=== PATIENT | male | born 1970 | race American Indian/Alaskan Native ===

== ENCOUNTER 2018-01-18 12:53 | Emergency (ER) | payer BC, OTHER ==
[~2018-01-18] VITALS: Ht 175.3 cm; Wt 113.4 kg
--- OUTSIDE RECORDS SUMMARY | ~2018-01-18 | XMS | Encounter Summary ---
Demographics + + + | Address | [address] | | | [place] [address] | + + + | Home Phone | | + + + | Preferred Language | Unknown | + + + | Marital Status | | + + + | Catholic Affiliation | 1041 | + + + | Race | Unknown | + + + | Ethnic Group | Unknown | + + + Author + + + | Author | [facility] | | | and Min | + + + | Organization | [facility] | | | and [place] | + + + | Address | Unknown | + + + | Phone | Unavailable | + + + Support + + + + + | Name | Relationship | Address | Phone | + + + + + | Brittney Goodrich | ECON | [address] | | | | | [place] | | | | | [address] | | + + + + + Care Team Providers + +------+ + | Care Innersole Fitter Name | Role | Phone | + +------+ + | Mars Urrutia DO | PCP | | + +------+ + Encounter Details +--------+ + + + + | Date | Type | Department | Care Team | Description | +--------+ + + + + | 12/16/ | Abstract | [facility] | [facility] | | | 2018 | | [facility] | [place] [address] | | | | | KIDNEY TRANSPLANT | [place] [address], | | | | | [address] [place] | [place] [address] | | | | | [address] | [phone] | | | | | [address] | | | | | | [phone] | | | +--------+ + + + + Social History + +-------+ +--------+ + | Tobacco Use | Types | Packs/Day | Years | Date | | | | | Used | | + +-------+ +--------+ + | Former Smoker | | | | Quit: 11/19/2014 | + +-------+ +--------+ + + +-------+---+---+ | Smokeless Tobacco: | Snuff | | | | Former User | | | | + +-------+---+---+ + + +---------+ + | Alcohol Use | Drinks/We | oz/Week | Comments | | | ek | | | + + +---------+ + | No | | | | + + +---------+ + + + + | Sex Assigned at | Date Recorded | | | | + + + | Not on file | | + + + as of this encounter Functional Status + + + + | Functional Status | Response | Date of Assessment | + + + + | Are you deaf or do you have serious | No | 11/06/2017 | | difficulty hearing? | | | + + + + | Are you blind or do you have serious | No | 11/06/2017 | | difficulty seeing, even when wearing | | | | glasses? | | | + + + + | Do you have serious difficulty walking or | No | 11/06/2017 | | climbing stairs? (5 years old or older) | | | + + + + | Do you have difficulty dressing or bathing? | No | 11/06/2017 | | (5 years old or older) | | | + + + + | Because of a physical, mental, or emotional | No | 11/06/2017 | | condition, do you have difficulty doing | | | | errands alone such as visiting a doctor's | | | | office or shopping? [15 years old or | | | | older)] | | | + + + + + + + + | Cognitive Status | Response | Date of Assessment | + + + + | Because of a physical, mental, or emotional | No | 11/06/2017 | | condition, do you have serious difficulty | | | | concentrating, remembering, or making | | | | decisions? (5 years old or older) | | | + + + + as of this encounter Plan of Treatment +--------+---------+ + + + | Date | Type | Specialty | Care Team | Description | +--------+---------+ + + + | 01/29/ | Office | Nephrology | [place], | | | 2017 | Visit | | [address] | | | | | | [address], [place] | | | | | | [address] [place] | | | | | | [id number] | | | | | | | | +--------+---------+ + + + as of this encounter Visit Diagnoses Not on filein this encounter"
--- OUTSIDE RECORDS SUMMARY | ~2018-01-18 | XMS | Encounter Summary ---
Demographics + + + | Address | [address] | | | [place] [address] | + + + | Home Phone | | + + + | Preferred Language | Unknown | + + + | Marital Status | | + + + | Voodoo Affiliation | 1041 | + + + | Race | Unknown | + + + | Ethnic Group | Unknown | + + + Author + + + | Author | [facility] | | | and Min | + + + | Organization | [facility] | | | and [place] | + + + | Address | Unknown | + + + | Phone | Unavailable | + + + Support + + + + + | Name | Relationship | Address | Phone | + + + + + | Brittney Goodrich | ECON | [address] | | | | | [place] | | | | | [address] | | + + + + + Care Team Providers + +------+ + | Care Vp Cardiovascular Service Line Name | Role | Phone | + +------+ + | Mars Urrutia DO | PCP | | + +------+ + Reason for Visit + + + | Reason | Comments | + + + | Lab Results | | + + + Encounter Details +--------+ + + + + | Date | Type | Department | Care Team | Description | +--------+ + + + + | 11/24/ | Telephone | [facility] | [place], | Lab Results | | 2018 | | NEPHROLOGY [address] | [address] | | | | | [address] [address] | [address], [place] | | | | | [place], [place] | [address] [place], [place] | | | | | [address] | [address] | | | | | [phone] | | | +--------+ + + + [...] | | | | | | [address] [place] [address] | | | | | | [address] [place] | | | | | | [phone] | | | | | | | | +--------+---------+ + + + as of this encounter Visit Diagnoses Not on filein this encounter"
--- OUTSIDE RECORDS SUMMARY | ~2018-01-18 | XMS | Encounter Summary ---
Demographics + + + | Address | [address] | | | [place] [address] | + + + | Home Phone | | + + + | Preferred Language | Unknown | + + + | Marital Status | | + + + | Restoration Affiliation | 1041 | + + + | Race | Unknown | + + + | Ethnic Group | Unknown | + + + Author + + + | Author | [facility] | | | and Min | + + + | Organization | [facility] | | | and [place] | + + + | Address | Unknown | + + + | Phone | Unavailable | + + + Support + + + + + | Name | Relationship | Address | Phone | + + + + + | Brittney Goodrich | ECON | [address] | | | | | [place] | | | | | [address] | | + + + + + Care Team Providers + +------+ + | Care Helper Driver Name | Role | Phone | + +------+ + | Mars Urrutia DO | PCP | | + +------+ + Encounter Details +--------+ + + + + | Date | Type | Department | Care Team | Description | +--------+ + + + + | 11/17/ | Orders Only | [facility] [place] | [place], | Chronic kidney | | 2018 | | NEPHROLOGY [address] | [address] | disease (CKD), stage | | | | [address] [address] | [address], [place] | V (HCC) (Primary | | | | [place], [place] | [address] [place], [place] | Dx); Anemia in stage | | | | [phone] | [address] | 5 chronic kidney | | | | [phone] | | disease, not on | | | | | | chronic dialysis | | | | | | ([facility]) | +--------+ + + + + Social History + +-------+ +--------+------+ | Tobacco Use | Types | Packs/Day | Years | Date | | | | | Used | | + +-------+ +--------+------+ | Never Smoker | | | | | + +-------+ +--------+------+ + +-------+---+---+ | Smokeless Tobacco: | Snuff | | | | Current User | | | | + +-------+---+---+ + + | Comments: Every other week or so | + + + + +---------+ + | Alcohol Use [...] + + + as of this encounter Progress Notes Krystal Wang RN - 11/17/2017 1506 [facility] for upcoming nephrology appointment sent to: [facility] in this encounter Plan of Treatment +--------+---------+ + + + | Date | Type | Specialty | Care Team | Description | +--------+---------+ + + + | 01/29/ | Office | Nephrology | [place], | | | 2017 | Visit | | [address] | | | | | | [facility] | | | | | | [address] [place] | | | | | | [phone] | | | | | | | | +--------+---------+ + + + as of this encounter Visit Diagnoses + + | Diagnosis | + + | Chronic kidney disease (CKD), stage V (HCC) - Primary | + + | Chronic kidney disease, Stage V | + + | 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
--- OUTSIDE RECORDS SUMMARY | ~2018-01-18 | XMS | Encounter Summary ---
Demographics + + + | Address | [address] | | | [place] [address] | + + + | Home Phone | | + + + | Preferred Language | Unknown | + + + | Marital Status | | + + + | Religion Affiliation | 1041 | + + + | Race | Unknown | + + + | Ethnic Group | Unknown | + + + Author + + + | Author | [facility] | | | and Min | + + + | Organization | [facility] | | | and [place] | + + + | Address | Unknown | + + + | Phone | Unavailable | + + + Support + + + + + | Name | Relationship | Address | Phone | + + + + + | Brittney Goodrich | ECON | [address] | | | | | [place] | | | | | [address] | | + + + + + Care Team Providers + +------+ + | Care Trim Master Operator Name | Role | Phone | + +------+ + | Mars Urrutia DO | PCP | | + +------+ + Reason for Visit Auth/Cert +--------+--------+ + + + + | Status | Reason | Specialty | Diagnoses / | Referred By | Referred To | | | | | Procedures | Contact | Contact | +--------+--------+ + + + + | | | | Diagnoses | | | | | | | Chronic | | | | | | | kidney | | | | | | | disease, | | | | | | | stage 5 | | | | | | | (HCC) | | | | | | | Chronic | | | | | | | kidney | | | | | | | disease, | | | | | | | stage 5 | | | | | | | (HCC) | | | | | | | Anemia in | | | | | | | chronic | | | | | | | kidney | | | | | | | disease | | | | | | | Chronic | | | | | | | kidney | | | | | | | disease | | | | | | | (CKD), stage | | | | | | | V (HCC) | | | | | | | (N18.5) | | | | | | | Procedures | | | | | | | MN AV | | | | | | | ANAST,UP ARM | | | | | | | BASILIC | | | | | | | VEIN | | | | | | | TRANSPOSIT | | | | | | | MN | | | | | | | ANASTOMOSIS, | | | | | | | AV,ANY SITE | | | | | | | LEFT | | | | | | | proximal | | | | | | | radial | | | | | | | artery to | | | | | | | transposed | | | | | | | basilic vein | | | | | | | fistula | | | | | | | creation | | | +--------+--------+ + + + + Encounter Details +--------+ + + + + | Date | Type | Department | Care Team | Description | +--------+ + + + + | 11/25/ | Hospital | [facility] | Quirino Quezada | | | 2018 | Encounter | MED CTR OR INTRA OP | MD Nando, FACS [address] | | | | | [address] | [address] [place] | | | | | [place], [place] | [place] [address] | | | | | [address] | [phone] | | | | | [phone] | | | +--------+ + + + [...] + + + as of this encounter Last Filed Vital Signs + + + + | Vital Sign | Reading | Time Taken | + + + + | Blood Pressure | 147/78 | 11/25/2017 1630 PDT | + + + + | Pulse | 86 | 11/25/2017 1645 PDT | + + + + | Temperature | 36.5 C (97.7 F) | 11/25/2017 1459 PDT | + + + + | Respiratory Rate | 18 | 11/25/2017 1524 PDT | + + + + | Oxygen Saturation | 91% | 11/25/2017 1645 PDT | + + + + | Inhaled Oxygen | - | - | | Concentration | | | + + + + | Weight | 113 kg (249 lb 1.9 | 11/25/20173 PDT | | | oz) | | + + + + | Height | 175.3 cm (5' 9") | 11/25/20173 PDT | + + + + | Body Mass Index | 36.79 | 11/25/20173 PDT | + + + + in this encounter Functional Status + + + [...] + + + as of this encounter Discharge Instructions Quirino Quezada MD, FACS - 11/25/2017[facility] POST-OP INSTRUCTIONS: Arterio-Venous Fistula 1. Keep the operative arm clean and dry for 24 hours. Empty drain morning and evening--tw ice per day. 2. Remove bandage in 3-4 days. ( May replace if any wound drainage). 3. NO BP, IV or needles in the arm with the fistula 4. It is helpful to exercise the hand with a squeeze ball. 5. Resume normal activities 6. Resume normal diet. 7. Please call Dr. Quezada's office today or tomorrow for a followup appointment in 1-2 weeks . . in this encounter Medications at Time of Discharge + + + +---------+ + + | Medication | Sig. | Disp. | Refills | Start | End Date | | | | | | Date | | + + + +---------+ + + | | Take 3 mLs by | | | | | | albuterol-ipratropiu | nebulization every 6 | | | | | | m (DUONEB) 2.5-0.5 | hours as needed. | | | | | | mg/3 mL SOLN | | | | | | + + + +---------+ + + | amLODIPine | Take 1 tablet by | 30 | 5 | 12/09/ | | | (NORVASC) 10 MG | mouth Daily. | tablet | | 17 | | | tablet | | | | | | + + + +---------+ + + | Ascorbic Acid 500 | Take 500 mg by mouth | 15 each | 3 | 08/22/19 | | | MG CAPS | Every other day. | | | 18 | | + + + +---------+ + + | b complex-vitamin | Take 1 tablet by | 30 | 11 | 04/29/20 | | | c-folic acid | mouth Daily. | tablet | | 16 | | | (NEPHRO-SAMANTHA) tablet | | | | | | + + + +---------+ + + | carvedilol (COREG) | Take 1 tablet by | 60 | 0 | 11/07/19 | | | 12.5 mg tablet | mouth 2 times daily. | tablet | | 18 | | + + + +---------+ + + | Cholecalciferol | Take 1 capsule by | 30 | 5 | 07/29/19 | | | (VITAMIN D-3) 5000 | mouth Daily. | capsule | | 17 | | | units CAPS | | | | | | + + + +---------+ + + | ferrous sulfate | Take 1 tablet by | 15 | 3 | 08/22/19 | | | 325 mg tablet | mouth Every other | tablet | | 18 | | | | day. | | | | | + + + +---------+ + + | furosemide (LASIX) | Take 2 tablets by | 120 | 3 | 11/18/19 | | | 80 mg tablet | mouth 2 times daily. | tablet | | 18 | | + + + +---------+ + + | glipiZIDE | Take 10 mg by mouth | | | | | | (GLIPIZIDE XL) 10 MG | daily (with | | | | | | 24 hr tablet | breakfast). | | | | | + + + +---------+ + + | losartan (COZAAR) | Take 1 tablet by | 30 | 5 | 12/10/19 | | | 50 mg tablet | mouth Daily. | tablet | | 17 | | + + + +---------+ + + | patiromer | Take 1 diluted | 30 | 2 | 06/30/19 | | | (VELTASSA) 16.8 g | packet by mouth | packet | | 18 | | | packet | Daily. | | | | | + + + +---------+ + + | PROAIR HFA 108 (90 | Take 2 puffs by | | | 10/25/19 | | | Base) MCG/ACT | mouth 4 times daily. | | | 18 | | | inhaler | | | | | | + + + +---------+ + + | rosuvastatin | Take 1 tablet by | 30 | 3 | 12/11/19 | | | (CRESTOR) 20 mg | mouth nightly. | tablet | | 17 | | | tablet | | | | | | + + + +---------+ + + | sevelamer | Take 2 tablets by | 180 | 5 | 11/14/19 | | | carbonate (RENVELA) | mouth 3 times daily | tablet | | 18 | | | 800 mg tablet | (with meals). | | | | | + + + +---------+ + + | sitagliptin | Take 50 mg by mouth | | | | | | (JANUVIA) 50 MG | Daily. 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 | tablet | | 17 | | + + + +---------+ + + | docusate sodium | Take 100 mg by mouth | | | | | | (COLACE) 100 mg | Twice daily as | | | | 8 | | capsule | needed for | | | | | | | Constipation. | | | | | + + + +---------+ + + | | Take 1-2 tablets by | 30 | 0 | 11/26/19 | | | HYDROcodone-acetamin | mouth every 4 hours | tablet | | 18 | 8 | | ophen (NORCO) 5-325 | as needed for Pain. | | | | | | mg per tablet | | | | | | + + + +---------+ + + | levoFLOXacin | Take 750 mg by | | | 11/07/19 | | | (LEVAQUIN) 750 MG | mouth. | | | 18 | 8 | | tablet | | | | | | + + + +---------+ + + | pioglitazone | Take 45 mg by mouth | | | | | | (ACTOS) 45 mg tablet | Daily. | | | | 8 | + + + +---------+ + + | polyethylene | Take 17 g by mouth | | | | | | glycol (MIRALAX) | Daily. | | | | 8 | | powder | | | | | | + + + +---------+ + + as of this encounter Plan of Treatment +--------+---------+ + + + | Date | Type | Specialty | Care Team | Description | +--------+---------+ + + + | 01/29/ | Office | Nephrology | [place], | | | 2017 | Visit | | [address] | | | | | | [address] | | | | | | [address] [place] | | | | | | [address] | | | | | | | | +--------+---------+ + + + as of this encounter Procedures + +--------+ + + + | Procedure Name | Priori | Date/Time | Associated Diagnosis | Comments | | | ty | | | | + +--------+ + + + | POC GLUCOSE | Routin | 11/25/2017 | | Results for this | | | e | 1502 PDT | | procedure are in the | | | | | | results section. | + +--------+ + + + | POC GLUCOSE | Routin | 11/25/2017 | | Results for this | | | e | 1332 PDT | | procedure are in the | | | | | | results section. | + +--------+ + + + | POC GLUCOSE | Routin | 11/25/2017 | | Results for this | | | e | 1224 PDT | | procedure are in the | | | | | | results section. | + +--------+ + + + | INSERTION AV FISTULA | | 11/25/2017 | Chronic kidney | | | | | 1213 PDT | disease (CKD), stage | | | | | | V ([facility]) (N18.5) | | + +--------+ + + + +---+--------+ | | | | | Specia | | | l | | | Needs | | | Field | | | case | | | 3 | +---+--------+ + +--------+ +---+ + | POC BLOOD GASES | Routin | 11/25/2017 | | Results for this | | | e | 1112 PDT | | procedure are in the | | | | | | results section. | + +--------+ +---+ + | PTT | Routin | 11/25/2017 | | Results for this | | | e | 1043 PDT | | procedure are in the | | | | | | results section. | + +--------+ +---+ + | PROTIME INR | Routin | 11/25/2017 | | Results for this | | | e | 1043 PDT | | procedure are in the | | | | | | results section. | + +--------+ +---+ + | CBC WITH | Routin | 11/25/2017 | | Results for this | | DIFFERENTIAL | e | 1043 PDT | | procedure are in the | | | | | | results section. | + +--------+ +---+ + | BASIC METABOLIC | STAT | 11/25/2017 | | Results for this | | PANEL | | 1043 PDT | | procedure are in the | | | | | | results section. | + +--------+ +---+ + in this encounter Results POC Glucose (11/25/2017 1502) + +-------+ + + | Component | Value | Ref Range | Performed At | + +-------+ + + | Glucose, POC | 97 | 70 - 109 mg/dL | [facility] | | | | | [facility] | | | | | CENTER - | | | | | LABORATORY | + +-------+ + + + + | Specimen | + + | Blood | + + + + + + + | Performing | Address | City/State/Zipcode | Phone Number | | Organization | | | | + + + + + | [facility] | [address] | [place] | [phone] | | [facility] | | [address] | | | - LABORATORY | | | | + + + + + | [facility] | [address] | [place] | | | [facility] | | [address] | | | - LABORATORY | | | | + + + + + POC Glucose (11/25/2017 1332) + +-------+ + + | Component | Value | Ref Range | Performed At | + +-------+ + + | Glucose, POC | 89 | 70 - 109 mg/dL | [facility] | | | | | [facility] | | | | | CENTER - | | | | | LABORATORY | + +-------+ + + + + | Specimen | + + | Blood | + + + + + + + | Performing | Address | City/State/Zipcode | Phone Number | | Organization | | | | + + + + + | [facility] | [address] | [place], [place] | [phone] | | [facility] | | [address] | | | - LABORATORY | | | | + + + + + | [facility] | [address] | [place], [place] | | | [facility] | | [address] | | | - LABORATORY | | | | + + + + + POC Glucose (11/25/20171223) + +-------+ + + | Component | Value | Ref Range | Performed At | + +-------+ + + | Glucose, POC | 86 | 70 - 109 mg/dL | [facility] | | | | | [facility] | | | | | CENTER - | | | | | LABORATORY | + +-------+ + + + + | Specimen | + + | Blood | + + + + + + + | Performing | Address | City/State/Zipcode | Phone Number | | Organization | | | | + + + + + | [facility] | [address] | [place] | [phone] | | [facility] | | [address] | | | - LABORATORY | | | | + + + + + | [facility] | [address] | [place] | | | [facility] | | [address] | | | - LABORATORY | | | | + + + + + POC Blood Gases (11/25/20171111) + + + + + | Component | Value | Ref Range | Performed At | + + + + + | Specimen Source | Vein | | [facility] | | | | | [facility] | | | | | CENTER - | | | | | LABORATORY | + + + + + | Chloride, POC | 112 (H) | 98 - 109 mEq/L | [facility] | | | | | [facility] | | | | | CENTER - | | | | | LABORATORY | + + + + + | Potassium, POC | 4.3 | 3.5 - 5.0 mmol/L | [facility] | | | | | [facility] | | | | | CENTER - | | | | | LABORATORY | + + + + + | Ionized Calcium, POC | 4.40 (L) | 4.50 - 5.30 mg/dL | [facility] | | | | | [facility] | | | | | CENTER - | | | | | LABORATORY | + + + + + | Sodium, Venous, POC | 144.00 | 136 - 149 mEq/L | [facility] | | | | | [facility] | | | | | C[facility] - | | | | | LABORATORY | + + + + + + + | Specimen | + + | Blood | + + + + + + + | Performing | Address | City/State/Zipcode | Phone Number | | Organization | | | | + + + + + | [facility] | [address] | [place], [place] | [phone] | | [facility] | | [address] | | | - LABORATORY | | | | + + + + + | [facility] | [address] | [place], [place] | | | [facility] | | [address] | | | - LABORATORY | | | | + + + + + CBC with Differential (11/25/2017 1043) + + + + + | Component | Value | Ref Range | Performed At | + + + + + | WBC | 5.2 | 4.0 - 11.0 K/uL | [facility] | | | | | [facility] | | | | | CENTER - | | | | | LABORATORY | + + + + + | RBC | 4.36 | 4.30 - 5.70 M/uL | [facility] | | | | | [facility] | | | | | C[facility] - | | | | | LABORATORY | + + + + + | Hgb | 11.2 (L) | 13.5 - 18.0 g/dL | [facility] | | | | | [facility] | | | | | CENTER - | | | | | LABORATORY | + + + + + | Hct | 35.0 (L) | 40.0 - 51.0 % | [facility] | | | | | [facility] | | | | | CENTER - | | | | | LABORATORY | + + + + + | MCV | 80.3 (L) | 83.0 - 101.0 fL | [facility] | | | | | [facility] | | | | | CENTER - | | | | | LABORATORY | + + + + + | MCH | 25.8 (L) | 28.0 - 35.0 pg | [facility] | | | | | [facility] | | | | | CENTER - | | | | | LABORATORY | + + + + + | MCHC | 32.1 | 32.0 - 36.0 g/dL | [facility] | | | | | [facility] | | | | | CENTER - | | | | | LABORATORY | + + + + + | RDW-CV | 19.0 (H) | <15.0 % | [facility] | | | | | [facility] | | | | | CENTER - | | | | | LABORATORY | + + + + + | Platelet Count | 139 (L) | 140 - 440 K/uL | [facility] | | | | | [facility] | | | | | CENTER - | | | | | LABORATORY | + + + + + | MPV | 7.4 | fL | [facility] | | | | | [facility] | | | | | CENTER - | | | | | LABORATORY | + + + + + | % Neutrophils | 63.6 | 45.0 - 82.0 % | [facility] | | | | | [facility] | | | | | CENTER - | | | | | LABORATORY | + + + + + | % Lymphocytes | 22.4 | 20.0 - 45.0 % | [facility] | | | | | [facility] | | | | | CENTER - | | | | | LABORATORY | + + + + + | % Monocytes | 8.2 | 4.0 - 12.0 % | [facility] | | | | | [facility] | | | | | C[facility] - | | | | | LABORATORY | + + + + + | % Eosinophils | 4.9 | 0.0 - 5.0 % | [facility] | | | | | [facility] | | | | | CENTER - | | | | | LABORATORY | + + + + + | % Basophils | 0.9 | 0.0 - 1.0 % | [facility] | | | | | [facility] | | | | | C[facility] - | | | | | LABORATORY | + + + + + | Absolute Neutrophils | 3.30 | 1.80 - 8.50 K/uL | [facility] | | | | | [facility] | | | | | C[facility] - | | | | | LABORATORY | + + + + + | Absolute Lymphocytes | 1.20 | 0.60 - 3.20 K/uL | [facility] | | | | | [facility] | | | | | C[facility] - | | | | | LABORATORY | + + + + + | Absolute Monocytes | 0.40 | 0.00 - 1.00 K/uL | [facility] | | | | | [facility] | | | | | C[facility] - | | | | | LABORATORY | + + + + + | Absolute Eosinophils | 0.30 | 0.00 - 0.40 K/uL | [facility] | | | | | [facility] | | | | | C[facility] - | | | | | LABORATORY | + + + + + | Absolute Basophils | 0.00 | 0.00 - 0.10 K/uL | [facility] | | | | | [facility] | | | | | C[facility] - | | | | | LABORATORY | + + + + + + + | Specimen | + + | Blood | + + + + + + + | Performing | Address | City/State/Zipcode | Phone Number | | Organization | | | | + + + + + | [facility] | [address] | [place] | [phone] | | [facility] | | [address] | | | - LABORATORY | | | | + + + + + | [facility] | [address] | [place] | | | [facility] | | [address] | | | - LABORATORY | | | | + + + + + Basic Metabolic Panel (11/25/2017 1043) + + + + + | Component | Value | Ref Range | Performed At | + + + + + | NA | 145 | 136 - 149 mmol/L | [facility] | | | | | [facility] | | | | | C[facility] - | | | | | LABORATORY | + + + + + | K | 4.3 | 3.5 - 5.1 mmol/L | [facility] | | | | | [facility] | | | | | CENTER - | | | | | LABORATORY | + + + + + | CL | 111 (H) | 98 - 109 mmol/L | [facility] | | | | | [facility] | | | | | CENTER - | | | | | LABORATORY | + + + + + | CO2 | 23 (L) | 24 - 31 mmol/L | [facility] | | | | | [facility] | | | | | CENTER - | | | | | LABORATORY | + + + + + | ANION GAP | 11 | 3 - 16 mmol/L | [facility] | | | | | [facility] | | | | | CENTER - | | | | | LABORATORY | + + + + + | GLUCOSE | 105 | 70 - 109 mg/dL | [facility] | | | | | [facility] | | | | | CENTER - | | | | | LABORATORY | + + + + + | BUN | 83 (H) | 7 - 18 mg/dL | [facility] | | | | | [facility] | | | | | CENTER - | | | | | LABORATORY | + + + + + | Creatinine, | 4.85 (H) | 0.60 - 1.30 mg/dL | [facility] | | Serum/Plasma | | | [facility] | | | | | CENTER - | | | | | LABORATORY | + + + + + | eGFR if not | 13 (L)Comment: | >=60 mL/min/1.73m2 | [facility] | | [place] | GLOMERULAR FILTRATION | | [facility] | | | RATE,ESTIMATED mL/min | | CENTER - | | | /1.84l6Mhde than 60 | | LABORATORY | | | Chronic kidney | | | | | disease,if found over a | | | | | 3-month period.Less than | | | | | 15 Kidney | | | | | failureFor | | | | | Americans,multiply the | | | | | calculated GFR by 1.21. | | | | | | | | + + + + + | CALCIUM | 8.1 (L) | 8.3 - 10.5 mg/dL | [facility] | | | | | [facility] | | | | | CENTER - | | | | | LABORATORY | + + + + + | BUN/CREA | 17.1 | | [facility] | | | | | [facility] | | | | | CENTER - | | | | | LABORATORY | + + + + + + + | Specimen | + + | Blood | + + + + + + + | Performing | Address | City/State/Zipcode | Phone Number | | Organization | | | | + + + + + | [facility] | [address] | [place], [place] | [phone] | | [facility] | | [address] | | | - LABORATORY | | | | + + + + + | [facility] | [address] | [place] | | | [facility] | | [address] | | | - LABORATORY | | | | + + + + + PTT (11/25/20171042) + +-------+ + + | Component | Value | Ref Range | Performed At | + +-------+ + + | PTT | 30 | 22 - 36 seconds | [facility] | | | | | [facility] | | | | | CENTER - | | | | | LABORATORY | + +-------+ + + + + | Specimen | + + | Blood | + + + + + + + | Performing | Address | City/State/Zipcode | Phone Number | | Organization | | | | + + + + + | [facility] | [address] | [place] | [phone] | | [facility] | | [address] | | | - LABORATORY | | | | + + + + + | [facility] | [address] | [place] | | | [facility] | | [address] | | | - LABORATORY | | | | + + + + + Protime INR (11/25/2017 1043) + + + + + | Component | Value | Ref Range | Performed At | + + + + + | Protime | 13.4 | 11.3 - 13.9 seconds | [facility] | | | | | [facility] | | | | | CENTER - | | | | | LABORATORY | + + + + + | INR | 1.03Comment: Usual Oral | 0.90 - 1.10 | [facility] | | | Anticoagulation | | [facility] | | | Range: 2.0 - | | CENTER - | | | 3.0High Level Oral | | LABORATORY | | | Anticoagulation Range: | | | | | 2.5 - 3.5 | | | + + + + + + + | Specimen | + + | Blood | + + + + + + + | Performing | Address | City/State/Zipcode | Phone Number | | Organization | | | | + + + + + | [facility] | [address] | [place] | [phone] | | [facility] | | [address] | | | - LABORATORY | | | | + + + + + | [facility] | [address] | [place], [place] | | | [facility] | | [address] | | | - LABORATORY | | | | + + + + + in this encounter Visit Diagnoses Not on filein this encounter Admitting Diagnoses + + | Diagnosis | + + | Chronic kidney disease, stage 5 (HCC) - Chronic kidney disease (CKD), stage V (HCC) | | (N18.5) | + + | Chronic kidney disease, stage 5 | + + | Chronic kidney disease, stage 5 (HCC) | + + | Chronic kidney disease, stage 5 | + + | Anemia in chronic kidney disease | + + Administered Medications + +--------+ + +------+------+ | Medication Order | MAR | Action | Dose | Rate | Site | | | Action | Date | | | | + +--------+ + +------+------+ | acetaminophen (TYLENOL) tablet | Given | | 1,000 mg | | | | 1,000 mg 1,000 mg, Oral, ONCE, | | 8 10:58 | | | | | 11/25/17 at 1100, For 1 dose, | | PDT | | | | | Pre-op | | | | | | + +--------+ + +------+------+ + +---+ | | | + +---+ | albuterol 2.5 mg/3 mL nebulizer | | | solution 2.5 mg 2.5 mg, | | | Nebulization, ONCE PRN, Wheezing, | | | Starting 11/25/17 at 1042, | | | For 1 dose, RT will administer. | | + +---+ | | | + +---+ | albuterol-ipratropium (DUONEB) | | | 2.5-0.5 mg/3 mL nebulizer | | | solution 3 mL 3 mL, | | | Nebulization, ONCE PRN, Wheezing, | | | Shortness of Breath, Starting | | | 11/25/17 at 1433, For 1 dose, | | | Recovery/Phase I | | + +---+ | | | + +---+ | dextrose 50% injection 12.5-25 | | | g 12.5-25 g, Intravenous, EVERY | | | 15 MIN PRN, Low Blood Sugar, Give | | | 12.5g (25 mL) IV if blood | | | glucose 50-69 mg/dL. Give 25g | | | (50 mL) IV if blood glucose < 50, | | | Starting 11/25/17 at 1042, | | | Repeat in 15 min if blood glucose | | | remains < 70 mg/dL. Repeat | | | blood glucose in 30 min once | | | blood glucose > 70. | | + +---+ | | | + +---+ | dextrose 50% injection 12.5-25 | | | g 12.5-25 g, Intravenous, EVERY | | | 15 MIN PRN, Low Blood Sugar, For | | | hypoglycemia. Give 12.5g (25ml) | | | IV if blood glucose 50-69 | | | mg/dL. Give 25g (50ml) IV if | | | blood glucose < 50, Starting Tue | | | 11/25/17 at 1500, Give over 2 min. | | | Repeat in 15 min if blood | | | glucose remains < 70 mg/dL. | | | Repeat blood glucose in 30 min | | | once blood glucose > 70. | | + +---+ | | | + +---+ | fentaNYL (PF) injection 25 mcg | | | 25 mcg, Intravenous, EVERY 5 MIN | | | PRN, Pain, Starting Fri11/25/17 | | | at 1433, Maximum total dose 200 | | | mcg. PACU IV Narcotic Priority: | | | Only use fentanyl for immediate | | | post-op pain (one dose) or | | | breakthrough pain when any other | | | IV narcotics ordered have been | | | ineffective (if ordered). If | | | both morphine and hydromorphone | | | are ordered, use morphine first, | | | and use hydromorphone if morphine | | | ineffective. | | + +---+ | | | + +---+ | hydrALAZINE (APRESOLINE) | | | injection 5 mg 5 mg, | | | Intravenous, EVERY 20 MINUTES | | | PRN, For SBP > 180, DBP > 100, | | | Starting Fri11/25/17 at 1500, | | | Hold if HR > 100. Maximum total | | | dose 40 mg. Use labetalol first | | | if available. | | + +---+ | | | + +---+ | HYDROmorphone (DILAUDID) | | | injection 0.2-0.5 mg 0.2-0.5 mg, | | | Intravenous, EVERY 10 MIN PRN, | | | Pain, Starting 11/25/17 at | | | 1433, Maximum total dose 4 mg. | | | PACU IV Narcotic Priority: Only | | | use fentanyl for immediate | | | post-op pain (one dose) or | | | breakthrough pain when any other | | | IV narcotics ordered have been | | | ineffective (if ordered). If | | | both morphine and hydromorphone | | | are ordered, use morphine first, | | | and use hydromorphone if morphine | | | ineffective. | | + +---+ | | | + +---+ | insulin lispro (humaLOG | | | KWIKPEN) 100 units/mL injection | | | (pen) 0-12 Units 0-12 Units, | | | Subcutaneous, PRN, Give every 2 | | | hours as needed, Starting Tue | | | 11/25/17 at 1500, CORRECTION | | | INSULIN FSBG less than 70 = | | | Follow dextrose 50% order | | | 71 - 150 = no | | | insulin 151 - | | | 200 = 2 units | | | 201 - 250 = 4 units | | | 251 - 300 = 6 units | | | 301 - 350 = 8 units | | | 351 - 400 = 10 | | | units greater than 400 = | | | 12 units | | + +---+ | | | + +---+ | labetalol (TRANDATE) 5 mg/mL | | | injection 5 mg 5 mg, | | | Intravenous, EVERY 5 MIN PRN, For | | | SBP > 170, DBP > 90, Starting | | | 11/25/17 at 1500, Hold if HR < | | | 60. Maximum total dose 40mg. | | | Notify anesthesia if patient | | | requires more than 40mg. | | + +---+ | | | + +---+ | metoclopramide (REGLAN) 5 mg/mL | | | injection 10 mg 10 mg, | | | Intravenous, ONCE PRN, Nausea, | | | Vomiting, Starting 11/25/17 at | | | 1433, For 1 dose, Protect from | | | light. | | + +---+ | | | + +---+ | ondansetron (ZOFRAN ODT) | | | disintegrating tablet 4 mg 4 mg, | | | Oral, EVERY 6 HOURS PRN, Nausea, | | | Vomiting, Starting 11/25/17 | | | at 1529, First line agent | | + +---+ | | | + +---+ + +-------+ +------+---+---+ | ondansetron (ZOFRAN ODT) | Given | | 8 mg | | | | disintegrating tablet 8 mg 8 mg, | | 8 11:01 | | | | | Oral, ONCE, Fri11/25/17 at 1100, | | PDT | | | | | For 1 dose, Pre-op | | | | | | + +-------+ +------+---+---+ + +---+ | | | + +---+ | ondansetron (ZOFRAN) injection | | | 4 mg 4 mg, Intravenous, ONCE | | | PRN, Nausea, Starting Fri11/25/17 | | | at 1433, For 1 dose, | | | Recovery/Phase I | | + +---+ | | | + +---+ | ondansetron (ZOFRAN) injection | | | 4 mg 4 mg, Intravenous, EVERY 6 | | | HOURS PRN, Nausea, Vomiting, | | | Starting Fri11/25/17 at 1529, | | | First line agent. Use PO option | | | unless NPO status or unable to | | | tolerate. | | + +---+ | | | + +---+ | scopolamine (TRANSDERM-SCOP) 1 | | | mg/3 days 1 patch 1 patch, | | | Transdermal, ONCE PRN, For | | | history of PONV. Need not | | | apply if h/o PONV is remote and | | | has likely been resolved with | | | modern anesthetics or | | | ondansetron. Also, please do not | | | administer to patients >65 year | | | of age without phone consult with | | | anesthesiologist., Starting Tue | | | 11/25/17 at 1042, For 1 dose, | | | Apply to mastoid process | | + +---+ | | | + +---+ + +---------+ +---+ +---+ | sodium chloride 0.9% (NS) | New Bag | | | 25 mL/hr | | | infusion at 10-100 mL/hr, | | 8 10:56 | | | | | Intravenous, CONTINUOUS, Starting | | PDT | | | | | 11/25/17 at 1100, TKO. Use | | | | | | | this instead of LR if both are | | | | | | | ordered. | | | | | | + +---------+ +---+ +---+ +---------+ +---+---+---+ | New Bag | | | | | | | 8 11:57 | | | | | | PDT | | | | +---------+ +---+---+---+ | New Bag | | | | | | | 8 13:27 | | | | | | PDT | | | | +---------+ +---+---+---+ +---+---+ | | | +---+---+ in this encounter
--- OUTSIDE RECORDS SUMMARY | ~2018-01-18 | XMS | Clinical Summary ---
Demographics + + + | Address | [address] | | | [place] [address] | + + + | Home Phone | | + + + | Preferred Language | Unknown | + + + | Marital Status | | + + + | Hinduism Affiliation | 1041 | + + + | Race | Unknown | + + + | Ethnic Group | Unknown | + + + Author + + + | Author | [facility] | | | and Min | + + + | Organization | [facility] | | | and Koryana | + + + | Address | Unknown | + + + | Phone | Unavailable | + + + Support + + + + + | Name | Relationship | Address | Phone | + + + + + | Brittney Goodrich | ECON | [address] | | | | | [place] | | | | | [phone] | | + + + + + Care Team Providers + +------+ + | Care [employer] Logistics 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 | Disp. | Refills | Star | End | Statu | | | | | | t | Date | s | | | | | | Date | | | + + + +---------+------+------+-------+ | glipiZIDE | Take 10 mg by mouth | | | | | Activ | | (GLIPIZIDE XL) 10 MG | daily (with | | | | | e | | 24 hr tablet | breakfast). | | | | | | + + + +---------+------+------+-------+ | sitagliptin | Take 50 mg by mouth | | | | | Activ | | (JANUVIA) 50 MG | Daily. | | | | | e | | tabletIndications: | | | | | | | | Type 2 diabetes | | | | | | | | mellitus with | | | | | | | | diabetic nephropathy | | | | | | | | (HCC) | | | | | | | + + + +---------+------+------+-------+ | b complex-vitamin | Take 1 tablet by | 30 | 11 | 11/2 | | Activ | | c-folic acid | mouth Daily. | tablet | | 820 | | e | | (NEPHRO-SAMANTHA) tablet | | | | 16 | | | + + + +---------+------+------+-------+ | sodium bicarbonate | Take 1 tablet by | 60 | 5 | 02/2 | | Activ | | 650 mg tablet | mouth 2 times daily. | tablet | | 12/19 | | e | | | | | | 17 | | | + + + +---------+------+------+-------+ | Cholecalciferol | Take 1 capsule by | 30 | 5 | 02/2 | | Activ | | (VITAMIN D-3) 5000 | mouth Daily. | capsule | | 7/20 | | e | | units CAPS | | | | 17 | | | + + + +---------+------+------+-------+ | losartan (COZAAR) | Take 1 tablet by | 30 | 5 | 07/1 | | Activ | | 50 mg tablet | mouth Daily. | tablet | | 0/20 | | e | | | | | | 17 | | | + + + +---------+------+------+-------+ | amLODIPine | Take 1 tablet by | 30 | 5 | 07/1 | | Activ | | (NORVASC) 10 MG | mouth Daily. | tablet | | 0/20 | | e | | tablet | | | | 17 | | | + + + +---------+------+------+-------+ | rosuvastatin | Take 1 tablet by | 30 | 3 | 07/ | | Activ | | (CRESTOR) 20 mg | mouth nightly. | tablet | | 06/21 | | e | | tablet | | | | 17 | | | + + + +---------+------+------+-------+ | patiromer | Take 1 diluted | 30 | 2 | / | | Activ | | (VELTASSA) 16.8 g | packet by mouth | packet | | 02/19 | | e | | packet | Daily. | | | 18 | | | + + + +---------+------+------+-------+ | ferrous sulfate | Take 1 tablet by | 15 | 3 | 03/2 | | Activ | | 325 mg tablet | mouth Every other | tablet | | 07/22 | | e | | | day. | | | 18 | | | + + + +---------+------+------+-------+ | Ascorbic Acid 500 | Take 500 mg by mouth | 15 each | 3 | 03/2 | | Activ | | MG CAPS | Every other day. | | | 2/20 | | e | | | | | | 18 | | | + + + +---------+------+------+-------+ | carvedilol (COREG) | Take 1 tablet by | 60 | 0 | 06/0 | | Activ | | 12.5 mg tablet | mouth 2 times daily. | tablet | | 12/19 | | e | | | | | | 18 | | | + + + +---------+------+------+-------+ | sevelamer | Take 2 tablets by | 180 | 5 | 06/1 | | Activ | | carbonate (RENVELA) | mouth 3 times daily | tablet | | 09/19 | | e | | 800 mg tablet | (with meals). | | | 18 | | | + + + +---------+------+------+-------+ | furosemide (LASIX) | Take 2 tablets by | 120 | 3 | 06/1 | | Activ | | 80 mg tablet | mouth 2 times daily. | tablet | | 820 | | e | | | | | | 18 | | | + + + +---------+------+------+-------+ | PROAIR HFA 108 (90 | Take 2 puffs by | | | 05/2 | | Activ | | Base) MCG/ACT | mouth 4 times daily. | | | 520 | | e | | inhaler | | | | 18 | | | + + + +---------+------+------+-------+ | | Take 3 mLs by | | | | | Activ | | albuterol-ipratropiu | nebulization every 6 | | | | | e | | m (DUONEB) 2.5-0.5 | hours as needed. | | | | | | | mg/3 mL SOLN | | | | | | | + + + +---------+------+------+-------+ | raNITIdine | | | | 07/1 | | Activ | | (ZANTAC) 150 mg | | | | 1/20 | | e | | tabletIndications: | | | | 18 | | | | Chronic kidney | | | | | | | | disease (CKD), stage | | | | | | | | V (HCC) | | | | | | | + + + +---------+------+------+-------+ | sucroferric | Take 1 tablet by | 60 | 0 | 11/30 | | Activ | | oxyhydroxide | mouth 3 times daily | tablet | | 11/19 | | e | | (VELPHORO) 500 mg | (with meals). | | | 18 | | | | chewable | | | | | | | | tabletIndications: | | | | | | | | Chronic kidney | | | | | | | | disease (CKD), stage | | | | | | | | V ([facility]) | | | | | | | + + + +---------+------+------+-------+ Active Problems + + + | Problem | Noted Date | + + + | Awaiting transplantation of kidney | 12/15/2017 | + + + + + | Overview: 12/16/17-Referred to [facility] kidney transplant. | + + + + + | Hypertension, renal disease, stage 5 chronic kidney disease or | 11/14/2017 | | end stage renal disease (HCC) | | + + + | Anemia in CKD (chronic kidney disease) | 07/30/2016 | + + + | Chronic kidney disease (CKD), stage V (HCC) | 07/30/2016 | + + + + + | Overview: Likely diabetic nephropathy, with congenital | | solitary right kidney, nephrotic range proteinuria. SPEP/UPEP | | 04/27/13: negative for monoclonal gammopathy. | + + + + + | Hyperkalemia | 02/19/2016 | + + + | Secondary hyperparathyroidism (HCC) | 02/23/2015 | + + + | Other chest pain | 06/15/2014 | + + + | Dyspnea on exertion | 06/15/2014 | + + + | Nephrotic syndrome | 05/19/2012 | + + + | Incomplete bladder emptying | 05/19/2012 | + + + + + | Overview: Patient has seen urology in the past. NO | | hydronephrosis at this point. Discussed risks if this should | | worsen. Recommend reestablishing with urology. Pt not interested | | at this point (2015). | + + + + + | Vitamin D deficiency | 05/19/2012 | + + + | Solitary kidney, congenital | 05/19/2012 | + + + | Hyperlipidemia | 05/19/2012 | + + + | Hypertension | | + + + | Type II diabetes mellitus with renal manifestations (HCC) | | + + + Encounters +--------+ + + + + | Date | Type | Specialty | Care Team | Description | +--------+ + + + + | 12/29/ | Office | | Robb, | Chronic kidney | | 2018 | Visit | | ARIANA Damon | disease (CKD), stage | | | | | Quirino Quezada I, | Tony ([facility]) (Primary | | | | | MD, FACS | Dx); Post-operative | | | | | | state | +--------+ + + + + | 12/25/ | Orders Only | | Robb, | Chronic kidney | | 2017 | | | ARIANA Damon | disease (CKD), stage | | | | | | V ([facility]) (Primary | | | | | | Dx); Anemia in stage | | | | | | 5 chronic kidney | | | | | | disease, not on | | | | | | chronic dialysis | | | | | | ([facility]) | +--------+ + + + + | 12/18/ | Telephone | | Robb, | Other | | 2017 | | | ARIANA Damon | | +--------+ + + + + | 12/17/ | Telephone | | Tim Gracia | Kidney Transplant | | 2017 | | | MD Nj | Evaluation | +--------+ + + + + | 12/16/ | Abstract | | Tim Gracia | | 2017 | | | H, MD | | +--------+ + + + + | 12/15/ | Office | | Robb, | Chronic kidney | | 2017 | Visit | | ARIANA Damon | disease (CKD), stage | | | | | | V ([facility]) (Primary | | | | | | Dx); Nephrotic | | | | | | syndrome; | | | | | | Hypertension, renal | | | | | | disease, stage 5 | | | | | | chronic kidney | | | | | | disease or end stage | | | | | | renal disease | | | | | | ([facility]); Type 2 | | | | | | diabetes mellitus | | | | | | with stage 5 chronic | | | | | | kidney disease not | | | | | | on chronic dialysis, | | | | | | without long-term | | | | | | current use of | | | | | | insulin ([facility]); | | | | | | Secondary | | | | | | hyperparathyroidism | | | | | | ([facility]); Anemia in | | | | | | stage 5 chronic | | | | | | kidney disease, not | | | | | | on chronic dialysis | | | | | | ([facility]) | +--------+ + + + + | 12/09/ | Abstract | | Robb, | | | 2017 | | | ARIANA Damon | | +--------+ + + + + | 12/08/ | Hospital | | Facsindi, | Anemia in stage 5 | | 2017 | Encounter | | ARIANA Damon | chronic kidney | | | | | | disease, not on | | | | | | chronic dialysis | | | | | | ([facility]); Chronic | | | | | | kidney disease | | | | | | (CKD), stage V ([facility]) | +--------+ + + + + | 12/01/ | Office | | Factreythall, | Chronic kidney | | 2018 | Visit | | ARIANA Damon | disease (CKD), stage | | | | | Quirino Quezada I, | V ([facility]) (Primary | | | | | MD, FACS | Dx); Post-operative | | | | | | state | +--------+ + + + + | 12/01/ | Hospital | | Fackenthall, | Anemia in stage 5 | | 2017 | Encounter | | ARIANA Damon | chronic kidney | | | | | | disease, not on | | | | | | chronic dialysis | | | | | | ([facility]); Chronic | | | | | | kidney disease | | | | | | (CKD), stage V ([facility]) | +--------+ + + + + | 11/27/ | Hospital | | Fackenth[place], | Anemia in stage 5 | | 2018 | Encounter | | ARIANA Damon | chronic kidney | | | | | | disease, not on | | | | | | chronic dialysis | | | | | | (HCC); Chronic | | | | | | kidney disease | | | | | | (CKD), stage V ([facility]) | +--------+ + + + + | 11/25/ | Hospital | | Quirino Quezada | | | 2017 | Encounter | | IMD FACS | | +--------+ + + + + | 11/25/ | Procedure | | | | | 2018 | Pass | | | | +--------+ + + + + | 11/25/ | Surgery | | Quirino Quezada | LEFT proximal radial | | 2017 | | | I, MD FACS | artery to | | | | | | transposed basilic | | | | | | vein fistula | | | | | | creation | +--------+ + + + + | 11/24/ | Anesthesia | | Konrad Jeffery, | | | 2017 | Event | | MD | | +--------+ + + + + | 11/24/ | Telephone | | Robb, | Lab Results | | 2017 | | | ARIANA Damon | | +--------+ + + + + | 11/24/ | Episode | | Damari Jacinto RN | | | 2017 | Changes | | | | +--------+ + + + + | 11/21/ | Abstract | | Robb, | | | 2017 | | | ARIANA Damon | | +--------+ + + + + | 11/21/ | Telephone | | Rachna Mosher, | Other | | 2017 | | | | | +--------+ + + + + | 11/19/ | Hospital | | Robb, | Anemia in stage 5 | | 2018 | Encounter | | ARIANA Damon | chronic kidney | | | | | | disease, not on | | | | | | chronic dialysis | | | | | | ([facility]); Chronic | | | | | | kidney disease | | | | | | (CKD), stage V ([facility]) | +--------+ + + + | 11/19/ | Office | | Robb, | Chronic kidney | | 2018 | Visit | | ARIANA Damon | disease (CKD), stage | | | | | Quirino Quezada I, | V ([facility]) (Primary | | | | | , FACS | Dx); Anemia in stage | | | | | | 5 chronic kidney | | | | | | disease, not on | | | | | | chronic dialysis | | | | | | ([facility]) | +--------+ + + + + | 11/18/ | Abstract | | Provider, | | | 2018 | | | MD Pavan | | +--------+ + + + + | 11/17/ | Orders Only | | Robb, | Chronic kidney | | 2017 | | | ARIANA Damon | disease (CKD), stage | | | | | | V ([facility]) (Primary | | | | | | Dx); Anemia in stage | | | | | | 5 chronic kidney | | | | | | disease, not on | | | | | | chronic dialysis | | | | | | ([facility]) | +--------+ + + + + | 11/17/ | Telephone | | Robb, | Weight Check | | 2017 | | | ARIANA Damon | | +--------+ + + + + | 11/14/ | Telephone | | Robb, | Weight Check | | 2017 | | | ARIANA Damon | | +--------+ + + + + | 11/14/ | Orders Only | | Fackenthall, | Chronic kidney | | 2018 | | | SINAI DamonP | disease, stage V | | | | | | ([facility]) (Primary Dx); | | | | | | Anemia in stage 5 | | | | | | chronic kidney | | | | | | disease, not on | | | | | | chronic dialysis | | | | | | (HCC) | +--------+ + + + + | 11/13/ | Office | | Sorenthall, | Chronic kidney | | 2018 | Visit | | ARIANA Damon | disease (CKD), stage | | | | | | V ([facility]) (Primary | | | | | | Dx); Secondary | | | | | | hyperparathyroidism | | | | | | ([facility]); Type 2 | | | | | | diabetes mellitus | | | | | | with stage 5 chronic | | | | | | kidney disease not | | | | | | on chronic dialysis, | | | | | | without long-term | | | | | | current use of | | | | | | insulin ([facility]); | | | | | | Nephrotic syndrome; | | | | | | Anemia in stage 5 | | | | | | chronic kidney | | | | | | disease, not on | | | | | | chronic dialysis | | | | | | (HCC); Hypertension, | | | | | | renal disease, | | | | | | stage 5 chronic | | | | | | kidney disease or | | | | | | end stage renal | | | | | | disease (HCC) | +--------+ + + + + | 11/12/ | Abstract | | Robb, | | | 2018 | | | ARIANA Damon | | +--------+ + + + + | 11/10/ | Abstract | | Robb, | Chronic kidney | | 2018 | | | ARIANA Damon | disease, stage IV | | | | | | (severe) (HCC) | | | | | | (Primary Dx); Anemia | | | | | | in stage 4 chronic | | | | | | kidney disease (HCC) | +--------+ + + + + | 11/07/ | Telephone | | Rafael Grady, | Hospital Follow-up | | 2018 | | | RPH | | +--------+ + + + + | 11/03/ | Hospital | | Estuardo Fajardo, | Pneumonia due to | | 2018 - | Encounter | | Nolan Eller | infectious organism, | | | | | MD Dafne | unspecified | | 11/06/ | | | | laterality, | | 2018 | | | | unspecified part of | | | | | | lung (Primary Dx); | | | | | | Anemia in stage 4 | | | | | | chronic kidney | | | | | | disease (HCC); | | | | | | Dyspnea on exertion; | | | | | | Essential | | | | | | hypertension; | | | | | | Dyspnea and | | | | | | respiratory | | | | | | abnormalities; | | | | | | Chronic kidney | | | | | | disease, stage IV | | | | | | (severe) (HCC); | | | | | | Nephrotic syndrome | +--------+ + + + + +---+ + | | Discharge | | | Summaries | | | - Yamilka, | | | MD Lb | | | - | | | 11/06/2017 | | | 1005 PDT | | | Formatting | | | of this | | | note may be | | | different | | | from the | | | original.[facility] [place] | | | DISCHARGE | | | SUMMARYPt. | | | Name/Age/DO | | | B: Tyrese | | | Rafael Gone | | | Jr. 47 | | | y.o. | | | 1970 | | | | | | Medical | | | Record | | | Number: | | | | | | [id number] | | | Date of | | | Admission: | | | 11/03/2017 | | | Date | | | of | | | Discharge: | | | | | | 11/06/2017Adm | | | itting | | | Physician: | | | Nolan Leos | | | MD Karlos | | | | | | Primary | | | Care | | | Provider: | | | Mars | | | Quaempenrico, | | | DODischargi | | | ng | | | Physician: | | | Lb | | | Bernice Prather | Bernice CARBAJAL | | | DISCHARGE | | | DIAGNOSES: | | | Acute | | | hypoxic | | | respiratory | | | failure | | | possibly | | | 2/2 to | | | volume | | | overload in | | | setting of | | | CKD/Acute | | | on Chronic | | | Diastolic | | | heart | | | failure +/ | | | - | | | CAPDISCHARG | | | E | | | MEDICATIONS | | | : | | | Discharge | | | Medications | | | New | | | Medications | | | Details | | | | | | levoFLOXaci | | | n 750 MG | | | tablet Take | | | 1 tablet | | | by mouth | | | Every other | | | day for 3 | | | days. | | | Indications | | | : Community | | | Acquired | | | Pneumoniaak | | | a: | | | LEVAQUINSta | | | rt: | | | 11/08/2017 | | | Changed | | | Medications | | | Details | | | carvedilol | | | 12.5 mg | | | tablet Take | | | 1 tablet | | | by mouth 2 | | | times | | | daily.What | | | changed: | | | medication | | | strength | | | how much to | | | takeaka: | | | COREG | | | furosemide | | | 80 mg | | | tablet Take | | | 1 tablet | | | by mouth 2 | | | times | | | daily.What | | | changed: | | | how much to | | | take how | | | to take | | | this when | | | to take | | | this | | | additional | | | instruction | | | louann: | | | LASIX | | | Unchanged | | | Medications | | | Details | | | albuterol | | | 90 mcg/puff | | | inhaler | | | Inhale 2 | | | puffs into | | | the lungs 4 | | | times | | | daily as | | | needed for | | | Wheezing. | | | amLODIPine | | | 10 MG | | | tablet Take | | | 1 tablet | | | by mouth | | | Daily.aka: | | | NORVASC | | | Ascorbic | | | Acid 500 MG | | | Caps Take | | | 500 mg by | | | mouth Every | | | other day. | | | b | | | complex-vit | | | sutherland | | | c-folic | | | acid tablet | | | Take 1 | | | tablet by | | | mouth | | | Daily. | | | Cholecalcif | | | bertha 5000 | | | units Caps | | | Take 1 | | | capsule by | | | mouth | | | Daily.aka: | | | VITAMIN | | | D-3 ferrous | | | sulfate | | | 325 mg | | | tablet Take | | | 1 tablet | | | by mouth | | | Every other | | | day. | | | GLIPIZIDE | | | XL 10 mg ER | | | | | | tabletGener | | | ic drug: | | | glipiZIDE | | | Take 10 mg | | | by mouth | | | daily (with | | | | | | breakfast). | | | losartan | | | 50 mg | | | tablet Take | | | 1 tablet | | | by mouth | | | Daily.aka: | | | COZAAR | | | patiromer | | | 16.8 g | | | packet Take | | | 1 diluted | | | packet by | | | mouth | | | Daily.aka: | | | VELTASSA | | | pioglitazon | | | e 45 mg | | | tablet Take | | | 45 mg by | | | mouth | | | Daily.aka: | | | ACTOS | | | rosuvastati | | | n 20 mg | | | tablet Take | | | 1 tablet | | | by mouth | | | nightly.aka | | | : CRESTOR | | | sevelamer | | | carbonate | | | 800 mg | | | tablet Take | | | 1 tablet | | | by mouth 3 | | | times daily | | | (with | | | meals).aka: | | | RENVELA | | | SITagliptin | | | 50 MG | | | tablet Take | | | 50 mg by | | | mouth | | | Daily.aka: | | | JANUVIA | | | sodium | | | bicarbonate | | | 650 mg | | | tablet Take | | | 1 tablet | | | by mouth 2 | | | times | | | daily. | | | HOSPITAL | | | COURSE: | | | Please | | | refer to | | | the H&P for | | | full | | | details and | | | the most | | | recent | | | rounding | | | rounding | | | (progress) | | | note.Acute | | | hypoxic | | | respiratory | | | failure | | | possibly | | | 2/2 to | | | volume | | | overload in | | | setting of | | | CKD/Acute | | | on Chronic | | | Diastolic | | | heart | | | failure +/ | | | - | | | CAPPatient | | | presented | | | with | | | worsening | | | shortness | | | of breath | | | and LE | | | edema. Cr | | | 3.9 on | | | admission. | | | CT chest | | | showed | | | subjective | | | cardiomegal | | | y with | | | small | | | pericardial | | | effusion, | | | bandlike | | | basilar | | | opacities, | | | tiny | | | clusters in | | | R middle | | | lobe. BNP | | | 257, procal | | | <0.05, | | | trop x 1 | | | 0.03. TTE | | | 6/5 EF | | | 65-70%, | | | G2DD, IVC | | | dilated | | | with normal | | | collapse. | | | 6/4 Bld | | | cultures | | | NGTD. | | | Patient was | | | given | | | intravenous | | | lasix and | | | gradually | | | symptoms | | | improved. | | | He was | | | given | | | levofloxaci | | | n every | | | other day. | | | The patient | | | was | | | discharged | | | with an | | | adjustment | | | to his | | | lasix, an | | | appointment | | | with | | | nephrology | | | and a | | | script for | | | follow up | | | BMP.Most | | | recent | | | weight: | | | Input and | | | output for | | | last 24hrs: | | | Wt | | | Readings | | | from Last 1 | | | | | | Encounters: | | | 06/07/18 | | | 106 kg (233 | | | lb 11 oz) | | | I/O last | | | 24 | | | Hours:In: | | | 1384 | | | [P.O.:1384] | | | Out: 2300 | | | [Urine:2300 | | | ] Vitals | | | Ranges:Temp | | | : [36.2 | | | C (97.2 | | | F)-36.6 | | | C (97.9 | | | F)] 36.2 | | | C (97.2 | | | F)Pulse: | | | [78-85] | | | 85Resp: | | | [16-20] | | | 18BP: | | | (130-142)/( | | | 76-90) | | | 130/76Vital | | | s:Temp: | | | 36.2 C | | | (97.2 F) | | | BP: | | | 130/76 | | | Pulse: | | | 85 | | | Resp: 18 | | | SpO2: 95 | | | %SpO2 95 % | | | on room air | | | at flow | | | rate | | | L/minPHYSIC | | | AL EXAM: | | | Patient | | | seen and | | | examined by | | | me on | | | discharge | | | day | | | PROCEDURES | | | AND | | | CONSULTS: | | | Procedures | | | NoneConsult | | | s | | | NephrologyP | | | ENDING | | | RESULTS: | | | DISPOSITION | | | AND | | | DISCHARGE | | | INSTRUCTION | | | S: | | | Follow-up | | | Information | | | Mars | | | Quaempts, | | | DO In 1 | | | week. | | | Specialty: | | | Family | | | MedicineCon | | | tact | | | information | | | [phone] | | | [place] | | | D | | | [address] | | | n [place] | | | [phone] | | [phone] | | | Chelane R. | | | [place] | | | , ASSISTANT ANALYST In 1 | | | week. | | | Specialty: | | | Nurse | | | Practitione | | | rWhy: Appt | | | Contact | | | information | | | :[address] | | [address], | | | [place] | | | [address] | | | [place] | | | [phone] | | | [phone] | | | Please | | | follow up. | | | Why: Appt | | | made for | | | 11/10/17 | | | 8:30am | | | Condition: | | | Patient | | | being | | | discharged | | | with | | | condition | | | improvedDie | | | t: | | | RenalLess | | | than 30 | | | minutes | | | were spent | | | on | | | discharge | | | and | | | coordinatio | | | n of | | | post-hospit | | | al | | | care.Electr | | | onically | | | signed by: | | | Lb | | | Meillier, | | | MD, | | | 11/06/2017 | | | 10:05 | | | [facility] | | | [facility] | | | [facility] | | | CenterPorti | | | ons of this | | | chart may | | | have been | | | created | | | with Dragon | | | voice | | | recognition | | | software. | | | Occasional | | | wrong-word | | | or | | | | | | sound-alike | | | | | | | | | substitutio | | | ns may have | | | occurred | | | due to the | | | inherent | | | limitations | | | of voice | | | recognition | | | software. | | | Please read | | | the chart | | | carefully | | | and | | | recognize, | | | using | | | context, | | | where these | | | | | | substitutio | | | ns have | | | occurred | +---+ + +--------+ +---+ + + | 10/30/ | Orders Only | | Fackenthall, | Chronic kidney | | 2018 | | | ARIANA Damon | disease, stage IV | | | | | | (severe) (HCC) | | | | | | (Primary Dx); Anemia | | | | | | in stage 4 chronic | | | | | | kidney disease | | | | | | (HCC); Type 2 | | | | | | diabetes mellitus | | | | | | with stage 4 chronic | | | | | | kidney disease, | | | | | | without long-term | | | | | | current use of | | | | | | insulin (HCC) | +--------+ +---+ + + from Last 3 Months Immunizations + + + + | Name | Dates Previously Given | Next Due | + + + + | HEP B, 3 DOSE | 07/28/2012, 04/20/2012, 03/13/2012 | | | (ADULT) | | | + + + + | INFLUENZA PF 4Y OR | 04/02/2017 | | | >,QUAD DERIVED FROM | | | | TISS-CULT | | | + + + + | INFLUENZA PF | 03/29/2016, 04/06/2015 | | | QUAD(PED/ADOL/ADULT) | | | | ,PSKT or VIAL | | | + + + + | PNEUMOCOCCAL | 04/22/2002 | | | POLYSACCHARIDE | | | | 23-VALENT (PPSV23) | | | + + + + | TDAP, (ADOL/ADULT) | 06/26/2010 | | + + + + Family History + + +------+ + | Medical History | Relation | Name | Comments | + + +------+ + | Diabetes | Brother | 7 | | + + +------+ + | Heart disease | Father | | | + + +------+ + | Hypertension | Father | | | + + +------+ + | Diabetes | Mother | | | + + +------+ + | Diabetes | Sister | 5 | | + + +------+ + | Kidney disease | Neg Hx | | | + + +------+ + + +------+ + + | Relation | Name | Status | Comments | + +------+ + + | Brother | 7 | Alive | | + +------+ + + | Father | | | Pneumonia | | | | (Age | | | | | 50's) | | + +------+ + + | Mother | | Alive | | + +------+ + + | Sister | 5 | Alive | | + +------+ + + Social History + +-------+ +--------+ [...] | | + +-------+---+---+ + + | Tobacco Cessation: Ready to Quit: Yes; Counseling Given: Yes | + + + + +---------+ + | Alcohol Use | Drinks/We | oz/Week | Comments | | | ek | | | + + +---------+ + | No | | | | + + +---------+ + + + + | Sex Assigned at | Date Recorded | | | | + + + | Not on file | | + + + Last Filed Vital Signs + + + + | Vital Sign | Reading | Time Taken | + + + + | Blood Pressure | 138/76 | 12/15/2017 1630 PDT | + + + + | Pulse | 80 | 12/29/2017 1344 PDT | + + + + | Temperature | 37.3 C (99.1 F) | 12/29/2017 1344 PDT | + + + + | Respiratory Rate | 16 | 12/08/2017 1627 PDT | + + + + | Oxygen Saturation | 96% | 12/29/2017 1344 PDT | + + + + | Inhaled Oxygen | - | - | | Concentration | | | + + + + | Weight | 110.1 kg (242 lb | 12/29/20171343 PDT | | | 11.6 oz) | | + + + + | Height | 175.3 cm (5' 9") | 12/29/20171343 PDT | + + + + | Body Mass Index | 35.84 | 12/29/20171343 PDT | + + + + Plan of Treatment +--------+---------+ + + + | Date | Type | Specialty | Care Team | Description | +--------+---------+ + + + | 01/29/ | Office | | [place], | | | 2017 | Visit | | ARI[facility] Damon [address] | | | | | | [facility] | | | | | | [address] [place] | | | | | | [id number] | | | | | | | | +--------+---------+ + + + + + + + + | Health Maintenance | Due Date | Last Done | Comments | + + + + + | Diabetic Eye Exam | | | | | (Bi-Annually) | 8 | | | + + + + + | Diabetic Foot Exam | | | | | | 8 | | | + + + + + | Vaccine: | | 04/22/2002 | | | Pneumococcal 19-64 | 3 | | | | Highest Risk (2 of 3 | | | | | - PCV13) | | | | + + + + + | Vaccine: Influenza | | 04/02/2017, 03/29/2016, | | | (#1) | 8 | 04/06/2015 | | + + + + + | Hemoglobin A1c Q3 | | 11/04/2017, 03/10/2017, | | | Months | 8 | 12/01/2015, Additional history | | | | | exists | | + + + + + | Vaccine: | | 06/26/2010 | | | Dtap/Tdap/Td (2 - | 1 | | | | Td) | | | | + + + + + Procedures + +--------+ + + + | Procedure Name | Priori | Date/Time | Associated Diagnosis | Comments | | | ty | | | | + +--------+ + + + | LABS - EXTERNAL SCAN | | 12/08/2017 | | Results for this | | | | 0000 PDT | | procedure are in the | | | | | | results section. | + +--------+ + + + | EXTERNAL LAB: BUN | Routin | 12/08/2017 | | Results for this | | | e | 0000 PDT | | procedure are in the | | | | | | results section. | + +--------+ + + + | EXTERNAL LAB: | Routin | 12/08/2017 | | Results for this | | GLUCOSE | e | 0000 PDT | | procedure are in the | | | | | | results section. | + +--------+ + + + | EXTERNAL LAB: | Routin | 12/08/2017 | | Results for this | | ALBUMIN | e | 0000 PDT | | procedure are in the | | | | | | results section. | + +--------+ + + + | EXTERNAL LAB: | Routin | 12/08/2017 | | Results for this | | PHOSPHORUS | e | 0000 PDT | | procedure are in the | | | | | | results section. | + +--------+ + + + | EXTERNAL LAB: | Routin | 12/08/2017 | | Results for this | | CALCIUM | e | 0000 PDT | | procedure are in the | | | | | | results section. | + +--------+ + + + | EXTERNAL LAB: CARBON | Routin | 12/08/2017 | | Results for this | | DIOXIDE | e | 0000 PDT | | procedure are in the | | | | | | results section. | + +--------+ + + + | EXTERNAL LAB: | Routin | 12/08/2017 | | Results for this | | CHLORIDE | e | 0000 PDT | | procedure are in the | | | | | | results section. | + +--------+ + + + | EXTERNAL LAB: | Routin | 12/08/2017 | | Results for this | | POTASSIUM | e | 0000 PDT | | procedure are in the | | | | | | results section. | + +--------+ + + + | EXTERNAL LAB: SODIUM | Routin | 12/08/2017 | | Results for this | | | e | 0000 PDT | | procedure are in the | | | | | | results section. | + +--------+ + + + | EXTERNAL LAB: IRON | Routin | 12/08/2017 | | Results for this | | TOTAL | e | 0000 PDT | | procedure are in the | | | | | | results section. | + +--------+ + + + | EXTERNAL LAB: FRANTZ | Routin | 12/08/2017 | | Results for this | | SATURATION | e | 0000 PDT | | procedure are in the | | | | | | results section. | + +--------+ + + + | EXTERNAL LAB: IRON | Routin | 12/08/2017 | | Results for this | | BINDING CAPACITY | e | 0000 PDT | | procedure are in the | | | | | | results section. | + +--------+ + + + | EXTERNAL LAB: MARRY | Routin | 12/08/2017 | | Results for this | | | e | 0000 PDT | | procedure are in the | | | | | | results section. | + +--------+ + + + | EXTERNAL LAB: EGFR | Routin | 12/08/2017 | | Results for this | | | e | 0000 PDT | | procedure are in the | | | | | | results section. | + +--------+ + + + | EXTERNAL LAB: | Routin | 12/08/2017 | | Results for this | | CREATININE | e | 0000 PDT | | procedure are in the [...] | | | | | | V ([facility]) (N18.5) | | + +--------+ + + + +---+--------+ | | | | | Specia | | | l | | | Needs | | | Field | | | case | | | 3 | +---+--------+ + +--------+ + + + | ANE NERVE BLOCK | Routin | 11/25/2017 | | Results for this | | CATHETER NOTE | e | 1212 PDT | | procedure are in the | | | | | | results section. | + +--------+ + + + | ANE AIRWAY NOTE | Routin | 11/25/2017 | | Results for this | | | e | 1212 PDT | | procedure are in the | | | | | | results section. | + +--------+ + + + | POC BLOOD GASES | Routin | 11/25/2017 | | Results for this | | | e | 1112 PDT | | procedure are in the | | | | | | results section. | + +--------+ + + + | CBC WITH | Routin | 11/25/2017 | | Results for this | | DIFFERENTIAL | e | 1043 PDT | | procedure are in the | | | | | | results section. | + +--------+ + + + | BASIC METABOLIC | STAT | 11/25/2017 | | Results for this | | PANEL | | 1043 PDT | | procedure are in the | | | | | | results section. | + +--------+ + + + | PTT | Routin | 11/25/2017 | | Results for this | | | e | 1043 PDT | | procedure are in the | | | | | | results section. | + +--------+ + + + | PROTIME INR | Routin | 11/25/2017 | | Results for this | | | e | 1043 PDT | | procedure are in the | | | | | | results section. | + +--------+ + + + | LABS - EXTERNAL SCAN | | 11/20/2017 | | Results for this | | | | 0000 PDT | | procedure are in the | | | | | | results section. | + +--------+ + + + | LABS - EXTERNAL SCAN | | 11/20/2017 | | Results for this | | | | 0000 PDT | | procedure are in the | | | | | | results section. | + +--------+ + + + | EXTERNAL LAB: BUN | Routin | 11/20/2017 | | Results for this | | | e | 0000 PDT | | procedure are in the | | | | | | results section. | + +--------+ + + + | EXTERNAL LAB: | Routin | 11/20/2017 | | Results for this | | GLUCOSE | e | 0000 PDT | | procedure are in the | | | | | | results section. | + +--------+ + + + | EXTERNAL LAB: | Routin | 11/20/2017 | | Results for this | | ALBUMIN | e | 0000 PDT | | procedure are in the | | | | | | results section. | + +--------+ + + + | EXTERNAL LAB: | Routin | 11/20/2017 | | Results for this | | PHOSPHORUS | e | 0000 PDT | | procedure are in the | | | | | | results section. | + +--------+ + + + | EXTERNAL LAB: | Routin | 11/20/2017 | | Results for this | | CALCIUM | e | 0000 PDT | | procedure are in the | | | | | | results section. | + +--------+ + + + | EXTERNAL LAB: CARBON | Routin | 11/20/2017 | | Results for this | | DIOXIDE | e | 0000 PDT | | procedure are in the | | | | | | results section. | + +--------+ + + + | EXTERNAL LAB: | Routin | 11/20/2017 | | Results for this | | CHLORIDE | e | 0000 PDT | | procedure are in the | | | | | | results section. | + +--------+ + + + | EXTERNAL LAB: | Routin | 11/20/2017 | | Results for this | | POTASSIUM | e | 0000 PDT | | procedure are in the | | | | | | results section. | + +--------+ + + + | EXTERNAL LAB: SODIUM | Routin | 11/20/2017 | | Results for this | | | e | 0000 PDT | | procedure are in the | | | | | | results section. | + +--------+ + + + | EXTERNAL LAB: EGFR | Routin | 11/20/2017 | | Results for this | | | e | 0000 PDT | | procedure are in the | | | | | | results section. | + +--------+ + + + | EXTERNAL LAB: | Routin | 11/20/2017 | | Results for this | | CREATININE | e | 0000 PDT | | procedure are in the | | | | | | results section. | + +--------+ + + + | POCT URINALYSIS | Routin | 11/13/2017 | Chronic kidney | Results for this | | | e | 1255 PDT | disease (CKD), stage | procedure are in the | | | | | V (HCC) | results section. | + +--------+ + + + | LABS - EXTERNAL SCAN | | 11/11/2017 | | Results for this | | | | 0000 PDT | | procedure are in the | | | | | | results section. | + +--------+ + + + | URINALYSIS WITH | Routin | 11/11/2017 | | Results for this | | MICROSCOPIC | e | 0000 PDT | | procedure are in the | | | | | | results section. | + +--------+ + + + | EXTERNAL LAB: | Routin | 11/11/2017 | | Results for this | | URINALYSIS | e | 0000 PDT | | procedure are in the | | | | | | results section. | + +--------+ + + + | EXTERNAL LAB: MARRY | Routin | 11/11/2017 | | Results for this | | | e | 0000 PDT | | procedure are in the | | | | | | results section. | + +--------+ + + + | EXTERNAL LAB: TORY, | Routin | 11/11/2017 | | Results for this | | INTACT | e | 0000 PDT | | procedure are in the | | | | | | results section. | + +--------+ + + + | EXTERNAL LAB: | Routin | 11/11/2017 | | Results for this | | PROTEIN/CREATININE | e | 0000 PDT | | procedure are in the | | RATIO | | | | results section. | + +--------+ + + + | EXTERNAL LAB: IRON | Routin | 11/11/2017 | | Results for this | | TOTAL | e | 0000 PDT | | procedure are in the | | | | | | results section. | + +--------+ + + + | EXTERNAL LAB: IRON | Routin | 11/11/2017 | | Results for this | | SATURATION | e | 0000 PDT | | procedure are in the | | | | | | results section. | + +--------+ + + + | EXTERNAL LAB: IRON | Routin | 11/11/2017 | | Results for this | | BINDING CAPACITY | e | 0000 PDT | | procedure are in the | | | | | | results section. | + +--------+ + + + | EXTERNAL LAB: | Routin | 11/11/2017 | | Results for this | | FERRITIN | e | 0000 PDT | | procedure are in the | | | | | | results section. | + +--------+ + + + | EXTERNAL LAB: BUN | Routin | 11/11/2017 | | Results for this | | | e | 0000 PDT | | procedure are in the | | | | | | results section. | + +--------+ + + + | EXTERNAL LAB: | Routin | 11/11/2017 | | Results for this | | GLUCOSE | e | 0000 PDT | | procedure are in the | | | | | | results section. | + +--------+ + + + | EXTERNAL LAB: | Routin | 11/11/2017 | | Results for this | | ALBUMIN | e | 0000 PDT | | procedure are in the | | | | | | results section. | + +--------+ + + + | EXTERNAL LAB: | Routin | 11/11/2017 | | Results for this | | PHOSPHORUS | e | 0000 PDT | | procedure are in the | | | | | | results section. | + +--------+ + + + | EXTERNAL LAB: | Routin | 11/11/2017 | | Results for this | | CALCIUM | e | 0000 PDT | | procedure are in the | | | | | | results section. | + +--------+ + + + | EXTERNAL LAB: CARBON | Routin | 11/11/2017 | | Results for this | | DIOXIDE | e | 0000 PDT | | procedure are in the | | | | | | results section. | + +--------+ + + + | EXTERNAL LAB: | Routin | 11/11/2017 | | Results for this | | CHLORIDE | e | 0000 PDT | | procedure are in the | | | | | | results section. | + +--------+ + + + | EXTERNAL LAB: | Routin | 11/11/2017 | | Results for this | | POTASSIUM | e | 0000 PDT | | procedure are in the | | | | | | results section. | + +--------+ + + + | EXTERNAL LAB: SODIUM | Routin | 11/11/2017 | | Results for this | | | e | 0000 PDT | | procedure are in the | | | | | | results section. | + +--------+ + + + | EXTERNAL LAB: EGFR | Routin | 11/11/2017 | | Results for this | | | e | 0000 PDT | | procedure are in the | | | | | | results section. | + +--------+ + + + | EXTERNAL LAB: | Routin | 11/11/2017 | | Results for this | | CREATININE | e | 0000 PDT | | procedure are in the | | | | | | results section. | + +--------+ + + + | POC GLUCOSE | Routin | 11/06/2017 | | Results for this | | | e | 0725 PDT | | procedure are in the | | | | | | results section. | + +--------+ + + + | PHOSPHORUS | Routin | 11/06/2017 | | Results for this | | | e | 0438 PDT | | procedure are in the | | | | | | results section. | + +--------+ + + + | MAGNESIUM | Routin | 11/06/2017 | | Results for this | | | e | 0438 PDT | | procedure are in the | | | | | | results section. | + +--------+ + + + | CBC WITH | Routin | 11/06/2017 | | Results for this | | DIFFERENTIAL | e | 0438 PDT | | procedure are in the | | | | | | results section. | + +--------+ + + + | BASIC METABOLIC | Routin | 11/06/2017 | | Results for this | | PANEL | e | 0438 PDT | | procedure are in the | | | | | | results section. | + +--------+ + + + | LABS - EXTERNAL SCAN | | 11/06/2017 | | Results for this | | | | 0000 PDT | | procedure are in the | | | | | | results section. | + +--------+ + + + | EXTERNAL LAB: BUN | Routin | 11/06/2017 | | Results for this | | | e | 0000 PDT | | procedure are in the | | | | | | results section. | + +--------+ + + + | EXTERNAL LAB: | Routin | 11/06/2017 | | Results for this | | GLUCOSE | e | 0000 PDT | | procedure are in the | | | | | | results section. | + +--------+ + + + | EXTERNAL LAB: | Routin | 11/06/2017 | | Results for this | | CALCIUM | e | 0000 PDT | | procedure are in the | | | | | | results section. | + +--------+ + + + | EXTERNAL LAB: CARBON | Routin | 11/06/2017 | | Results for this | | DIOXIDE | e | 0000 PDT | | procedure are in the | | | | | | results section. | + +--------+ + + + | EXTERNAL LAB: | Routin | 11/06/2017 | | Results for this | | CHLORIDE | e | 0000 PDT | | procedure are in the | | | | | | results section. | + +--------+ + + + | EXTERNAL LAB: | Routin | 11/06/2017 | | Results for this | | POTASSIUM | e | 0000 PDT | | procedure are in the | | | | | | results section. | + +--------+ + + + | EXTERNAL LAB: SODIUM | Routin | 11/06/2017 | | Results for this | | | e | 0000 PDT | | procedure are in the | | | | | | results section. | + +--------+ + + + | EXTERNAL LAB: EGFR | Routin | 11/06/2017 | | Results for this | | | e | 0000 PDT | | procedure are in the | | | | | | results section. | + +--------+ + + + | EXTERNAL LAB: | Routin | 11/06/2017 | | Results for this | | CREATININE | e | 0000 PDT | | procedure are in the | | | | | | results section. | + +--------+ + + + | POC GLUCOSE | Routin | 11/05/2017 | | Results for this | | | e | 2010 PDT | | procedure are in the | | | | | | results section. | + +--------+ + + + | POC GLUCOSE | Routin | 11/05/2017 | | Results for this | | | e | 1650 PDT | | procedure are in the | | | | | | results section. | + +--------+ + + + | POC GLUCOSE | Routin | 11/05/2017 | | Results for this | | | e | 1216 PDT | | procedure are in the | | | | | | results section. | + +--------+ + + + | PROTEIN/CREATININE | Routin | 11/05/2017 | Chronic kidney | Results for this | | RATIO, URINE | e | 0916 PDT | disease, stage III | procedure are in the | | | | | (moderate) | results section. | + +--------+ + + + | POC GLUCOSE | Routin | 11/05/2017 | | Results for this | | | e | 0654 PDT | | procedure are in the | | | | | | results section. | + +--------+ + + + | MAGNESIUM | Routin | 11/05/2017 | | Results for this | | | e | 0426 PDT | | procedure are in the | | | | | | results section. | + +--------+ + + + | CBC WITH | Routin | 11/05/2017 | | Results for this | | DIFFERENTIAL | e | 0426 PDT | | procedure are in the | | | | | | results section. | + +--------+ + + + | BASIC METABOLIC | Routin | 11/05/2017 | | Results for this | | PANEL | e | 0426 PDT | | procedure are in the | | | | | | results section. | + +--------+ + + + | PHOSPHORUS | Routin | 11/05/2017 | | Results for this | | | e | 0426 PDT | | procedure are in the | | | | | | results section. | + +--------+ + + + | POC GLUCOSE | Routin | 11/04/2017 | | Results for this | | | e | 2114 PDT | | procedure are in the | | | | | | results section. | + +--------+ + + + | PROTEIN/CREATININE | Routin | 11/04/2017 | | Results for this | | RATIO, URINE | e | 1635 PDT | | procedure are in the | | | | | | results section. | + +--------+ + + + | POC GLUCOSE | Routin | 11/04/2017 | | Results for this | | | e | 1634 PDT | | procedure are in the | | | | | | results section. | + +--------+ + + + | BASIC METABOLIC | Routin | 11/04/2017 | | Results for this | | PANEL | e | 1254 PDT | | procedure are in the | | | | | | results section. | + +--------+ + + + | INFLUENZA A AND B | Routin | 11/04/2017 | | Results for this | | RNA, NAAT | e | 1229 PDT | | procedure are in the | | | | | | results section. | + +--------+ + + + | RESPIRATORY VIRUS | Routin | 11/04/2017 | | Results for this | | PANEL, NAAT | e | 1229 PDT | | procedure are in the | | | | | | results section. | + +--------+ + + + | POC GLUCOSE | Routin | 11/04/2017 | | Results for this | | | e | 1222 PDT | | procedure are in the | | | | | | results section. | + +--------+ + + + | RESPIRATORY THERAPY | Routin | 11/04/2017 | | | | COMMUNICATION | e | 0937 PDT | | | + +--------+ + + + | PERFORM HOME O2 | Routin | 11/04/2017 | | | | EVALUATION | e | 0908 PDT | | | + +--------+ + + + | ECHO COMPLETE | Routin | 11/04/2017 | | Results for this | | | e | 0722 PDT | | procedure are in the | | | | | | results section. | + +--------+ + + + | POC GLUCOSE | Routin | 11/04/2017 | | Results for this | | | e | 0636 PDT | | procedure are in the | | | | | | results section. | + +--------+ + + + | MAGNESIUM | Routin | 11/04/2017 | | Results for this | | | e | 0502 PDT | | procedure are in the | | | | | | results section. | + +--------+ + + + | CBC NO DIFFERENTIAL | Routin | 11/04/2017 | | Results for this | | | e | 0502 PDT | | procedure are in the | | | | | | results section. | + +--------+ + + + | BASIC METABOLIC | Routin | 11/04/2017 | | Results for this | | PANEL | e | 0502 PDT | | procedure are in the | | | | | | results section. | + +--------+ + + + | HEMOGLOBIN A1C | Routin | 11/04/2017 | | Results for this | | | e | 0502 PDT | | procedure are in the | | | | | | results section. | + +--------+ + + + | PROCALCITONIN, SERUM | Routin | 11/04/2017 | | Results for this | | | e | 0502 PDT | | procedure are in the | | | | | | results section. | + +--------+ + + + | POC GLUCOSE | Routin | 11/03/2017 | | Results for this | | | e | 2117 PDT | | procedure are in the | | | | | | results section. | + +--------+ + + + | B TYPE NATRIURETIC | Routin | 11/03/2017 | | Results for this | | PEPTIDE | e | 1949 PDT | | procedure are in the | | | | | | results section. | + +--------+ + + + | CULTURE, BLOOD | STAT | 11/03/2017 | | Results for this | | | | 1949 PDT | | procedure are in the | | | | | | results section. | + +--------+ + + + | CULTURE, BLOOD | STAT | 11/03/2017 | | Results for this | | | | 1914 PDT | | procedure are in the | | | | | | results section. | + +--------+ + + + | CT CHEST WO CONTRAST | STAT | 11/03/2017 | | Results for this | | | | 1737 PDT | | procedure are in the | | | | | | results section. | + +--------+ + + + | SLIDE REVIEW, | Routin | 11/03/2017 | | Results for this | | PERIPHERAL SMEAR | e | 1609 PDT | | procedure are in the | | | | | | results section. | + +--------+ + + + | TROPONIN I | STAT | 11/03/2017 | | Results for this | | | | 1609 PDT | | procedure are in the | | | | | | results section. | + +--------+ + + + | BASIC METABOLIC | STAT | 11/03/2017 | | Results for this | | PANEL | | 1609 PDT | | procedure are in the | | | | | | results section. | + +--------+ + + + | CBC WITH | STAT | 11/03/2017 | | Results for this | | DIFFERENTIAL | | 1609 PDT | | procedure are in the | | | | | | results section. | + +--------+ + + + | XR CHEST AP PORTABLE | STAT | 11/03/2017 | | Results for this | | | | 1601 PDT | | procedure are in the | | | | | | results section. | + +--------+ + + + | ECG 12 LEAD | STAT | 11/03/2017 | | Results for this | | | | 1540 PDT | | procedure are in the | | | | | | results section. | + +--------+ + + + from Last 3 Months Results External Lab: BUN (12/08/2017)Only the most recent of 4 results within the time period is i ncluded. + +--------+ + + | Component | Value | Ref Range | Performed At | + +--------+ + + | BUN, External | 77 (A) | 6 - 23 | | + +--------+ + + External Lab: Glucose (12/08/2017)Only the most recent of 4 results within the time period is included. + +---------+ + + | Component | Value | Ref Range | Performed At | + +---------+ + + | Glucose, External | 146 (A) | 70 - 100 | | + +---------+ + + External Lab: Albumin (12/08/2017)Only the most recent of 3 results within the time period is included. + +---------+ + + | Component | Value | Ref Range | Performed At | + +---------+ + + | Albumin, External | 3.4 (A) | 3.6 - 5 | | + +---------+ + + External Lab: Phosphorus (12/08/2017)Only the most recent of 3 results within the time shawna od is included. + +---------+ + + | Component | Value | Ref Range | Performed At | + +---------+ + + | Phosphorus, External | 5.8 (A) | 2.3 - 4.8 | | + +---------+ + + External Lab: Calcium (12/08/2017)Only the most recent of 4 results within the time period is included. + +---------+ + + | Component | Value | Ref Range | Performed At | + +---------+ + + | Calcium, External | 8.0 (A) | 8.5 - 10.5 | | + +---------+ + + External Lab: Carbon Dioxide (12/08/2017)Only the most recent of 4 results within the time period is included. + +-------+ + + | Component | Value | Ref Range | Performed At | + +-------+ + + | Carbon Dioxide, | 26 | 23 - 32 | | | External | | | | + +-------+ + + External Lab: Chloride (12/08/2017)Only the most recent of 4 results within the time period is included. + +-------+ + + | Component | Value | Ref Range | Performed At | + +-------+ + + | Chloride, External | 108 | 100 - 110 | | + +-------+ + + External Lab: Potassium (12/08/2017)Only the most recent of 4 results within the time perio d is included. + +-------+ + + | Component | Value | Ref Range | Performed At | + +-------+ + + | Potassium, External | 4.3 | 3.5 - 5.1 | | + +-------+ + + External Lab: Sodium (12/08/2017)Only the most recent of 4 results within the time period i s included. + +-------+ + + | Component | Value | Ref Range | Performed At | + +-------+ + + | Sodium, External | 144 | 135 - 145 | | + +-------+ + + External Lab: Iron Total (12/08/2017)Only the most recent of 2 results within the time shawna od is included. + +-------+ + + | Component | Value | Ref Range | Performed At | + +-------+ + + | Iron, External | 50 | 45 - 190 | | + +-------+ + + External Lab: Iron Saturation (12/08/2017)Only the most recent of 2 results within the time period is included. + +--------+ + + | Component | Value | Ref Range | Performed At | + +--------+ + + | Iron Saturation, | 15 (A) | 20 | | | External | | | | + +--------+ + + External Lab: Iron Binding Capacity (12/08/2017)Only the most recent of 2 results within e time period is included. + +-------+ + + | Component | Value | Ref Range | Performed At | + +-------+ + + | Iron Binding | 332 | 250 - 450 | | | Capacity, External | | | | + +-------+ + + External Lab: CBC (12/08/2017)Only the most recent of 2 results within the time period is i ncluded. + + + + + | Component | Value | Ref Range | Performed At | + + + + + | WBC, External | 5.83 | 4 - 11 | | + + + + + | HGB, External | 10.78 (A) | 12 - 18 | | + + + + + | HCT, External | 34.02 (A) | 35 - 45 | | + + + + + | PLT, External | 159 | 140 - 440 | | + + + + + | RBC, External | 4.02 | 4 - 6 | | + + + + + | MCV, External | 85 | 80 - 100 | | + + + + + | RDW, External | 18.96 (A) | 10.5 - 15 | | + + + + + External Lab: eGFR (12/08/2017)Only the most recent of 4 results within the time period is included. + +--------+ + + | Component | Value | Ref Range | Performed At | + +--------+ + + | eGFR, External | 14 (A) | 60 | | + +--------+ + + + + | Specimen | + + | Blood | + + External Lab: Creatinine (12/08/2017)Only the most recent of 4 results within the time shawna od is included. + +---------+ + + | Component | Value | Ref Range | Performed At | + +---------+ + + | Creatinine, External | 4.4 (A) | 0.6 - 1.3 | | + +---------+ + + + + | Specimen | + + | Blood | + + LABS - EXTERNAL SCAN (12/08/2017)Only the most recent of 5 results within the time period i s included. + + + | Narrative | Performed At | + + + | Ordered by an | | | unspecified provider. | | + + + POC Glucose (11/25/2017 1502)Only the most recent of 13 results within the time period is i ncluded. + +-------+ + + | Component | Value | Ref Range | Performed At | + +-------+ + + | Glucose, POC | 97 | 70 - 109 mg/dL | [facility] | | | | | [facility] | | | | | [place] - | | | | | LABORATORY | + +-------+ + + + + | Specimen | + + | Blood | + + + + + + + | Performing | Address | City/State/Zipcode | Phone Number | | Organization | | | | + + + + + | [facility] | [address] | [place], [place] | [phone] | | [facility] | | [address] | | | - LABORATORY | | | | + + + + + | [facility] | [address] | [place], [place] | | | [facility] | | [address] | | | - LABORATORY | | | | + + + + + Anesthesia Perineural Note (11/25/20172) + + + | Narrative | Performed At | + + + | Konrad Jeffery MD 11/25/2017 12:13 Perineural Procedure | | | Note 11/25/2017 11:36 Nerve block: supraclavicular-brachial plexus | | | Laterality: left Continuous block with catheter: No Provider | | | requested procedure: Field Indication: postoperative analgesia | | | Preprocedure check: patient identified, procedure and rescue equipment | | | checked, preevaluation including airway assessment complete, | | | risks/benefits discussed, consent obtained, timeout performed, | | | reassessment prior to procedure and monitors applied Patient | | | position: supine Preparation: chlorhexidine/isopropyl alcohol | | | Technique: ultrasound Radiology image stored in patient's chart: | | | ultrasound Needle: stimulating and insulated Needle size: 21 g | | | Needle length: 4 in Medication administered through: needle Negative | | | findings: no blood aspirated and no paresthesia Total volume of | | | local anesthetic solution administered: 20 (Incremental injection in | | | 3-4 mL increments with negative aspiration each time.) mL Attempts: | | | 1 Ease of procedure: easy Comments: Regional block placed for | | | postoperative pain control at request of patient and | | | surgeon. Ultrasound utilized throughout entirety of procedure for | | | the purposes of directing the needle to nerve proximity and | | | watching spread of local anesthetic. Positive level and "donut" | | | sign. Ultrasound image in chart. NIBP/SpO2 monitoring. | | | Please see anesthesia record or flowsheet for vital sign documentation | | | and see anesthesia record or MAR for all medication documentation. | | | Performing provider: KONRAD JEFFERY Electronically | | | Signed by: Konrad Jeffery MD | | | ESig date/time: 11/25/2017 12:12 | | + + + + + | Procedure Note | + + | Konrad Jeffery MD - 11/25/2017 1212 PDT Perineural Procedure Note11/25/2017 | | 11:36Nerve block: supraclavicular-brachial plexusLaterality: leftContinuous block with | | catheter: NoProvider requested procedure: FieldIndication: postoperative | | analgesiaPreprocedure check: patient identified, procedure and rescue equipment checked, | | preevaluation including airway assessment complete, risks/benefits discussed, consent | | obtained, timeout performed, reassessment prior to procedure and monitors appliedPatient | | position: supinePreparation: chlorhexidine/isopropyl alcoholTechnique: | | ultrasoundRadiology image stored in patient's chart: ultrasoundNeedle: stimulating and | | insulatedNeedle size: 21 gNeedle length: 4 inMedication administered through: | | needleNegative findings: no blood aspirated and no paresthesiaTotal volume of local | | anesthetic solution administered: 20 (Incremental injection in 3-4 mL increments with | | negative aspiration each time.) mLAttempts: 1Ease of procedure: easyComments: Regional | | block placed for postoperative pain control at request of patient and surgeon. | | Ultrasound utilized throughout entirety of procedure for the purposes of directing the | | needle to nerve proximity and watching spread of local anesthetic. Positive level and | | "donut" sign. Ultrasound image in chart. NIBP/SpO2 monitoring.Please see anesthesia | | record or flowsheet for vital sign documentation and see anesthesia record or MAR for | | all medication documentation.Performing provider: KONRAD JEFFERY TElectronically Signed | | by: Konrad Jeffery MD ESig date/time: 11/25/2017 12:12 | |Attempts: 1 | |Ease of procedure: easy | | | |Comments: Regional block placed for postoperative pain control at request of patient and posada rgeon. Ultrasound utilized throughout entirety of procedure for the purposes of directing t he needle to nerve proximity and | |watching spread of local anesthetic. Positive level and "donut" sign. Ultrasound image in chart. NIBP/SpO2 monitoring. | | | | | |Please see anesthesia record or flowsheet for vital sign documentation and see anesthesia r ecord or MAR for all medication documentation. | | | | | |Performing provider: KONRAD JEFFERY | | | | | | | |Electronically Signed by: MD Stewart Carrion date/time: 11/25/2017 12:12 | + + Anesthesia Airway Note (11/25/2017 1212) + + + | Narrative | Performed At | + + + | Konrad Jeffery MD 11/25/2017 12:12 Anesthesia Airway | | | Placement 11/25/2017 11:43 Preprocedure check: patient identified, | | | suction, airway equipment checked, oxygen, airway assessed and | | | patient reassessment prior to induction Rapid Sequence Induction: no | | | Mask ventilation: N/A (went straight to LMA placement) Attempts: | | | 1 Airway type: laryngeal mask Size: 4 Cuffed: cuffed Route, | | | reference point: center of mouth Trauma: none Tube placement | | | verification: carbon dioxide detection Performing provider: CHEPE | | | KONRAD Mcconnell Electronically Signed by: Konrad Jeffery, | | | ESig | | | date/time: 11/25/2017 12:12 | | + + + + + | Procedure Note | + + | Konrad Jeffery MD - 11/25/2017 1212 PDT Anesthesia Airway Placement11/25/2017 | | 11:43Preprocedure check: patient identified, suction, airway equipment checked, oxygen, | | airway assessed and patient reassessment prior to inductionRapid Sequence Induction: | | noMask ventilation: N/A (went straight to LMA placement)Attempts: 1Airway type: | | laryngeal maskSize: 4Cuffed: cuffedRoute, reference point: center of mouthTrauma: | | noneTube placement verification: carbon dioxide detectionPerforming provider: CHEPE | | KONRAD TElectronically Signed by: MD Stewart Carriong | | date/time: 11/25/2017 12:12 | |Size: 4 | |Cuffed: cuffed | |Route, reference point: center of mouth | |Trauma: none | |Tube placement verification: carbon dioxide detection | |Performing provider: KONRAD JEFFERY | | | | | |Electronically Signed by: MD Pino Carrion date/time: 12:12 | | | + + POC Blood Gases (11/25/2017 1112) + + + + + | Component [...] [facility] | | | | | [facility] | | | | | CENTER - | | | | | LABORATORY | + + + + + + + | Specimen | + + | Blood | + + + + + + + | Performing | Address | City/State/Zipcode | Phone Number | | Organization | | | | + + + + + | [facility] | [address] | [place] | [phone] | | [facility] | | [address] | | | - LABORATORY | | | | + + + + + | [facility] | [address] | [place] | | | [facility] | | [address] | | | - LABORATORY | | | | + + + + + PTT (11/25/20171042) + +-------+ + + | Component | Value | Ref Range | Performed At | + +-------+ + + | PTT | 30 | 22 - 36 seconds | [facility] | | | | | [facility] | | | | | CENTER - | | | | | LABORATORY | + +-------+ + + + + | Specimen | + + | Blood | + + + + + + + | Performing | Address | City/State/Zipcode | Phone Number | | Organization | | | | + + + + + | [facility] | [address] | [place] | [phone] | | [facility] | | [address] | | | - LABORATORY | | | | + + + + + | [facility] | [address] | [place] | | | [facility] | | [address] | | | - LABORATORY | | | | + + + + + Protime INR (11/25/2017 1043) + + + + + | Component | Value | Ref Range | Performed At | + + + + + | Protime | 13.4 | 11.3 - 13.9 seconds | [facility] | | | | | [facility] | | | | | C[facility] - | | | | | LABORATORY | + + + + + | INR | 1.03Comment: Usual Oral | 0.90 - 1.10 | [facility] | | | Anticoagulation | | [...] + | [facility] | [address] | [place] | [phone] | | [facility] | | [address] | | | - LABORATORY | | | | + + + + + | [facility] | [address] | [place] | | | [facility] | | [address] | | | - LABORATORY | | | | + + + + + CBC with Differential (11/25/2017 1043)Only the most recent of 4 results within the time amna newberry is included. + + + + + | Component | Value | Ref Range | Performed At | + + + + + | WBC | 5.2 | 4.0 - 11.0 K/uL | [facility] | | | | | [facility] | | | | | CENTER - [...] + | [facility] | [address] | [place] | [phone] | | [facility] | | [address] | | | - LABORATORY | | | | + + + + + | [facility] | [address] | [place] | | | [facility] | | [address] | | | - LABORATORY | | | | + + + + + Basic Metabolic Panel (11/25/2017 1043)Only the most recent of 6 results within the time amna newberry is included. + + + + + | Component | Value | Ref Range | Performed At | + + + + + | NA | 145 | 136 - 149 mmol/L | [facility] | | | | | [facility] | | | | | CENTER - | | | | | LABORATORY | + + + + + | K | 4.3 | 3.5 - 5.1 mmol/L | [facility] | | | | | [facility] | | | | | CENTER [...] [facility] | | | | | [facility] | | | | | CENTER - | | | | | LABORATORY | + + + + + | BUN | 83 (H) | 7 - 18 mg/dL | [facility] | | | | | [facility] | | | | | CENTER [...] 13 (L)Comment: | >=60 mL/min/1.73m2 | [facility] | | SRI LANKAN | GLOMERULAR FILTRATION | | [facility] | | | RATE,ESTIMATED mL/min | | CENTER - | | | /1.06r4Acru than 60 | | LABORATORY | | [...] (L) | 8.3 - 10.5 mg/dL | [facility] | | | | | [facility] | | | | | CENTER - | | | | | LABORATORY | + + + + + | BUN/CREA | 17.1 | | [facility] | | | | | [facility] | | | | | CENTER - | | | | | LABORATORY | + + + + + + + | Specimen | + + | Blood | + + + + + + + | Performing | Address | City/State/Zipcode | Phone Number | | Organization | | | | + + + + + | [facility] | [address] | [place], [place] | [phone] | | [facility] | | [address] | | | - LABORATORY | | | | + + + + + | [facility] | [address] | [place], [place] | | | [facility] | | [address] | | | - LABORATORY | | | | + + + + + POCT Urinalysis Dipstick Automated (11/13/2017 4077) + + + + + | Component | Value | Ref Range | Performed At | + + + + + | Color, UA, POC | Light Yellow | Yellow, Light Yellow | | + + + + + | Clarity, UA, POC | Clear | | | + + + + + | Glucose, UA, POC | 250 mg/dL (A) | Negative | | + + + + + | Bilirubin, UA, POC | Negative | Negative | | + + + + + | Ketones, UA, POC | Negative | Negative, 100 mg/dL | | + + + + + | Specific Eak[place], | 1.015 | 1.001 - 1.030 | | | UA, POC | | | | + + + + + | Blood, UA, POC | Trace Intact (A) | Negative | | + + + + + | pH, UA, POC | 5.0 | 5.0, 6.0, 7.0, 8.0, | | | | | 5.5, 6.5, 7.5 | | + + + + + | Protein, UA, POC | >=300 mg/dL (A) | Negative | | + + + + + | Urobilinogen, UA, | 0.2 | 0.2, Negative, | | | POC | | Normal, < 0.2 mg/dL, | | | | | 1 mg/dL, < 0.2 | | | | | E.U./dl, 1.0 | | | | | E.U./dL, 0.2 mg/dL | | + + + + + | Nitrite, UA, POC | Negative | Negative | | + + + + + | Leukocyte Esterase, | Negative | Negative | | | UA, POC | | | | + + + + + | RED SUB UA | | | | + + + + + | ICTOTEST | | Negative | | + + + + + | REMARK | | | | + + + + + + + | Specimen | + + | Urine | + + External Lab: Urinalysis (11/11/2017) + + + + + | Component | Value | Ref Range | Performed At | + + + + + | UA Blood, External | negative | | | + + + + + | UA Glucose, External | negative | | | + + + + + | UA Ketones, External | negative | | | + + + + + | UA Ph, External | 5.0 | | | + + + + + | UA Proteins, | 500 | | | | External | | | | + + + + + | UA RBC, External | 1 | | | + + + + + | UA Specific [place], | 1.012 | | | | External | | | | + + + + + | UA Leukocyte | negative | | | | Esterase, External | | | | + + + + + External Lab: PTH, Intact (11/11/2017) + + + + + | Component | Value | Ref Range | Performed At | + + + + + | PTH Intact, External | 263.1 (A) | | | + + + + + External Lab: Protein/Creatinine Ratio (11/11/2017) + + + + + | Component | Value | Ref Range | Performed At | + + + + + | Protein/Creatinine | 3.365 (A) | 0.2 | | | Ratio, External | | | | + + + + + External Lab: Ferritin (11/11/2017) + +-------+ + + | Component | Value | Ref Range | Performed At | + +-------+ + + | Ferritin, External | 113 | 11 - 450 | | + +-------+ + + Urinalysis With Microscopic (11/11/2017) + + + + + | Component | Value | Ref Range | Performed At | + + + + + | WBC UA | 0 | /HPF | | + + + + + | COLOR | Yellow | Light Yellow, Yellow | | + + + + + | CLARITY | Clear | | | + + + + + | BACTERIA UA | Negative | Negative /HPF | | + + + + + | SQUAMOUS EPITHELIAL | 1 | /HPF | | | UA | | | | + + + + + | NITRITE UA | Negative | Negative | | + + + + + + + | Specimen | + + | Urine | + + Phosphorus (11/06/2017 0438)Only the most recent of 2 results within the time period is inc luded. + +---------+ + + | Component | Value | Ref Range | Performed At | + +---------+ + + | PHOSPHORUS | 6.6 (H) | 2.5 - 4.6 mg/dL | [facility] | | | | | [facility] | | | | | CENTER - | | | | | LABORATORY | + +---------+ + + + + | Specimen | + + | Blood | + + + + + + + | Performing | Address | City/State/Zipcode | Phone Number | | Organization | | | | + + + + + | [facility] | [address] | [place] | [phone] | | [facility] | | [address] | | | - LABORATORY | | | | + + + + + | [facility] | [address] | [place] | | | [facility] | | [address] | | | - LABORATORY | | | | + + + + + Magnesium (11/06/2017 7668)Only the most recent of 3 results within the time period is incl uded. + +-------+ + + | Component | Value | Ref Range | Performed At | + +-------+ + + | MG | 2.3 | 1.8 - 2.5 mg/dL | [facility] | | | | | [facility] | | | | | CENTER - | | | | | LABORATORY | + +-------+ + + + + | Specimen | + + | Blood | + + + + + + + | Performing | Address | City/State/Zipcode | Phone Number | | Organization | | | | + + + + + | [facility] | [address] | [place] | [phone] | | [facility] | | [address] | | | - LABORATORY | | | | + + + + + | [facility] | [address] | [place], [place] | | | [facility] | | [address] | | | - LABORATORY | | | | + + + + + Protein/Creatinine Ratio, Urine (11/05/201716)Only the most recent of 2 results within t he time period is included. + + + + + | Component | Value | Ref Range | Performed At | + + + + + | PROTEIN,RANDOM URINE | 310 (H) | <6 mg/dL | [facility] | | | | | [facility] | | | | | CENTER - | | | | | LABORATORY | + + + + + | Creatinine, Urine, | 43 | mg/dL | [facility] | | Random | | | [facility] | | | | | CENTER - | | | | | LABORATORY | + + + + + | PRO/CREA RATIO,URINE | 7.21 (H) | <0.20 mg/mg | [facility] | | | | | [facility] | | | | | CENTER - | | | | | LABORATORY | + + + + + + + | Specimen | + + | Urine | + + + + + + + | Performing | Address | City/State/Zipcode | Phone Number | | Organization | | | | + + + + + | [facility] | [address] | [place], [place] | [phone] | | [facility] | | [address] | | | - LABORATORY | | | | + + + + + | [facility] | [address] | [place], [place] | | | [facility] | | [address] | | | - LABORATORY | | | | + + + + + Respiratory Virus Panel, NAAT (11/04/2017 1229) + + + + + | Component | Value | Ref Range | Performed At | + + + + + | INFLUENZA A | Not Detected | Not Detected | [facility] | | | | | [facility] | + + + + + | Influenza Virus A H1 | Not Detected | Not Detected | [facility] | | RNA | | | [facility] | + + + + + | Influenza Virus A H3 | Not Detected | Not Detected | [facility] | | RNA | | | [facility] | + + + + + | ADENOVIRUS | Not Detected | Not Detected | [facility] | | | | | [facility] | + + + + + | Coronavirus HKU1 | Not Detected | Not Detected | [facility] | | | | | [facility] | + + + + + | Coronavirus NL63 | Not Detected | Not Detected | [facility] | | | | | [facility] | + + + + + | Coronavirus 229E | Not Detected | Not Detected | [facility] | | | | | [facility] | + + + + + | Coronavirus OC43 | Not Detected | Not Detected | [facility] | | | | | [facility] | + + + + + | Human | Not Detected | Not Detected | [facility] | | Metapneumovirus | | | [facility] | + + + + + | Rhinovirus/Enterovir | Not Detected | Not Detected | [facility] | | us | | | [facility] | + + + + + | Influenza A 2009 H1 | Not Detected | Not Detected | [facility] | | | | | [facility] | + + + + + | Influenza B | Not Detected | Not Detected | [facility] | | | | | [facility] | + + + + + | Parainfluenza 1 | Not Detected | Not Detected | [facility] | | | | | [facility] | + + + + + | Parainfluenza 2 | Not Detected | Not Detected | [facility] | | | | | [facility] | + + + + + | Parainfluenza 3 | Not Detected | Not Detected | [facility] | | | | | [facility] | + + + + + | Parainfluenza 4 | Not Detected | Not Detected | [facility] | | | | | [facility] | + + + + + | RSV | Not Detected | Not Detected | [facility] | | | | | [facility] | + + + + + | Bordetella pertussis | Not Detected | Not Detected | [facility] | | DNA | | | [facility] | + + + + + | Chlamydophila | Not Detected | Not Detected | [facility] | | pneumoniae DNA | | | [facility] | + + + + + | Mycoplasma | Not Detected | Not Detected | [facility] | | pneumoniae DNA | | | [facility] | + + + + + + + | Specimen | + + | Tissue - Nasopharynx | + + + + + | Narrative | Performed At | + + + | Performed at: 01 - [facility] [place] [address], | [facility] | | [place], [place] [id number] Prescription Benefit Specialist: Bishop Sanderson MD, | [facility] | | Phone: [phone] | | + + + + + + + + | Performing | Address | City/State/Zipcode | Phone Number | | Organization | | | | + + + + + | [facility] | [address] | [place] [address] | [phone] | | [facility] | [address] | | | + + + + + Influenza A and B RNA, NAAT (11/04/2017 1229) + + + + + | Component | Value | Ref Range | Performed At | + + + + + | Influenza A PCR | Negative | Negative | [facility] | | | | | [facility] | | | | | CENTER - | | | | | LABORATORY | + + + + + | Influenza B PCR | Negative | Negative | [facility] | | | | | [facility] | | | | | CENTER - | | | | | LABORATORY | + + + + + + + | Specimen | + + | Tissue - Nasopharynx | + + + + + + + | Performing | Address | City/State/Zipcode | Phone Number | | Organization | | | | + + + + + | [facility] | [address] | [place] | [phone] | | [facility] | | [address] | | | - LABORATORY | | | | + + + + + | [facility] | [address] | [place] | | | [facility] | | [address] | | | - LABORATORY | | | | + + + + + ECHO Complete (11/04/2017721) + +-------+ + + | Component | Value | Ref Range | Performed At | + +-------+ + + | LVEF-TTE | 68 | | [facility] | | TRANSTHORACIC ECHO | | | | + +-------+ + + + + -----+ | Narrative | Performed At | + + -----+ | Transthoracic | [facility] | | Echocardiography Report (TTE) Demographics Patient Name GONE | | | TYRESE BAEZ Room Number | | | 432 JR. 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 | | | Procedure dateDate: 11/04/2017Start: 06:44 AM Technical Quality: | | | Adequate visualizationStudy Location: Portable Patient Status: | | | RoutineHeight: 69 inchesWeight: 248 poundsBSA: 2.26 m^2BMI: 36.62 | | | kg/m^2Rhythm: Normal Sinus Rhythm ConclusionsSummary1. Mild left | | | atrial dilatation.2. Normal left ventricular size with a mild | | | concentric left ventricularhypertrophy. Left ventricular systolic | | | function is preserved. LVEF is65-70%.3. Grade 2 left ventricular | | | diastolic dysfunction.4. Normal valvular structure.5. Normal | | | right-sided pressure.6. Dilated IVC with a normal collapse suggesting | | | potential mild fluidretention.7. There is a small circumferential | | | pericardial effusion noted. | | | Signature | | | | | | AM | | | -------- FindingsMitral ValveStructurally normal mitral valve without | | | significant stenosis orregurgitation.Aortic ValveAortic valve is | | | trileaflet without significant stenosis or regurgitation.Tricuspid | | | ValveStructurally normal tricuspid valve with mild | | | regurgitation.Pulmonic ValveStructurally normal pulmonic valve with | | | mild regurgitation.Left AtriumMildly dilated left atrium.Left | | | VentricleMild concentric left ventricular hypertrophy.Impaired | | | relaxation compatible with diastolic dysfunction (reversed | | | E/Aratio).Ejection fraction is visually estimated at 65-70%.Right | | | AtriumNormal right atrial size.Right VentricleNormal right ventricular | | | size.Right ventricle global systolic function is normal.TAPSE = 3.3 | | | cm.Pericardial EffusionThere is a small circumferential pericardial | | | effusion noted.Pleural EffusionNo evidence of pleural | | | effusion.MiscellaneousDilated IVC with normal collapse.Aortic root | | | dimension within normal limits. Valves Mitral Valve Peak E-Wave: | | | 1.12 m/s Peak A-Wave: 1.18 m/s Tissue Doppler Septal e' Velocity: | | | 0.11 m/s Lateral E/e' Ratio0.15 Aortic | | | Valve Area (continuity): 4.53 cm^2 Mean Gradient: | | | 4.71 mmHg Tricuspid Valve TR Velocity: 2.24 m/s LVOT Peak | | | Velocity: 1.29 m/s LVOT Diameter: 2.54 cm Structures Left Atrium LA | | | A/P Dimension: 5.28 cm LA Area: 23.93 | | | cm^2 LA Vol/BSA Index: 45 mL/m^2 LA | | | Volume: 100.81 ml Left Ventricle Diastolic Dimension: 5.68 | | | cm Systolic Dimension: 4.2 cm Septum Diastolic: 1.67 | | | cm PW Diastolic: 1.36 cm EF Bcfnavlso44% EF Calculated: 68% | | | Miscellaneous Aorta Aortic Root: 3.44 cm Ascending Aorta: 3.23 cm | | |Findings | | |Mitral Valve | | |Structurally normal mitral valve without significant stenosis or | | |regurgitation. | | |Aortic Valve | | |Aortic valve is trileaflet without significant stenosis or regurgitation. | | |Tricuspid Valve | | |Structurally normal tricuspid valve with mild regurgitation. | | |Pulmonic Valve | | |Structurally normal pulmonic valve with mild regurgitation. | | |Left Atrium | | |Mildly dilated left atrium. | | |Left Ventricle | | |Mild concentric left ventricular hypertrophy. | | |Impaired relaxation compatible with diastolic dysfunction (reversed E/A | | |ratio). | | |Ejection fraction is visually estimated at 65-70%. | | |Right Atrium | | |Normal right atrial size. | | |Right Ventricle | | |Normal right ventricular size. | | |Right ventricle global systolic function is normal. | | |TAPSE = 3.3 cm. | | |Pericardial Effusion | | |There is a small circumferential pericardial effusion noted. | | |Pleural Effusion | | |No evidence of pleural effusion. | | |Miscellaneous | | |Dilated IVC with normal collapse. | | |Aortic root dimension within normal limits. | | | | | |Valves | | | | | | Mitral Valve | | | | | | Peak E-Wave: 1.12 m/s | | | Peak A-Wave: 1.18 m/s | | | | | | Tissue Doppler | | | | | | Septal e' Velocity: 0.11 m/s Lateral E/e' Ratio0.15 | | | | | | Aortic Valve | | | | | | Area (continuity): 4.53 cm^2 | | | Mean Gradient: 4.71 mmHg | | | | | | Tricuspid Valve | | | | | | TR Velocity: 2.24 m/s | | | | | | LVOT | | | | | | Peak Velocity: 1.29 m/s | | | LVOT Diameter: 2.54 cm | | | | | |Structures | | | | | | Left Atrium | | | | | | LA A/P Dimension: 5.28 cm LA Area: 23.93 cm^2 | | | LA Vol/BSA Index: 45 mL/m^2 LA Volume: 100.81 ml | | | | | | Left Ventricle | | | | | | Diastolic Dimension: 5.68 cm Systolic Dimension: 4.2 cm | | | Septum Diastolic: 1.67 cm | | | PW Diastolic: 1.36 cm | | | EF Xgxhkrzhd76% | | | EF Calculated: 68% | | | | | | Miscellaneous | | | | | | Aorta | | | | | | Aortic Root: 3.44 cm | | | Ascending Aorta: 3.23 cm | | | | | + + -----+ + + | Procedure Note | + + | Joseph, Rad Results In - 11/04/2017 0734 PDT Transthoracic Echocardiography Report (TTE) | | | | Demographics | | | | Patient Name GONE TYRESE BAEZ Room Number 432 | | JR. 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 | | | | Procedure date | | Date: 11/04/2017Start: 06:44 AM | | | | Technical Quality: Adequate visualizationStudy Location: Portable | | | | Patient Status: Routine | | Height: 69 inchesWeight: 248 poundsBSA: 2.26 m^2BMI: 36.62 kg/m^2 | | Rhythm: Normal Sinus Rhythm | | | | Conclusions | | Summary | | 1. Mild left atrial dilatation. | | 2. Normal left ventricular size with a mild concentric left ventricular | | hypertrophy. Left ventricular systolic function is preserved. LVEF is | | 65-70%. | | 3. Grade 2 left ventricular diastolic dysfunction. | | 4. Normal valvular structure. | | 5. Normal right-sided pressure. | | 6. Dilated IVC with a normal collapse suggesting potential mild fluid | | retention. | | 7. There is a small circumferential pericardial effusion noted. | | | | Signature | | | | Electronically signed by VESTA MONTES MD(Interpreting physician) on | | 11/04/2017 07:33 AM | | | | | | Findings | | Mitral Valve | | Structurally normal mitral valve without significant stenosis or | | regurgitation. | | Aortic Valve | | Aortic valve is trileaflet without significant stenosis or regurgitation. | | Tricuspid Valve | | Structurally normal tricuspid valve with mild regurgitation. | | Pulmonic Valve | | Structurally normal pulmonic valve with mild regurgitation. | | Left Atrium | | Mildly dilated left atrium. | | Left Ventricle | | Mild concentric left ventricular hypertrophy. | | Impaired relaxation compatible with diastolic dysfunction (reversed E/A | | ratio). | | Ejection fraction is visually estimated at 65-70%. | | Right Atrium | | Normal right atrial size. | | Right Ventricle | | Normal right ventricular size. | | Right ventricle global systolic function is normal. | | TAPSE = 3.3 cm. | | Pericardial Effusion | | There is a small circumferential pericardial effusion noted. | | Pleural Effusion | | No evidence of pleural effusion. | | Miscellaneous | | Dilated IVC with normal collapse. | | Aortic root dimension within normal limits. | | | | Valves | | | | Mitral Valve | | | | Peak E-Wave: 1.12 m/s | | Peak A-Wave: 1.18 m/s | | | | Tissue Doppler | | | | Septal e' Velocity: 0.11 m/s Lateral E/e' Ratio0.15 | | | | Aortic Valve | | | | Area (continuity): 4.53 cm^2 | | Mean Gradient: 4.71 mmHg | | | | Tricuspid Valve | | | | TR Velocity: 2.24 m/s | | | | LVOT | | | | Peak Velocity: 1.29 m/s | | LVOT Diameter: 2.54 cm | | | | Structures | | | | Left Atrium | | | | LA A/P Dimension: 5.28 cm LA Area: 23.93 cm^2 | | LA Vol/BSA Index: 45 mL/m^2 LA Volume: 100.81 ml | | | | Left Ventricle | | | | Diastolic Dimension: 5.68 cm Systolic Dimension: 4.2 cm | | Septum Diastolic: 1.67 cm | | PW Diastolic: 1.36 cm | | EF Xqmawvgdy64% | | EF Calculated: 68% | | | | Miscellaneous | | | | Aorta | | | | Aortic Root: 3.44 cm | | Ascending Aorta: 3.23 cm | + + + +---------+ + + | Performing | Address | City/State/Zipcode | Phone Number | | Organization | | | | + +---------+ + + | [facility] | | | | + +---------+ + + Procalcitonin (11/04/2017501) + + + + + | Component | Value | Ref Range | Performed At | + + + + + | Procalcitonin | <0.05 | <=0.50 ng/mL | [facility] | | | | | [facility] | | | | | [facility] - | | | | | LABORATORY | + + + + + | Comment | Comment: < 0.50 | | [facility] | | | ng/mL:Procalcitonin | | [facility] | | | levels below 0.50 ng/mL | | CENTER - | | | on the first day of | | LABORATORY | | | admission represents a | | | | | low risk for progression | | | | | to severe sepsis and/or | | | | | septic shock, however | | | | | these do not exclude an | | | | | infection, because | | | | | localized infections | | | | | (without systemic signs) | | | | | may also be associated | | | | | with such low | | | | | levels. > 2.00 | | | | | ng/mL:Procalcitonin | | | | | levels above 2.00 ng/mL | | | | | on the first day of | | | | | admission represents a | | | | | high risk for | | | | | progression to severe | | | | | sepsis and/or septic | | | | | shock. If the | | | | | procalcitonin | | | | | measurement is performed | | | | | shortly after the | | | | | systemic infection | | | | | process has started | | | | | (usually less than 6 | | | | | hours), these values may | | | | | still be low. As | | | | | various non-infectious | | | | | conditions are known to | | | | | induce procalcitonin as | | | | | well, procalcitonin | | | | | levels between 0.50 | | | | | ng/mL and 2.00 ng/mL | | | | | should be reviewed | | | | | carefully to take into | | | | | account the specific | | | | | clinical background and | | | | | condition(s) of the | | | | | individual patient. | | | + + + + + + + | Specimen | + + | Blood | + + + + + + + | Performing | Address | City/State/Zipcode | Phone Number | | Organization | | | | + + + + + | [facility] | [address] | [place], [place] | [phone] | | [facility] | | [address] | | | - LABORATORY | | | | + + + + + | [facility] | [address] | [place], [place] | | | [facility] | | [address] | | | - LABORATORY | | | | + + + + + CBC no Differential (11/04/2017501) + + + + + | Component | Value | Ref Range | Performed At | + + + + + | WBC | 7.0 | 4.0 - 11.0 K/uL | [facility] | | | | | [facility] | | | | | C[facility] - | | | | | LABORATORY | + + + + + | RBC | 3.63 (L) | 4.30 - 5.70 M/uL | [facility] | | | | | [facility] | | | | | C[facility] - | | | | | LABORATORY | + + + + + | Hgb | 9.1 (L) | 13.5 - 18.0 g/dL | [facility] | | | | | [facility] | | | | | [facility] - | | | | | LABORATORY | + + + + + | Hct | 28.7 (L) | 40.0 - 51.0 % | [facility] | | | | | [facility] | | | | | C[facility] - | | | | | LABORATORY | + + + + + | MCV | 78.9 (L) | 83.0 - 101.0 fL | [facility] | | | | | [facility] | | | | | C[facility] - | | | | | LABORATORY | + + + + + | MCH | 25.0 (L) | 28.0 - 35.0 pg | [facility] | | | | | [facility] | | | | | C[facility] - | | | | | LABORATORY | + + + + + | MCHC | 31.7 (L) | 32.0 - 36.0 g/dL | [facility] | | | | | [facility] | | | | | CENTER - | | | | | LABORATORY | + + + + + | RDW-CV | 16.7 (H) | <15.0 % | [facility] | | | | | [facility] | | | | | C[facility] - | | | | | LABORATORY | + + + + + | Platelet Count | 175 | 140 - 440 K/uL | [facility] | | | | | [facility] | | | | | [facility] - | | | | | LABORATORY | + + + + + | MPV | 7.5 | fL | [facility] | | | | [...] + | [facility] | [address] | [place] | [phone] | | [facility] | | [address] | | | - LABORATORY | | | | + + + + + | [facility] | [address] | [place] | | | [facility] | | [address] | | | - LABORATORY | | | | + + + + + Hemoglobin A1C (11/04/2017501) + +---------+ + + | Component | Value | Ref Range | Performed At | + +---------+ + + | Hemoglobin A1c | 8.4 (H) | 4.3 - 6.0 % | [facility] | | | | | [facility] | | | | | CENTER - | | | | | LABORATORY | + +---------+ + + | Estimated Average | 194 | mg/dL | [facility] | | Glucose | | | [facility] | | | | | CENTER - | | | | | LABORATORY | + +---------+ + + + + | Specimen | + + | Blood | + + + + + + + | Performing | Address | City/State/Zipcode | Phone Number | | Organization | | | | + + + + + | [facility] | [address] | [place] | [phone] | | [facility] | | [address] | | | - LABORATORY | | | | + + + + + | [facility] | [address] | [place], [place] | | | [facility] | | [address] | | | - LABORATORY | | | | + + + + + Culture, Blood (11/03/20171948)Only the most recent of 2 results within the time period is included. + + + + + | Component | Value | Ref Range | Performed At | + + + + + | Culture | No growth after 5 days | | [facility] | | | incubation. | | [facility] | | | | | CENTER - | | | | | LABORATORY | + + + + + + + | Specimen | + + | Blood | + + + + + + + | Performing | Address | City/State/Zipcode | Phone Number | | Organization | | | | + + + + + | [facility] | [address] | [place], [place] | [phone] | | [facility] | | [address] | | | - LABORATORY | | | | + + + + + | [facility] | [address] | [place] | | | [facility] | | [address] | | | - LABORATORY | | | | + + + + + B Type Natriuretic Peptide (11/03/20171948) + +---------+ + + | Component | Value | Ref Range | Performed At | + +---------+ + + | BNP | 257 (H) | <100 pg/mL | [facility] | | | | | [facility] | | | | | CENTER - | | | | | LABORATORY | + +---------+ + + + + | Specimen | + + | Blood | + + + + + + + | Performing | Address | City/State/Zipcode | Phone Number | | Organization | | | | + + + + + | [facility] | [address] | [place] | [phone] | | [facility] | | [address] | | | - LABORATORY | | | | + + + + + | [facility] | [address] | [place] | | | [facility] | | [address] | | | - LABORATORY | | | | + + + + + CT Chest wo Contrast (11/03/2017 1737) + + + | Narrative | Performed At | + + + | UNENHANCED CHEST CT 11/03/2017 5:34 PM CLINICAL HISTORY: SHORTNESS | [facility] | | OF BREATH COMPARISON: Preceding radiography | | | TECHNIQUE: Axial unenhanced images are performed through the chest, | | | along with multiplanar reformations. FINDINGS: Calcified | | | plaque is present in the coronary arteries. There is a small | | | volume of low-attenuation pericardial fluid and the heart subjectively | | | appears at least mildly enlarged. Mildly enlarged subcarinal | | | lymph node adjacent to the bronchus intermedius measures up to 13 mm | | | short axis. No other enlarged nodes are apparent. There are | | | very small dependent bilateral pleural effusions, right larger than | | | left. No pneumothorax is evident. There is asymmetric elevation | | | of the left hemidiaphragm with adjacent bandlike opacity in the | | | lingula and basilar left lower lobe, favoring atelectasis. No | | | central airway occlusion is visible. Additional bandlike opacity is | | | present medially in the right middle lobe and in the basilar right | | | lower lobe, also favoring atelectasis. Minimal clustered | | | nodularity is present in the right middle lobe. No dominant mass | | | or consolidation is apparent. There is early thoracic spondylosis | | | and multilevel Schmorl's node formation. Bones, soft tissues and | | | imaged upper abdomen are otherwise unremarkable. IMPRESSION - | | | 1. SUBJECTIVE CARDIOMEGALY WITH SMALL PERICARDIAL EFFUSION, SMALL | | | DEPENDENT PLEURAL EFFUSIONS, LEFT HEMIDIAPHRAGMATIC ELEVATION AND | | | BANDLIKE BASILAR OPACITIES FAVORING ATELECTASIS. NO CENTRAL AIRWAY | | | OCCLUSION IS APPARENT. 2. TINY CLUSTERED NODULES IN THE RIGHT | | | MIDDLE LOBE, LIKELY REFLECTING SMALL AIRWAY CENTERED INFECTION OR | | | INFLAMMATION. A MILDLY ENLARGED SUBCARINAL LYMPH NODE MAY BE | | | REACTIVE. 3. CORONARY ARTERIAL CALCIFICATION. Images were | | | provided for interpretation on November 03, 2017 at 1745 hours. Results | | | were finalized at 1805 hours. Dictated and Signed by: | | | Eyad Silvestre MD Electronically signed: 11/03/2017 6:03 PM | | + + + + + | Procedure Note | + + | Joseph, Rad Results In - 11/03/2017 1806 PDT [address] 11/03/2017 5:34 PM | | | | CLINICAL HISTORY: SHORTNESS OF BREATH | | | | COMPARISON: Preceding radiography | | | | TECHNIQUE: Axial unenhanced images are performed through the chest, along with | | multiplanar reformations. | | | | FINDINGS: Calcified plaque is present in the coronary arteries. There is a | | small volume of low-attenuation pericardial fluid and the heart subjectively | | appears at least mildly enlarged. Mildly enlarged subcarinal lymph node | | adjacent to the bronchus intermedius measures up to 13 mm short axis. No other | | enlarged nodes are apparent. There are very small dependent bilateral pleural | | effusions, right larger than left. No pneumothorax is evident. | | | | There is asymmetric elevation of the left hemidiaphragm with adjacent bandlike | | opacity in the lingula and basilar left lower lobe, favoring atelectasis. No | | central airway occlusion is visible. Additional bandlike opacity is present | | medially in the right middle lobe and in the basilar right lower lobe, also | | favoring atelectasis. Minimal clustered nodularity is present in the right | | middle lobe. No dominant mass or consolidation is apparent. | | | | There is early thoracic spondylosis and multilevel Schmorl's node formation. | | Bones, soft tissues and imaged upper abdomen are otherwise unremarkable. | | | | IMPRESSION - | | 1. SUBJECTIVE CARDIOMEGALY WITH SMALL PERICARDIAL EFFUSION, SMALL DEPENDENT | | PLEURAL EFFUSIONS, LEFT HEMIDIAPHRAGMATIC ELEVATION AND BANDLIKE BASILAR | | OPACITIES FAVORING ATELECTASIS. NO CENTRAL AIRWAY OCCLUSION IS APPARENT. | | | | 2. TINY CLUSTERED NODULES IN THE RIGHT MIDDLE LOBE, LIKELY REFLECTING SMALL | | AIRWAY CENTERED INFECTION OR INFLAMMATION. A MILDLY ENLARGED SUBCARINAL LYMPH | | NODE MAY BE REACTIVE. | | | | 3. CORONARY ARTERIAL CALCIFICATION. | | | | Images were provided for interpretation on November 03, 2017 at 1745 hours. Results | | were finalized at 1805 hours. | | | | Dictated and Signed by: Eyad Konrad, MD | | Electronically signed: 11/03/2017 6:03 PM | + + + +---------+ + + | Performing | Address | City/State/Zipcode | Phone Number | | Organization | | | | + +---------+ + + | [facility] | | | | + +---------+ + + Slide Review, Peripheral Smear (11/03/2017 1609) + + + + + | Component | Value | Ref Range | Performed At | + + + + + | WBC MORPHOLOGY | Normal | | [facility] | | | | | [facility] | | | | | C[facility] - | | | | | LABORATORY | + + + + + | Platelet Estimate | Adequate | Adequate | [facility] | | | | | [facility] | | | | | [facility] - | | | | | LABORATORY | + + + + + | HYPOCHROMIA | Moderate (A) | (none) | [facility] | | | | | [facility] | | | | | CENTER - | | | | | LABORATORY | + + + + + | RBC MICROCYTES | Moderate (A) | (none) | [facility] | | | | | [facility] | | | | | CENTER - | | | | | LABORATORY | + + + + + + + | Specimen | + + | Blood | + + + + + | Narrative | Performed At | + + + | >10% immature granulocytes seen on smear review | [facility] | | | [facility] | | | [facility] | | | - LABORATORY | + + + + + + + + | Performing | Address | City/State/Zipcode | Phone Number | | Organization | | | | + + + + + | [facility] | [address] | [place] | [phone] | | [facility] | | [address] | | | - LABORATORY | | | | + + + + + | [facility] | [address] | [place] | | | [facility] | | [address] | | | - LABORATORY | | | | + + + + + Troponin I (11/03/2017 1609) + + + + + | Component | Value | Ref Range | Performed At | + + + + + | Troponin I | 0.03Comment: Reference | <0.06 ng/mL | [facility]. | | | Ranges:0.00-0.06 = | | [facility] | | | NORMAL>0.06 = | | CENTER - | | | SUSPICIOUS FOR | | LABORATORY | | | MYOCARDIAL DAMAGE NOTE: | | | | | Values greater than 0.50 | | | | | ng/mL have been shown | | | | | to be strongly | | | | | associated with acute | | | | | myocardial infarction. | | | | | The [employer] | | | | | Cardiology (ACC) | | | | | recommends a decision | | | | | limit of 0.06 ng/mL for | | | | | this assay. Results | | | | | greater than 0.06 can | | | | | reflect a pre-infarct | | | | | acute coronary syndrome, | | | | | but can also reflect | | | | | myocardial necrosis or | | | | | injury that is not due | | | | | to coronary artery | | | | | disease. Some of | | | | | these causes are sepsis, | | | | | hypocolemia, atrial | | | | | fibrillation, heart | | | | | failure, pulmonary | | | | | embolism, myocarditis, | | | | | myocardial contusion, | | | | | and renal | | | | | failure. The | | | | | diagnosis of myocardial | | | | | infarction should be | | | | | based on a combination | | | | | of the patient's | | | | | clinical presentation | | | | | and the clinical | | | | | laboratory test results | | | | | (especially serial | | | | | troponin levels). | | | + + + + + + + | Specimen | + + | Blood | + + + + + + + | Performing | Address | City/State/Zipcode | Phone Number | | Organization | | | | + + + + + | [facility] | [address] | [place] | [phone] | | [facility] | | [address] | | | - LABORATORY | | | | + + + + + | [facility] | [address] | [place], [place] | | | [facility] | | [address] | | | - LABORATORY | | | | + + + + + XR Chest AP Portable (11/03/2017 1601) + + + | Narrative | Performed At | + + + | SINGLE AP CHEST 11/03/2017 4:01 PM CLINICAL HISTORY: SHORTNESS OF | [facility] | | BREATH COMPARISON: None available FINDINGS: The cardiac | | | silhouette is enlarged and the central pulmonary vasculature is | | | prominent. There is asymmetric elevation of the left hemidiaphragm | | | with gas and dependent fluid visible in the underlying stomach. | | | Hazy reticular opacity is present in the adjacent left lung base and | | | also within the right lung base. There is minimal blunting of the | | | right costophrenic angle. Upper lung lemon are clear. No | | | pneumothorax is visible. Bones and soft tissues are otherwise | | | unremarkable. IMPRESSION - 1. FINDINGS SUSPICIOUS FOR | | | CONGESTIVE HEART FAILURE OR VOLUME OVERLOAD WITH POTENTIAL TRACE | | | RIGHT PLEURAL EFFUSION, ASYMMETRIC ELEVATION OF THE LEFT | | | HEMIDIAPHRAGM AND BASILAR RETICULAR OPACITY FAVORING AT LEAST A | | | COMPONENT OF ATELECTASIS. Dictated and Signed by: Bernice Linton | | Electronically signed: 11/03/2017 8:48 PM | | + + + + + | Procedure Note | + + | Joseph, Rad Results In - 11/03/20172050 PDT SINGLE AP CHEST 11/03/2017 4:01 PM | | | | CLINICAL HISTORY: SHORTNESS OF BREATH | | | | COMPARISON: None available | | | | FINDINGS: The cardiac silhouette is enlarged and the central pulmonary | | vasculature is prominent. There is asymmetric elevation of the left | | hemidiaphragm with gas and dependent fluid visible in the underlying stomach. | | Hazy reticular opacity is present in the adjacent left lung base and also within | | the right lung base. There is minimal blunting of the right costophrenic angle. | | Upper lung lemon are clear. No pneumothorax is visible. Bones and soft | | tissues are otherwise unremarkable. | | | | IMPRESSION - | | | | 1. FINDINGS SUSPICIOUS FOR CONGESTIVE HEART FAILURE OR VOLUME OVERLOAD WITH | | POTENTIAL TRACE RIGHT PLEURAL EFFUSION, ASYMMETRIC ELEVATION OF THE LEFT | | HEMIDIAPHRAGM AND BASILAR RETICULAR OPACITY FAVORING AT LEAST A COMPONENT OF | | ATELECTASIS. | | | | Dictated and Signed by: Eyad Silvestre MD | | Electronically signed: 11/03/2017 8:48 PM | + + + +---------+ + + | Performing | Address | City/State/Zipcode | Phone Number | | Organization | | | | + +---------+ + + | [facility] | | | | + +---------+ + + ECG 12 lead (11/03/2017 1540) + + + + + | Component | Value | Ref Range | Performed At | + + + + + | VENTRICULAR RATE EKG | 81 | BPM | [facility] | + + + + + | ATRIAL RATE | 81 | BPM | [facility] | + + + + + | P-R INTERVAL | 130 | ms | [facility] | + + + + + | QRS DURATION | 96 | ms | [facility] | + + + + + | Q-T INTERVAL | 368 | ms | [facility] | + + + + + | Q-T INTERVAL | 427 | ms | [facility] | | (CORRECTED) | | | | + + + + + | P WAVE AXIS | 50 | degrees | [facility] | + + + + + | QRS AXIS | 18 | degrees | [facility] | + + + + + | T AXIS | 53 | degrees | [facility] | + + + + + | INTERPRETATION TEXT | Normal sinus | | [facility] | | | rhythmMinimal voltage | | | | | criteria for LVH, may be | | | | | normal | | | | | variantBorderline ECGNo | | | | | previous ECGs | | | | | availableConfirmed by | | | | | SERENE MONTELONGO MD ([id number]) | | | | | on 11/04/2017 6:30:21 AM | | | + + + + + + + + | Narrative | Performed At | + + + | | | + + + + +---------+ + + | Performing | Address | City/State/Zipcode | Phone Number | | Organization | | | | + +---------+ + + | [facility] | | | | + +---------+ + + from Last 3 Months Insurance + +--------+ +--------+-------+---------+ | Payer | Benefi | Subscriber | Type | Phone | Address | | | t Plan | ID | | | | | | / | | | | | | | Group | | | | | + +--------+ +--------+-------+---------+ | BCBS | BCBS | [id number] | PPO | | | | | [employer] | | | | | | | L FEP | | | | | + +--------+ +--------+-------+---------+ | [employer] | [employer] | [id number] | Indemn | | | | SERVICE | YELLOW | | ity | | | | | [place] | | | | | + +--------+ +--------+-------+---------+ + +--------+ +--------+ + + | Guarantor Name | Accoun | Relation to | Date | Phone | Billing Address | | | t Type | Patient | of | | | | | | | | | | + +--------+ +--------+ + + | TYRESE AMIN | Person | Self [birth year] | Home: | [address] [place] [address] LN | | JR. | al/Michael | | 1971 | [phone] [place] [id number] | | | luann | | | [phone] | | + +--------+ +--------+ + +
--- OUTSIDE RECORDS SUMMARY | ~2018-01-18 | XMS | Encounter Summary ---
Demographics + + + | Address | [address] | | | [place] [address] | + + + | Home Phone | | + + + | Preferred Language | Unknown | + + + | Marital Status | | + + + | Restorationism Affiliation | [id number] | + + + | Race | Unknown | + + + | Ethnic Group | Unknown | + + + Author + + + | Author | [facility] | | | and Min | + + + | Organization | [facility] | | | and [place] | + + + | Address | Unknown | + + + | Phone | Unavailable | + + + Support + + + + + | Name | Relationship | Address | Phone | + + + + + | Brittney Goodrich | ECON | [address] | | | | | [place] | | | | | [id number] | | + + + + + Care Team Providers + +------+ + | Care Card Punching Machine Operator Name | Role | Phone | + +------+ + | Mars Urrutia DO | PCP | | + +------+ + Reason for Visit + + + | Reason | Comments | + + + | Shortness of Breath | | + + + Auth/Cert +--------+--------+ + + + + | Status | Reason | Specialty | Diagnoses / | Referred By | Referred To | | | | | Procedures | Contact | Contact | +--------+--------+ + + + + | | | | Diagnoses | | | | | | | Essential | | | | | | | hypertension | | | | | | | Dyspnea on | | | | | | | exertion | | | | | | | Dyspnea and | | | | | | | respiratory | | | | | | | abnormalitie | | | | | | | s Anemia in | | | | | | | stage 4 | | | | | | | chronic | | | | | | | kidney | | | | | | | disease | | | | | | | (HCC) | | | | | | | Pneumonia | | | | | | | due to | | | | | | | infectious | | | | | | | organism, | | | | | | | unspecified | | | | | | | laterality, | | | | | | | unspecified | | | | | | | part of lung | | | | | | | | | | +--------+--------+ + + + + Encounter Details +--------+ + + + + | Date | Type | Department | Care Team | Description | +--------+ + + + + | 11/03/ | Hospital | [facility] | Estuardo Fajardo, | Pneumonia due to | | 2018 - | Encounter | [facility] | MD Roel FISHER | infectious organism, | | | | [address] [place] | [place] | unspecified | | 11/06/ | | [place] [address] | [id number] | laterality, | | 2017 | | [phone] | | unspecified part of | | | | | Nolan Everett, | lung (Primary Dx); | | | | | MD Roel MONO | Anemia in stage 4 | | | | | [place] | chronic kidney | | | | | [address] | disease (HCC); | | | | | [phone] | Dyspnea on exertion; | | | [...] syndrome | +--------+ + + + + Social [...] + + + | Blood Pressure | 130/76 | 11/06/2017801 PDT | + + + + | Pulse | 85 | 11/06/201756 PDT | + + + + | Temperature | 36.2 C (97.2 F) | 11/06/2017801 PDT | + + + + | Respiratory Rate | 18 | 11/06/2017855 PDT | + + + + | Oxygen Saturation | 95% | 11/06/2017855 PDT | + + + + | Inhaled Oxygen | - | - | | Concentration | | | + + + + | Weight | 106 kg (233 lb 11 | 11/06/2017399 PDT | | | oz) | | + + + + | Height | 175.3 cm (5' 9") | 11/03/20172107 PDT | + + + + | Body Mass Index | 34.51 | 11/06/2017399 PDT | + + + + in [...] + + as of this encounter Discharge Summaries Lb Prather MD - 11/06/2017 1005 PDTFormatting of this note may be different from the original. [place] HOSPITALIST DISCHARGE SUMMARY Pt. Name/Age/: Tyrese Cabrera Jr. 47 y.o. 1970 Date of Admission: 11/03/2017 Date of Discharge: 11/06/2017 Admitting Physician: Nolan Everett MD Primary Care Provider: Mars Urrutia DO Discharging Physician: Lb Prather MD DISCHARGE DIAGNOSES: Acute hypoxic respiratory failure possibly 2/2 to volume overload in setting of CKD/Acute o n Chronic Diastolic heart failure+/- CAP DISCHARGE MEDICATIONS: Discharge Medications New Medications Details levoFLOXacin 750 MG tablet Take 1 tablet by mouth Every other day for 3 days. Indications: Community Acquired Pneumon ia aka: LEVAQUIN Start: 11/08/2017 Changed Medications Details carvedilol 12.5 mg tablet Take 1 tablet by mouth 2 times daily. What changed: medication strength how much to take aka: COREG furosemide 80 mg tablet Take 1 tablet by mouth 2 times daily. What changed: how much to take how to take this when to take this additional instructions aka: LASIX Unchanged Medications Details albuterol 90 mcg/puff inhaler Inhale 2 puffs into the lungs 4 times daily as needed for Wheezing. amLODIPine 10 MG tablet Take 1 tablet by mouth Daily. aka: NORVASC Ascorbic Acid 500 MG Caps Take 500 mg by mouth Every other day. b complex-vitamin c-folic acid tablet Take 1 tablet by mouth Daily. Cholecalciferol 5000 units Caps Take 1 capsule by mouth Daily. aka: VITAMIN D-3 ferrous sulfate 325 mg tablet Take 1 tablet by mouth Every other day. GLIPIZIDE XL 10 mg ER tablet Generic drug: glipiZIDE Take 10 mg by mouth daily (with breakfast). losartan 50 mg tablet Take 1 tablet by mouth Daily. aka: COZAAR patiromer 16.8 g packet Take 1 diluted packet by mouth Daily. aka: VELTASSA pioglitazone 45 mg tablet Take 45 mg by mouth Daily. aka: ACTOS rosuvastatin 20 mg tablet Take 1 tablet by mouth nightly. aka: GREGORIO sevelamer carbonate 800 mg tablet Take 1 tablet by mouth 3 times daily (with meals). aka: RENVELA SITagliptin 50 MG tablet Take 50 mg by mouth Daily. aka: JANUVIA sodium bicarbonate 650 mg tablet Take 1 tablet by mouth 2 times daily. HOSPITAL COURSE: Please refer to the H&P for full details and the most recent rounding rounding (progress) n ote. Acute hypoxic respiratory failure possibly 2/2 to volume overload in setting of CKD/Acute o n Chronic Diastolic heart failure+/- CAP Patient presented with worsening shortness of breath and LE edema. Cr 3.[address] chest showed subjective cardiomegaly with small pericardial effusion, bandlike basilar opaci ties, tiny clusters in R middle lobe. BNP 257, procal <0.05, trop x 1 0.03. TTE 11/04 EF 65-70 %, G2DD, IVC dilated with normal collapse. 11/03 Bld cultures NGTD. Patient was given intraven ous lasix and gradually symptoms improved. He was given levofloxacin every other day. The drew jose was discharged with an adjustment to his lasix, an appointment with nephrology and lelo driver for follow up BMP. Most recent weight: Input and output for last 24hrs: Wt Readings from Last 1 Encounters: 11/06/17 106 kg (233 lb 11 oz) I/O last 24 Hours: In: 1384 [P.O.:1384] Out: 2300 [Urine:2300] Vitals Ranges: Temp: [36.2 C (97.2 F)-36.6 C (97.9 F)] 36.2 C (97.2 F) Pulse: [78-85] 85 Resp: [16-20] 18 BP: (130-142)/(76-90) 130/76 Vitals: Temp: 36.2 C (97.2 F) BP: 130/76 Pulse: 85 Resp: 18 SpO2: 95 % SpO2 95 % on room air at flow rate L/min PHYSICAL EXAM: Patient seen and examined by me on discharge day PROCEDURES AND CONSULTS: Procedures None Consults Nephrology PENDING RESULTS: DISPOSITION AND DISCHARGE INSTRUCTIONS: Follow-up Information Mars Urrutia DO In 1 week. Specialty: Family Medicine Contact information: [phone] [phone] [place] In 1 week. Specialty: Nurse Practitioner Why: Appt Contact information: [address], [address] [place] [address] Please follow up. Why: Appt made for 11/10/17 8:30am Condition: Patient being discharged with condition improved Diet: Renal Less than 30 minutes were spent on discharge and coordination of post-hospital care. Electronically signed by: Lb Prather MD, 11/06/2017 10:05 [facility] Portions of this chart may have been created with [employer] voice recognition software. Occasi onal wrong-word or sound-alike substitutions may have occurred due to the inherent mane itations of voice recognition software. Please read the chart carefully and recognize, using context, where these substitutions have occurredin this encounter Discharge Instructions Lb Prather MD - 11/06/2017Mr. Gone, You presented with shortness of breath and leg swelling. This is likely related to your wor sening renal function and a component of heart failure related to uncontrolled blood pressur e. You were given intravenous medications to help you void. Gradually your symptoms improved . Please start taking furosemide 80mg twice a day. An appointment has been made for nephrolo gy on Friday, 8:30am. Please have the lab performed (Basic metabolic panel) prior to present ing to the nephrology appointment. Additionally, you have been treated for a possible pneumonia. You will take levofloxacin ev jason other day as prescribed. in this encounter Medications at Time of Discharge + + + +---------+ + + | Medication | Sig. | Disp. | Refills | Start | End Date | | | | | | Date | | + + + +---------+ + + | amLODIPine | Take 1 tablet by | 30 | 5 | 12/10/19 | | | (NORVASC) 10 MG | [...] + + + +---------+ + + | albuterol 90 | Inhale 2 puffs into | | | | | | mcg/puff inhaler | the lungs 4 times | | | | 8 | | | daily as needed for | | | | | | | Wheezing. | | | | | + + + +---------+ + + | furosemide (LASIX) | Take 1 tablet by | 60 | 0 | 11/07/19 | | | 80 mg tablet | mouth 2 times daily. | tablet | | 18 | 8 | + + + +---------+ + + | levoFLOXacin | Take 750 mg by | | | 11/07/19 | | | (LEVAQUIN) 750 MG | mouth. | | | 18 | 8 | | tablet | | | | | | + + + +---------+ + + | levoFLOXacin | Take 1 tablet by | 4 | 0 | 11/09/19 | | | (LEVAQUIN) 750 MG | mouth Every other | tablet | | 18 | 8 | | tabletIndications: | day for 3 days. | | | | | | Community Acquired | Indications: | | | | | | Pneumonia | Community Acquired | | | | | | | Pneumonia | | | | | + + + +---------+ + + | pioglitazone | Take 45 mg by mouth | | | | | | (ACTOS) 45 mg tablet | Daily. | | | | 8 | + + + +---------+ + + | sevelamer | Take 1 tablet by | 90 | 5 | 08/22/19 | | | carbonate (RENVELA) | mouth 3 times daily | tablet | | 18 | 8 | | 800 mg tablet | (with meals). | | | | | + + + +---------+ + + as of this encounter Progress Notes Lb Prather MD - 11/06/2017 0933 PDTFormatting of this note may be different from the original. [place] HOSPITALIST PROGRESS NOTE Patient: Tyrese Baez Deborah Stock : 1970: Age: 47 y.o. MedRec: [id number] Admission date: 11/03/2017 Hospital day # : 3 Physician author: Lb Prather MD Today: 11/06/2017 Allergies: Allergies Allergen Reactions Doxazosin Shortness Of Breath Amoxicillin GI upset Current Medications: Current Facility-Administered Medications Medication Dose Route Frequency Provider Last Rate Last Dose acetaminophen (TYLENOL) tablet 650 mg 650 mg Oral Q4H PRN Nolan Everett MD amLODIPine (NORVASC) tablet 10 mg 10 mg Oral Daily Nolan Everett MD 10 mg at 12/17 08 carvedilol (COREG) tablet 12.5 mg 12.5 mg Oral BID Lb Prahter MD 12.5 mg at 0844 cholecalciferol (VITAMIN D-3) tablet 2,000 Units 2,000 Units Oral Daily Nolan fields MD 2,000 Units at 11/06/17 0844 dextrose 50% injection 12.5 g 12.5 g Intravenous PRN Nolan Everett MD dextrose 50% injection 12.5 g 12.5 g Intravenous PRN Nolan Everett MD docusate sodium (COLACE) capsule 100 mg 100 mg Oral BID PRN Nolan Everett MD epoetin laura (EPOGEN, PROCRIT) 10,000 units/mL injection 10,000 Units 10,000 Units Sub cutaneous Weekly Jelena Garay DO 10,000 Units at 11/05/172145 furosemide (LASIX) injection 80 mg 80 mg Intravenous BID (8 and 16) Perlita Young D 80 mg at 11/06/17 0843 heparin 5,000 units/mL injection 5,000 Units 5,000 Units Subcutaneous 2 times per day Nolan Everett MD 5,000 Units at 11/06/17 0844 insulin lispro (humaLOG KWIKPEN) 100 units/mL injection (pen) 0-6 Units 0-6 Units Subc utaneous 4x Daily WC and HS Nolan Everett MD 2 Units at 11/06/17 0843 levoFLOXacin (LEVAQUIN) tablet 750 mg 750 mg Oral Every Other Day Lb Prather MD 750 mg at 11/06/17 0844 losartan (COZAAR) tablet 50 mg 50 mg Oral Daily Jelena Garay DO 50 mg at 12/17 0844 melatonin tablet 3 mg 3 mg Oral Nightly PRN Nolan Everett MD ondansetron (ZOFRAN ODT) disintegrating tablet 4 mg 4 mg Oral Q6H PRN Nolan Everett MD renal multivitamin (DIALYVITE, VOL-CARE) tablet 1 tablet 1 tablet Oral Daily Nolan Everett MD 1 tablet at 11/06/17 0844 rosuvastatin (CRESTOR) tablet 20 mg 20 mg Oral Nightly Nolan Everett MD 20 mg at 11/05/172005 senna (SENOKOT) tablet 8.6 mg 8.6 mg Oral BID PRN Nolan Everett MD sevelamer carbonate (RENVELA) tablet 800 mg 800 mg Oral TID WC Nolan Everett MD 800 mg at 11/06/17 0844 sodium bicarbonate tablet 650 mg 650 mg Oral BID Nolan Everett MD 650 mg at 12/17 0843 Current Infusions: Objective Data Point of care glucose Recent Labs Lab 11/06/17 0725 11/05/17201011/05/17 1650 11/05/17 1216 11/05/17 0654 11/04/17 2114 POCGLU 243* 231* 279* 253* 183* 188* Labs last 24 hours Recent Results (from the past 24 hour(s)) POC Glucose Collection Time: 11/05/17 12:16 Result Value Ref Range Glucose, POC 253 (H) 70 - 109 mg/dL POC Glucose Collection Time: 11/05/17 16:50 Result Value Ref Range Glucose, POC 279 (H) 70 - 109 mg/dL POC Glucose Collection Time: 11/05/17 20:11 Result Value Ref Range Glucose, POC 231 (H) 70 - 109 mg/dL Basic Metabolic Panel Collection Time: 11/06/17 4:38 Result Value Ref Range NA 138 136 - 149 mmol/L K 4.8 3.5 - 5.1 mmol/L CL 105 98 - 109 mmol/L CO2 26 24 - 31 mmol/L ANION GAP 7 3 - 16 mmol/L GLUCOSE 278 (H) 70 - 109 mg/dL BUN 74 (H) 7 - 18 mg/dL Creatinine, Serum/Plasma 4.94 (H) 0.60 - 1.30 mg/dL eGFR if not 13 (L) >=60 mL/min/1.73m2 CALCIUM 7.7 (L) 8.3 - 10.5 mg/dL BUN/CREA 15.0 CBC with Differential Collection Time: 11/06/17 4:38 Result Value Ref Range WBC 7.0 4.0 - 11.0 K/uL RBC 3.87 (L) 4.30 - 5.70 M/uL Hgb 9.7 (L) 13.5 - 18.0 g/dL Hct 30.2 (L) 40.0 - 51.0 % MCV 78.2 (L) 83.0 - 101.0 fL MCH 25.2 (L) 28.0 - 35.0 pg MCHC 32.2 32.0 - 36.0 g/dL RDW-CV 16.3 (H) <15.0 % Platelet Count 188 140 - 440 K/uL MPV 8.0 fL % Neutrophils 68.9 45.0 - 82.0 % % Lymphocytes 16.8 (L) 20.0 - 45.0 % % Monocytes 9.9 4.0 - 12.0 % % Eosinophils 3.4 0.0 - 5.0 % % Basophils 1.0 0.0 - 1.0 % Absolute Neutrophils 4.80 1.80 - 8.50 K/uL Absolute Lymphocytes 1.20 0.60 - 3.20 K/uL Absolute Monocytes 0.70 0.00 - 1.00 K/uL Absolute Eosinophils 0.20 0.00 - 0.40 K/uL Absolute Basophils 0.10 0.00 - 0.10 K/uL Magnesium Collection Time: 11/06/17 4:38 Result Value Ref Range MG 2.3 1.8 - 2.5 mg/dL Phosphorus Collection Time: 11/06/17 4:38 Result Value Ref Range PHOSPHORUS 6.6 (H) 2.5 - 4.6 mg/dL POC Glucose Collection Time: 11/06/17 7:25 Result Value Ref Range Glucose, POC 243 (H) 70 - 109 mg/dL Micro results Microbiology Results (72 hrs) Procedure Component Value Units Date/Time Respiratory Virus Panel, NAAT [[id number]] Collected: 11/04/17 1229 Order Status: Completed Lab Status: Final result Updated: 11/05/17 0810 Specimen: Tissue from Nasopharynx INFLUENZA A Not Detected Influenza Virus A H1 RNA Not Detected Influenza Virus A H3 RNA Not Detected ADENOVIRUS Not Detected Coronavirus HKU1 Not Detected Coronavirus NL63 Not Detected Coronavirus 229E Not Detected Coronavirus OC43 Not Detected Human Metapneumovirus Not Detected Rhinovirus/Enterovirus Not Detected Influenza A 2009 H1 Not Detected Influenza B Not Detected Parainfluenza 1 Not Detected Parainfluenza 2 Not Detected Parainfluenza 3 Not Detected Parainfluenza 4 Not Detected RSV Not Detected Bordetella pertussis DNA Not Detected Chlamydophila pneumoniae DNA Not Detected Mycoplasma pneumoniae DNA Not Detected Narrative: Performed at: [facility] [id number] Mass Spectroscopist: Bishop Sanderson MD, Phone: [phone] Influenza A and B RNA, NAAT [[id number]] (Normal) Collected: 11/04/17 1229 Order Status: Completed Lab Status: Final result Updated: 11/04/17 1337 Specimen: Tissue from Nasopharynx Influenza A PCR Negative Influenza B PCR Negative Culture, Blood [[id number]] (Normal) Collected: 11/03/17 1949 Order Status: Completed Lab Status: Preliminary result Updated: 11/04/17 0801 Specimen: Blood Culture No growth: Monitored continually by instrument for 5 days Culture, Blood [[id number]] (Normal) Collected: 11/03/17 1914 Order Status: Completed Lab Status: Preliminary result Updated: 11/04/17 0721 Specimen: Blood Culture No growth: Monitored continually by instrument for 5 days Radiology results No results found. Vitals Ranges: Temp: [36.2 C (97.2 F)-36.6 C (97.9 F)] 36.2 C (97.2 F) Pulse: [78-85] 85 Resp: [16-20] 18 BP: (130-142)/(76-90) 130/76 Vitals: Temp: 36.2 C (97.2 F) BP: 130/76 Pulse: 85 Resp: 18 SpO2: 95 % SpO2 95 % on room air at flow rate L/min Subjective Patient feels well today and ready to be discharged. Exam Gen Soumya - alert, cooperative Head - Normocephalic Eyes - PERRL, conjunctiva/corneas clear ENT - mucous membranes moist Neck - supple Lungs - CTA throughout Heart - normal rate, rhythm w/o m/r/g Abdomen - Normoactive bowel sounds, non-tender non-distended Extremities - + LE edema Skin - No rashes Neurologic - Alert and oriented x 3. Assessment and Hospital Course Acute hypoxic respiratory failure possibly 2/2 to volume overload in setting of CKD/Acute o n Chronic Diastolic heart failure +/- CAP Plan Acute hypoxic respiratory failure possibly 2/2 to volume overload in setting of CKD/Acute o n Chronic Diastolic heart failure +/- CAP Cr 3.[address] chest showed subjective cardiomegaly with small pericardial effusio n, bandlike basilar opacities, tiny clusters in R middle lobe. BNP 257, procal <0.05, trop x 1 0.03. TTE 11/04 EF 65-70%, G2DD, IVC dilated with normal collapse -11/03 Bld cultures NGTD -Cont ceftriazone started 11/03, changed to levofloxacin 11/04 -Ordered sputum culture not collected, flu swab negative, virus panel negative -Change back to home lasix today NIDDM Hold glipizide Cont ISS A1C 8.4 HTN -Cont amlodipine, losartan -Cont carvedilol Anemia in setting of CKD -Hgb stable in 9s today CKD IV -Cont sevelamer, renal tablet PPX:heparin FEN: Renal Disp: home today Code Status Full Code Current Facility-Administered Medications: acetaminophen 650 mg Oral Q4H PRN amLODIPine 10 mg Oral Daily carvedilol 12.5 mg Oral BID cholecalciferol 2,000 Units Oral Daily dextrose 12.5 g Intravenous PRN dextrose 12.5 g Intravenous PRN docusate sodium 100 mg Oral BID PRN epoetin laura 10,000 Units Subcutaneous Weekly furosemide 80 mg Intravenous BID (8 and 16) heparin 5,000 Units Subcutaneous 2 times per day insulin lispro 0-6 Units Subcutaneous 4x Daily WC and HS levoFLOXacin 750 mg Oral Every Other Day losartan 50 mg Oral Daily melatonin 3 mg Oral Nightly PRN ondansetron 4 mg Oral Q6H PRN renal multivitamin 1 tablet Oral Daily rosuvastatin 20 mg Oral Nightly senna 8.6 mg Oral BID PRN sevelamer carbonate 800 mg Oral TID WC sodium bicarbonate 650 mg Oral BID Lb Prather 11/06/2017 9:34 [facility] Jelena Garay, DO - 11/05/2017 1342 PDTFormatting of this note may be different from the original. [facility] [address] [place] [address] PROGRESS NOTE Pt. Name/Age/: Tyrese Cabrera Jr. 47 y.o. 1970 Med. Record Number: [id number] Date of admission: 11/03/2017 NEPHROLOGY HPI - (Pt was seen at 0815). Sitting up. Breathing better after a very large diuresis. H is appetite is good. He does voice that he would like to go soon, but is willing to stay one more day for diuresis. No uremic symptoms. Lab Results Component Value Date POCGLU 279 (H) 11/05/2017 POCGLU 253 (H) 11/05/2017 POCGLU 183 (H) 11/05/2017 POCGLU 188 (H) 11/04/2017 EXAM: BP 141/78 | Pulse 81 | Temp 37.7 C (99.8 F) (Oral) | Resp 18 | Ht 1.753 m (5' 9") | Wt 105.2 kg (231 lb 14.8 oz) | SpO2 94% | BMI 34.25 kg/m Tmax 37.7 (Wt. dec. 4.8 kg? ) Intake/Output Summary (Last 24 hours) at 11/05/17 1342 Last data filed at 11/05/17 1318 Gross per 24 hour Intake 267 ml Output 5050 ml Net -4783 ml Heart: Regular rate and rhythm with no S3, S4, murmur or rub. Lungs: CTA with decreased BS at the bases. Abdomen: Soft, obese, nontender, normoactive bowel sounds. Extremities: 2+ edema, clubbing, or cyanosis, LAB: Recent Labs 11/05/17 0426 NA 142 K 4.8 CL 108 CO2 26 BUN 62* CREA 3.96* GFRNONAA 16* GLU 196* CALCIUM 8.3 PHOS 4.8* MG 2.0 Recent Labs 11/05/17 0426 WBC 5.6 HGB 9.5* HCT 29.6* PLT 178 MCV 78.4* NEUPCT 69.8 LYMPCT 15.8* MONPCT 8.9 EOSPCT 4.3 Urine Pro/Cr ratio = Lab Results Component Value Date PRORNDU 310 (H) 11/05/2017 PROTCREATUR 7.21 (H) 11/05/2017 IMPRESSION 1. Nephrotic syndrome, with Stage IV CKD in a patient with a solitary right kidney-- diure sing well. 2. Probable CAP, LLL--community acquired, Day #3 Ceftriaxone, Day #2 Levofloxacin. 3. Type II DM, with nephropathy and retinopathy--suboptimal control. 4. Hypertension--agree with use of an ARB, losartan for its renoprotective effect. 5. Anemia secondary to CKD-- tolerating IV Fe. 6. 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 PLAN 1. Cont. IV lasix, and would DC him on oral does, eg. 80 mg, BID. 2. Will start EPO. 10,000 SQ, weekly, => convert to SQ darbepoetin, outpt. 3. I left him some reading material. He would like to begin listing for a possible renal allograft, and is receptive to CAPD outpt, when his GFR is clearly < 15 ml/min. [facility] Lb Prather MD - 11/05/2017 0759 PDTFormatting of this note may be different from the original. [facility] [place] HOSPITALIST PROGRESS NOTE Patient: Tyrese Cabrera . : 1970: Age: 47 y.o. MedRec: [id number] Admission date: 11/03/2017 Hospital day # : 2 Physician author: Lb Prather MD Today: 11/05/2017 Allergies: Allergies Allergen Reactions Doxazosin Shortness Of Breath Amoxicillin GI upset Current Medications: Current Facility-Administered Medications Medication Dose Route Frequency Provider Last Rate Last Dose acetaminophen (TYLENOL) tablet 650 mg 650 mg Oral Q4H PRN Nolan Everett MD amLODIPine (NORVASC) tablet 10 mg 10 mg Oral Daily Nolan Everett MD 10 mg at 10/17 08 carvedilol (COREG) tablet 6.25 mg 6.25 mg Oral BID Nolan Everett MD 6.25 mg at 0 11/04/172110 cholecalciferol (VITAMIN D-3) tablet 2,000 Units 2,000 Units Oral Daily Nolan fields MD 2,000 Units at 11/04/17 08 dextrose 50% injection 12.5 g 12.5 g Intravenous PRN Nolan Everett MD dextrose 50% injection 12.5 g 12.5 g Intravenous PRN Nolan Everett MD docusate sodium (COLACE) capsule 100 mg 100 mg Oral BID PRN Nolan Everett MD ferric gluconate (FERRLECIT) 250 mg in sodium chloride 0.9% 250 mL IVPB 250 mg Intrave nous Daily Jelena Garay, DO 90 mL/hr at 11/04/17 1215 250 mg at 11/04/17 1215 furosemide (LASIX) injection 80 mg 80 mg Intravenous BID (8 and 16) Perlita Young 80 mg at 11/04/17 1719 heparin 5,000 units/mL injection 5,000 Units 5,000 Units Subcutaneous 2 times per day Nolan Everett MD 5,000 Units at 11/04/17 211 insulin lispro (humaLOG KWIKPEN) 100 units/mL injection (pen) 0-6 Units 0-6 Units Subc utaneous 4x Daily WC and HS Nolan Everett MD 1 Units at 11/04/17 1755 levoFLOXacin (LEVAQUIN) tablet 750 mg 750 mg Oral Every Other Day Lb Prather MD 750 mg at 11/04/17 1105 losartan (COZAAR) tablet 50 mg 50 mg Oral Daily Jelena Garay, DO 50 mg at 0610/17 1232 melatonin tablet 3 mg 3 mg Oral Nightly PRN Nolan Everett MD metOLazone (ZAROXOLYN) tablet 5 mg 5 mg Oral Daily Nolan Everett MD 5 mg at 10/17 0814 ondansetron (ZOFRAN ODT) disintegrating tablet 4 mg 4 mg Oral Q6H PRN Nolan Everett MD renal multivitamin (DIALYVITE, VOL-CARE) tablet 1 tablet 1 tablet Oral Daily Nolan Everett MD 1 tablet at 11/04/17 0813 rosuvastatin (CRESTOR) tablet 20 mg 20 mg Oral Nightly Nolan Everett MD 20 mg at 11/04/17 211 senna (SENOKOT) tablet 8.6 mg 8.6 mg Oral BID PRN Nolan Everett MD sevelamer carbonate (RENVELA) tablet 800 mg 800 mg Oral TID WC Nolan Everett MD 800 mg at 11/04/17 175 sodium bicarbonate tablet 650 mg 650 mg Oral BID Nolan Everett MD 650 mg at 06/0 10/17 2111 Current Infusions: Objective Data Point of care glucose Recent Labs Lab 11/05/17 0654 11/04/17 2114 11/04/17 1634 11/04/17 1222 11/04/17 0636 11/03/17 2117 POCGLU 183* 188* 161* 202* 193* 257* Labs last 24 hours Recent Results (from the past 24 hour(s)) POC Glucose Collection Time: 11/04/17 12:22 Result Value Ref Range Glucose, POC 202 (H) 70 - 109 mg/dL Influenza A and B RNA, NAAT Collection Time: 11/04/17 12:29 Result Value Ref Range Influenza A PCR Negative Negative Influenza B PCR Negative Negative Basic Metabolic Panel Collection Time: 11/04/17 12:54 Result Value Ref Range NA 138 136 - 149 mmol/L K 5.1 3.5 - 5.1 mmol/L CL 107 98 - 109 mmol/L CO2 22 (L) 24 - 31 mmol/L ANION GAP 9 3 - 16 mmol/L GLUCOSE 230 (H) 70 - 109 mg/dL BUN 64 (H) 7 - 18 mg/dL Creatinine, Serum/Plasma 3.70 (H) 0.60 - 1.30 mg/dL eGFR if not 18 (L) >=60 mL/min/1.73m2 CALCIUM 8.3 8.3 - 10.5 mg/dL BUN/CREA 17.3 POC Glucose Collection Time: 11/04/17 16:34 Result Value Ref Range Glucose, POC 161 (H) 70 - 109 mg/dL Protein/Creatinine Ratio, Urine Collection Time: 11/04/17 16:35 Result Value Ref Range PROTEIN,RANDOM URINE 185 (H) <6 mg/dL Creatinine, Urine, Random 23 mg/dL PRO/CREA RATIO,URINE 8.04 (H) <0.20 mg/mg POC Glucose Collection Time: 11/04/17 21:14 Result Value Ref Range Glucose, POC 188 (H) 70 - 109 mg/dL Phosphorus Collection Time: 11/05/17 4:26 Result Value Ref Range PHOSPHORUS 4.8 (H) 2.5 - 4.6 mg/dL Basic Metabolic Panel Collection Time: 11/05/17 4:26 Result Value Ref Range NA 142 136 - 149 mmol/L K 4.8 3.5 - 5.1 mmol/L CL 108 98 - 109 mmol/L CO2 26 24 - 31 mmol/L ANION GAP 8 3 - 16 mmol/L GLUCOSE 196 (H) 70 - 109 mg/dL BUN 62 (H) 7 - 18 mg/dL Creatinine, Serum/Plasma 3.96 (H) 0.60 - 1.30 mg/dL eGFR if not 16 (L) >=60 mL/min/1.73m2 CALCIUM 8.3 8.3 - 10.5 mg/dL BUN/CREA 15.7 CBC with Differential Collection Time: 11/05/17 4:26 Result Value Ref Range WBC 5.6 4.0 - 11.0 K/uL RBC 3.77 (L) 4.30 - 5.70 M/uL Hgb 9.5 (L) 13.5 - 18.0 g/dL Hct 29.6 (L) 40.0 - 51.0 % MCV 78.4 (L) 83.0 - 101.0 fL MCH 25.1 (L) 28.0 - 35.0 pg MCHC 32.1 32.0 - 36.0 g/dL RDW-CV 16.5 (H) <15.0 % Platelet Count 178 140 - 440 K/uL MPV 7.6 fL % Neutrophils 69.8 45.0 - 82.0 % % Lymphocytes 15.8 (L) 20.0 - 45.0 % % Monocytes 8.9 4.0 - 12.0 % % Eosinophils 4.3 0.0 - 5.0 % % Basophils 1.2 (H) 0.0 - 1.0 % Absolute Neutrophils 3.90 1.80 - 8.50 K/uL Absolute Lymphocytes 0.90 0.60 - 3.20 K/uL Absolute Monocytes 0.50 0.00 - 1.00 K/uL Absolute Eosinophils 0.20 0.00 - 0.40 K/uL Absolute Basophils 0.10 0.00 - 0.10 K/uL Magnesium Collection Time: 11/05/17 4:26 Result Value Ref Range MG 2.0 1.8 - 2.5 mg/dL POC Glucose Collection Time: 11/05/17 6:54 Result Value Ref Range Glucose, POC 183 (H) 70 - 109 mg/dL Micro results Microbiology Results (72 hrs) Procedure Component Value Units Date/Time Respiratory Virus Panel, NAAT [[id number]] Collected: 11/04/17 1229 Order Status: Sent Lab Status: In process Updated: 11/04/17 1239 Specimen: Tissue from Nasopharynx Influenza A and B RNA, NAAT [[id number]] (Normal) Collected: 11/04/17 1229 Order Status: Completed Lab Status: Final result Updated: 11/04/17 1337 Specimen: Tissue from Nasopharynx Influenza A PCR Negative Influenza B PCR Negative Culture, Blood [[id number]] (Normal) Collected: 11/03/17 194 Order Status: Completed Lab Status: Preliminary result Updated: 11/04/17 0801 Specimen: Blood Culture No growth: Monitored continually by instrument for 5 days Culture, Blood [[id number]] (Normal) Collected: 11/03/17 191 Order Status: Completed Lab Status: Preliminary result Updated: 11/04/17 0721 Specimen: Blood Culture No growth: Monitored continually by instrument for [address] Chest Wo Contrast Result Date: 11/03/[address] 11/03/2017 5:34 PM CLINICAL HISTORY: SHORTNESS OF BREATH COMPARISON: Preceding radiography TECHNIQUE: Axial unenhanced images are performed through the chest, along with multiplanar reformations. FINDINGS: Calcified plaque is present in the coronary arteries. There is a small volume of low-attenuation pericardial fluid and the heart subje ctively appears at least mildly enlarged. Mildly enlarged subcarinal lymph node adjacent to the bronchus intermedius measures up to 13 mm short axis. No other enlarged nodes are appa rent. There are very small dependent bilateral pleural effusions, right larger than left. No pneumothorax is evident. There is asymmetric elevation of the left hemidiaphragm with adj acent bandlike opacity in the lingula and basilar left lower lobe, favoring atelectasis. No central airway occlusion is visible. Additional bandlike opacity is present medially in th e right middle lobe and in the basilar right lower lobe, also favoring atelectasis. Minimal clustered nodularity is present in the right middle lobe. No dominant mass or consolidatio n is apparent. There is early thoracic spondylosis and multilevel Schmorl's node formation. Bones, soft tissues and imaged upper abdomen are otherwise unremarkable. IMPRESSION - 1. S UBJECTIVE CARDIOMEGALY WITH SMALL PERICARDIAL EFFUSION, SMALL DEPENDENT PLEURAL EFFUSIONS, L EFT HEMIDIAPHRAGMATIC ELEVATION AND BANDLIKE BASILAR OPACITIES FAVORING ATELECTASIS. NO JACKIE TRAL AIRWAY OCCLUSION IS APPARENT. 2. TINY CLUSTERED NODULES IN THE RIGHT MIDDLE LOBE, LIKE LY REFLECTING SMALL AIRWAY CENTERED INFECTION OR INFLAMMATION. A MILDLY ENLARGED SUBCARINAL LYMPH NODE MAY BE REACTIVE. 3. CORONARY ARTERIAL CALCIFICATION. Images were provided for i nterpretation on November 03, 2017 at 1745 hours. Results were finalized at 1805 hours. Dictated and Signed by: Eyad Silvestre MD Electronically signed: 11/03/2017 6:03 PM Xr Chest Ap Portable Result Date: 11/03/2017 SINGLE AP CHEST 11/03/2017 4:01 PM CLINICAL HISTORY: SHORTNESS OF BREATH COMPARISON: None tk ilable FINDINGS: The cardiac silhouette is enlarged and the central pulmonary vasculature is prominent. There is asymmetric elevation of the left hemidiaphragm with gas and dependent fluid visible in the underlying stomach. Hazy reticular opacity is present in the adjacent l eft lung base and also within the right lung base. There is minimal blunting of the right c ostophrenic angle. Upper lung lemon are clear. No pneumothorax is visible. Bones and sof t tissues are otherwise unremarkable. IMPRESSION - 1. FINDINGS SUSPICIOUS FOR CONGESTIVE H EART FAILURE OR VOLUME OVERLOAD WITH POTENTIAL TRACE RIGHT PLEURAL EFFUSION, ASYMMETRIC ELEV ATION OF THE LEFT HEMIDIAPHRAGM AND BASILAR RETICULAR OPACITY FAVORING AT LEAST A COMPONENT OF ATELECTASIS. Dictated and Signed by: Eyad Silvestre MD Electronically signed: 11/03/2017 8:4 8 PM Vitals Ranges: Temp: [36.4 C (97.5 F)-37.7 C (99.8 F)] 37.7 C (99.8 F) Pulse: [71-96] 82 Resp: [16-20] 18 BP: (138-186)/(82-98) 186/98 Vitals: Temp: 37.7 C (99.8 F) BP: (!) 186/98 Pulse: 82 Resp: 18 SpO2: 94 % SpO2 94 % on room air at flow rate L/min Interval history 47 y.o. malewith a hx of CKD, DM, HTN who presentsfor evaluation of shor tness of breath and ?pneumonia. He's had 2 courses of antibiotics as an outpt and was impr oving but now seems to be getting worse again. In ED the pt was scheduled to be d/c with ano ther course of abx but did not tolerate ambulation with signif tachycardia, desaturation. He is routinely followed [facility] by Dr Zamudio and need for dialysis (PD vs HD ) has been discussed. Patient started on lasix, metolazone. TTE performed with normal EF, G2DD. BNP in 200s. CT chest showed subjective cardiomegaly wi th small pericardial effusion, bandlike basilar opacities, tiny clusters in R middle lobe. B INSULATION TECHNICIAN 257, procal <0.05, trop x 1 0.03. TTE 6/ EF 65-70%, G2DD, IVC dilated with normal col lapse. Patient being diuresed. Subjective Patient reports improvement, but not at baseline. Exam Gen Soumya - alert, cooperative Head - Normocephalic Eyes - PERRL, conjunctiva/corneas clear ENT - mucous membranes moist Neck - supple Lungs - CTA throughout Heart - normal rate, rhythm w/o m/r/g Abdomen - Normoactive bowel sounds, non-tender non-distended Extremities - +2 LE edema Skin - No rashes Neurologic - Alert and oriented x 3 Assessment and Hospital Course Acute hypoxic respiratory failure possibly 2/2 to volume overload in setting of CKD +/- CAP Plan Acute hypoxic respiratory failure possibly 2/2 to volume overload in setting of CKD/Acute o n Chronic Diastolic heart failure +/- CAP Cr 3.[address] chest showed subjective cardiomegaly with small pericardial effusio n, bandlike basilar opacities, tiny clusters in R middle lobe. BNP 257, procal <0.05, trop x 1 0.03. TTE 6/ EF 65-70%, G2DD, IVC dilated with normal collapse -11/03 Bld cultures NGTD -Cont ceftriazone started 11/03, changed to levofloxacin 11/04 -Ordered sputum culture not collected, flu swab negative, virus panel pending -Cont lasix 80mg IV BID, hold metolazone, >4 liters negative yesterday NIDDM Hold glipizide Cont ISS A1C 8.4 HTN -Cont amlodipine, losartan -Increased carvedilol Anemia in setting of CKD -Hgb stable in 9s today CKD IV -Cont sevelamer, renal tablet PPX: heparin FEN: Renal Disp: home when stable, likely 1-2 days Code Status Full Code Current Facility-Administered Medications: acetaminophen 650 mg Oral Q4H PRN amLODIPine 10 mg Oral Daily carvedilol 6.25 mg Oral BID cholecalciferol 2,000 Units Oral Daily dextrose 12.5 g Intravenous PRN dextrose 12.5 g Intravenous PRN docusate sodium 100 mg Oral BID PRN ferric gluconate 250 mg Intravenous Daily furosemide 80 mg Intravenous BID (8 and 16) heparin 5,000 Units Subcutaneous 2 times per day insulin lispro 0-6 Units Subcutaneous 4x Daily WC and HS levoFLOXacin 750 mg Oral Every Other Day losartan 50 mg Oral Daily melatonin 3 mg Oral Nightly PRN metOLazone 5 mg Oral Daily ondansetron 4 mg Oral Q6H PRN renal multivitamin 1 tablet Oral Daily rosuvastatin 20 mg Oral Nightly senna 8.6 mg Oral BID PRN sevelamer carbonate 800 mg Oral TID WC sodium bicarbonate 650 mg Oral BID Lb Prather 11/05/2017 7:59 [facility] Carlos Blake, PharmD - 11/04/2017 5665 PDTFormatting of this note may be different from t yonis original. PHARMACY SERVICES: ADMISSION MEDICATION REVIEW Tyrese Baez Deborah Zamora. is a 47 y.o. male admitted on 11/03/2017. Patient is a reliable historian. Location of Patient when reviewed: ED X Medical Floor Patient s prior to admit medication and over the counter (OTC) medications/herbal supplem ents list obtained from: X Verbal interview X Patient ABLE to recall name, strength, and directions x Pharmacy list names: [facility] [place] INTERN (Prescription Monitoring Program) X [employer] insurance reported information Vaccines up to date? Yes No Unsure Influenza X Pneumococcal X Tdap X Shingles X Noted medications discrepancies or medication-related issues: Medication added: Medication: Prior to Admission Sig: Albuterol 90 mcg 2 puffs into the lungs four times daily as needed for wheezing Recreational Substances , Tobacco & Alcohol use : Patient denies all use of Recreational Substances , Tobacco & Alcohol Best possible BEHAVIORAL HEALTH THERAPIST medication list after pharmacy review: PT REPORTED TAKING NOT TAKING Medication Sig Last Dose Dispense Doc. Provider albuterol 90 mcg/puff inhaler Inhale 2 puffs into the lungs 4 times daily as needed for Wh eezing. Taking Historical ProviderMD amLODIPine (NORVASC) 10 MG tablet Take 1 tablet by mouth Daily. Taking 30 tablet Chelane R Fackenthall, WAFER PRODUCTION WORKER Ascorbic Acid 500 MG CAPS Take 500 mg by mouth Every other day. Taking 15 each Chelane R F ackenthall, WAFER PRODUCTION WORKER b complex-vitamin c-folic acid (NEPHRO-SAMANTHA) tablet Take 1 tablet by mouth Daily. Taking 3 0 tablet Chelane R Fackenthall, WAFER PRODUCTION WORKER carvedilol (COREG) 6.25 mg tablet Take 1 tablet by mouth 2 times daily. Taking 60 tablet C helane R Fackenthall, WAFER PRODUCTION WORKER Cholecalciferol (VITAMIN D-3) 5000 units CAPS Take 1 capsule by mouth Daily. Taking 30 cap [place] Chelane R Fackenthall, WAFER PRODUCTION WORKER ferrous sulfate 325 mg tablet Take 1 tablet by mouth Every other day. Taking 15 tablet Heena lucina R Fackenthall, WAFER PRODUCTION WORKER furosemide (LASIX) 80 mg tablet Take 80 mg by mouth in the morning, 40 mg in the afternoon . Taking 45 tablet Chelane R Fackenthall, WAFER PRODUCTION WORKER glipiZIDE (GLIPIZIDE XL) 10 MG 24 hr tablet Take 10 mg by mouth daily (with breakfast). Miguel A padilla Historical Provider, losartan (COZAAR) 50 mg tablet Take 1 tablet by mouth Daily. Taking 30 tablet Chelane R Fa ckenthall, WAFER PRODUCTION WORKER patiromer (VELTASSA) 16.8 g packet Take 1 diluted packet by mouth Daily. Taking 30 packet Chelane R Fackenthall, WAFER PRODUCTION WORKER pioglitazone (ACTOS) 45 mg tablet Take 45 mg by mouth Daily. Taking Historical ProviderMD rosuvastatin (CRESTOR) 20 mg tablet Take 1 tablet by mouth nightly. Taking 30 tablet Lara ne R Fackenthall, WAFER PRODUCTION WORKER sevelamer carbonate (RENVELA) 800 mg tablet Take 1 tablet by mouth 3 times daily (with [facility]). Taking 90 tablet Chelane R Fackenthall, WAFER PRODUCTION WORKER sitagliptin (JANUVIA) 50 MG tablet Take 50 mg by mouth Daily. Taking Historical ProviderMD sodium bicarbonate 650 mg tablet Take 1 tablet by mouth 2 times daily. Taking 60 tablet Ch elane R Fackenthall, WAFER PRODUCTION WORKER Medication review performed and electronically signed by Marium Gonsalez, Surgical Coordinator 018 16:23 Carlos Blake PharmD 11/04/2017 16:32 Denis Vasquez, EVALUATION MANAGER - 11/04/2017 1551 PDTFormatting of this note may be different from the original. 11/04/17 1339 Oxygen Therapy O2 Device room air Home O2 eval performed? yes Resting on RA (%) 96 Exercising on RA (%) 95 no O2 needed at rest or with ambulation to maintain SpO2 >90% Electronically signed by: Denis Vasquez, MICHAEL 11/04/2017 15:52 Sybil Cisneros PharmD - 11/04/2017 0912 PDTFormatting of this note may be different from the original. RENAL DOSE ADJUSTMENT PER PHARMACY PROTOCOL: Subjective/Objective: Tyrese Cabrera is a 47 y.o. year old male admitted on 11/03/2017 15:16 and is receivin g LEVOFLOXACIN for cap. BP 164/90 | Pulse 83 | Temp 36.6 C (97.9 F) (Oral) | Resp 16 | Ht 1.753 m (5' 9") | Wt 112.9 kg (248 lb 14.4 oz) | SpO2 90% | BMI 36.76 kg/m Intake/Output Summary (Last 24 hours) at 11/04/17 0912 Last data filed at 11/04/17 0727 Gross per 24 hour Intake 1300 ml Output 1875 ml Net -575 ml Recent Labs Lab 11/04/17 0502 11/03/17 1609 CREA 3.69* 3.90* Estimated Creatinine Clearance: 30 mL/min (A) (based on SCr of 3.69 mg/dL (H)). Date 11/04 Day of therapy 1 Serum Creatinine 3.69 CrCl (mL/min) 30 Dose - current 750 mg q24hr Dose - new 750 mg q48hr Assessment/Plan: 1. For creatinine clearance 20-49 mL/min, decrease dose of LEVOFLOXACIN from 750 mg daily t o 750 mg every 48 hours. 2. Pharmacy will continue to follow and adjust dose as appropriate to clinical condition an d creatinine clearance changes RENAL DOSE ADJUSTMENT PROTOCOL Electronically signed by: Sybil Cisneros, Soy 11/04/2017 9:12 Lb Prather MD - 11/04/2017 0836 PDTFormatting of this note may be different from the original. [place] HOSPITALIST PROGRESS NOTE Patient: Tyrese Cabrera Jr. : 1970: Age: 47 y.o. MedRec: [id number] Admission date: 11/03/2017 Hospital day # : 1 Physician author: Lb Prather MD Today: 11/04/2017 Allergies: Allergies Allergen Reactions Doxazosin Shortness Of Breath Amoxicillin GI upset Current Medications: Current Facility-Administered Medications Medication Dose Route Frequency Provider Last Rate Last Dose acetaminophen (TYLENOL) tablet 650 mg 650 mg Oral Q4H PRN Nolan Everett MD amLODIPine (NORVASC) tablet 10 mg 10 mg Oral Daily Nolan Everett MD 10 mg at 10/17 08 carvedilol (COREG) tablet 6.25 mg 6.25 mg Oral BID Nolan Everett MD 6.25 mg at 0 11/04/17 08 cholecalciferol (VITAMIN D-3) tablet 2,000 Units 2,000 Units Oral Daily Nolan fields MD 2,000 Units at 11/04/17 0814 dextrose 50% injection 12.5 g 12.5 g Intravenous PRN Nolan Everett MD dextrose 50% injection 12.5 g 12.5 g Intravenous PRN Nolan Everett MD docusate sodium (COLACE) capsule 100 mg 100 mg Oral BID PRN Nolan Everett MD ferrous sulfate tablet 325 mg 325 mg Oral Every Other Day Nolan Everett MD 325 m g at 11/04/17 08 furosemide (LASIX) injection 80 mg 80 mg Intravenous Daily Nolan Everett MD 80 m g at 11/04/17 08 glipiZIDE (GLUCOTROL) tablet 10 mg 10 mg Oral QAM AC Nolan Everett MD 10 mg at 0 11/04/17 06 heparin 5,000 units/mL injection 5,000 Units 5,000 Units Subcutaneous 2 times per day Nolan Everett MD 5,000 Units at 11/04/17 08 insulin lispro (humaLOG KWIKPEN) 100 units/mL injection (pen) 0-6 Units 0-6 Units Subc utaneous 4x Daily WC and HS Nolan Everett MD 1 Units at 11/04/17 0817 melatonin tablet 3 mg 3 mg Oral Nightly PRN Nolan Everett MD metOLazone (ZAROXOLYN) tablet 5 mg 5 mg Oral Daily Nolan Everett MD 5 mg at 10/17 0814 ondansetron (ZOFRAN ODT) disintegrating tablet 4 mg 4 mg Oral Q6H PRN Nolan Everett MD renal multivitamin (DIALYVITE, VOL-CARE) tablet 1 tablet 1 tablet Oral Daily Nolan Everett MD 1 tablet at 11/04/17 0813 rosuvastatin (CRESTOR) tablet 20 mg 20 mg Oral Nightly Nolan Everett MD 20 mg at 11/03/17 214 senna (SENOKOT) tablet 8.6 mg 8.6 mg Oral BID PRN Nolan Everett MD sevelamer carbonate (RENVELA) tablet 800 mg 800 mg Oral TID WC Nolan Everett MD 800 mg at 11/04/17 0813 sodium bicarbonate tablet 650 mg 650 mg Oral BID Nolan Everett MD 650 mg at 10/17 0813 Current Infusions: Objective Data Point of care glucose Recent Labs Lab 11/04/17 0636 11/03/17 2117 POCGLU 193* 257* Labs last 24 hours Recent Results (from the past 24 hour(s)) ECG 12 lead Collection Time: 11/03/17 15:40 Result Value Ref Range VENTRICULAR RATE EKG 81 BPM ATRIAL RATE 81 BPM P-R INTERVAL 130 ms QRS DURATION 96 ms Q-T INTERVAL 368 ms Q-T INTERVAL (CORRECTED) 427 ms P WAVE AXIS 50 degrees QRS AXIS 18 degrees T AXIS 53 degrees INTERPRETATION TEXT Normal sinus rhythm Minimal voltage criteria for LVH, may be normal variant Borderline ECG No previous ECGs available Confirmed by REGINALD CARBAJAL, SERENE ([id number]) on 11/04/2017 6:30:21 AM CBC with Differential Collection Time: 11/03/17 16:09 Result Value Ref Range WBC 8.3 4.0 - 11.0 K/uL RBC 4.06 (L) 4.30 - 5.70 M/uL Hgb 10.3 (L) 13.5 - 18.0 g/dL Hct 32.3 (L) 40.0 - 51.0 % MCV 79.4 (L) 83.0 - 101.0 fL MCH 25.3 (L) 28.0 - 35.0 pg MCHC 31.8 (L) 32.0 - 36.0 g/dL RDW-CV 17.0 (H) <15.0 % Platelet Count 209 140 - 440 K/uL MPV 7.7 fL % Neutrophils 76.5 45.0 - 82.0 % % Lymphocytes 13.1 (L) 20.0 - 45.0 % % Monocytes 7.0 4.0 - 12.0 % % Eosinophils 2.5 0.0 - 5.0 % % Basophils 0.9 0.0 - 1.0 % Absolute Neutrophils 6.40 1.80 - 8.50 K/uL Absolute Lymphocytes 1.10 0.60 - 3.20 K/uL Absolute Monocytes 0.60 0.00 - 1.00 K/uL Absolute Eosinophils 0.20 0.00 - 0.40 K/uL Absolute Basophils 0.10 0.00 - 0.10 K/uL Basic Metabolic Panel Collection Time: 11/03/17 16:09 Result Value Ref Range NA 140 136 - 149 mmol/L K 5.0 3.5 - 5.1 mmol/L CL 109 98 - 109 mmol/L CO2 21 (L) 24 - 31 mmol/L ANION GAP 10 3 - 16 mmol/L GLUCOSE 224 (H) 70 - 109 mg/dL BUN 71 (H) 7 - 18 mg/dL Creatinine, Serum/Plasma 3.90 (H) 0.60 - 1.30 mg/dL eGFR if not 17 (L) >=60 mL/min/1.73m2 CALCIUM 8.7 8.3 - 10.5 mg/dL BUN/CREA 18.2 Troponin I Collection Time: 11/03/17 16:09 Result Value Ref Range Troponin I 0.03 <0.06 ng/mL Slide Review, Peripheral Smear Collection Time: 11/03/17 16:09 Result Value Ref Range WBC MORPHOLOGY Normal Platelet Estimate Adequate Adequate HYPOCHROMIA Moderate (A) (none) RBC MICROCYTES Moderate (A) (none) Culture, Blood Collection Time: 11/03/17 19:14 Result Value Ref Range Culture No growth: Monitored continually by instrument for 5 days Culture, Blood Collection Time: 11/03/17 19:49 Result Value Ref Range Culture No growth: Monitored continually by instrument for 5 days B Type Natriuretic Peptide Collection Time: 11/03/17 19:49 Result Value Ref Range BNP 257 (H) <100 pg/mL POC Glucose Collection Time: 11/03/17 21:17 Result Value Ref Range Glucose, POC 257 (H) 70 - 109 mg/dL Procalcitonin Collection Time: 11/04/17 5:02 Result Value Ref Range Procalcitonin <0.05 <=0.50 ng/mL Comment Hemoglobin A1C Collection Time: 11/04/17 5:02 Result Value Ref Range Hemoglobin A1c 8.4 (H) 4.3 - 6.0 % Estimated Average Glucose 194 mg/dL Basic Metabolic Panel Collection Time: 11/04/17 5:02 Result Value Ref Range NA 139 136 - 149 mmol/L K 5.2 (H) 3.5 - 5.1 mmol/L CL 110 (H) 98 - 109 mmol/L CO2 21 (L) 24 - 31 mmol/L ANION GAP 8 3 - 16 mmol/L GLUCOSE 187 (H) 70 - 109 mg/dL BUN 66 (H) 7 - 18 mg/dL Creatinine, Serum/Plasma 3.69 (H) 0.60 - 1.30 mg/dL eGFR if not 18 (L) >=60 mL/min/1.73m2 CALCIUM 8.0 (L) 8.3 - 10.5 mg/dL BUN/CREA 17.9 CBC no Differential Collection Time: 11/04/17 5:02 Result Value Ref Range WBC 7.0 4.0 - 11.0 K/uL RBC 3.63 (L) 4.30 - 5.70 M/uL Hgb 9.1 (L) 13.5 - 18.0 g/dL Hct 28.7 (L) 40.0 - 51.0 % MCV 78.9 (L) 83.0 - 101.0 fL MCH 25.0 (L) 28.0 - 35.0 pg MCHC 31.7 (L) 32.0 - 36.0 g/dL RDW-CV 16.7 (H) <15.0 % Platelet Count 175 140 - 440 K/uL MPV 7.5 fL Magnesium Collection Time: 11/04/17 5:02 Result Value Ref Range MG 2.1 1.8 - 2.5 mg/dL POC Glucose Collection Time: 11/04/17 6:36 Result Value Ref Range Glucose, POC 193 (H) 70 - 109 mg/dL ECHO Complete Collection Time: 11/04/17 7:22 Result Value Ref Range LVEF-TTE TRANSTHORACIC ECHO 68 Micro results Microbiology Results (72 hrs) Procedure Component Value Units Date/Time Culture, Blood [[id number]] (Normal) Collected: 11/03/17 194 Order Status: Completed Lab Status: Preliminary result Updated: 11/04/17 0801 Specimen: Blood Culture No growth: Monitored continually by instrument for 5 days Culture, Blood [[id number]] (Normal) Collected: 11/03/17 191 Order Status: Completed Lab Status: Preliminary result Updated: 11/04/17 07 Specimen: Blood Culture No growth: Monitored continually by instrument for [address] Chest Wo Contrast Result Date: 11/03/[address] 11/03/2017 5:34 PM CLINICAL HISTORY: SHORTNESS OF BREATH COMPARISON: Preceding radiography TECHNIQUE: Axial unenhanced images are performed through the chest, along with multiplanar reformations. FINDINGS: Calcified plaque is present in the coronary arteries. There is a small volume of low-attenuation pericardial fluid and the heart subje ctively appears at least mildly enlarged. Mildly enlarged subcarinal lymph node adjacent to the bronchus intermedius measures up to 13 mm short axis. No other enlarged nodes are appa rent. There are very small dependent bilateral pleural effusions, right larger than left. No pneumothorax is evident. There is asymmetric elevation of the left hemidiaphragm with adj acent bandlike opacity in the lingula and basilar left lower lobe, favoring atelectasis. No central airway occlusion is visible. Additional bandlike opacity is present medially in th e right middle lobe and in the basilar right lower lobe, also favoring atelectasis. Minimal clustered nodularity is present in the right middle lobe. No dominant mass or consolidatio n is apparent. There is early thoracic spondylosis and multilevel Schmorl's node formation. Bones, soft tissues and imaged upper abdomen are otherwise unremarkable. IMPRESSION - 1. S UBJECTIVE CARDIOMEGALY WITH SMALL PERICARDIAL EFFUSION, SMALL DEPENDENT PLEURAL EFFUSIONS, L EFT HEMIDIAPHRAGMATIC ELEVATION AND BANDLIKE BASILAR OPACITIES FAVORING ATELECTASIS. NO JACKIE TRAL AIRWAY OCCLUSION IS APPARENT. 2. TINY CLUSTERED NODULES IN THE RIGHT MIDDLE LOBE, LIKE LY REFLECTING SMALL AIRWAY CENTERED INFECTION OR INFLAMMATION. A MILDLY ENLARGED SUBCARINAL LYMPH NODE MAY BE REACTIVE. 3. CORONARY ARTERIAL CALCIFICATION. Images were provided for i nterpretation on November 03, 2017 at 1745 hours. Results were finalized at 1805 hours. Dictated and Signed by: Eyad Silvestre MD Electronically signed: 11/03/2017 6:03 PM Xr Chest Ap Portable Result Date: 11/03/2017 SINGLE AP CHEST 11/03/2017 4:01 PM CLINICAL HISTORY: SHORTNESS OF BREATH COMPARISON: None tk ilable FINDINGS: The cardiac silhouette is enlarged and the central pulmonary vasculature is prominent. There is asymmetric elevation of the left hemidiaphragm with gas and dependent fluid visible in the underlying stomach. Hazy reticular opacity is present in the adjacent l eft lung base and also within the right lung base. There is minimal blunting of the right c ostophrenic angle. Upper lung lemon are clear. No pneumothorax is visible. Bones and sof t tissues are otherwise unremarkable. IMPRESSION - 1. FINDINGS SUSPICIOUS FOR CONGESTIVE H EART FAILURE OR VOLUME OVERLOAD WITH POTENTIAL TRACE RIGHT PLEURAL EFFUSION, ASYMMETRIC ELEV ATION OF THE LEFT HEMIDIAPHRAGM AND BASILAR RETICULAR OPACITY FAVORING AT LEAST A COMPONENT OF ATELECTASIS. Dictated and Signed by: Eyad Silvestre MD Electronically signed: 11/03/2017 8:4 8 PM Vitals Ranges: Temp: [36.3 C (97.3 F)-37.1 C (98.8 F)] 36.6 C (97.9 F) Pulse: [78-88] 83 Resp: [16-20] 16 BP: (164-178)/(85-94) 164/90 Vitals: Temp: 36.6 C (97.9 F) BP: 164/90 Pulse: 83 Resp: 16 SpO2: 90 % SpO2 90 % on room air at flow rate L/min Interval history 47 y.o. male with a hx of CKD, DM, HTN who presents for evaluation of shortn ess of breath and ?pneumonia. He's had 2 courses of antibiotics as an outpt and was improv ing but now seems to be getting worse again. In ED the pt was scheduled to be d/c with anoth er course of abx but did not tolerate ambulation with signif tachycardia, desaturation. He is routinely followed in [facility] by Dr Zamudio and need for dialysis (PD vs HD) hooper s been discussed. Patient started on lasix, metolazone. TTE performed with normal EF, G2DD. BNP in 200s. Subjective Patient reports feeling the same today. Minimal improvement. Exam Gen Soumya - alert, cooperative Head - Normocephalic Eyes - PERRL, conjunctiva/corneas clear ENT - mucous membranes moist Neck - supple Lungs - Mild bibasilar crackles Heart - normal rate, rhythm w/o m/r/g Abdomen - Normoactive bowel sounds, non-tender non-distended Extremities - + 2 LE edema Skin - No rashes Neurologic - Alert and oriented x 3 Assessment and Hospital Course Acute hypoxic respiratory failure possibly 2/2 to volume overload in setting of CKD +/- CAP Plan Acute hypoxic respiratory failure possibly 2/2 to volume overload in setting of CKD +/- CAP Cr 3.[address] chest showed subjective cardiomegaly with small pericardial effusio n, bandlike basilar opacities, tiny clusters in R middle lobe. BNP 257, procal <0.05, trop x 1 0.03 -TTE 11/04 EF 65-70%, G2DD, IVC dilated with normal collapse -11/03 Bld cultures NGTD -Cont ceftriazone started 11/03, changed to levofloxacin -Ordered sputum culture, viral panel, flu swab -Cont lasix/metolazone, did not receive yesterday -Contacted nephrology to assist with evaluation NIDDM Hold glipizide Cont ISS A1C 8.4 HTN -Cont amlodipine, carvedilol , BP elevated today Anemia in setting of CKD -Hgb 9.1 today, will trend CKD -Cont sevelamer, renal tablet PPX: heparin FEN: Renal Disp: home when stable Code Status Full Code Current Facility-Administered Medications: acetaminophen 650 mg Oral Q4H PRN amLODIPine 10 mg Oral Daily carvedilol 6.25 mg Oral BID cholecalciferol 2,000 Units Oral Daily dextrose 12.5 g Intravenous PRN dextrose 12.5 g Intravenous PRN docusate sodium 100 mg Oral BID PRN ferrous sulfate 325 mg Oral Every Other Day furosemide 80 mg Intravenous Daily glipiZIDE 10 mg Oral QAM AC heparin 5,000 Units Subcutaneous 2 times per day insulin lispro 0-6 Units Subcutaneous 4x Daily WC and HS melatonin 3 mg Oral Nightly PRN metOLazone 5 mg Oral Daily ondansetron 4 mg Oral Q6H PRN renal multivitamin 1 tablet Oral Daily rosuvastatin 20 mg Oral Nightly senna 8.6 mg Oral BID PRN sevelamer carbonate 800 mg Oral TID WC sodium bicarbonate 650 mg Oral BID Lb Prather 11/04/2017 8:36 [facility] in this encounter Plan of Treatment +--------+---------+ + + + | Date | Type | Specialty | Care Team | Description | +--------+---------+ + + + | 01/29/ | Office | Nephrology | Robb, | | | 2017 | Visit | | ARIANA Damon [address] | | | | | | [facility] | | | | | | [address] [place] | | | | | | [address] | | | | | | | [...] for this | | | e | 0 PDT | | procedure are in the [...] for this | | | e | 2113 PDT | | procedure are in the [...] section. | + +--------+ + + + in this encounter Results POC Glucose (11/06/2017 0725) + +---------+ + + | Component | Value | Ref Range | Performed At | + +---------+ + + | Glucose, POC | 243 (H) | 70 - 109 mg/dL | [facility] | | | | | [facility] | | | | | CENTER - | | | | | LABORATORY | + +---------+ + + + + | Specimen | + + | Blood | + + + + + + + | Performing | Address | City/State/Zipcode | Phone Number | | Organization | | | | + + + + + | [facility] | [address] | [place] | [phone] | | [facility] | | [address] | | | - LABORATORY | | | | + + + + + | [facility] | [address] | [place] | | | [facility] | | [address] | | | - LABORATORY | | | | + + + + + Phosphorus (11/06/2017 0438) + +---------+ + + | Component | Value | Ref Range | Performed At | + +---------+ + + | PHOSPHORUS | 6.6 (H) | 2.5 - 4.6 mg/dL | [facility] | | | | | [facility] | | | | | CENTER - | | | | | LABORATORY | + +---------+ + + + + | Specimen | + + | Blood | + + + + + + + | Performing | Address | City/State/Zipcode | Phone Number | | Organization | | | | + + + + + | [facility] | [address] | [place], [place] | [phone] | | [facility] | | [address] | | | - LABORATORY | | | | + + + + + | [facility] | [address] | [place], [place] | | | [facility] | | [address] | | | - LABORATORY | | | | + + + + + Magnesium (11/06/2017 0438) + +-------+ + + | Component | Value | Ref Range | Performed At | + +-------+ + + | MG | 2.3 | 1.8 - 2.5 mg/dL | [facility] | | | | | [facility] | | | | | CENTER [...] | [address] | [place] | [phone] | | [facility] | | [address] | | | - LABORATORY | | | | + + + + + | [facility] | [address] | [place] | | | [facility] | | [address] | | | - LABORATORY | | | | + + + + + CBC with Differential (11/06/2017 0438) + + + + + | Component | Value | Ref Range | Performed At | + + + + + | WBC | 7.0 | 4.0 - 11.0 K/uL | [facility] | | | | | [facility] | | | | | CENTER - | | | | | LABORATORY | + + + + + | RBC | 3.87 (L) | 4.30 - 5.70 M/uL | [facility] | | | | | [facility] | | | | | CENTER - | | | | | LABORATORY | + + + + + | Hgb | 9.7 (L) | 13.5 - 18.0 g/dL | [facility] | | | | | [facility] | | | | | CENTER - | | | | | LABORATORY | + + + + + | Hct | 30.2 (L) | 40.0 - 51.0 % | [facility] | | | | | [facility] | | | | | CENTER - | | | | | LABORATORY | + + + + + | MCV | 78.2 (L) | 83.0 - 101.0 fL | [facility] | | | | | [facility] | | | | | CENTER - | | | | | LABORATORY | + + + + + | MCH | 25.2 (L) | 28.0 - 35.0 pg | [facility] | | | | | [facility] | | | | | CENTER - | | | | | LABORATORY | + + + + + | MCHC | 32.2 | 32.0 - 36.0 g/dL | [facility] | | | | | [facility] | | | | | CENTER - | | | | | LABORATORY | + + + + + | RDW-CV | 16.3 (H) | <15.0 % | [facility] | | | | | [facility] | | | | | CENTER - | | | | | LABORATORY | + + + + + | Platelet Count | 188 | 140 - 440 K/uL | [facility] | | | | | [facility] | | | | | C[facility] - | | | | | LABORATORY | + + + + + | MPV | 8.0 | fL | [facility] | | | | | [facility] | | | | | CENTER - | | | | | LABORATORY | + + + + + | % Neutrophils | 68.9 | 45.0 - 82.0 % | [facility] | | | | | [facility] | | | | | CENTER - | | | | | LABORATORY | + + + + + | % Lymphocytes | 16.8 (L) | 20.0 - 45.0 % | [facility] | | | | | [facility] | | | | | CENTER - | | | | | LABORATORY | + + + + + | % Monocytes | 9.9 | 4.0 - 12.0 % | [facility] | | | | | [facility] | | | | | CENTER - | | | | | LABORATORY | + + + + + | % Eosinophils | 3.4 | 0.0 - 5.0 % | [facility] | | | | | [facility] | | | | | CENTER - | | | | | LABORATORY | + + + + + | % Basophils | 1.0 | 0.0 - 1.0 % | [facility] | | | | | [facility] | | | | | CENTER - | | | | | LABORATORY | + + + + + | Absolute Neutrophils | 4.80 | 1.80 - 8.50 K/uL | [facility] [...] + + + | Absolute Monocytes | 0.70 | 0.00 - 1.00 K/uL | [facility] | | | | | [facility] | | | | | CENTER - | | | | | LABORATORY | + + + + + | Absolute Eosinophils | 0.20 | 0.00 - 0.40 K/uL | [facility] | | | | | [facility] | | | | | CENTER - | | | | | LABORATORY | + + + + + | Absolute Basophils | 0.10 | 0.00 - 0.10 K/uL | [facility] | | | | | [facility] | | | | | CENTER [...] + | [facility] | [address] | [place] | [phone] | | [facility] | | [address] | | | - LABORATORY | | | | + + + + + | [facility] | [address] | [place] | | | [facility] | | [address] | | | - LABORATORY | | | | + + + + + Basic Metabolic Panel (11/06/20178) + + + + + | Component | Value | Ref Range | Performed At | + + + + + | NA | 138 | 136 - 149 mmol/L | [facility] | | | | | [facility] | | | | | CENTER - | | | | | LABORATORY | + + + + + | K | 4.8 | 3.5 - 5.1 mmol/L | [facility] | | | | | [facility] | | | | | CENTER - | | | | | LABORATORY | + + + + + | CL | 105 | 98 - 109 mmol/L | [facility] | | | | | [facility] | | | | | CENTER - | | | | | LABORATORY | + + + + + | CO2 | 26 | 24 - 31 mmol/L | [facility] | | | | | [facility] | | | | | CENTER - | | | | | LABORATORY | + + + + + | ANION GAP | 7 | 3 - 16 mmol/L | [facility] | | | | | [facility] | | | | | CENTER - | | | | | LABORATORY | + + + + + | GLUCOSE | 278 (H) | 70 - 109 mg/dL | [facility] | | | | | [facility] | | | | | CENTER - | | | | | LABORATORY | + + + + + | BUN | 74 (H) | 7 - 18 mg/dL | [facility] | | | | [facility] | | | | | CENTER - | | | | | LABORATORY | + + + + + | Creatinine, | 4.94 (H) | 0.60 - 1.30 mg/dL | [facility]. | | Serum/Plasma | | | [facility] | | | | | CENTER - | | | | | LABORATORY | + + + + + | eGFR if not | 13 (L)Comment: | >=60 mL/min/1.73m2 | [facility]. | | TRINIDADIAN | GLOMERULAR FILTRATION | | [facility] | | | RATE,ESTIMATED mL/min | | CENTER - | | | /1.14h0Pwgw than 60 | | LABORATORY | | [...] + + + + | CALCIUM | 7.7 (L) | 8.3 - 10.5 mg/dL | [facility] | | | | | [facility] | | | | | CENTER - | | | | | LABORATORY | + + + + + | BUN/CREA | 15.0 | | [facility] | | | | [...] + | [facility] | [address] | [place], [place] | [phone] | | [facility] | | [address] | | | - LABORATORY | | | | + + + + + | [facility] | [address] | [place] | | | [facility] | | [address] | | | - LABORATORY | | | | + + + + + POC Glucose (11/05/20172010) + +---------+ + + | Component | Value | Ref Range | Performed At | + +---------+ + + | Glucose, POC | 231 (H) | 70 - 109 mg/dL | [facility]. | | | | | [facility] | | | | | CENTER - | | | | | LABORATORY | + +---------+ + + + + | Specimen | + + | Blood | + + + + + + + | Performing | Address | City/[facility] | Phone Number | | Organization | | | | + + + + + | [facility] | [address] | [place], [place] | [phone] | | [facility] | | [address] | | | - LABORATORY | | | | + + + + + | [facility] | [address] | [place], [place] | | | [facility] | | [address] | | | - LABORATORY | | | | + + + + + POC Glucose (11/05/2017 1650) + +---------+ + + | Component | Value | Ref Range | Performed At | + +---------+ + + | Glucose, POC | 279 (H) | 70 - 109 mg/dL | [facility] | | | | | [facility] [...] + | [facility] | [address] | [place] | [phone] | | [facility] | | [address] | | | - LABORATORY | | | | + + + + + | [facility] | [address] | [place] | | | [facility] | | [address] | | | - LABORATORY | | | | + + + + + POC Glucose (11/05/20176) + +---------+ + + | Component | Value | Ref Range | Performed At | + +---------+ + + | Glucose, POC | 253 (H) | 70 - 109 mg/dL | [facility] | | | | | [facility] | | | | | CENTER - | | | | | LABORATORY | + +---------+ + + + + | Specimen | + + | Blood | + + + + + + + | Performing | Address | City/State/Zipcode | Phone Number | | Organization | | | | + + + + + | [facility] | [address] | [place] | [phone] | | [facility] | | [address] | | | - LABORATORY | | | | + + + + + | [facility] | [address] | [place] | | | [facility] | | [address] | | | - LABORATORY | | | | + + + + + POC Glucose (11/05/2017653) + +---------+ + + | Component | Value | Ref Range | Performed At | + +---------+ + + | Glucose, POC | 183 (H) | 70 - 109 mg/dL | [facility] [...] + | [facility] | [address] | [place] | [phone] | | [facility] | | [address] | | | - LABORATORY | | | | + + + + + | [facility] | [address] | [place] | | | [facility] | | [address] | | | - LABORATORY | | | | + + + + + Magnesium (11/05/2017 0426) + +-------+ + + | Component | Value | Ref Range | Performed At | + +-------+ + + | MG | 2.0 | 1.8 - 2.5 mg/dL | [facility] | | | | | [facility] | | | | | CENTER - | | | | | LABORATORY | + +-------+ + + + + | Specimen | + + | Blood | + + + + + + + | Performing | Address | City/State/Zipcode | Phone Number | | Organization | | | | + + + + + | [facility] | [address] | [place] | [phone] | | [facility] | | [address] | | | - LABORATORY | | | | + + + + + | [facility] | [address] | [place], [place] | | | [facility] | | [address] | | | - LABORATORY | | | | + + + + + CBC with Differential (11/05/2017 0426) + + + + + | Component | Value | Ref Range | Performed At | + + + + + | WBC | 5.6 | 4.0 - 11.0 K/uL | [facility] | | | | | [facility] | | | | | CENTER - | | | | | LABORATORY | + + + + + | RBC | 3.77 (L) | 4.30 - 5.70 M/uL | [facility] | | | | | [facility] | | | | | CENTER - | | | | | LABORATORY | + + + + + | Hgb | 9.5 (L) | 13.5 - 18.0 g/dL | [facility] | | | | | [facility] | | | | | CENTER - | | | | | LABORATORY | + + + + + | Hct | 29.6 (L) | 40.0 - 51.0 % | [facility] | | | | | [facility] | | | | | CENTER - | | | | | LABORATORY | + + + + + | MCV | 78.4 (L) | 83.0 - 101.0 fL | [facility] | | | | | [facility] | | | | | CENTER - | | | | | LABORATORY | + + + + + | MCH | 25.1 (L) | 28.0 - 35.0 pg | [...] + + + + | RDW-CV | 16.5 (H) | <15.0 % | [facility] | | | | | [facility] | | | | | CENTER - | | | | | LABORATORY | + + + + + | Platelet Count | 178 | 140 - 440 K/uL | [facility] | | | | | [facility] | | | | | CENTER - | | | | | LABORATORY | + + + + + | MPV | 7.6 | fL | [facility] | | | | | [facility] | | | | | CENTER - | | | | | LABORATORY | + + + + + | % Neutrophils | 69.8 | 45.0 - 82.0 % | [facility] | | | | | [facility] | | | | | CENTER - | | | | | LABORATORY | + + + + + | % Lymphocytes | 15.8 (L) | 20.0 - 45.0 % | [facility] | | | | | [facility] | | | | | CENTER - | | | | | LABORATORY | + + + + + | % Monocytes | 8.9 | 4.0 - 12.0 % | [facility] | | | | | [facility] | | | | | CENTER - | | | | | LABORATORY | + + + + + | % Eosinophils | 4.3 | 0.0 - 5.0 % | [facility] | | | | | [facility] | | | | | CENTER - | | | | | LABORATORY | + + + + + | % Basophils | 1.2 (H) | 0.0 - 1.0 % | [facility] | | | | | [facility] | | | | | CENTER - | | | | | LABORATORY | + + + + + | Absolute Neutrophils | 3.90 | 1.80 - 8.50 K/uL | [facility] | | | | | [facility] | | | | | CENTER - | | | | | LABORATORY | + + + + + | Absolute Lymphocytes | 0.90 | 0.60 - 3.20 K/uL | [facility] | | | | | [facility] | | | | | CENTER - | | | | | LABORATORY | + + + + + | Absolute Monocytes | 0.50 | 0.00 - 1.00 K/uL | [facility] | | | | | [facility] | | | | | CENTER - | | | | | LABORATORY | + + + + + | Absolute Eosinophils | 0.20 | 0.00 - 0.40 K/uL | [facility] | | | | | [facility] | | | | | CENTER - | | | | | LABORATORY | + + + + + | Absolute Basophils | 0.10 | 0.00 - 0.10 K/uL | [facility] [...] + | [facility] | [address] | [place] | [phone] | | [facility] | | [address] | | | - LABORATORY | | | | + + + + + | [facility] | [address] | [place] | | | [facility] | | [address] | | | - LABORATORY | | | | + + + + + Basic Metabolic Panel (11/05/2017 0426) + + + + + | Component | Value | Ref Range | Performed At | + + + + + | NA | 142 | 136 - 149 mmol/L | [facility] | | | | | [facility] | | | | | CENTER - | | | | | LABORATORY | + + + + + | K | 4.8 | 3.5 - 5.1 mmol/L | [facility] | | | | | [facility] | | | | | CENTER - | | | | | LABORATORY | + + + + + | CL | 108 | 98 - 109 mmol/L | [facility] | | | | | [facility] | | | | | CENTER - | | | | | LABORATORY | + + + + + | CO2 | 26 | 24 - 31 mmol/L | [facility] | | | | | [facility] | | | | | CENTER - | | | | | LABORATORY | + + + + + | ANION GAP | 8 | 3 - 16 mmol/L | [facility] | | | | | [facility] | | | | | CENTER - | | | | | LABORATORY | + + + + + | GLUCOSE | 196 (H) | 70 - 109 mg/dL | [facility] | | | | | [facility] | | | | | CENTER - | | | | | LABORATORY | + + + + + | BUN | 62 (H) | 7 - 18 mg/dL | [facility] | | | | | [facility] | | | | | CENTER - | | | | | LABORATORY | + + + + + | Creatinine, | 3.96 (H) | 0.60 - 1.30 mg/dL | [facility] | | Serum/Plasma | | | [facility] | | | | | CENTER - | | | | | LABORATORY | + + + + + | eGFR if not | 16 (L)Comment: | >=60 mL/min/1.73m2 | [facility] | | [place] | GLOMERULAR FILTRATION | | [facility] | | | RATE,ESTIMATED mL/min | | CENTER - | | | /1.96d2Wkvt than 60 | | LABORATORY | | [...] + + + + | CALCIUM | 8.3 | 8.3 - 10.5 mg/dL | [facility] | | | | | [facility] | | | | | CENTER - | | | | | LABORATORY | + + + + + | BUN/CREA | 15.7 | | [facility] | | | | | [facility] | | | | | CENTER - | | | | | LABORATORY | + + + + + + + | Specimen | + + | Blood | + + + + + + + | Performing | Address | City/State/Zipcode | Phone Number | | Organization | | | | + + + + + | [facility] | [address] | [place] | [phone] | | [facility] | | [address] | | | - LABORATORY | | | | + + + + + | [facility] | [address] | [place], [place] | | | [facility] | | [address] | | | - LABORATORY | | | | + + + + + Phosphorus (11/05/2017 0426) + +---------+ + + | Component | Value | Ref Range | Performed At | + +---------+ + + | PHOSPHORUS | 4.8 (H) | 2.5 - 4.6 mg/dL | [facility] | | | | | [facility] | | | | | CENTER - | | | | | LABORATORY | + +---------+ + + + + | Specimen | + + | Blood | + + + + + + + | Performing | Address | City/State/Zipcode | Phone Number | | Organization | | | | + + + + + | [facility] | [address] | [place] | [phone] | | [facility] | | [address] | | | - LABORATORY | | | | + + + + + | [facility] | [address] | [place] | | | [facility] | | [address] | | | - LABORATORY | | | | + + + + + POC Glucose (11/04/20172113) + +---------+ + + | Component | Value | Ref Range | Performed At | + +---------+ + + | Glucose, POC | 188 (H) | 70 - 109 mg/dL | [facility] | | | | | [facility] | | | | | CENTER - | | | | | LABORATORY | + +---------+ + + + + | Specimen | + + | Blood | + + + + + + + | Performing | Address | City/State/Zipcode | Phone Number | | Organization | | | | + + + + + | [facility] | [address] | [place] | [phone] | | [facility] | | [address] | | | - LABORATORY | | | | + + + + + | [facility] | [address] | [place], [place] | | | [facility] | | [address] | | | - LABORATORY | | | | + + + + + Protein/Creatinine Ratio, Urine (11/04/2017 1635) + + + + + | Component | Value | Ref Range | Performed At | + + + + + | PROTEIN,RANDOM URINE | 185 (H) | <6 mg/dL | [facility] | | | | | [facility] | | | | | CENTER - | | | | | LABORATORY | + + + + + | Creatinine, Urine, | 23 | mg/dL | [facility] | | Random | | | [facility] | | | | | CENTER - | | | | | LABORATORY | + + + + + | PRO/CREA RATIO,URINE | 8.04 (H) | <0.20 mg/mg | [facility] | | | | | [facility] | | | | | CENTER [...] + | [facility] | [address] | [place] | [phone] | | [facility] | | [address] | | | - LABORATORY | | | | + + + + + | [facility] | [address] | [place] | | | [facility] | | [address] | | | - LABORATORY | | | | + + + + + POC Glucose (11/04/2017 1634) + +---------+ + + | Component | Value | Ref Range | Performed At | + +---------+ + + | Glucose, POC | 161 (H) | 70 - 109 mg/dL | [facility] | | | | | [facility] | | | | | CENTER - | | | | | LABORATORY | + +---------+ + + + + | Specimen | + + | Blood | + + + + + + + | Performing | Address | City/State/Zipcode | Phone Number | | Organization | | | | + + + + + | [facility] | [address] | [place] | [phone] | | [facility] | | [address] | | | - LABORATORY | | | | + + + + + | [facility] | [address] | [place] | | | [facility] | | [address] | | | - LABORATORY | | | | + + + + + Basic Metabolic Panel (11/04/2017 1254) + + + + + | Component | Value | Ref Range | Performed At | + + + + + | NA | 138 | 136 - 149 mmol/L | [facility] | | | | | [facility] | | | | | CENTER - | | | | | LABORATORY | + + + + + | K | 5.1 | 3.5 - 5.1 mmol/L | [facility] | | | | | [facility] | | | | | [facility] - | | | | | LABORATORY | + + + + + | CL | 107 | 98 - 109 mmol/L | [facility] | | | | [facility] - | | | | | LABORATORY | + + + + + | CO2 | 22 (L) | 24 - 31 mmol/L | [facility] | [facility] | [facility] | [facility] - | | | | | LABORATORY | + + + + + | ANION GAP | 9 | 3 - 16 mmol/L | [facility] | | | [facility] - | | | | | LABORATORY | + + + + + | GLUCOSE | 230 (H) | 70 - 109 mg/dL | [facility] | | [facility] | | | [facility] - | | | | | LABORATORY | + + + + + | BUN | 64 (H) | 7 - 18 mg/dL | [facility] | | | | [facility] | | | | | [facility] - | | | | | LABORATORY | + + + + + | Creatinine, | 3.70 (H) | 0.60 - 1.30 mg/dL | [facility] | | Serum/Plasma | | | [facility] | | | | | [facility] - | | | | | LABORATORY | + + + + + | eGFR if not | 18 (L)Comment: | >=60 mL/min/1.73m2 | [facility] | [facility] | GLOMERULAR FILTRATION | | [facility] | | | RATE,ESTIMATED mL/min | | CENTER - | | | /1.25g8Uskp than 60 | | LABORATORY | | [...] + + + + | CALCIUM | 8.3 | 8.3 - 10.5 mg/dL | [facility] | | | | [facility] | | | | | CENTER - | | | | | LABORATORY | + + + + + | BUN/CREA | 17.3 | | [facility] | | | [facility] | | | | | CENTER [...] + | [facility] | [address] | [place], [place] | [phone] | | [facility] | | [address] | | | - LABORATORY | | | | + + + + + | [facility] | [address] | [place] | | | [facility] | | [address] | | | - LABORATORY | | [...] [facility] | | | | | [facility] | | | | | [facility] [...] + | [facility] | [address] | [place], [place] | [phone] | | [facility] | | [address] | | | - LABORATORY | | | | + + + + + | [facility] | [address] | [place], [place] | | | [facility] | | [address] | | | - LABORATORY | | [...] + | Performed at: 01 - [facility] [place] [address], | REFERENCE LAB | | [place], [place] [id number] Mass Spectroscopist: Bishop Sanderson MD, | [facility] | | Phone: [phone] | | + + + + + + + + | Performing | Address | City/State/Zipcode | Phone Number | | Organization | | | | + + + + + | REFERENCE LAB | [address] | [place] [address] | [phone] | | [facility] | [address] | | | + + + + + POC Glucose (11/04/2017 1222) + +---------+ + + | Component | Value | Ref Range | Performed At | + +---------+ + + | Glucose, POC | 202 (H) | 70 - 109 mg/dL | [facility] | | | | | [facility] | | | | | CENTER - | | | | | LABORATORY | + +---------+ + + + + | Specimen | + + | Blood | + + + + + + + | Performing | Address | City/State/Zipcode | Phone Number | | Organization | | | | + + + + + | [facility] | [address] | [place], [place] | [phone] | | [facility] | | [address] | | | - LABORATORY | | | | + + + + + | [facility] | [address] | [place], [place] | | | [facility] [facility] | | [address] | | | - LABORATORY | | | | + + + + + ECHO Complete (11/04/2017 0722) + +-------+ + + | Component | Value | Ref Range | Performed At | + +-------+ + + | LVEF-TTE | 68 | | [facility] | | TRANSTHORACIC ECHO | | | | + +-------+ + + + + -----+ | Narrative | Performed At | + + -----+ | Transthoracic | [facility] | | Echocardiography Report (TTE) Demographics Patient Name GONE | | | TYRESE BAEZ Room Number | | | 432 JR. 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 | | | ERNESTO, | | | RDCS | | | Age 47 year(s) | | | Interpreting VESTA | | | JYOTI, | | | Circle Edger | | | Gender Male Nurse | | | St | | | ress [place] Procedure Type of Study TTE procedure: ECHO [...] | cm PW Diastolic: 1.36 cm EF Mliicsxvh11% EF Calculated: 68% | | | Miscellaneous [...] Diastolic: 1.36 cm | | | EF Ghfuywwyg04% | | | EF Calculated: 68% | | | | | | Miscellaneous | | | | | | Aorta | | | | | | Aortic Root: 3.44 cm | | | Ascending Aorta: 3.23 cm | | | | | + + -----+ + + | Procedure Note | + + | Joseph Rad Results In - 11/04/2017 0734 PDT Transthoracic Echocardiography Report (TTE) | | | | Demographics | | | | Patient Name GONE TYRESE BAEZ Room Number 432 | | JR. 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 | [address] | [place], [place] | [phone] | | [facility] | | [address] | | | - LABORATORY | | | | + + + + + | [facility] | [address] | [place], [place] | | | [facility] | | [address] | | | - LABORATORY | | | | + + + + + Magnesium (11/04/2017501) + +-------+ + + | Component | Value | Ref Range | Performed At | + +-------+ + + | MG | 2.1 | 1.8 - 2.5 mg/dL | [facility] | | | | | [facility] | | | | | CENTER [...] | [address] | [place] | [phone] | | [facility] | | [address] | | | - LABORATORY | | | | + + + + + | [facility] | [address] | [place] | | | [facility] | | [address] | | | - LABORATORY | | | | + + + + + CBC no Differential (11/04/2017 0502) + + + + + | Component | Value | Ref Range | Performed At | + + + + + | WBC | 7.0 | 4.0 - 11.0 K/uL | [facility] | | | | | [facility] | | | | | CENTER - | | | | | LABORATORY | + + + + + | RBC | 3.63 (L) | 4.30 - 5.70 M/uL | [facility] | | | | | [facility] | | | | | CENTER [...] [facility] | | | | | [facility] | | | | | CENTER [...] 175 | 140 - 440 K/uL | [facility] | | | | | [facility] | | | | | CENTER - | | | | | LABORATORY | + + + + + | MPV | 7.5 | fL | [facility] | | [...] + | [facility] | [address] | [place] | [phone] | | [facility] | | [address] | | | - LABORATORY | | | | + + + + + | [facility] | [address] | [place], [place] | | | [facility] | | [address] | | | - LABORATORY | | | | + + + + + Basic Metabolic Panel (11/04/2017 0502) + + + + + | Component | Value | Ref Range | Performed At | + + + + + | NA | 139 | 136 - 149 mmol/L | [facility] | | | | | [facility] | | | | | CENTER - | | | | | LABORATORY | + + + + + | K | 5.2 (H) | 3.5 - 5.1 mmol/L | [facility] | | | | | [facility] | | | | | CENTER - | | | | | LABORATORY | + + + + + | CL | 110 (H) | 98 - 109 mmol/L | [facility] | | | | | [facility] | | | | | CENTER - | | | | | LABORATORY | + + + + + | CO2 | 21 (L) | 24 - 31 mmol/L | [facility] | | | | | [facility] | | | | | CENTER - | | | | | LABORATORY | + + + + + | ANION GAP | 8 | 3 - 16 mmol/L | [facility] | | | | | [facility] | | | | | CENTER - | | | | | LABORATORY | + + + + + | GLUCOSE | 187 (H) | 70 - 109 mg/dL | [facility] | | | | | [facility] | | | | | CENTER - | | | | | LABORATORY | + + + + + | BUN | 66 (H) | 7 - 18 mg/dL | [facility] | | | | | [facility] | | | | | CENTER - | | | | | LABORATORY | + + + + + | Creatinine, | 3.69 (H) | 0.60 - 1.30 mg/dL | [facility]. | | Serum/Plasma | | | [facility] | | | | | CENTER - | | | | | LABORATORY | + + + + + | eGFR if not | 18 (L)Comment: | >=60 mL/min/1.73m2 | [facility] | | [place] | GLOMERULAR FILTRATION | | [facility] | | | RATE,ESTIMATED mL/min | | CENTER - | | | /1.93t6Ikfc than 60 | | LABORATORY | | [...] + + + + | CALCIUM | 8.0 (L) | 8.3 - 10.5 mg/dL | [facility]. | | | | | [facility] | | | | | CENTER - | | | | | LABORATORY | + + + + + | BUN/CREA | 17.9 | | [facility] | | | | | [facility] | | | | | CENTER [...] + | [facility] | [address] | [place] | [phone] | | [facility] | | [address] | | | - LABORATORY | | | | + + + + + | [facility] | [address] | [place] | | | [facility] | | [address] | | | - LABORATORY | | | | + + + + + Hemoglobin A1C (11/04/2017 0502) + +---------+ + + | Component | Value | Ref Range | Performed At | + +---------+ + + | Hemoglobin A1c | 8.4 (H) | 4.3 - 6.0 % | [facility]. | | | | | [facility] | | | | | CENTER - | | | | | LABORATORY | + +---------+ + + | Estimated Average | 194 | mg/dL | [facility]. | | Glucose | | | [facility] | | | | | CENTER - | | | | | LABORATORY | + +---------+ + + + + | Specimen | + + | Blood | + + + + + + + | Performing | Address | City/State/Zipcode | Phone Number | | Organization | | | | + + + + + | [facility] | [address] | [place] | [phone] | | [facility] | | [address] | | | - LABORATORY | | | | + + + + + | [facility] | [address] | [place] | | | [facility] | | [address] | | | - LABORATORY | | | | + + + + + Procalcitonin (11/04/2017 050) + + + + + | Component | Value | Ref Range | Performed At | + + + + + | Procalcitonin | <0.05 | <=0.50 ng/mL | [facility] | | | | | [facility] | | | | | CENTER [...] + | [facility] | [address] | [place] | [phone] | | [facility] | | [address] | | | - LABORATORY | | | | + + + + + | [facility] | [address] | [place] | | | [facility] | | [address] | | | - LABORATORY | | | | + + + + + POC Glucose (11/03/20172116) + +---------+ + + | Component | Value | Ref Range | Performed At | + +---------+ + + | Glucose, POC | 257 (H) | 70 - 109 mg/dL | [facility] | | | | [facility] | | | | | CENTER - | | | | | LABORATORY | + +---------+ + + + + | Specimen | + + | Blood | + + + + + + + | Performing | Address | City/State/Zipcode | Phone Number | | Organization | | | | + + + + + | [facility] | [address] | [place] | [phone] | | [facility] | | [address] | | | - LABORATORY | | | | + + + + + | [facility] | [address] | [place] | | | [facility] | | [address] | | | - LABORATORY | | | | + + + + + B Type Natriuretic Peptide (11/03/20171948) + +---------+ + + | Component | Value | Ref Range | Performed At | + +---------+ + + | BNP | 257 (H) | <100 pg/mL | [facility] | | | | | [facility] | | | | | CENTER - | | | | | LABORATORY | + +---------+ + + + + | Specimen | + + | Blood | + + + + + + + | Performing | Address | City/State/Zipcode | Phone Number | | Organization | | | | + + + + + | [facility] | [address] | [place] | [phone] | | [facility] | | [address] | | | - LABORATORY | | | | + + + + + | [facility] | [address] | [place] | | | [facility] | | [address] | | | - LABORATORY | | | | + + + + + Culture, Blood (11/03/20171948) + + + + + | Component | Value | Ref Range | Performed At | + + + + + | Culture | No growth after 5 days | | [facility] | | | incubation. | | [facility] | | | | | CENTER [...] + | [facility] | [address] | [place] | [phone] | | [facility] | | [address] | | | - LABORATORY | | | | + + + + + | [facility] | [address] | [place], [place] | | | [facility] | | [address] | | | - LABORATORY | | | | + + + + + Culture, Blood (11/03/20171913) + + + + + | Component | Value | Ref Range | Performed At | + + + + + | Culture | No growth after 5 days | | [facility] | | | incubation. | | [facility] | | | | | CENTER [...] | [address] | [place] | [phone] | | [facility] | | [address] | | | - LABORATORY | | | | + + + + + | [facility] | [address] | [place] | | | [facility] | | [address] | | | - LABORATORY | | [...] Silvestre MD | | Electronically signed: 11/03/2017 6:03 [...] smear review | [facility] | | | [place] | | | [facility] | | | - LABORATORY | + + + + + + + + | Performing | Address | City/State/Zipcode | Phone Number | | Organization | | | | + + + + + | [facility] | [address] | [place] | [phone] | | [facility] | | [address] | | | - LABORATORY | | | | + + + + + | [facility] | [address] | [place] | | | [facility] | | [address] | | | - LABORATORY | | | | + + + + + Troponin I (11/03/2017 1609) + + + + + | Component | Value | Ref Range | Performed At | + + + + + | Troponin I | 0.03Comment: Reference | <0.06 ng/mL | [facility] | | | Ranges:0.00-0.06 = | | [facility] | | | NORMAL>0.06 = | | [...] infarction. | | | | | [employer] | | | | | [...] + + | Performing | Address | City/State/[facility] | Phone Number | | Organization | | | | + + + + + | [facility] | [address] | [place] | [phone] | | [facility] | | [address] | | | - LABORATORY | | | | + + + + + | [facility] | [address] | [place] | | | [facility] | | [address] | | | - LABORATORY | | | | + + + + + Basic Metabolic Panel (11/03/2017 1609) + + + + + | Component | Value | Ref Range | Performed At | + + + + + | NA | 140 | 136 - 149 mmol/L | [facility] | | | | | [facility] | | | | | CENTER - | | | | | LABORATORY | + + + + + | K | 5.0 | 3.5 - 5.1 mmol/L | [facility] | | | | | [facility] | | | | | CENTER - | | | | | LABORATORY | + + + + + | CL | 109 | 98 - 109 mmol/L | [facility] | | | | | [facility] | | | | | CENTER - | | | | | LABORATORY | + + + + + | CO2 | 21 (L) | 24 - 31 mmol/L | [facility] | | | | | [facility] | | | | | CENTER - | | | | | LABORATORY | + + + + + | ANION GAP | 10 | 3 - 16 mmol/L | [facility] | | | | | [facility] | | | | | CENTER - | | | | | LABORATORY | + + + + + | GLUCOSE | 224 (H) | 70 - 109 mg/dL | [facility] | | | | | [facility] | | | | | CENTER - | | | | | LABORATORY | + + + + + | BUN | 71 (H) | 7 - 18 mg/dL | [facility] | | | | | [facility] | | | | | CENTER - | | | | | LABORATORY | + + + + + | Creatinine, | 3.90 (H) | 0.60 - 1.30 mg/dL | [facility] | | Serum/Plasma | | | [facility] | | | | | CENTER - | | | | | LABORATORY | + + + + + | eGFR if not | 17 (L)Comment: | >=60 mL/min/1.73m2 | [facility] | | [place] | GLOMERULAR FILTRATION | | [facility] | | | RATE,ESTIMATED mL/min | | CENTER - | | | /1.05w2Yvsf than 60 | | LABORATORY | | [...] + + + + | CALCIUM | 8.7 | 8.3 - 10.5 mg/dL | [facility] | | | | | [facility] | | | | | CENTER - | | | | | LABORATORY | + + + + + | BUN/CREA | 18.2 | | [facility] | | | | | [facility] | | | | | CENTER [...] + | [facility] | [address] | [place], [place] | [phone] | | [facility] | | [address] | | | - LABORATORY | | | | + + + + + | [facility] | [address] | [place], [place] | | | [facility] | | [address] | | | - LABORATORY | | | | + + + + + CBC with Differential (11/03/2017 1609) + + + + + | Component | Value | Ref Range | Performed At | + + + + + | WBC | 8.3 | 4.0 - 11.0 K/uL | [facility] | | | | | [facility] | | | | | CENTER - | | | | | LABORATORY | + + + + + | RBC | 4.06 (L) | 4.30 - 5.70 M/uL | [facility] | | | | | [facility] | | | | | CENTER - | | | | | LABORATORY | + + + + + | Hgb | 10.3 (L) | 13.5 - 18.0 g/dL | [facility] | | | | | [facility] | | | | | CENTER - | | | | | LABORATORY | + + + + + | Hct | 32.3 (L) | 40.0 - 51.0 % | [facility] | | | | | [facility] | | | | | CENTER - | | | | | LABORATORY | + + + + + | MCV | 79.4 (L) | 83.0 - 101.0 fL | [facility] | | | | | [facility] | | | | | CENTER - | | | | | LABORATORY | + + + + + | MCH | 25.3 (L) | 28.0 - 35.0 pg | [facility] | | | | | [facility] | | | | | CENTER - | | | | | LABORATORY | + + + + + | MCHC | 31.8 (L) | 32.0 - 36.0 g/dL | [facility] | | | | | [facility] | | | | | CENTER - | | | | | LABORATORY | + + + + + | RDW-CV | 17.0 (H) | <15.0 % | [facility] | | | | | [facility] | | | | | CENTER - | | | | | LABORATORY | + + + + + | Platelet Count | 209 | 140 - 440 K/uL | [facility] | | | | | [facility] | | | | | CENTER - | | | | | LABORATORY | + + + + + | MPV | 7.7 | fL | [facility] | | | | | [facility] | | | | | CENTER - | | | | | LABORATORY | + + + + + | % Neutrophils | 76.5 | 45.0 - 82.0 % | [facility] | | | | | [facility] | | | | | CENTER - | | | | | LABORATORY | + + + + + | % Lymphocytes | 13.1 (L) | 20.0 - 45.0 % | [facility] | | | | | [facility] | | | | | CENTER - | | | | | LABORATORY | + + + + + | % Monocytes | 7.0 | 4.0 - 12.0 % | [facility] | | | | | [facility] | | | | | CENTER - | | | | | LABORATORY | + + + + + | % Eosinophils | 2.5 | 0.0 - 5.0 % | [facility] [...] + + + | Absolute Neutrophils | 6.40 | 1.80 - 8.50 K/uL | [facility] | | | | | [facility] | | | | | CENTER - | | | | | LABORATORY | + + + + + | Absolute Lymphocytes | 1.10 | 0.60 - 3.20 K/uL | [facility] | | | | | [facility] | | | | | CENTER - | | | | | LABORATORY | + + + + + | Absolute Monocytes | 0.60 | 0.00 - 1.00 K/uL | [facility] | | | | | [facility] | | | | | CENTER - | | | | | LABORATORY | + + + + + | Absolute Eosinophils | 0.20 | 0.00 - 0.40 K/uL | [facility] | | | | | [facility] | | | | | CENTER - | | | | | LABORATORY | + + + + + | Absolute Basophils | 0.10 | 0.00 - 0.10 K/uL | [facility] [...] + | [facility] | [address] | [place] | [phone] | | [facility] | | [address] | | | - LABORATORY | | | | + + + + + | [facility] | [address] | [place] | | | [facility] | | [address] | | | - LABORATORY | | [...] COMPONENT OF ATELECTASIS. Dictated and Signed by: Eyad Silvestre | | | Electronically signed: 11/03/2017 8:48 PM [...] Q-T INTERVAL | 427 | ms | [facility] | | (CORRECTED) | | | [...] | | | | SERENE MONTELONGO MD ([id number]) | | | | | on 11/04/2017 [...] | | | + +---------+ + + in this encounter Visit Diagnoses + + | Diagnosis | + + | Pneumonia due to infectious organism, unspecified laterality, unspecified part of lung - | | Primary | + + | Anemia in stage 4 chronic kidney disease (HCC) | + + | Dyspnea on exertion | + + | Other dyspnea and respiratory abnormality | + + | Essential hypertension | + + | Unspecified essential hypertension | + + | Dyspnea and respiratory abnormalities | + + | Other dyspnea and respiratory abnormality | + + | Chronic kidney disease, stage IV (severe) (HCC) | + + | Chronic kidney disease, Stage IV (severe) | + + | Nephrotic syndrome | + + | Nephrotic syndrome with unspecified pathological lesion in kidney | + + Admitting Diagnoses + + | Diagnosis | + + | Essential hypertension | + + | Unspecified essential hypertension | + + | Dyspnea on exertion | + + | Other dyspnea and respiratory abnormality | + + | Dyspnea and respiratory abnormalities | + + | Other dyspnea and respiratory abnormality | + + | Anemia in stage 4 chronic kidney disease (HCC) | + + | Pneumonia due to infectious organism, unspecified laterality, unspecified part of lung | + + Administered Medications + +--------+ +-------+------+------+ | Medication Order | MAR | Action | Dose | Rate | Site | | | Action | Date | | | | + +--------+ +-------+------+------+ | amLODIPine (NORVASC) tablet 10 | Given | 11/04/2017 | 10 mg | | | | mg 10 mg, Oral, DAILY, First | | 8:14 | | | | | dose on 11/04/18 at 0900 | | PDT | | | | + +--------+ +-------+------+------+ +-------+ +-------+---+---+ | Given | 11/05/2017 | 10 mg | | | | | 8:28 | | | | | | PDT | | | | +-------+ +-------+---+---+ | Given | 11/06/2017 | 10 mg | | | | | 8:44 | | | | | | PDT | | | | +-------+ +-------+---+---+ +---+---+ | | | +---+---+ + +-------+ +---------+---+---+ | carvedilol (COREG) tablet 12.5 | Given | 11/05/2017 | 12.5 mg | | | | mg 12.5 mg, Oral, 2 TIMES DAILY, | | 8:29 | | | | | First dose on Fri11/05/17 at 0900 | | PDT | | | | + +-------+ +---------+---+---+ +-------+ +---------+---+---+ | Given | 11/05/2017 | 12.5 mg | | | | | 20:06 | | | | | | PDT | | | | +-------+ +---------+---+---+ | Given | 11/06/2017 | 12.5 mg | | | | | 8:44 | | | | | | PDT | | | | +-------+ +---------+---+---+ +---+---+ | | | +---+---+ + +-------+ +---------+---+---+ | carvedilol (COREG) tablet 6.25 | Given | 11/03/2017 | 6.25 mg | | | | mg 6.25 mg, Oral, 2 TIMES DAILY, | | 21:42 | | | | | First dose on Fri11/03/17 at 2130 | | PDT | | | | + +-------+ +---------+---+---+ +-------+ +---------+---+---+ | Given | 11/04/2017 | 6.25 mg | | | | | 8:14 | | | | | | PDT | | | | +-------+ +---------+---+---+ | Given | 11/04/2017 | 6.25 mg | | | | | 21:11 | | | | | | PDT | | | | +-------+ +---------+---+---+ +---+---+ | | | +---+---+ + +---------+ +-----+-------+---+ | cefTRIAXone (ROCEPHIN) 1 g in | New Bag | 11/03/2017 | 1 g | 100 | | | sodium chloride 0.9% 50 mL IVPB | | 19:07 | | mL/hr | | | 1 g, Intravenous, Administer over | | PDT | | | | | 30 Minutes, ONCE, 11/03/17 at | | | | | | | 1835, For 1 dose, Activate system | | | | | | | and mix before use. | | | | | | + +---------+ +-----+-------+---+ +---+---+ | | | +---+---+ + +-------+ +--------+---+---+ | cholecalciferol (VITAMIN D-3) | Given | 11/04/2017 | 2,000 | | | | tablet 2,000 Units 2,000 Units, | | 8:14 | Units | | | | Oral, DAILY, First dose on e | | PDT | | | | | 11/04/17 at 0900 | | | | | | + +-------+ +--------+---+---+ +-------+ +--------+---+---+ | Given | 11/05/2017 | 2,000 | | | | | 8:28 | Units | | | | | PDT | | | | +-------+ +--------+---+---+ | Given | 11/06/2017 | 2,000 | | | | | 8:44 | Units | | | | | PDT | | | | +-------+ +--------+---+---+ + +---+ | | | + +---+ | dextrose 50% injection 12.5 g | | | 12.5 g, Intravenous, PRN, Low | | | Blood Sugar, Starting 11/03/17 | | | at 2102 | | + +---+ | | | + +---+ | dextrose 50% injection 12.5 g | | | 12.5 g, Intravenous, PRN, Low | | | Blood Sugar, Starting 11/03/17 | | | at 2102 | | + +---+ | | | + +---+ + +-------+ +---------+---+ + | epoetin laura (EPOGEN, PROCRIT) | Given | 11/05/2017 | 10,000 | | Arm-Left | | 10,000 units/mL injection 10,000 | | 21:46 | Units | | Upper | | Units 10,000 Units, | | PDT | | | | | Subcutaneous, WEEKLY, First dose | | | | | | | on Fri11/05/17 at 2100, Keep in | | | | | | | refrigerator. Do not shake. | | | | | | + +-------+ +---------+---+ + +---+---+ | | | +---+---+ + +---------+ +--------+ +---+ | ferric gluconate (FERRLECIT) | New Bag | 11/04/2017 | 250 mg | 90 mL/hr | | | 250 mg in sodium chloride 0.9% | | 12:15 | | | | | 250 mL IVPB 250 mg, Intravenous, | | PDT | | | | | Administer over 3 Hours, DAILY, | | | | | | | First dose on Fri11/04/17 at 1200, | | | | | | | For 2 days | | | | | | + +---------+ +--------+ +---+ +---------+ +--------+ +---+ | New Bag | 11/05/2017 | 250 mg | 90 mL/hr | | | | 10:05 | | | | | | PDT | | | | +---------+ +--------+ +---+ +---+---+ | | | +---+---+ + +-------+ +--------+---+---+ | ferrous sulfate tablet 325 mg | Given | 11/04/2017 | 325 mg | | | | 325 mg, Oral, EVERY OTHER DAY, | | 8:13 | | | | | First dose on Fri11/04/17 at 0900 | | PDT | | | | + +-------+ +--------+---+---+ +---+---+ | | | +---+---+ + +-------+ +-------+---+---+ | furosemide (LASIX) injection 80 | Given | 11/04/2017 | 80 mg | | | | mg 80 mg, Intravenous, DAILY, | | 8:14 | | | | | First dose on Fri11/04/17 at 0900 | | PDT | | | | + +-------+ +-------+---+---+ +---+---+ | | | +---+---+ + +-------+ +-------+---+---+ | furosemide (LASIX) injection 80 | Given | 11/05/2017 | 80 mg | | | | mg 80 mg, Intravenous, 2 TIMES | | 8:31 | | | | | DAILY 0800 & 1600, First dose on | | PDT | | | | | 11/04/17 at 1600 | | | | | | + +-------+ +-------+---+---+ +-------+ +-------+---+---+ | Given | 11/05/2017 | 80 mg | | | | | 16:43 | | | | | | PDT | | | | +-------+ +-------+---+---+ | Given | 11/06/2017 | 80 mg | | | | | 8:43 | | | | | | PDT | | | | +-------+ +-------+---+---+ +---+---+ | | | +---+---+ + +-------+ +-------+---+---+ | glipiZIDE (GLUCOTROL) tablet 10 | Given | 11/04/2017 | 10 mg | | | | mg 10 mg, Oral, DAILY BEFORE | | 6:35 | | | | | BREAKFAST, First dose on e | | PDT | | | | | 11/04/17 at 0730 | | | | | | + +-------+ +-------+---+---+ +---+---+ | | | +---+---+ + +-------+ +--------+---+ + | heparin 5,000 units/mL | Given | 11/05/2017 | 5,000 | | Abdomen- | | injection 5,000 Units 5,000 | | 8:32 | Units | | LLQ | | Units, Subcutaneous, EVERY 12 | | PDT | | | | | HOURS (2 times per day), First | | | | | | | dose on Fri11/03/17 at 2130 | | | | | | + +-------+ +--------+---+ + +-------+ +--------+---+ + | Given | 11/05/2017 | 5,000 | | Abdomen- | | | 20:06 | Units | | LLQ | | | PDT | | | | +-------+ +--------+---+ + | Given | 11/06/2017 | 5,000 | | Abdomen- | | | 8:44 | Units | | RLQ | | | PDT | | | | +-------+ +--------+---+ + +---+---+ | | | +---+---+ + +-------+ +---------+---+ + | insulin lispro (humaLOG | Given | 11/05/2017 | 3 Units | | Abdomen- | | KWIKPEN) 100 units/mL injection | | 17:47 | | | LLQ | | (pen) 0-6 Units 0-6 Units, | | PDT | | | | | Subcutaneous, 4 TIMES DAILY WITH | | | | | | | MEALS & NIGHTLY, First dose on | | | | | | | 11/03/17 at 2130, CORRECTION | | | | | | | SCALE: Blood Glucose (BG) < | | | | | | | 150: None BG | | | | | | | 150-200: DAY: 1 units. NIGHT: 0 | | | | | | | units BG 201-250: DAY: 2 units. | | | | | | | NIGHT: 1 units BG 251-300: | | | | | | | DAY: 3 units. NIGHT: 2 units | | | | | | | BG 301-350: DAY: 4 units. NIGHT: | | | | | | | 3 units BG 351-400: DAY: 5 | | | | | | | units. NIGHT: 4 units BG > | | | | | | | 400 : DAY: 6 units. NIGHT: 5 | | | | | | | units | | | | | | | AND CALL PROVIDER Use DAY DOSE | | | | | | | for doses scheduled: AC, | | | | | | | NPO, Daytime [id number] Use NIGHT | | | | | | | DOSE for doses scheduled: | | | | | | | HS, 3AM, Nighttime [id number] | | | | | | + +-------+ +---------+---+ + +-------+ +---------+---+ + | Given | 11/05/2017 | 1 Units | | Arm-Left | | | 20:13 | | | Upper | | | PDT | | | | +-------+ +---------+---+ + | Given | 11/06/2017 | 2 Units | | Arm-Righ | | | 8:43 | | | t Upper | | | PDT | | | | +-------+ +---------+---+ + +---+---+ | | | +---+---+ + +-------+ +--------+---+---+ | levoFLOXacin (LEVAQUIN) tablet | Given | 11/04/2017 | 750 mg | | | | 750 mg 750 mg, Oral, EVERY OTHER | | 11:05 | | | | | DAY, First dose on Fri11/04/17 at | | PDT | | | | | 0915, Give 2 hours before or 2 | | | | | | | hours after antacids, iron, or | | | | | | | zinc. | | | | | | + +-------+ +--------+---+---+ +-------+ +--------+---+---+ | Given | 11/06/2017 | 750 mg | | | | | 8:44 | | | | | | PDT | | | | +-------+ +--------+---+---+ +---+---+ | | | +---+---+ + +-------+ +-------+---+---+ | losartan (COZAAR) tablet 50 mg | Given | 11/04/2017 | 50 mg | | | | 50 mg, Oral, DAILY, First dose | | 12:32 | | | | | on 11/04/17 at 1215 | | PDT | | | | + +-------+ +-------+---+---+ +-------+ +-------+---+---+ | Given | 11/05/2017 | 50 mg | | | | | 8:28 | | | | | | PDT | | | | +-------+ +-------+---+---+ | Given | 11/06/2017 | 50 mg | | | | | 8:44 | | | | | | PDT | | | | +-------+ +-------+---+---+ +---+---+ | | | +---+---+ + +-------+ +------+---+---+ | metOLazone (ZAROXOLYN) tablet 5 | Given | 11/04/2017 | 5 mg | | | | mg 5 mg, Oral, DAILY, First | | 8:14 | | | | | dose on Fri11/04/17 at 0900 | | PDT | | | | + +-------+ +------+---+---+ +---+---+ | | | +---+---+ + +-------+ + +---+---+ | renal multivitamin (DIALYVITE, | Given | 11/04/2017 | 1 tablet | | | | VOL-CARE) tablet 1 tablet 1 | | 8:13 | | | | | tablet, Oral, DAILY, First dose | | PDT | | | | | on Fri11/04/17 at 0900 | | | | | | + +-------+ + +---+---+ +-------+ + +---+---+ | Given | 11/05/2017 | 1 tablet | | | | | 8:28 | | | | | | PDT | | | | +-------+ + +---+---+ | Given | 11/06/2017 | 1 tablet | | | | | 8:44 | | | | | | PDT | | | | +-------+ + +---+---+ +---+---+ | | | +---+---+ + +-------+ +-------+---+---+ | rosuvastatin (CRESTOR) tablet | Given | 11/03/2017 | 20 mg | | | | 20 mg 20 mg, Oral, NIGHTLY, | | 21:42 | | | | | First dose on 11/03/17 at 2130 | | PDT | | | | + +-------+ +-------+---+---+ +-------+ +-------+---+---+ | Given | 11/04/2017 | 20 mg | | | | | 21:11 | | | | | | PDT | | | | +-------+ +-------+---+---+ | Given | 11/05/2017 | 20 mg | | | | | 20:06 | | | | | | PDT | | | | +-------+ +-------+---+---+ +---+---+ | | | +---+---+ + +-------+ +--------+---+---+ | sevelamer carbonate (RENVELA) | Given | 11/05/2017 | 800 mg | | | | tablet 800 mg 800 mg, Oral, 3 | | 12:18 | | | | | TIMES DAILY WITH MEALS, First | | PDT | | | | | dose on Fri11/04/17 at 0800, Do | | | | | | | not cut or crush tablets. | | | | | | + +-------+ +--------+---+---+ +-------+ +--------+---+---+ | Given | 11/05/2017 | 800 mg | | | | | 16:43 | | | | | | PDT | | | | +-------+ +--------+---+---+ | Given | 11/06/2017 | 800 mg | | | | | 8:44 | | | | | | PDT | | | | +-------+ +--------+---+---+ +---+---+ | | | +---+---+ + +-------+ +--------+---+---+ | sodium bicarbonate tablet 650 | Given | 11/05/2017 | 650 mg | | | | mg 650 mg, Oral, 2 TIMES DAILY, | | 8:43 | | | | | First dose on Fri11/03/17 at 2130 | | PDT | | | | + +-------+ +--------+---+---+ +-------+ +--------+---+---+ | Given | 11/05/2017 | 650 mg | | | | | 20:07 | | | | | | PDT | | | | +-------+ +--------+---+---+ | Given | 11/06/2017 | 650 mg | | | | | 8:43 | | | | | | PDT | | | | +-------+ +--------+---+---+ +---+---+ | | | +---+---+ in this encounter
--- OUTSIDE RECORDS SUMMARY | ~2018-01-18 | XMS | Encounter Summary ---
Demographics + + + | Address | [address] | | | [place] [address] | + + + | Home Phone | | + + + | Preferred Language | Unknown | + + + | Marital Status | | + + + | Yazidism Affiliation | 1041 | + + + | Race | Unknown | + + + | Ethnic Group | Unknown | + + + Author + + + | Author | and [facility] | | | and Min | + + + | Organization | and [facility] | | | and [place] | + + + | Address | Unknown | + + + | Phone | Unavailable | + + + Support + + + + + | Name | Relationship | Address | Phone | + + + + + | Brittney Goodrich | ECON | [address] | | | | | [place] | | | | | [address] | | + + + + + Care Team Providers + +------+ + | Care Depositing Machine Operator Name | Role | Phone [...] | | | | | | stage V | | | | | | | ([facility]) | | | | | | | Anemia in | | | | | | | stage 5 | | | | | | | chronic | | | | | | | kidney | | | | | | | disease, not | | | | | | | on chronic | | | | | | | dialysis | | | | | | | ([facility]) | | | +--------+--------+ + + + + Encounter Details +--------+ + + + + | Date | Type | Department | Care Team | Description | +--------+ + + + + | 12/08/ | Hospital | [facility] | [place], | Anemia in stage 5 | | 2018 | Encounter | MED CTR OP INFUSION | [address] | chronic kidney | | | | [address] | [address], [place] | disease, not on | | | | [place], [place] | [address] | chronic dialysis | | | | [address] | [address] | ([facility]); Chronic | | | | [phone] | | kidney disease | | | | | | (CKD), stage V (HCC) | +--------+ + + + + Social [...] + + + | Blood Pressure | 122/66 | 12/08/20171626 PDT | + + + + | Pulse | 75 | 12/08/20171626 PDT | + + + + | Temperature | 36.8 C (98.2 F) | 12/08/2017 142 PDT | + + + + | Respiratory Rate | 16 | 12/08/20171626 PDT | + + + + | Oxygen Saturation | 96% | 12/08/20171626 PDT | + + + + | Inhaled Oxygen | - | - | | Concentration | | | + + + + | Weight | - | - | + + + + | Height | - | - | + + + + | Body Mass Index | - | - | + + + + in this [...] + + + as of this encounter Medications at Time of Discharge [...] + as of this encounter Progress Notes Nils Reyes RN - 12/08/2017 9500 PDTFormatting of this note may be different from the original. Vitals: 12/08/17 1420 12/08/17 1627 BP: 118/60 122/66 Pulse: 82 75 Resp: 18 16 Temp: 36.8 C (98.2 F) TempSrc: Oral SpO2: 94% 96% Administrations This Visit iron sucrose (VENOFER) 300 mg in sodium chloride 0.9% 250 mL IVPB Admin Date 12/08/2017 Action New Bag Dose 300 mg Rate 176.7 mL/hr Route Intravenous Administered By Lupe Lu RN Monitored throughout treatment; treatment completed without untoward effects from medicatio n noted. Patient will f/u with Dr. Castano. Verbalizes understanding of plan of care. VS stable. Discharged ambulatory to home in stable condition. Electronically signed by: Nils Reyes RN 12/08/2017 16:33 Lupe Lu RN - 12/08/2017 1422 PDTFormatting of this note may be different from the o riginal. Vitals: 12/08/17 1420 BP: 118/60 Pulse: 82 Resp: 18 Temp: 36.8 C (98.2 F) Don Rafael Cabrera Jr. received into room 443, independent ambulation . States here for Iron infusion. Reports no change in condition, plan of care since last MD visit. Alert, oriented x 4, cooperative. Electronically signed by: Lupe Lu RN 12/08/2017 14:22 in this encounter Plan of Treatment +--------+---------+ + + + | Date | Type | Specialty | Care Team | Description | +--------+---------+ + + + | 01/29/ | Office | Nephrology | [place], | | | 2017 | Visit | | [address] | | | | | | [address], [place] | | | | | | [address] | | | | | | [address] | | | | | | | | +--------+---------+ + + + as of this encounter Visit Diagnoses + + | Diagnosis | + + | Anemia in stage 5 chronic kidney disease, not on chronic dialysis (HCC) | + + | Chronic kidney disease (CKD), stage V (HCC) | + + | Chronic kidney disease, Stage V | + + Admitting Diagnoses + + | Diagnosis | + + | Chronic kidney disease, stage V (HCC) | + + | Chronic kidney disease, Stage V | + + | Anemia in stage 5 chronic kidney disease, not on chronic dialysis (HCC) | + + Administered Medications + +---------+ +--------+--------+------+ | Medication Order | MAR | Action | Dose | Rate | Site | | | Action | Date | | | | + +---------+ +--------+--------+------+ | iron sucrose (VENOFER) 300 mg | New Bag | 12/08/2017 | 300 mg | 176.7 | | | in sodium chloride 0.9% 250 mL | | 14:48 | | mL/hr | | | IVPB 300 mg, Intravenous, | | PDT | | | | | Administer over 90 Minutes, | | | | | | | WEEKLY, First dose on 12/08/17 | | | | | | | at 1435, For 2 doses, Venofer IV | | | | | | | 200 mg weekly x 2, then 300 mg | | | | | | | weekly x 2. | | | | | | + +---------+ +--------+--------+------+ +---+---+ | | | +---+---+ in this encounter"
--- OUTSIDE RECORDS SUMMARY | ~2018-01-18 | XMS | Encounter Summary ---
Demographics + + + | Address | [address] | | | [place] [address] | + + + | Home Phone | | + + + | Preferred Language | Unknown | + + + | Marital Status | | + + + | Quaker Affiliation | 1041 | + + + | Race | Unknown | + + + | Ethnic Group | Unknown | + + + Author + + + | Author | [facility] | | | and Min | + + + | Organization | [facility] | | | and [place] | + + + | Address | Unknown | + + + | Phone | Unavailable | + + + Support + + + + + | Name | Relationship | Address | Phone | + + + + + | Brittney Goodrich | ECON | [address] | | | | | [place] | | | | | [address] | | + + + + + Care Team Providers + +------+ + | Care Larder Cook Name | Role | Phone | + +------+ + | Mars Urrutia DO | PCP | | + +------+ + Reason for Visit + + + | Reason | Comments | + + + | Kidney Transplant | | | Evaluation | | + + + Encounter Details +--------+ + + + + | Date | Type | Department | Care Team | Description | +--------+ + + + + | 12/17/ | Telephone | [facility] | [facility] | Kidney Transplant | | 2018 | | [facility] | [place] [address] | Evaluation | | | | KIDNEY TRANSPLANT | [place] [address], | | | | | [address] [place] | [place] [address] | | | | | [address] [place], [place] | [phone] | | | | | [address] | | | | | | [phone] | | | +--------+ + + + [...] [place] | | | | | | [address] | | | | | | | | +--------+---------+ + + + as of this encounter Visit Diagnoses Not on filein this encounter"
--- OUTSIDE RECORDS SUMMARY | ~2018-01-18 | XMS | Encounter Summary ---
Demographics + + + | Address | [address] | | | [place] [address] | + + + | Home Phone | | + + + | Preferred Language | Unknown | + + + | Marital Status | | + + + | Yarsanism Affiliation | 1041 | + + + | Race | Unknown | + + + | Ethnic Group | Unknown | + + + Author + + + | Author | [facility] | | | and Min | + + + | Organization | [facility] | | | and [place] | + + + | Address | Unknown | + + + | Phone | Unavailable | + + + Support + + + + + | Name | Relationship | Address | Phone | + + + + + | Brittney Goodrich | ECON | [address] | | | | | [place] | | | | | [address] | | + + + + + Care Team Providers + +------+ + | Care Millinery Salesperson Name | Role | Phone | + [...] | | | | | | | ([facility]) | | | | | | | [...] | | | | | | | ([facility]) | | | +--------+--------+ + + + + Encounter Details +--------+ + + + + | Date | Type | Department | Care Team | Description | +--------+ + + + + | 11/27/ | Hospital | [facility] | [place], | Anemia in stage 5 | | 2018 | Encounter | MED CTR OP INFUSION | [address] | chronic kidney | | | | [address] | [address] [place] | disease, not on | | | | [place], [place] | [address] | chronic dialysis | | | | [address] | [address] | ([facility]); Chronic | | | | [phone] | | kidney disease | | | [...] + + + | Blood Pressure | 138/71 | 11/27/2017946 PDT | + + + + | Pulse | 83 | 11/27/2017946 PDT | + + + + | Temperature | 35.8 C (96.4 F) | 11/27/2017946 PDT | + + + + | Respiratory Rate | 16 | 11/27/2017946 PDT | + + + + | Oxygen Saturation | 98% | 11/27/2017946 PDT | + + + + | [...] + as of this encounter Progress Notes Bella Herrera RN - 11/27/2017 1137 PDTFormatting of this note may be different from the o riginal. Vitals: 11/27/17 0947 BP: 138/71 Pulse: 83 Resp: 16 Temp: 35.8 C (96.4 F) TempSrc: Oral SpO2: 98% Administrations This Visit iron sucrose (VENOFER) 200 mg in sodium chloride 0.9% 100 mL IVPB Admin Date 11/27/2017 Action New Bag Dose 200 mg Rate 110 mL/hr Route Intravenous Administered By Bella Herrera RN Monitored throughout treatment; treatment completed without untoward effects from medicatio n noted. Next visit Verbalizes understanding of plan of care. VS stable. Discharged ambulat ory to home in stable condition. Electronically signed by: Bella Herrera RN 11/27/2017 11:38 Bella Herrera RN - 11/27/2017 1015 PDTFormatting of this note may be different from the o riginal. Vitals: 11/27/17 0947 BP: 138/71 Pulse: 83 Resp: 16 Temp: 35.8 C (96.4 F) Don Cabrera Jr. received into room 440, independent ambulation accompanied by self St ates here for Venofer infusion. Reports no change in condition, plan of care since last MD ralph swann. Alert, oriented x 4, cooperative. Electronically signed by: Bella Herrera RN 11/27/2017 10:24 in this encounter Plan of Treatment +--------+---------+ + + + | Date | Type | Specialty | Care Team | Description | +--------+---------+ + + + | 01/29/ | Office | Nephrology | [facility], | | | 2017 | Visit | | [address] | | | | | | [address], [facility] | | | | | | [...] | + + Administered Medications + +---------+ +--------+-------+------+ | Medication Order | MAR | Action | Dose | Rate | Site | | | Action | Date | | | | + +---------+ +--------+-------+------+ | iron sucrose (VENOFER) 200 mg | New Bag | | 200 mg | 110 | | | in sodium chloride 0.9% 100 mL | | 8 10:28 | | mL/hr | | | IVPB 200 mg, Intravenous, | | PDT | | | | | Administer over 60 Minutes, ONCE, | | | | | | | [facility] 11/27/17 at 1015, For 1 dose, | | | | | | | Venofer IV 200 mg weekly x 2, | | | | | | | then 300 mg weekly x 2. | | | | | | + +---------+ +--------+-------+------+ +---+---+ | | | +---+---+ in this encounter"
--- OUTSIDE RECORDS SUMMARY | ~2018-01-18 | XMS | Encounter Summary ---
Demographics + + + | Address | [address] | | | [place] [address] | + + + | Home Phone | | + + + | Preferred Language | Unknown | + + + | Marital Status | | + + + | Lutheran Affiliation | 1041 | + + + | Race | Unknown | + + + | Ethnic Group | Unknown | + + + Author + + + | Author | [facility] | | | and Min | + + + | Organization | [facility] | | | and [place] | + + + | Address | Unknown | + + + | Phone | Unavailable | + + + Support + + + + + | Name | Relationship | Address | Phone | + + + + + | Brittney Goodrich | ECON | [address] | | | | | [place] | | | | | [address] | | + + + + + Care Team Providers + +------+ + | Care Hot Metal Car Operator Name | Role | Phone | + +------+ + | Mars Urrutia PCP | | + +------+ + Reason for Visit +---------+ + | Reason | Comments | +---------+ + | Post Op | LEFT proximal radial artery to transposed basilic vein fistula | | | creation | +---------+ + Evaluate & Treat (Routine) +--------+--------+ + + + + | Status | Reason | Specialty | Diagnoses / | Referred By | Referred To | | | | | Procedures | Contact | Contact | +--------+--------+ + + + + | Closed | | | Diagnoses | | Field, | | | | | A-V fistula | [place], | Quirino Collier, | | | | | ([facility]) | Maryse Doyle, | , FACS [address] | | | | | Procedures | [employer]AGE [employer] [address] | | | | | [place] OFFICE | [address], | [place], | | | | | OUTPATIENT | [place] [address] | [place] [address] | | | | | [address] | [place], | Phone: | | | | | MINUTES | [place] [address] | [phone] | | | | | | Phone: | Fax: | | | | | | [phone] | [phone] | | | | | | Fax: | | | | | | | [phone] | | +--------+--------+ + + + + Encounter Details +--------+---------+ + + + | Date | Type | Department | Care Team | Description | +--------+---------+ + + + | 12/29/ | Office | [facility] | [place], | Chronic kidney | | 2018 | Visit | SURGERY [address] | [address] | disease (CKD), stage | | | | [place], [place] | [address], [place] | V (HCC) (Primary | | | | [address] | [address] [place], [place] | Dx); Post-operative | | | | [phone] | [address] | state | | | | | | | | | | | Quirino Quezada | | | | | | MD Nando, FACS [address] | | | | | | [facility] | | | | | | [place] [address] | | | | | | [phone] | | | | | | | | +--------+---------+ + + + Social History + +-------+ [...] + + + | Blood Pressure | - | - | + + + + | Pulse | 80 | 12/29/20174 PDT | + + + + | Temperature | 37.3 C (99.1 F) | 12/29/20174 PDT | + + + + | Respiratory Rate | - | - | + + + + | Oxygen Saturation | 96% | 12/29/20171343 PDT | + + + [...] 12/29/20171343 PDT | + + + + in [...] + as of this encounter Progress Notes Quirino Quezada MD, FACS - 12/29/2017 1410 PDTFormatting of this note may be different from the original. Patient Identification: Don Cabrera Jr. 1970 Is a 47 y.o. male , a patien t of Mars Urrutia DO. Patient is here alone. HISTORY OF PRESENT ILLNESS S: Date of surgery: 11/25/2017. Title of surgery: LEFT proximal radial artery to transpose d basilic vein fistula creation. Physician notes: Patient arrives 34 day(s) s/p LEFT proximal radial artery to transposed basilic vein fistul a creation. He reports he is recovering well post surgery. Denies pain in the LEFT hand. Uriel jose states he has not started dialysis, he was told he may need dialysis in the next 6 mon ths. Reports he has a brother that wants to donate his kidney. 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) 03/13/12 Vitamin D deficiency 07/2010 Past Surgical History: Procedure Laterality Date AV FISTULA INSERTION Left 11/25/2017 Procedure: LEFT proximal radial artery to transposed basilic vein fistula creation; Surge on: Quirino Quezada MD, FACS; Location: [facility] MAIN OR KIDNEY SURGERY Right Child Had a surgery as a child to remove some infected tissue from his right kidney Allergies Allergen Reactions Doxazosin Shortness Of Breath Lisinopril Rosuvastatin Medications: Outpatient Encounter Prescriptions as of 12/29/2017 Medication Sig Dispense Refill albuterol-ipratropium (DUONEB) 2.5-0.5 mg/3 mL SOLN Take 3 mLs by nebulization every 6 hours as needed. amLODIPine (NORVASC) 10 MG tablet Take 1 tablet by mouth Daily. 30 tablet 5 Ascorbic Acid 500 MG CAPS Take 500 mg by mouth Every other day. 15 each 3 b complex-vitamin c-folic acid (NEPHRO-SAMANTHA) tablet Take 1 tablet by mouth Daily. 30 ta blet 11 carvedilol (COREG) 12.5 mg tablet Take 1 tablet by mouth 2 times daily. 60 tablet 0 Cholecalciferol (VITAMIN D-3) 5000 units CAPS Take 1 capsule by mouth Daily. 30 capsule 5 ferrous sulfate 325 mg tablet Take 1 tablet by mouth Every other day. 15 tablet 3 furosemide (LASIX) 80 mg tablet Take 2 tablets by mouth 2 times daily. 120 tablet 3 glipiZIDE (GLIPIZIDE XL) 10 MG 24 hr tablet Take 10 mg by mouth daily (with breakfast). losartan (COZAAR) 50 mg tablet Take 1 tablet by mouth Daily. 30 tablet 5 patiromer (VELTASSA) 16.8 g packet Take 1 diluted packet by mouth Daily. 30 packet 2 PROAIR HFA 108 (90 Base) MCG/ACT inhaler Take 2 puffs by mouth 4 times daily. raNITIdine (ZANTAC) 150 mg tablet rosuvastatin (CRESTOR) 20 mg tablet Take 1 tablet by mouth nightly. 30 tablet 3 sevelamer carbonate (RENVELA) 800 mg tablet Take 2 tablets by mouth 3 times daily (with meals). 180 tablet 5 sitagliptin (JANUVIA) 50 MG tablet Take 50 mg by mouth Daily. sodium bicarbonate 650 mg tablet Take 1 tablet by mouth 2 times daily. 60 tablet 5 sucroferric oxyhydroxide (VELPHORO) 500 mg chewable tablet Take 1 tablet by mouth 3 casey es daily (with meals). 60 tablet 0 No facility-administered encounter medications on file as of 12/29/2017. Family History: His family history includes Diabetes in his brother, mother, and sister; Heart disease in h is father; Hypertension in his father. Social History: He reports that he quit smoking about 3 years ago. He has quit using smokeless tobacco. His smokeless tobacco use included Snuff. He reports that he does not drink alcohol or use drug s. PHYSICAL EXAM Pulse 80 | Temp 37.3 C (99.1 F) (Temporal) | Ht 1.753 m (5' 9") | Wt 110.1 kg (242 l b 11.6 oz) | SpO2 96% | BMI 35.84 kg/m Body mass index is 35.84 kg/m. PE: General Appearance: Alert, cooperative, no distress, appears stated age Skin: Warm and dry Upper Extremities: LEFT arm healing well, transposed vein is palpable, incisions clean and dry. Excellent thrill. Palpable Pulses: RIGHT LEFT Brachial Radial 2+ Ulnar Neurologic: Alert and oriented x3,Moving all 4 extremities. , Gait normal ULTRASOUND REPORT: PATIENT NAME : Don Hall Deborah Stock EQUIPMENT: SonFINDING ROVERte M-Turbo with 10-5 mHertz probe. INDICATIONS: S/P LEFT proximal radial artery to transposed basilic vein fistula creation FINDING: LEFT transposed basilic vein measures 6.9 mm, excellent flow present. IMPRESSION: functioning LEFT arm transposed basilic vein fistula. Assessment 1. Chronic kidney disease (CKD), stage V (HCC) 2. Post-operative state Plan 1. S/P LEFT proximal radial artery to transposed basilic vein fistula creation Patient recovering well post surgery. Will give OK to start using LEFT arm AV fistula . Patient to follow with air compressor engineer and primary care. I will be available should future posada rgical complications develop. I appreciate having been involved in the care of this patient . Quirino Quezada MD, FACS Vascular and General Surgery CC: Lorna Corado this encounter Plan of Treatment +--------+---------+ + + + | Date | Type | Specialty | Care Team | Description | +--------+---------+ + + + | 01/29/ | Office | Nephrology | [place], | | | 2017 | Visit | | [address] | | | | | | [address] [facility] | | | | | | [address] | | | | | | [address] | | | | | | | | +--------+---------+ + + + as of this encounter Visit Diagnoses + + | Diagnosis | + + | Chronic kidney disease (CKD), stage V ([facility]) - Primary | + + | Chronic kidney disease, Stage V | + + | Post-operative state | + + | Other postprocedural status | + + Admitting Diagnoses + + | Diagnosis | + + | Chronic kidney disease, stage V (HCC) | + + | Chronic kidney disease, Stage V | + + | Anemia in stage 5 chronic kidney disease, not on chronic dialysis (HCC) | + +
--- OUTSIDE RECORDS SUMMARY | ~2018-01-18 | XMS | Encounter Summary ---
Demographics + + + | Address | [address] | | | [place] [address] | + + + | Home Phone | | + + + | Preferred Language | Unknown | + + + | Marital Status | | + + + | Rastafarian Affiliation | 1041 | + + + | Race | Unknown | + + + | Ethnic Group | Unknown | + + + Author + + + | Author | [facility] | | | and Min | + + + | Organization | [facility] | | | and [place] | + + + | Address | Unknown | + + + | Phone | Unavailable | + + + Support + + + + + | Name | Relationship | Address | Phone | + + + + + | Brittney Goodrich | ECON | [address] | | | | | [place] | | | | | [address] | | + + + + + Care Team Providers + +------+ + | Care Event Manager Name | Role | Phone | [...] | | | | | | | ([facility]) | | | | | | [...] | | | | | | | ([facility]) | | | +--------+--------+ + + + + Encounter Details +--------+ + + + + | Date | Type | Department | Care Team | Description | +--------+ + + + + | 12/08/ | Hospital | [facility] | [place], | Anemia in stage 5 | | 2018 | Encounter | MED CTR OP INFUSION | [address] | chronic kidney | | | | [address] | [address], [place] | disease, not on | | | | [place], [place] | [address] | chronic dialysis | | | | [phone] | [id number] | ([facility]); Chronic | | | | [phone] | | kidney disease | | | [...] Progress Notes Nils Reyes RN - 12/08/2017 6340 PDTFormatting of this note may be different [...]
--- OUTSIDE RECORDS SUMMARY | ~2018-01-18 | XMS | Encounter Summary ---
Demographics + + + | Address | [address] | | | [place] [address] | + + + | Home Phone | | + + + | Preferred Language | Unknown | + + + | Marital Status | | + + + | Oriental Orthodox Affiliation | 1041 | + + + | Race | Unknown | + + + | Ethnic Group | Unknown | + + + Author + + + | Author | [facility] | | | and Min | + + + | Organization | [facility] | | | and [place] | + + + | Address | Unknown | + + + | Phone | Unavailable | + + + Support + + + + + | Name | Relationship | Address | Phone | + + + + + | Brittney Goodrich | ECON | [address] | | | | | [place] | | | | | [address] | | + + + + + Care Team Providers + +------+ + | Care Tool Drawing Checker Name | Role | Phone | + +------+ + | Mars Urrutia DO | PCP | | + +------+ + Encounter Details +--------+ + + + + | Date | Type | Department | Care Team | Description | +--------+ + + + + | 11/21/ | Abstract | [facility] | [place], | | | 2018 | | NEPHROLOGY [address] | [address] | | | | | [address] | [address], [place] | | | | | [place], [place] | [address] | | | | | [address] | [address] | | | | | [phone] | | | +--------+ + + + [...] | | | | | [facility] | | | | | | [address] | | | | | | [address] | | | | | | | [...] + + + in this encounter Results External Lab: RESHMA (11/20/2017) + +--------+ + + | Component | Value | Ref Range | Performed At | + +--------+ + + | RESHMA External | 94 (A) | 8 - 25 | | + +--------+ + + External Lab: Glucose (11/20/2017) + +---------+ + + | Component | Value | Ref Range | Performed At | + +---------+ + + | Glucose, External | 129 (A) | 65 - 99 | | + +---------+ + + External Lab: Albumin (11/20/2017) + +---------+ + + | Component | Value | Ref Range | Performed At | + +---------+ + + | Albumin, External | 3.0 (A) | 3.6 - 5 | | + +---------+ + + External Lab: Phosphorus (11/20/2017) + +---------+ + + | Component | Value | Ref Range | Performed At | + +---------+ + + | Phosphorus, External | 5.7 (A) | 2.3 - 4.8 | | + +---------+ + + External Lab: Calcium (11/20/2017) + +---------+ + + | Component | Value | Ref Range | Performed At | + +---------+ + + | Calcium, External | 7.8 (A) | 8.5 - 10.5 | | + +---------+ + + External Lab: Carbon Dioxide (11/20/2017) + +--------+ + + | Component | Value | Ref Range | Performed At | + +--------+ + + | Carbon Dioxide, | 22 (A) | 23 - 32 | | | External | | | | + +--------+ + + External Lab: Chloride (11/20/2017) + +---------+ + + | Component | Value | Ref Range | Performed At | + +---------+ + + | Chloride, External | 112 (A) | 99 - 109 | | + +---------+ + + External Lab: Potassium (11/20/2017) + +---------+ + + | Component | Value | Ref Range | Performed At | + +---------+ + + | Potassium, External | 5.0 (A) | 3.5 - 4.9 | | + +---------+ + + External Lab: Sodium (11/20/2017) + +-------+ + + | Component | Value | Ref Range | Performed At | + +-------+ + + | Sodium, External | 144 | 135 - 145 | | + +-------+ + + External Lab: eGFR (11/20/2017) + +--------+ + + | Component | Value | Ref Range | Performed At | + +--------+ + + | eGFR, External | 14 (A) | 60 | | + +--------+ + + + + | Specimen | + + | Blood | + + External Lab: Creatinine (11/20/2017) + +---------+ + + | Component | Value | Ref Range | Performed At | + +---------+ + + | Creatinine, External | 4.5 (A) | 0.7 - 1.3 | | + +---------+ + + + + | Specimen | + + | Blood | + + in this encounter Visit Diagnoses Not on filein this encounter"
--- OUTSIDE RECORDS SUMMARY | ~2018-01-18 | XMS | Encounter Summary ---
Demographics + + + | Address | [address] | | | [place] [address] | + + + | Home Phone | | + + + | Preferred Language | Unknown | + + + | Marital Status | | + + + | Worship Affiliation | 1041 | + + + | Race | Unknown | + + + | Ethnic Group | Unknown | + + + Author + + + | Author | [facility] | | | and Min | + + + | Organization | [facility] | | | and [place] | + + + | Address | Unknown | + + + | Phone | Unavailable | + + + Support + + + + + | Name | Relationship | Address | Phone | + + + + + | Brittney Goodrich | ECON | [address] | | | | | [place] | | | | | [address] | | + + + + + Care Team Providers + +------+ + | Care Penciller Name | Role | Phone | + +------+ + | Mars Urrutia DO | PCP | | + +------+ + Encounter Details +--------+ + + + + | Date | Type | Department | Care Team | Description | +--------+ + + + + | 12/09/ | Abstract | [facility] | [place], | | | 2018 | | NEPHROLOGY [address] | [address] | | | | | [address] | [address], [place] | | | | | [place], [place] | [address] | | | | | [phone] | [address] | | | | | [phone] | | | +--------+ + + + [...] | | | | | [facility] | | | | | | [address] | | | | | | [address] | | | | | | | [...] +--------+ + + + | EXTERNAL LAB: CBC | Routin | 12/08/2017 | | Results for this | | | e | 0000 PDT | | procedure are in the | | | | | | results section. | + +--------+ + + + | EXTERNAL LAB: CHRISTY | Routin | 12/08/2017 | | Results [...] in this encounter Results External Lab: RESHMA (12/08/2017) + +--------+ + + | Component | Value | Ref Range | Performed At | + +--------+ + + | BUN, External | 77 (A) | 6 - 23 | | + +--------+ + + External Lab: Glucose (12/08/2017) + +---------+ + + | Component | Value | Ref Range | Performed At | + +---------+ + + | Glucose, External | 146 (A) | 70 - 100 | | + +---------+ + + External Lab: Albumin (12/08/2017) + +---------+ + + | Component | Value | Ref Range | Performed At | + +---------+ + + | Albumin, External | 3.4 (A) | 3.6 - 5 | | + +---------+ + + External Lab: Phosphorus (12/08/2017) + +---------+ + + | Component | Value | Ref Range | Performed At | + +---------+ + + | Phosphorus, External | 5.8 (A) | 2.3 - 4.8 | | + +---------+ + + External Lab: Calcium (12/08/2017) + +---------+ + + | Component | Value | Ref Range | Performed At | + +---------+ + + | Calcium, External | 8.0 (A) | 8.5 - 10.5 | | + +---------+ + + External Lab: Carbon Dioxide (12/08/2017) + +-------+ + + | Component | Value | Ref Range | Performed At | + +-------+ + + | Carbon Dioxide, | 26 | 23 - 32 | | | External | | | | + +-------+ + + External Lab: Chloride (12/08/2017) + +-------+ + + | Component | Value | Ref Range | Performed At | + +-------+ + + | Chloride, External | 108 | 100 - 110 | | + +-------+ + + External Lab: Potassium (12/08/2017) + +-------+ + + | Component | Value | Ref Range | Performed At | + +-------+ + + | Potassium, External | 4.3 | 3.5 - 5.1 | | + +-------+ + + External Lab: Sodium (12/08/2017) + +-------+ + + | Component | Value | Ref Range | Performed At | + +-------+ + + | Sodium, External | 144 | 135 - 145 | | + +-------+ + + External Lab: Iron Total (12/08/2017) + +-------+ + + | Component | Value | Ref Range | Performed At | + +-------+ + + | Iron, External | 50 | 45 - 190 | | + +-------+ + + External Lab: Iron Saturation (12/08/2017) + +--------+ + + | Component | Value | Ref Range | Performed At | + +--------+ + + | Iron Saturation, | 15 (A) | 20 | | | External | | | | + +--------+ + + External Lab: Iron Binding Capacity (12/08/2017) + +-------+ + + | Component | Value | Ref Range | Performed At | + +-------+ + + | Iron Binding | 332 | 250 - 450 | | | Capacity, External | | | | + +-------+ + + External Lab: CBC (12/08/2017) + + + + + | Component [...] + + + + External Lab: eGFR (12/08/2017) + +--------+ + + | Component | Value | Ref Range | Performed At | + +--------+ + + | eGFR, External | 14 (A) | 60 | | + +--------+ + + + + | Specimen | + + | Blood | + + External Lab: Creatinine (12/08/2017) + +---------+ + + | Component | [...]
--- OUTSIDE RECORDS SUMMARY | ~2018-01-18 | XMS | Encounter Summary ---
Demographics + + + | Address | [address] | | | [place] [address] | + + + | Home Phone | | + + + | Preferred Language | Unknown | + + + | Marital Status | | + + + | Restorationism Affiliation | 1041 | + + + | Race | Unknown | + + + | Ethnic Group | Unknown | + + + Author + + + | Author | [facility] | | | and Min | + + + | Organization | [facility] | | | and [place] | + + + | Address | Unknown | + + + | Phone | Unavailable | + + + Support + + + + + | Name | Relationship | Address | Phone | + + + + + | Brittney Goodrich | ECON | [address] | | | | | [place] | | | | | [address] | | + + + + + Care Team Providers + +------+ + | Care Recycler Forklift Driver Truck Driver Name | Role | Phone | [...] | | | | | | | ([facility]) | | | | | | | [...] | | | | | | | ([facility]) | | | +--------+--------+ + + + + Encounter Details +--------+ + + + + | Date | Type | Department | Care Team | Description | +--------+ + + + + | 12/01/ | Hospital | [facility] | [place], | Anemia in stage 5 | | 2018 | Encounter | MED CTR OP INFUSION | [address] | chronic kidney | | | | [address] | [address] [place] | disease, not on | | | | [place], [place] | [address] | chronic dialysis | | | | [address] | [address] | ([facility]); Chronic | | | | [phone] | | kidney disease | | | [...] + + + | Blood Pressure | 149/79 | 12/01/2017 1252 PDT | + + + + | Pulse | 73 | 12/01/2017 1252 PDT | + + + + | Temperature | 36.5 C (97.7 F) | 12/01/2017 1105 PDT | + + + + | Respiratory Rate | 16 | 12/01/2017 1252 PDT | + + + + | Oxygen Saturation | 97% | 12/01/2017 1252 PDT | + + + + | [...] encounter Progress Notes Nils Reyes RN - 12/01/2017 1256 PDTFormatting of this note may be different from the original. Vitals: 12/01/17 1105 12/01/17 1252 BP: 147/80 149/79 Pulse: 74 73 Resp: 16 16 Temp: 36.5 C (97.7 F) TempSrc: Oral SpO2: 98% 97% Administrations This Visit iron sucrose (VENOFER) 300 mg in sodium chloride 0.9% 250 mL IVPB Admin Date 12/01/2017 Action New Bag Dose 300 mg Rate 176.7 mL/hr Route Intravenous Administered By Mila Olivo RN Monitored throughout treatment; treatment completed without untoward effects from medicatio n noted. Next visit 12/08/17. Verbalizes understanding of plan of care. VS stable. Discharged ambulatory to home in stable condition. Electronically signed by: Nils Reyes RN 12/01/2017 12:56 Pallavi, Mila Patel RN - 12/01/2017 1117 PDTFormatting of this note may be different f rom the original. Vitals: 12/01/17 1105 BP: 147/80 Pulse: 74 Resp: 16 Temp: 36.5 C (97.7 F) Don Cabrera Jr. received into room 440, independent ambulation accompanied by self. S tates here for iron infusion. Reports no change in condition, plan of care since last MD vis it. Alert, oriented x 4, cooperative. Electronically signed by: Mila Olivo RN 12/01/2017 11:17in this encounter Plan of Treatment +--------+---------+ + + + | Date | Type | Specialty | Care Team | Description | +--------+---------+ + + + | 01/29/ | Office | Nephrology | [place], | | | 2017 | Visit | | [address] | | | | | | [address], [place] | | | | | | [address] | | | | | | [phone] | | | | | | | [...] + + + in this encounter Results LABS - EXTERNAL SCAN (11/20/2017) + + + | Narrative | Performed At | + + + | Ordered by an | | | unspecified provider. | | + + + in this encounter Visit [...] (VENOFER) 300 mg | New Bag | 12/01/2017 | 300 mg | 176.7 | | | in sodium chloride 0.9% 250 mL | | 11:19 | | mL/hr | | | IVPB 300 mg, Intravenous, | | PDT | | | | | Administer over 90 Minutes, | | | | | | | WEEKLY, First dose on Fri12/01/17 | | | | | | | at 1115, For 2 doses, Venofer IV | | | | | | | 200 mg weekly x 2, then 300 mg | | | | | | | weekly x 2. | | | | | | + +---------+ +--------+--------+------+ +---+---+ | | | +---+---+ in this encounter"
--- OUTSIDE RECORDS SUMMARY | ~2018-01-18 | XMS | Encounter Summary ---
Demographics + + + | Address | [address] | | | [place] [address] | + + + | Home Phone | | + + + | Preferred Language | Unknown | + + + | Marital Status | | + + + | Congregational Affiliation | 1041 | + + + | Race | Unknown | + + + | Ethnic Group | Unknown | + + + Author + + + | Author | [facility] | | | and Min | + + + | Organization | [facility] | | | and [place] | + + + | Address | Unknown | + + + | Phone | Unavailable | + + + Support + + + + + | Name | Relationship | Address | Phone | + + + + + | Brittney Goodrich | ECON | [address] | | | | | [place] | | | | | [address] | | + + + + + Care Team Providers + +------+ + | Care Stock Parts Inspector Name | Role | Phone | + +------+ + | Mars Urrutia DO | PCP | | + +------+ + Reason for Visit +--------+ + | Reason | Comments | +--------+ + | Other | | +--------+ + Encounter Details +--------+ + + + + | Date | Type | Department | Care Team | Description | +--------+ + + + + | 12/18/ | Telephone | [facility] | [place], | Other | | 2018 | | NEPHROLOGY [address] | Maryse Doyle [address] | | | | | [address] | [address], [place] | | | | | [place], [place] | [address] [place], [place] | | | | | [address] | [address] | | | | | [phone] | | | +--------+ + + + [...] [place] | | | | | | [id number] | | | | | | | | +--------+---------+ + + + as of this encounter Visit Diagnoses Not on filein this encounter"
--- OUTSIDE RECORDS SUMMARY | ~2018-01-18 | XMS | Encounter Summary ---
Demographics + + + | Address | [address] | | | [place] [address] | + + + | Home Phone | | + + + | Preferred Language | Unknown | + + + | Marital Status | | + + + | Alevism Affiliation | 1041 | + + + | Race | Unknown | + + + | Ethnic Group | Unknown | + + + Author + + + | Author | [facility] | | | and Min | + + + | Organization | [facility] | | | and [place]ana | + + + | Address | Unknown | + + + | Phone | Unavailable | + + + Support + + + + + | Name | Relationship | Address | Phone | + + + + + | Brittney Goodrich | ECON | [address] | | | | | [place] | | | | | [address] | | + + + + + Care Team Providers + +------+ + | Care Commercial Singer Name | Role | Phone | + +------+ + | Mars Urrutia DO | PCP | | + +------+ + Reason for Referral Evaluate & Treat (Routine) + +--------+ + + + + | Status | Reason | Specialty | Diagnoses / | Referred By | Referred To | | | | | Procedures | Contact | Contact | + +--------+ + + + + | Pending | | Kidney | Diagnoses | | Wsh Pre | | Review | | Transplant | Chronic | [place], | Kidney | | | | | kidney | Chelane R, | Transplant | | | | | disease | [employer]IC ASSOC[employer]ATE [address] | | | | | (CKD), stage | [address], | [address] | | | | | V (HCC) | [address] | [place], [place] | | | | | | [place], | [address] | | | | | | [place] [address] | Phone: | | | | | | Phone: | [phone] | | | | | | [phone] | Fax: | | | | | | Fax: | [phone] | | | | | | [phone] | | + +--------+ + + + + Reason for Visit + + + | Reason | Comments | + + + | Chronic Kidney | | | Disease, Stage V | | + + + Evaluate & Treat (Routine) +--------+--------+ + + + + | Status | Reason | Specialty | Diagnoses / | Referred By | Referred To | | | | | Procedures | Contact | Contact | +--------+--------+ + + + + | Closed | | Nurse | Diagnoses | [facility], | | | | | Practitioner | Chronic | Mars M, DO | [place], | | | | / Nephrology | kidney | [id number] | Chelane R, | | | | | disease, | CONFEDERATED | ACADEMIC ASSOCIATE [address] | | | | | stage [address] | [address] | [address], | | | | | ([facility]) | [place], | [address] | | | | | Procedures | [place] [address] | [place], | | | | | [facility] | Phone: | [place] [address] | | | | | OUTPATIENT | [phone] | Phone: | | | | | VISIT 25 | Fax: | [phone] | | | | | MINUTES | [phone] | Fax: | | | | | | | [phone] | +--------+--------+ + + + + Encounter Details +--------+---------+ + + + | Date | Type | Department | Care Team | Description | +--------+---------+ + + + | 12/15/ | Office | [facility] [place] | [place], | Chronic kidney | | 2018 | Visit | NEPHROLOGY [address] | [address] | disease (CKD), stage | | | | [address] | [address], [place] | V ([facility]) (Primary | | | | [place], [place] | [address] [place], [place] | Dx); Nephrotic | | | | [address] | [address] | syndrome; | | | | [phone] | | Hypertension, renal | | | | | | disease, stage 5 | | | | | | chronic kidney | | | | | | disease or end stage | | | | | | renal disease | | | | | | ([facility]); Type 2 | | | | | | diabetes mellitus | | | | | | with stage 5 chronic | | | | | | kidney disease not | | | | | | on chronic dialysis, | | | | | | without long-term | | | | | | current use of | | | | | | insulin ([facility]); | | | | | | Secondary | | | | | | hyperparathyroidism | | | | | | ([facility]); Anemia in | | | | | | stage 5 chronic | | | | | | kidney disease, not | | | | | | on chronic dialysis | | | | | | ([facility]) | +--------+---------+ + + + Social History [...] + + + + | Pulse | 87 | 12/15/2017 1630 PDT | + + + + | Temperature | - | - | + + + + | Respiratory Rate | - | - | + + + + | Oxygen Saturation | 95% | 12/15/20171629 PDT | + + + + | Inhaled Oxygen | - | - | | Concentration | | | + + + + | Weight | 110.1 kg (242 lb | 12/15/20171629 PDT | | | 11.6 oz) | | + + + + | Height | - | - | + + + + | Body Mass Index | 35.84 | 12/15/20171629 PDT | + + + + in [...] + + + as of this encounter Instructions Patient Instructions - Maryse Zamudio ARNP - 12/15/2017 1545 PDTCall office if low appetite, nausea/vomiting, increased leg swelling, or otherwise feeling unwell. Please avoid taking NSAIDs. These are some commonly used NSAIDs: ibuprofen (Motrin,Advil), naproxen (Aleve, Naprosyn), celecoxib (Celebrex), indomethacin (Indocin), meloxicam (Mobic). Please monitor blood pressure at home. Goal <140/90. Notify office if not within goal. Will start referral process to [facility]. If chest pain, seek emergent care. in this encounter Progress Notes Maryse Zamudio, ARIANA - 12/15/2017 1545 PDTFormatting of this note may be different from the original. Nephrology Follow-up Visit Visit date: 12/15/2017 Primary care provider: Mars Urrutia DO Follow-up type: 1 month HPI: Don Cabrera . is a 47 y.o. male with CKD likely due to diabetic nephropathy, with c ongenital solitary right kidney. -type 2 diabetes mellitus historically not controlled, with retinopathy -hypertension -congenital solitary right kidney -inpatient October 2017 with acute respiratory failure due to pneumonia and fluid overload; se rum creatinine steadily increased while inpatient but did not require hemodialysis -baseline serum creatinine has been steadily increasing in the past few years 2.2-2.5 mg/dl [id number]; 2.8-3.3 in 2016; 3.3-4.1 mg/dl June-July 2017; 3.7-5.4 mg/dl October 2017; now 4 .4 mg/dl -nephrotic range proteinuria on ARB therapy Don reports that he is feeling better overall. He reports good blood pressure at home. Nj bellamy feels that edema is well controlled though today is worse due to traveling. He has diarrhe a if he takes more than one renvela. He reports right sided chest discomfort when he is in c ertain positions while watching TV, lasting a few minutes. No SOB or other symptoms. No exer tional chest pain. He decided on [facility], has possible live donor. 11/25/17- AV fistula creation. ROS: Reports decreased fatigue, chest pain x 3 over the past week, resolved within a few mi nutes, no pain now; BLE edema, improved overall. Denies anorexia, dyspnea, orthopnea, nause a, vomiting, dysuria, hematuria, urinary frequency. PMH: Patient Active Problem List Diagnosis Date Noted Hypertension, renal disease, stage 5 chronic kidney disease or end stage renal disease (HCC) 11/14/2017 Anemia in CKD (chronic kidney disease) 07/30/2016 Chronic kidney disease (CKD), stage V (HCC) 07/30/2016 Note Last Updated: 07/30/2016 Likely diabetic nephropathy, with congenital solitary right kidney, nephrotic range prote inuria. SPEP/UPEP 04/27/13: negative for monoclonal gammopathy. Hyperkalemia 02/19/2016 Secondary hyperparathyroidism (HCC) 02/23/2015 Other chest pain 06/15/2014 Dyspnea on exertion 06/15/2014 Nephrotic syndrome 05/19/2012 Incomplete bladder emptying 05/19/2012 Note Last Updated: 02/19/2016 Patient has seen urology in the past. NO hydronephrosis at this point. Discussed risks i f this should worsen. Recommend reestablishing with urology. Pt not interested at this point (2015). Vitamin D deficiency 05/19/2012 Solitary kidney, congenital 05/19/2012 Hyperlipidemia 05/19/2012 Hypertension Type II diabetes mellitus with renal manifestations ([facility]) Outpatient Prescriptions Marked as Taking for the 12/15/17 encounter (Office Visit) with ARIANA Hadley Medication Sig Dispense Refill albuterol-ipratropium (DUONEB) 2.5-0.5 [...] 10 mg by mouth daily (with breakfast). levoFLOXacin (LEVAQUIN) 750 MG tablet Take 750 mg by mouth. losartan (COZAAR) 50 mg tablet Take 1 [...] mouth 2 times daily. 60 tablet 5 Allergies Allergen Reactions Doxazosin Shortness Of Breath Lisinopril Rosuvastatin Physical Exam: BP 138/76 | Pulse 87 | Wt 110.1 kg (242 lb 11.6 oz) | SpO2 95% | BMI 35.84 kg/m Constitutional: Appears well-developed and well-nourished. No distress. ENT: Oropharynx is clear and oral mucosa is moist. Cardiovascular: Normal rate, regular rhythm and normal heart sounds. Exam reveals no loza p and no friction rub. No murmur heard. No JVD. 2+ edema below knees. Lungs: Respiratory effort normal and breath sounds normal. No crackles or wheezes. Abdominal: Soft. Bowel sounds are present. No distension or tenderness. Musculoskeletal: No joint swelling. No muscle tenderness. Left upper arm AV fistula with p ositive bruit. Skin: Skin is warm. No rash over extremities. Neurological: Alert. Memory intact. Reviewed labs with patient. Abstract on 12/09/2017 Component Date Value Ref Range Status Creatinine, External 12/08/2017 4.4* 0.6 - 1.3 Final eGFR, External 12/08/2017 14* 60 Final WBC, External 12/08/2017 5.83 4 - 11 Final HGB, External 12/08/2017 10.78* 12 - 18 Final HCT, External 12/08/2017 34.02* 35 - 45 Final PLT, External 12/08/2017 159 140 - 440 Final RBC, External 12/08/2017 4.02 4 - 6 Final MCV, External 12/08/2017 85 80 - 100 Final RDW, External 12/08/2017 18.96* 10.5 - 15 Final Iron Binding Capacity, External 12/08/2017 332 250 - 450 Final Iron Saturation, External 12/08/2017 15* 20 Final Iron, External 12/08/2017 50 45 - 190 Final Sodium, External 12/08/2017 144 135 - 145 Final Potassium, External 12/08/2017 4.3 3.5 - 5.1 Final Chloride, External 12/08/2017 108 100 - 110 Final Carbon Dioxide, External 12/08/2017 26 23 - 32 Final Calcium, External 12/08/2017 8.0* 8.5 - 10.5 Final Phosphorus, External 12/08/2017 5.8* 2.3 - 4.8 Final Albumin, External 12/08/2017 3.4* 3.6 - 5 Final Glucose, External 12/08/2017 146* 70 - 100 Final BUN, External 12/08/2017 77* 6 - 23 Final Admission on 11/25/2017, Discharged on 11/25/2017 Component Date Value Ref Range Status Protime 11/25/2017 13.4 11.3 - 13.9 seconds Final INR 11/25/2017 1.03 0.90 - 1.10 Final Usual Oral Anticoagulation Range: 2.0 - 3.0 High Level Oral Anticoagulation Range: 2.5 - 3.5 PTT 11/25/2017 30 22 - 36 seconds Final NA 11/25/2017 145 136 - 149 mmol/L Final K 11/25/2017 4.3 3.5 - 5.1 mmol/L Final CL 11/25/2017 111* 98 - 109 mmol/L Final CO2 11/25/2017 23* 24 - 31 mmol/L Final ANION GAP 11/25/2017 11 3 - 16 mmol/L Final GLUCOSE 11/25/2017 105 70 - 109 mg/dL Final BUN 11/25/2017 83* 7 - 18 mg/dL Final Creatinine, Serum/Plasma 11/25/2017 4.85* 0.60 - 1.30 mg/dL Final eGFR if not 11/25/2017 13* >=60 mL/min/1.73m2 Final GLOMERULAR FILTRATION RATE,ESTIMATED mL/min/1.73m2 Less than 60 Chronic kidney disease,if found over a 3-month period. Less than 15 Kidney failure For Americans,multiply the calculated GFR by 1.21. CALCIUM 11/25/2017 8.1* 8.3 - 10.5 mg/dL Final BUN/CREA 11/25/2017 17.1 Final WBC 11/25/2017 5.2 4.0 - 11.0 K/uL Final RBC 11/25/2017 4.36 4.30 - 5.70 M/uL Final Hgb 11/25/2017 11.2* 13.5 - 18.0 g/dL Final Hct 11/25/2017 35.0* 40.0 - 51.0 % Final MCV 11/25/2017 80.3* 83.0 - 101.0 fL Final MCH 11/25/2017 25.8* 28.0 - 35.0 pg Final MCHC 11/25/2017 32.1 32.0 - 36.0 g/dL Final RDW-CV 11/25/2017 19.0* <15.0 % Final Platelet Count 11/25/2017 139* 140 - 440 K/uL Final MPV 11/25/2017 7.4 fL Final % Neutrophils 11/25/2017 63.6 45.0 - 82.0 % Final % Lymphocytes 11/25/2017 22.4 20.0 - 45.0 % Final % Monocytes 11/25/2017 8.2 4.0 - 12.0 % Final % Eosinophils 11/25/2017 4.9 0.0 - 5.0 % Final % Basophils 11/25/2017 0.9 0.0 - 1.0 % Final Absolute Neutrophils 11/25/2017 3.30 1.80 - 8.50 K/uL Final Absolute Lymphocytes 11/25/2017 1.20 0.60 - 3.20 K/uL Final Absolute Monocytes 11/25/2017 0.40 0.00 - 1.00 K/uL Final Absolute Eosinophils 11/25/2017 0.30 0.00 - 0.40 K/uL Final Absolute Basophils 11/25/2017 0.00 0.00 - 0.10 K/uL Final Specimen Source 11/25/2017 Vein Final Chloride, POC 11/25/2017 112* 98 - 109 mEq/L Final Potassium, POC 11/25/2017 4.3 3.5 - 5.0 mmol/L Final Ionized Calcium, POC 11/25/2017 4.40* 4.50 - 5.30 mg/dL Final Sodium, Venous, POC 11/25/2017 144.00 136 - 149 mEq/L Final Glucose, POC 11/25/2017 86 70 - 109 mg/dL Final Glucose, POC 11/25/2017 89 70 - 109 mg/dL Final Glucose, POC 11/25/2017 97 70 - 109 mg/dL Final Abstract on 11/21/2017 Component Date Value Ref Range Status Creatinine, External 11/20/2017 4.5* 0.7 - 1.3 Final eGFR, External 11/20/2017 14* 60 Final Sodium, External 11/20/2017 144 135 - 145 Final Potassium, External 11/20/2017 5.0* 3.5 - 4.9 Final Chloride, External 11/20/2017 112* 99 - 109 Final Carbon Dioxide, External 11/20/2017 22* 23 - 32 Final Calcium, External 11/20/2017 7.8* 8.5 - 10.5 Final Phosphorus, External 11/20/2017 5.7* 2.3 - 4.8 Final Albumin, External 11/20/2017 3.0* 3.6 - 5 Final Glucose, External 11/20/2017 129* 65 - 99 Final BUN, External 11/20/2017 94* 8 - 25 Final ASSESSMENT AND PLAN: ICD-10-CM ICD-9-CM 1. Chronic kidney disease (CKD), stage V ([facility]) N18.5 585.5 -serum creatinine is variable, n o uremic symptoms yet -serum potassium is well controlled on veltassa -bicarb within goal -fistula is maturing; discussed hemodialysis again with patient and he still struggles to u nderstand that he may need it in the next few months -given education again as his expectation is that transplant may happen very soon; today he decided on transplant team so referral will be sent; he may have a live donor option -reviewed uremic symptoms and asked him to notify our office if he experiences these 2. Nephrotic syndrome N04.9 581.9 Due to diabetic nephropathy. -on furosemide for control of edema -on statin -serum albumin is mildly low 3. Hypertension, renal disease, stage 5 chronic kidney disease or end stage renal disease ( HCC) I12.0 403.91 Blood pressure is controlled. Edema is fairly well controlled on furosemid e. -no change to medications 4. Type 2 diabetes mellitus with stage 5 chronic kidney disease not on chronic dialysis, [facility] long-term current use of insulin ([facility]) E11.22 250.40 Not well controlled. Continue wor randy with primary care for management. N18.5 585.5 5. Secondary hyperparathyroidism (HCC) N25.81 588.81 Patient was more receptive to educatio n about low phosphorus diet but does not seem motivated to change. He eats a lot of processe d foods. Has not tolerated renvela well. -velphoro 500 mg with each meal 6. Anemia in stage 5 chronic kidney disease, not on chronic dialysis (HCC) N18.5 285.21 Hb 10-11, not requiring SOCO therapy. Iron is low, just finished series of venofer infusions. On oral iron and starting velphoro. -monitor D63.1 585.5 7. Awaiting transplantation of kidney Z76.82 V49.83 Referral sent to [facility]. I reiterated th e importance of medication compliance and control of diabetes. Chest pain is likely musculoskeletal, but I recommend that he follow up with primary care f or further testing if episodes continue. Also instructed to go to ER for any chest pain long er than 30 minutes or if he has other symptoms such as shortness of breath, palpitations, li ghtheadedness or syncope. Return in about 7 weeks (around 02/02/2018). Labs: renal penal, CBC, iron panel, PTH, vitamin D 25 OH Patient verbalized agreement and understanding of above plan. 30 minutes spent face to face with patient with greater than 50% of time in counseling, edu cation and coordination of care as noted above. CC: Mars Urrutia, DO in this encounter Plan of Treatment +--------+---------+ + + + | Date | Type | Specialty | Care Team | Description | +--------+---------+ + + + | 01/29/ | Office | Nephrology | [place], | | | 2017 | Visit | | [address] | | | | | | [address] [facility] | | | | | | [address] [place] | | | | | | [address] | | | | | | | | +--------+---------+ + + + + +--------+ + + | Name | Priori | Associated Diagnoses | Order Schedule | | | ty | | | + +--------+ + + | [facility]B REFERRAL TO [facility] PRE [facility]NEY | Routin | Chronic kidney | Ordered: 12/15/2017 | | TRANSPLAN | e | disease (CKD), stage | | | | | V ([facility]) | | + +--------+ + + as of this encounter Procedures [...] this encounter Results LABS - EXTERNAL SCAN (12/08/2017) + + + | Narrative | Performed At | + + + | Ordered by an | | | unspecified provider. | | + + + in this encounter Visit Diagnoses + + | Diagnosis | + + | Chronic kidney disease (CKD), stage V (HCC) - Primary | + + | Chronic kidney disease, Stage V | + + | Nephrotic syndrome | + + | Nephrotic syndrome with unspecified pathological lesion in kidney | + + | Hypertension, renal disease, stage 5 chronic kidney disease or end stage renal disease | | (HCC) | + + | Type 2 diabetes mellitus with stage 5 chronic kidney disease not on chronic dialysis, | | without long-term current use of insulin (HCC) | + + | Secondary hyperparathyroidism (HCC) | + + | Secondary hyperparathyroidism (of renal origin) | + + | Anemia in stage 5 chronic kidney disease, not on chronic dialysis (HCC) | + + | Awaiting transplantation of kidney | + +"
--- OUTSIDE RECORDS SUMMARY | ~2018-01-18 | XMS | Encounter Summary ---
Demographics + + + | Address | [address] | | | [place] [address] | + + + | Home Phone | | + + + | Preferred Language | Unknown | + + + | Marital Status | | + + + | Pentecostal Affiliation | 1041 | + + + | Race | Unknown | + + + | Ethnic Group | Unknown | + + + Author + + + | Author | [facility] | | | and Min | + + + | Organization | [facility] | | | and [place] | + + + | Address | Unknown | + + + | Phone | Unavailable | + + + Support + + + + + | Name | Relationship | Address | Phone | + + + + + | Brittney Goodrich | ECON | [address] | | | | | [place] | | | | | [address] | | + + + + + Care Team Providers + +------+ + | Care Twisting Frame Operator Name | Role | Phone | + +------+ + | Mars Urrutia DO | PCP | | + +------+ + Encounter Details +--------+ + + + + | Date | Type | Department | Care Team | Description | +--------+ + + + + | 11/25/ | Procedure | [facility] | | | | 2018 | Pass | [facility] | | | | | | [address] | | | | | | [place] | | | | | | [address] | | | | | | [phone] | | | +--------+ + + + [...] | Nephrology | Robb, | | | 2018 | Visit | | [address]ANA [address] | | | | | | [address], [place] | | | | | | [address] [place] | | | | | | [address] | | | | | | | | +--------+---------+ + + + as of this encounter Visit Diagnoses Not on filein this encounter"
--- OUTSIDE RECORDS SUMMARY | ~2018-01-18 | XMS | Encounter Summary ---
Demographics + + + | Address | [address] | | | [place] [address] | + + + | Home Phone | | + + + | Preferred Language | Unknown | + + + | Marital Status | | + + + | Shinto Affiliation | 1041 | + + + | Race | Unknown | + + + | Ethnic Group | Unknown | + + + Author + + + | Author | [facility] | | | and Min | + + + | Organization | [facility] | | | and [place] | + + + | Address | Unknown | + + + | Phone | Unavailable | + + + Support + + + + + | Name | Relationship | Address | Phone | + + + + + | Brittney Goodrich | ECON | [address] | | | | | [place] | | | | | [address] | | + + + + + Care Team Providers + +------+ + | Care Program Officer Name | Role | Phone | + [...] | | | | | | | [place] AV | | | | | | | ANAST,UP ARM | | | | | | | BASILIC | | | | | | | VEIN | | | | | | | TRANSPOSIT | | | | | | | [place] | | | | | | | [...] Description | +--------+---------+ + + + | 11/25/ | [facility] | [facility] | Quirino Quezada | LEFT proximal radial | | 2018 | | MED CTR OR INTRA OP | MD Nando, FACS 380 | artery to | | | | [address] | [address] [place] | transposed basilic | | | | [place], [place] | [place] [address] | vein fistula | | | | [address] | [phone] | creation | | | | [phone] | | | +--------+---------+ + + + [...] + + | Pulse | 86 | 11/25/20171644 PDT | + + + + | [...] | 113 kg (249 lb 1.9 | 11/25/20171012 PDT | | | oz) | | + + + + | Height | 175.3 cm (5' 9") | 11/25/20171012 PDT | + + + + | Body Mass Index | 36.79 | 11/25/20171012 PDT | + + + + in [...] Discharge Instructions Quirino Quezada MD, FACS - [facility]: Arterio-Venous Fistula 1. Keep the [...] tablet by | 30 | 5 | // | | | (NORVASC) 10 MG | [...] | | | | | | | ([facility]) | | | | | | + [...] | | | | [address] | | | | | | [address] | | | | | | [address] | | | | | | | [...] | | | | | V (HCC) (N18.5) | | + +--------+ + + [...] 97 | 70 - 109 mg/dL | [facility] | | | | | [facility] | | | | | [facility] - | | | | | LABORATORY | + +-------+ + + + + | Specimen | + + | Blood | + + + + + + + | Performing | Address | City/State/Zipcode | Phone Number | | Organization | | | | + + + + + | [facility] | [address] | [place] | [phone] | | [facility] | | [address] | | | - LABORATORY | | | | + + + + + | [facility] | [address] | [place] | | | [facility] | | [address] | | | - LABORATORY | | | | + + + + + POC Glucose (11/25/2017 1332) + +-------+ + + | Component | Value | Ref Range | Performed At | + +-------+ + + | Glucose, POC | 89 | 70 - 109 mg/dL | [facility] | | | | | [facility] | | | | | CENTER - | | | | | LABORATORY | + +-------+ + + + + | Specimen | + + | Blood | + + + + + + + | Performing | Address | City/State/Zipcode | Phone Number | | Organization | | | | + + + + + | [facility] | [address] | [place] | [phone] | | [facility] | | [address] | | | - LABORATORY | | | | + + + + + | [facility] | [address] | [place] | | | [facility] | | [address] | | | - LABORATORY | | | | + + + + + POC Glucose (11/25/2017 1224) + +-------+ + + | Component | Value | Ref Range | Performed At | + +-------+ + + | Glucose, POC | 86 | 70 - 109 mg/dL | [facility] | | | | | [facility] | | | | | CENTER [...] [address] | [place] | [phone] | | [facility] | | [address] | | | - LABORATORY | | | | + + + + + | [facility] | [address] | [place] | | | [facility] | | [address] | | | - LABORATORY | | | | + + + + + POC Blood Gases (11/25/20171111) + + + + + | Component | Value | Ref Range | Performed At | + + + + + | Specimen Source | Vein | | [facility] | | | | | [facility] | | | | | CENTER - | | | | | LABORATORY | + + + + + | Chloride, POC | 112 (H) | 98 - 109 mEq/L | [facility] | | | | | [facility] | | | | | CENTER [...] + | [facility] | [address] | [place] | [phone] | | [facility] | | [address] | | | - LABORATORY | | | | + + + + + | [facility] | [address] | [place] | | | [facility] | | [address] | | | - LABORATORY | | [...] + | [facility] | [address] | [place], [place] | [phone] | | [facility] | | [address] | | | - LABORATORY | | | | + + + + + | [facility] | [address] | [place], [place] | | | [facility] | | [address] | | | - LABORATORY | | [...] [facility] | | | | | [facility] MEDICAL | | | | [...] (H) | 0.60 - 1.30 mg/dL | [facility] | | Serum/Plasma | | | [facility] | | | | | CENTER - | | | | | LABORATORY | + + + + + | eGFR if not | 13 (L)Comment: | >=60 mL/min/1.73m2 | [facility] | | [place] | GLOMERULAR FILTRATION | | [facility] | | | RATE,ESTIMATED mL/min | | CENTER - | | | /1.35k8Fbub than 60 | | LABORATORY | | [...] (L) | 8.3 - 10.5 mg/dL | [facility] | | | | | [facility] | | | | | CENTER - | | | | | LABORATORY | + + + + + | [facility] | 17.1 | | [facility] | | | | | [facility] | | | | | CENTER - | | | | | LABORATORY | + + + + + + + | Specimen | + + | Blood | + + + + + + + | Performing | Address | City/[facility] | Phone Number | | Organization | | | | + + + + + | [facility] | [address] | [place] | [phone] | | [facility] | | [address] | | | - LABORATORY | | | | + + + + + | [facility] | [address] | [place] | | | [facility] | | [address] | | | - LABORATORY | | | | + + + + + PTT (11/25/20171042) + +-------+ + + | Component | Value | Ref Range | Performed At | + +-------+ + + | PTT | 30 | 22 - 36 seconds | [facility] | | | | | [facility] | | | | | CENTER - | | | | | LABORATORY | + +-------+ + + + + | Specimen | + + | Blood | + + + + + + + | Performing | Address | City/State/Zipcode | Phone Number | | Organization | | | | + + + + + | [facility] | [address] | [place] | [phone] | | [facility] | | [address] | | | - LABORATORY | | | | + + + + + | [facility] | [address] | [place], [place] | | | [facility] | | [address] | | | - LABORATORY | | [...] | + + + + + | [facility] | [address] | [place], [place] | [phone] | | [facility] | | [address] | | | - LABORATORY | | | | + + + + + | [facility] | [address] | [place], [place] | | | [facility] | | [address] | | | - LABORATORY | | [...] | | | + +---+ + +-------+ +--------+---+ + | bupivacaine 0.25%-EPINEPHrine | Given | | 20 mLs | | Surgical | | 1:200,000 injection PRN, | | 8 14:36 | | | Site | | Starting 11/25/17 at 1436, | | PDT | | | | | Intra-op | | | | | | + +-------+ +--------+---+ + + +---+ | | | + +---+ [...] MIN | | | PRN, Pain, Starting 11/25/17 | | | at 1433, Maximum total [...] DBP > 100, | | | Starting 11/25/17 at 1500, | | | Hold if [...] | | | | | Oral, ONCE, 11/25/17 at 1100, | | PDT | | | | | For 1 dose, Pre-op | | | | | | + +-------+ +------+---+---+ + +---+ | | | + +---+ | ondansetron (ZOFRAN) injection | | | 4 mg 4 mg, Intravenous, ONCE | | | PRN, Nausea, Starting 11/25/17 | | | at 1433, For 1 dose, | | | Recovery/Phase I | | + +---+ | | | + +---+ | ondansetron (ZOFRAN) injection | | | 4 mg 4 mg, Intravenous, EVERY 6 | | | HOURS PRN, Nausea, Vomiting, | | | Starting e 11/25/17 at 1529, | | | First line [...] | +---------+ +---+---+---+ | New Bag | 11/25/ | | | | | | 8 13:27 | | | | | | PDT | | | | +---------+ +---+---+---+ +---+---+ | | | +---+---+ in this encounter
--- OUTSIDE RECORDS SUMMARY | ~2018-01-18 | XMS | Encounter Summary ---
Demographics + + + | Address | [address] | | | [place] [address] | + + + | Home Phone | | + + + | Preferred Language | Unknown | + + + | Marital Status | | + + + | Protestant Affiliation | 1041 | + + + | Race | Unknown | + + + | Ethnic Group | Unknown | + + + Author + + + | Author | [facility] | | | and Min | + + + | Organization | [facility] | | | and [place] | + + + | Address | Unknown | + + + | Phone | Unavailable | + + + Support + + + + + | Name | Relationship | Address | Phone | + + + + + | Brittney Goodrich | ECON | [address] | | | | | [place] | | | | | [address] | | + + + + + Care Team Providers + +------+ + | Care Network Control Technician Name | Role | Phone | + [...] + + + | Closed | | General | Diagnoses | Qua[place], | Field, | | | | Surgery | Chronic | Mars M, DO | Quirino I, | | | | | kidney | [address] | [address] | | | | | disease, | [address] | [address] | | | | | stage 5 | WAY | [place], | | | | | ([facility]) | [place], | [place] [address] | | | | | Procedures | [place] [address] | Phone: | | | | | ID OFFICE | Phone: | [phone] | | | | | OUTPATIENT | [phone] | Fax: | | | | | NEW 45 | Fax: | [phone] | | | | | MINUTES | [phone] | | +--------+--------+ + + + + Encounter Details +--------+---------+ + + + | Date | Type | Department | Care Team | Description | +--------+---------+ + + + | 12/01/ | Office | [facility] | [place], | Chronic kidney | | 2018 | Visit | SURGERY [address] | [address] | disease (CKD), stage | | | | [place], [place] | [address], [place] | V (HCC) (Primary | | | | [address] | [address] [place], [place] | Dx); Post-operative | | | | [phone] | [address] | state | | | | | | | | | | | Quirino Quezada | | | | | | MD Nando, FACS [address] | | | | | | [address] [facility] | | | | | | [place] [address] | | | | | | [phone] | | | | | | | [...] + + + + | Pulse | 82 | 12/01/20171431 PDT | + + + + | Temperature | 36.7 C (98.1 F) | 12/01/20171431 PDT | + + + + | Respiratory Rate | - | - | + + + + | Oxygen Saturation | 97% | 12/01/20171431 PDT | + + + + | Inhaled Oxygen | - | - | | Concentration | | | + + + + | Weight | 113 kg (249 lb 1.9 | 12/01/20171431 PDT | | | oz) | | + + + + | Height | 175.3 cm (5' 9") | 12/01/20171431 PDT | + + + + | Body Mass Index | 36.79 | 12/01/20171431 PDT | + + + + in [...] Progress Notes Quirino Quezada MD, FACS - 12/01/2017 1450 PDTFormatting of this note may be different from the original. Patient Identification: Don Cabrera Jr. 1970 Is a 47 y.o. male , a patien t of Mars Urrutia DO. Patient is here alone. S: Date of surgery: 11/25/2017. Title of surgery: LEFT proximal radial artery to transpose d basilic vein fistula creation. Physician notes: Patient arrives 6 day(s) s/p LEFT proximal radial artery to transposed basilic vein fistula creation. He reports emptying the drain this morning, states it is not draining much fluid . Reports he has an upcoming appointment with his diamond mounter. He does not some numbness t o his LEFT medial forearm, 8 x 20 cm elipse. He has also some LEFT hand swelling. 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 PAST MEDICAL HISTORY Past Medical History: Diagnosis [...] Surge on: Quirino Quezada MD, FACS; Location: [facility] MAIN OR KIDNEY SURGERY Right Child Had a surgery as a child to remove some infected tissue from his right kidney Allergies Allergen Reactions Doxazosin Shortness Of Breath Lisinopril Rosuvastatin Medications: Outpatient Encounter Prescriptions as of 12/01/2017 Medication Sig Dispense Refill albuterol-ipratropium (DUONEB) 2.5-0.5 [...] capsule by mouth Daily. 30 capsule 5 [DISCONTINUED] docusate sodium (COLACE) 100 mg capsule Take 100 mg by mouth Twice shahram y as needed for Constipation. ferrous sulfate 325 mg tablet Take 1 tablet by mouth Every other day. 15 tablet 3 furosemide (LASIX) 80 mg tablet Take 2 tablets by mouth 2 times daily. 120 tablet 3 glipiZIDE (GLIPIZIDE XL) 10 MG 24 hr tablet Take 10 mg by mouth daily (with breakfast). [DISCONTINUED] HYDROcodone-acetaminophen (NORCO) 5-325 mg per tablet Take 1-2 tablets b y mouth every 4 hours as needed for Pain. 30 tablet 0 levoFLOXacin (LEVAQUIN) 750 MG tablet Take 750 mg by mouth. losartan (COZAAR) 50 mg tablet Take 1 tablet by mouth Daily. 30 tablet 5 patiromer (VELTASSA) 16.8 g packet Take 1 diluted packet by mouth Daily. 30 packet 2 pioglitazone (ACTOS) 45 mg tablet Take 45 mg by mouth Daily. [DISCONTINUED] polyethylene glycol (MIRALAX) powder Take 17 g by mouth Daily. PROAIR HFA 108 (90 Base) MCG/ACT inhaler Take 2 puffs by mouth 4 times daily. rosuvastatin (CRESTOR) 20 mg tablet Take 1 tablet by mouth nightly. 30 tablet 3 sevelamer carbonate (RENVELA) 800 mg tablet Take 2 tablets by mouth 3 times daily (with meals). 180 tablet 5 sitagliptin (JANUVIA) 50 MG tablet Take 50 mg by mouth Daily. sodium bicarbonate 650 mg tablet Take 1 tablet by mouth 2 times daily. 60 tablet 5 Facility-Administered Encounter Medications as of 12/01/2017 Medication Dose Route Frequency Provider Last Rate Last Dose [COMPLETED] iron sucrose (VENOFER) 200 mg in sodium chloride 0.9% 100 mL IVPB 200 mg I ntravenous Once Chelane R Robb OPERATIONS MANAGER ASSISTANT Stopped at 11/27/17 1132 iron sucrose (VENOFER) 300 mg in sodium chloride 0.9% 250 mL IVPB 300 mg Intravenous W eekly Chelane R [place], OPERATIONS MANAGER ASSISTANT Stopped at 12/01/17 1255 Family History Problem Relation Age of Onset Diabetes Mother Hypertension Father Heart disease Father Diabetes Sister Diabetes Brother Kidney disease Neg Hx Social History: He reports that he quit smoking about 3 years ago. He has quit using smokeless tobacco. His smokeless tobacco use included Snuff. He reports that he does not drink alcohol or use drug s. PHYSICAL EXAM Vitals: 12/01/17 1432 Pulse: 82 Temp: 36.7 C (98.1 F) TempSrc: Temporal SpO2: 97% Weight: 113 kg (249 lb 1.9 oz) Height: 1.753 m (5' 9") Body mass index is 36.79 kg/m. General Appearance: Alert, cooperative, no distress, appears stated age Skin: Warm and dry Upper Extremities: LEFT arm has good thrill, vein is palpable. LEFT arm with 1+ edema Drain removed. Incisions covered with tape. Palpable Pulses: RIGHT LEFT Brachial Radial 2+ Ulnar Neurologic: Alert and oriented x3,Moving all 4 extremities. , Gait normal Assessment 1. Chronic kidney disease (CKD), stage V (HCC) 2. Post-operative state Plan 1) S/P LEFT proximal radial artery to transposed basilic vein fistula creation. Patient recovering well post surgery. Drain removed today. Instructed him to shower tomorr ow with tape on, once out of the shower he can remove and replace the tape. LEFT arm swelling-- instructed him to keep LEFT arm elevated. Recommend he wrap LEFT arm w ith velcro, instructed to apply felipa bandage in the morning and remove before bed. I have okayed him to return to work Friday, December 15, 2017 Return to clinic in 3 weeks. Quirino Quezada MD, FACS Vascular and General Surgery in this encounter Plan of Treatment +--------+---------+ + + + | Date | Type | Specialty | Care Team | Description | +--------+---------+ + + + | 01/29/ | Office | Nephrology | [facility], | | | 2017 | Visit | | [address] | | | | | | [address] [facility] | | | | | | [address] [place] | | | | | | [address] | | | | | | | [...]
--- OUTSIDE RECORDS SUMMARY | ~2018-01-18 | XMS | Encounter Summary ---
Demographics + + + | Address | [address] | | | [place] [address] | + + + | Home Phone | | + + + | Preferred Language | Unknown | + + + | Marital Status | | + + + | Buddhism Affiliation | 1041 | + + + | Race | Unknown | + + + | Ethnic Group | Unknown | + + + Author + + + | Author | [facility] | | | and Min | + + + | Organization | [facility] | | | and Koryana | + + + | Address | Unknown | + + + | Phone | Unavailable | + + + Support + + + + + | Name | Relationship | Address | Phone | + + + + + | Brittney Goodrich | ECON | [address] | | | | | [place] | | | | | [address] | | + + + + + Care Team Providers + +------+ + | Care Stripper Black And White Name | Role | Phone | + [...] Quirino Collier, | | | | | ([facility]) | Maryse Doyle, | , FACS [address] | | | | | Procedures | [employer] | | | | | [place] OFFICE | [address], | [place], | | | | | OUTPATIENT | [address] | [place] [address] | | | | | [address] | [place], | Phone: | | | | | MINUTES | [place] [address] | [phone] | | | | | | Phone: | Fax: | | | | | | [phone] | [phone] | | | | | | Fax: | | | | | | | [phone] | | +--------+--------+ + + + + Encounter Details +--------+---------+ + + + | Date | Type | Department | Care Team | Description | +--------+---------+ + + + | 12/29/ | Office | [facility] | [place], | Chronic kidney | | 2018 | Visit | SURGERY [address] | [address] | disease (CKD), stage | | | | [place], [place] | [address], [place] | V (HCC) (Primary | | | | [address] | [address] [place], [place] | Dx); Post-operative | | | | [phone] | [address] | state | | | | | | | | | | | Quirino Quezada | | | | | | MD Nando, FACS [address] | | | | | | [address] [facility] | | | | | | [place] [address] | | | | | | [phone] | | | | | | | [...] as of this encounter Progress Notes Quirino Quezaad MD, FACS - 12/29/2017 1410 PDTFormatting of [...] Surge on: Quirino Quezada MD, FACS; Location: [facility] MAIN OR KIDNEY SURGERY Right Child Had [...] NAME : Don Hall Deborah Stock EQUIPMENT: SonLangote M-Turbo with 10-5 mHertz probe. INDICATIONS: S/P [...] AV fistula . Patient to follow with fruit thinner and primary care. I will be available [...] | | | | | | [address] [facility] | | | | | | [address] | | | | | | [address] | | | | | | | | +--------+---------+ + + + as of this encounter Visit Diagnoses + + | Diagnosis | + + | Chronic kidney disease (CKD), stage V ([facility]) - Primary | + + | [...]
--- OUTSIDE RECORDS SUMMARY | ~2018-01-18 | XMS | Encounter Summary ---
Demographics + + + | Address | [address] | | | [place] [address] | + + + | Home Phone | | + + + | Preferred Language | Unknown | + + + | Marital Status | | + + + | Zoroastrian Affiliation | 1041 | + + + | Race | Unknown | + + + | Ethnic Group | Unknown | + + + Author + + + | Author | [facility] | | | and Min | + + + | Organization | [facility] | | | and [place] | + + + | Address | Unknown | + + + | Phone | Unavailable | + + + Support + + + + + | Name | Relationship | Address | Phone | + + + + + | Brittney Goodrich | ECON | [address] | | | | | [place] | | | | | [address] | | + + + + + Care Team Providers + +------+ + | Care Sales Contract Administrator Name | Role | Phone | + [...] | | | | | | ([facility]) | | | | | | | [...] | | | | | | ([facility]) | | | +--------+--------+ + + + + Encounter Details +--------+ + + + + | Date | Type | Department | Care Team | Description | +--------+ + + + + | 11/19/ | Hospital | [facility] | [place], | Anemia in stage 5 | | 2018 | Encounter | MED CTR OP INFUSION | [address] | chronic kidney | | | | [address] | [address] [place] | disease, not on | | | | [place], [place] | [address] | chronic dialysis | | | | [address] | [address] | ([facility]); Chronic | | | | [phone] | | kidney disease | | | [...] + + + | Blood Pressure | 147/82 | 11/19/2017 1409 PDT | + + + + | Pulse | 76 | 11/19/2017 1409 PDT | + + + + | Temperature | 36.4 C (97.5 F) | 11/19/20171408 PDT | + + + + | Respiratory Rate | 18 | 11/19/20171408 PDT | + + + + | Oxygen Saturation | 97% | 11/19/20171408 PDT | + + + + | [...] encounter Progress Notes Nils Reyes RN - 11/19/2017 1425 PDTMedication stopped, IV removed and note charted a nd did not realize I was logged in as Kadi Pantoja RN - 11/19/2017 1418 PDTFormatting of this note may be different from the original. Vitals: 11/19/17 1242 11/19/17 1409 BP: 161/87 147/82 Pulse: 79 76 Resp: 16 18 Temp: 36 C (96.8 F) 36.4 C (97.5 F) TempSrc: Oral Oral SpO2: 98% 97% Administrations This Visit iron sucrose (VENOFER) 200 mg in sodium chloride 0.9% 100 mL IVPB Admin Date 11/19/2017 Action New Bag Dose 200 mg Rate 110 mL/hr Route Intravenous Administered By Kadi Mejia RN Monitored throughout treatment; treatment completed without untoward effects from medicatio n noted. Next visit 11/27/17. Verbalizes understanding of plan of care. VS stable. Discharged ambulatory to home in stable condition. Electronically signed by: Kadi Mejia RN 11/19/2017 14:18 Kadi Mejia RN - 11/19/2017 1250 PDTFormatting of this note may be different from the o magdalene. Vitals: 11/19/17 1242 BP: 161/87 Pulse: 79 Resp: 16 Temp: 36 C (96.8 F) Don Cabrera Jr. received into room 443, independent ambulation. States here for iron infusion. Reports no change in condition, plan of care since last MD visit. Alert, oriented x 4, cooperative. Electronically signed by: Kadi Mejia RN 11/19/2017 12:50in this encounter Plan of Treatment +--------+---------+ + + + | Date | Type | Specialty | Care Team | Description | +--------+---------+ + + + | 01/29/ | Office | Nephrology | [place], | | | 2017 | Visit | | [address] | | | | | | [facility] | | | | | | [address] [place] | | | | | | [address] | | | | | | | | +--------+---------+ + + + as of this encounter Visit Diagnoses + + | Diagnosis | + + | Anemia in stage 5 chronic kidney disease, not on chronic dialysis (HCC) | + + | Chronic kidney disease (CKD), stage V (HCC) | + + | Chronic kidney disease, Stage V | + + Administered Medications + +---------+ +--------+-------+------+ | Medication Order | MAR | Action | Dose | Rate | Site | | | Action | Date | | | | + +---------+ +--------+-------+------+ | iron sucrose (VENOFER) 200 mg | New Bag | | 200 mg | 110 | | | in sodium chloride 0.9% 100 mL | | 8 13:08 | | mL/hr | | | IVPB 200 mg, Intravenous, | | PDT | | | | | Administer over 60 Minutes, | | | | | | | WEEKLY, First dose on Fri11/19/17 | | | | | | | at 1255, For 2 doses, Venofer IV | | | | | | | 200 mg weekly x 2, then 300 mg | | | | | | | weekly x 2. | | | | | | + +---------+ +--------+-------+------+ +---+---+ | | | +---+---+ in this encounter"
--- OUTSIDE RECORDS SUMMARY | ~2018-01-18 | XMS | Encounter Summary ---
Demographics + + + | Address | [address] | | | [place] [address] | + + + | Home Phone | | + + + | Preferred Language | Unknown | + + + | Marital Status | | + + + | Muslim Affiliation | 1041 | + + + | Race | Unknown | + + + | Ethnic Group | Unknown | + + + Author + + + | Author | [facility] | | | and Min | + + + | Organization | [facility] | | | and Koryana | + + + | Address | Unknown | + + + | Phone | Unavailable | + + + Support + + + + + | Name | Relationship | Address | Phone | + + + + + | Brittney Goodrich | ECON | [address] | | | | | [place] | | | | | [address] | | + + + + + Care Team Providers + +------+ + | Care Compressor Mechanic Name | Role | Phone | + +------+ + | Mars Urrutia DO | PCP | | + +------+ + Reason for Visit + + + | Reason | Comments | + + + | New Patient | need for AVF creation - Chronic kidney disease | + + + Evaluate & Treat (Urgent) +--------+ + + + + + | Status | Reason | Specialty | Diagnoses / | Referred By | Referred To | | | | | Procedures | Contact | Contact | +--------+ + + + + + | Closed | Specialty | Surgery / | Diagnoses | | Field, | | | Services | General | Chronic | Factreythall, | Quirino I, | | | Required | Surgery | kidney | Maryse R, | , FACS [address] | | | | | disease, | SALESMAN/OWNER [address] | | | | | stage V | [address], | [place], | | | | | ([facility]) | [address] | [place] [address] | | | | | Anemia in | [place], | Phone: | | | | | stage 5 | [place] [address] | [phone] | | | | | chronic | Phone: | Fax: | | | | | kidney | [phone] | [phone] | | | | | disease, not | Fax: | | | | | | on chronic | [phone] | | | | | | dialysis | | | | | | | ([facility]) | | | +--------+ + + + + + Encounter Details +--------+---------+ + + + | Date | Type | Department | Care Team | Description | +--------+---------+ + + + | 11/19/ | Office | [facility] | Factreythall, | Chronic kidney | | 2018 | Visit | SURGERY [address] | [address] | disease (CKD), stage | | | | [place], [place] | [address], [facility] | V ([facility]) (Primary | | | | [address] | [address] [place], [place] | Dx); Anemia in stage | | | | [phone] | [address] | 5 chronic kidney | | | | | | disease, not on | | | | | Quirino Quezada | chronic dialysis | | | | | [place] N[place], FACS [address] | ([facility]) | | | | | [facility] | | | | | | [place] [address] | | | | | | [phone] | | | | | | | [...] + + + | Blood Pressure | 126/72 | 11/19/20176 PDT | + + + + | Pulse | 78 | 11/19/20176 PDT | + + + + | Temperature | 36.9 C (98.5 F) | 11/19/20176 PDT | + + + + | Respiratory Rate | - | - | + + + + | Oxygen Saturation | 97% | 11/19/20171105 PDT | + + + + | Inhaled Oxygen | - | - | | Concentration | | | + + + + | Weight | 112.2 kg (247 lb 5.7 | 11/19/20171105 PDT | | | oz) | | + + + + | Height | 175.3 cm (5' 9") | 11/19/20171105 PDT | + + + + | Body Mass Index | 36.53 | 11/19/20171105 PDT | + + + + in [...] of this encounter Instructions Patient Instructions - Job Agee RN - 11/19/2017 1110 PDTInsulin medications: HO LD GLIPIZIDE and Januvia the morning of surgery Hold "...pril" and "...sartan" medications day of surgery. HOLD LOSARTAN and LASIX the morn ing of surgery. DO NOT EAT OR DRINK ANYTHING AFTER MIDNIGHT before your surgery. This means no coffee, nova er, juice or toast on the morning of your surgery. The only exception is essential medicine s with a small sip of water (or just enough to get the pills down safely). Please use the antibacterial wipes the night before your surgery to help prevent post-op in fections. Follow instructions listed in brochure. On 11/25/17 check in at Same Day Surgery ([address]) at 10:00am. Your surgery is called LEFT proximal radial artery to transposed basilic vein fistula creat ion. It will start about 12:00pm and will finish about 3:30pm. You will be ready to go home same day. Anesthesia type recommended: general anesthetic General IV Sedation with local anesthesia (MAC) IV Sedation Other MAKE ARRANGEMENTS FOR A RESPONSIBLE ADULT TO DRIVE YOU HOME. If you have any questions, please call at . Your nurse's name is Yuriy Mauro RN. Your surgeon's name is Dr. Quezada. I look forward to your having a safe, successful and comfortable surgery. Sign up for [employer] if you want easy access to your medical information online. You can: Review your medications, immunizations, allergies and medical history. View details of your past and upcoming appointments. Sign up for [employer] if you want easy access to your medical information online. Only you, your doctor and your health care team are permitted to view the information sent through [employer]. Through [employer] you can: ? Review your medications, immunizations, allergies and medical history. ? View details of your past and upcoming appointments. ? Receive test results online no waiting for a phone call or letter ? Review health education topics and discharge instructions provided by your physician. ? Send secure emails to your healthcare team. ? Request renewals of your medications online ? Link your family s accounts to yours for convenient access to appointments, immunizatio n records, growth charts and more. Below are the different ways you can sign up for [employer]: ? The first way is to get online at: [email or web address] and sign up directly throug h the website prior to your appointment with us. You can call [phone] ([phone]) if you have any questions or need assistance. ? The second way is through the [employer] aleida which can be accessed with any smart phone. Ju st go to your aledia store and look up [employer]. ? The third way is to do it while you wait in the room for the doctor at your appointment. The nurse is available if you have any questions or need assistance. You will need the following information to sign up: Email address: User name: Password: Password must be at least 8 characters long, less than 20 characters, and it must have at l east 1 upper case letter and 1 lower case letter as well as at least 1 number. in this encounter Progress Notes Quirino Quezada MD, FACS - 11/19/2017 1110 PDTFormatting of this note may be different from the original. Surgery Note Referring Provider: Fackenthall, Chelane R,* Patient Identification: Don Cabrera Jr. 1970 Is a 47 y.o. male , a patien t of Mars Urrutia DO. Patient is here alone. Chief Complaint: Chief Complaint Patient presents with New Patient need for AVF creation - Chronic kidney disease HISTORY OF PRESENT ILLNESS Patients Preliminary Questionaire: Have you started dialysis yet? No How many years have been dialyzed? N/A Are you a candidate for kidney transplantation? unknown Who is your Primary Care ? Mars Urrutia DO Who is your Tree Fruit And Nut Farming Supervisor/Kidney Specialist ? Robb When was the current dialysis access placed? N/A What problems are there with the current dialysis access? N/A Physician notes: Patient arrives today to consult on AV fistula placement. 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 Reports when he was age 7 or 8 he had a kidney infection. States he was taken to [place], [place] where he was put in ice water to try and help fight the infection. He is RIGHT hand dominant, would prefer AV Fistula placed in LEFT arm.He denies pain in LEF T arm or hand, denies arm or hand swelling. He is unsure if he will need a catheter placement. 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 CARDIAC: No W[place], chest pain or tightness. No pacemaker. RISK: Never smoker, current 5 year diabetic . 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 30 capsule 5 docusate sodium (COLACE) 100 mg capsule Take 100 mg by mouth Twice daily as needed for Constipation. ferrous sulfate 325 [...] tablet Take 45 mg by mouth Daily. polyethylene glycol (MIRALAX) powder Take 17 g [...] mouth 2 times daily. 60 tablet 5 No facility-administered encounter medications on file as of 11/19/2017. Family History Problem Relation Age of Onset Diabetes Mother Hypertension Father Heart disease Father Diabetes Sister Diabetes Brother Kidney disease Neg Hx Social History: He reports that he quit smoking about 3 years ago. He has quit using smokeless tobacco. His smokeless tobacco use included Snuff. He reports that he does not drink alcohol or use drug s. REVIEW of SYSTEMS General: []Weight loss/gain (over 10 lbs) [x]Fever/chills [x]Night sweats Hematologic: []Bleeding/bruising tendencies []Blood transfusion []Anemia Heent: []Vision loss []Hearing loss [x]Sinus problems/nose bleeds []Hoarseness Respiratory: [x]Wheezing [x]Shortness of breath [x]Cough []Spitting up blood []On oxygen []Use CPAP machine Cardiac: []Chest pain []Palpitations/heart racing [x]Swelling of ankles/hands [x]Unusual shortness of breath [x]Difficulty sleeping fl at Gastrointestinal: [x]Nausea/vomiting []Difficulty swallowing []Heartburn []Loss of appetite []Abdominal pain []Stomac h Ulcers []Diarrhea [x]Constipation []Bl ack or bloody stools Vascular: []Strokes/TIA's []Fainting []Difficulty with speech []Leg cramps []Pain in feet/legs at rest []Foot ulcers/so res []Varicose veins []Phlebitis/blood clots Musculoskeletal: []Joint stiffness/swelling []Joint pain []Back pain []Arthritis []Gout Urologic: []Blood in urine [x]Frequent urination at night []Burning/painful urination []Kidney stones []Difficulty urination [x]Sexual difficulties Neuro/Psychiatric: [x]Headaches []Seizures []Depression []Anxiety attacks []Memory loss or confusion PHYSICAL EXAM BP 126/72 | Pulse 78 | Temp 36.9 C (98.5 F) (Temporal) | Ht 1.753 m (5' 9") | Wt 11 2.2 kg (247 lb 5.7 oz) | SpO2 97% | BMI 36.53 kg/m Body mass index is 36.53 kg/m. General Appearance: Alert, cooperative, no distress, appears stated age Head: Normocephalic, without obvious abnormality, atraumatic Eyes: PERRL, conjunctiva/corneas clear, vision adequate bilateral Ears: Adequate hearing Lungs: Breath sounds are equal bilaterally, no wheezes or crackles Chest Wall/Back: No tenderness or deformity. No CVA Tenderness Heart: Regular rate and rhythm, no murmur Upper Extremities: Extremities normal, atraumatic, no cyanosis, clubbing, or edema LEFT arm is intact, small vein in anterior upper arm. Palpable Pulses: RIGHT LEFT Brachial 2+ Radial 2+ Ulnar 1+ Ultrasound: See report. Neurologic: Cranial nerves II-XII grossly intact, UE motor ULTRASOUND REPORT: PATIENT NAME : Don Cabrera . EQUIPMENT: SonGuang Lian Shi Daite M-Turbo with 10-5 mHertz probe. INDICATIONS: Dialysis access evaluation FINDING: LEFT cephalic vein measures 3.1 mm and is 2.2 mm deep to the skin. LEFT basilic vein measures 5.2 mm. LEFT brachial artery has normal anatomy. IMPRESSION: Poor LEFT cephalic vein. Adequate LEFT basilic vein. Adequate LEFT brachial art jason. Lab Results Component Value Date NA 138 11/06/2017 K 4.8 11/06/2017 CL 105 11/06/2017 CO2 26 11/06/2017 BUN 74 (H) 11/06/2017 CREA 4.94 (H) 11/06/2017 Lab Results Component Value Date WBC 7.0 11/06/2017 HGB 9.7 (L) 11/06/2017 HCT 30.2 (L) 11/06/2017 MCV 78.2 (L) 11/06/2017 PLT 188 11/06/2017 ASSESSMENT 1. Chronic kidney disease (CKD), stage V ([facility]) 2. Anemia in stage 5 chronic kidney disease, not on chronic dialysis (HCC) PLAN 1. Recommend we proceed with LEFT transposed basilic vein to proximal radial artery fistula creation. Patient is scheduled to check kidney function tomorrow -- 11/20/2017. Depending on lab results we may have to proceed with tunneled dialysis catheter placement at same time a s LEFT transposed basilic vein fistula creation surgery. I have explained this to patient an d he is in agreement to this plan. The indications, alternatives, risks, and benefits have been discussed with the patient in detail. Risks include bleeding, infection, damage to surrounding structures, failure to mat ure, arterial steal, hand dysfunction, additional procedures, life-threatening events, and u nforeseen complications. I have provided time for the patient to ask any questions they may have. Will plan surgery for Saturday, November 25, 2017 I have advised him that he should plan to be off work for a minimum of a week. Return to clinic Post op Quirino Quezada MD, FACS Vascular and General Surgery CC: Mars Urrutia DO, Robb, Maryse Doyle,* in this encounter Plan of Treatment +--------+---------+ + + + | Date | Type | Specialty | Care Team | Description | +--------+---------+ + + + | 01/29/ | Office | Nephrology | Robb, | | | 2017 | Visit | | [address] | | | | | | [address] | | | | | | [address] [place] | | | | | | [id number] | | | | | | | [...]
--- OUTSIDE RECORDS SUMMARY | ~2018-01-18 | XMS | Encounter Summary ---
Demographics + + + | Address | [address] | | | [place] [address] | + + + | Home Phone | | + + + | Preferred Language | Unknown | + + + | Marital Status | | + + + | Muslim Affiliation | 1041 | + + + | Race | Unknown | + + + | Ethnic Group | Unknown | + + + Author + + + | Author | [facility] | | | and Min | + + + | Organization | [facility] | | | and Koryana | + + + | Address | Unknown | + + + | Phone | Unavailable | + + + Support + + + + + | Name | Relationship | Address | Phone | + + + + + | Brittney Goodrich | ECON | [address] | | | | | [place] | | | | | [address] | | + + + + + Care Team Providers + +------+ + | Care Top Lift And Automatic Window Repairer Name | Role | Phone | + +------+ + | Mars Urrutia DO | PCP | | + +------+ + Encounter Details +--------+ + + + + | Date | Type | Department | Care Team | Description | +--------+ + + + + | 11/24/ | Episode | [facility] | Damari Jacinto RN | | | 2018 | Changes | SURGERY [address] | | | | | | [place] | | | | | | [address] | | | | | | [phone] | | | +--------+ + + + [...] [place] | | | | | | [address] | | | | | | | | +--------+---------+ + + + as of this encounter Visit Diagnoses Not on filein this encounter"
--- OUTSIDE RECORDS SUMMARY | ~2018-01-18 | XMS | Encounter Summary ---
Demographics + + + | Address | [address] | | | [place] [address] | + + + | Home Phone | | + + + | Preferred Language | Unknown | + + + | Marital Status | | + + + | Rastafarian Affiliation | 1041 | + + + | Race | Unknown | + + + | Ethnic Group | Unknown | + + + Author + + + | Author | [facility] | | | and Min | + + + | Organization | [facility] | | | and [place]ana | + + + | Address | Unknown | + + + | Phone | Unavailable | + + + Support + + + + + | Name | Relationship | Address | Phone | + + + + + | Brittney Goodrich | ECON | [address] | | | | | [place] | | | | | [address] | | + + + + + Care Team Providers + +------+ + | Care Structural Drafter Name | Role | Phone | + +------+ + | Mars Urrutia DO | PCP | | + +------+ + Encounter Details +--------+ + + + + | Date | Type | Department | Care Team | Description | +--------+ + + + + | 10/30/ | Orders Only | [facility] [place] | Fackenthall, | Chronic kidney | | 2018 | | NEPHROLOGY [address] | [address] | disease, stage IV | | | | [address] | [address] [place] | (severe) (HCC) | | | | [place], [place] | [address] [place], [place] | (Primary Dx); Anemia | | | | [address] | [address] | in stage 4 chronic | | | | [phone] | | kidney disease | | | [...] | | | insulin (HCC) | +--------+ + + + + [...] encounter Progress Notes Krystal Wang RN - 10/30/2017 1207 PDTLabs for upcoming nephrology appointment sent to: [place] this encounter Plan of Treatment +--------+---------+ + + + | Date | Type | Specialty | Care Team | Description | +--------+---------+ + + + | 01/29/ | Office | Nephrology | Robb, | | | 2017 | Visit | | [address] | | | | | | [address] [facility] | | | | | | [address] [place] | | | | | | [address] | | | | | | | | +--------+---------+ + + + as of this encounter Visit Diagnoses + + | Diagnosis | + + | Chronic kidney disease, stage IV (severe) (HCC) - Primary | + + | Chronic kidney disease, Stage IV (severe) | + + | Anemia in stage 4 chronic kidney disease (HCC) | + + | Type 2 diabetes mellitus with stage 4 chronic kidney disease, without long-term current | | use of insulin (HCC) | + +"
--- OUTSIDE RECORDS SUMMARY | ~2018-01-18 | XMS | Encounter Summary ---
Demographics + + + | Address | [address] | | | [place] [address] | + + + | Home Phone | | + + + | Preferred Language | Unknown | + + + | Marital Status | | + + + | Latter-Day Affiliation | 1041 | + + + | Race | Unknown | + + + | Ethnic Group | Unknown | + + + Author + + + | Author | [facility] | | | and Min | + + + | Organization | [facility] | | | and Koryana | + + + | Address | Unknown | + + + | Phone | Unavailable | + + + Support + + + + + | Name | Relationship | Address | Phone | + + + + + | Brittney Goodrich | ECON | [address] | | | | | [place] | | | | | [address] | | + + + + + Care Team Providers + +------+ + | Care Internal Controls Consultant Name | Role | Phone | + [...] + + | 11/21/ | Telephone | [facility] [place] | Nomi Rachna W, | Other | | 2018 | | NEPHROLOGY [address] | [place] [address] | | | | | [address] | [address] [place] | | | | | [place], [place] | [place] [address] | | | | | [address] | [phone] | | | | | [phone] | | | +--------+ + + + [...]
--- OUTSIDE RECORDS SUMMARY | ~2018-01-18 | XMS | Encounter Summary ---
Demographics + + + | Address | [address] | | | [place] [address] | + + + | Home Phone | | + + + | Preferred Language | Unknown | + + + | Marital Status | | + + + | Baptism Affiliation | 1041 | + + + | Race | Unknown | + + + | Ethnic Group | Unknown | + + + Author + + + | Author | [facility] | | | and Min | + + + | Organization | [facility] | | | and [place] | + + + | Address | Unknown | + + + | Phone | Unavailable | + + + Support + + + + + | Name | Relationship | Address | Phone | + + + + + | Brittney Goodrich | ECON | [address] | | | | | [place] | | | | | [address] | | + + + + + Care Team Providers + +------+ + | Care Blow Mold Technician Name | Role | Phone | + +------+ + | Mars Urrutia DO | PCP | | + +------+ + Encounter Details +--------+ + + + + | Date | Type | Department | Care Team | Description | +--------+ + + + + | 11/18/ | Abstract | [facility] | Provider, | | | 2018 | | SURGERY [address] | Historical, [place] [address] | | | | | [place], [place] | [address] | | | | | [address] | [place] [address] | | | | | [phone] | | | +--------+ + + + [...] [place] | | | | | | [address] | | | | | | | | +--------+---------+ + + + as of this encounter Visit Diagnoses Not on filein this encounter"
--- OUTSIDE RECORDS SUMMARY | ~2018-01-18 | XMS | Encounter Summary ---
Demographics + + + | Address | [address] | | | [place] [address] | + + + | Home Phone | | + + + | Preferred Language | Unknown | + + + | Marital Status | | + + + | Jehovah'S Witness Affiliation | 1041 | + + + | Race | Unknown | + + + | Ethnic Group | Unknown | + + + Author + + + | Author | [facility] | | | and Min | + + + | Organization | [facility] | | | and Koryana | + + + | Address | Unknown | + + + | Phone | Unavailable | + + + Support + + + + + | Name | Relationship | Address | Phone | + + + + + | Brittney Goodrich | ECON | [address] | | | | | [place] | | | | | [address] | | + + + + + Care Team Providers + +------+ + | Care Head Grinder Name | Role | Phone | + [...] [address] | | | | | [address] [place], [place] | [address] | | | | | [address] | [place] [address] | | | | | [phone] | | | +--------+ + + + [...] [place] | | | | | | [address] | | | | | | | | +--------+---------+ + + + as of this encounter Visit Diagnoses Not on filein this encounter"
--- OUTSIDE RECORDS SUMMARY | ~2018-01-18 | XMS | Encounter Summary ---
Demographics + + + | Address | [address] | | | [place] [address] | + + + | Home Phone | | + + + | Preferred Language | Unknown | + + + | Marital Status | | + + + | Faith Affiliation | 1041 | + + + | Race | Unknown | + + + | Ethnic Group | Unknown | + + + Author + + + | Author | [facility] | | | and Min | + + + | Organization | [facility] | | | and Koryana | + + + | Address | Unknown | + + + | Phone | Unavailable | + + + Support + + + + + | Name | Relationship | Address | Phone | + + + + + | Brittney Goodrich | ECON | [address] | | | | | [place] | | | | | [address] | | + + + + + Care Team Providers + +------+ + | Care Email Campaign Manager Name | Role | Phone | [...] | [address] | [address] [place] | | | | | [place], [place] | [address] [place] | | | | | [address] | [address] | | | | | [phone] | | | +--------+ + + + [...] | | | | | [address] [facility] | | | | | | [address] [place] | | | | | | [address] | | | | | | | [...]
--- OUTSIDE RECORDS SUMMARY | ~2018-01-18 | XMS | Encounter Summary ---
Demographics + + + | Address | [address] | | | [place] [address] | + + + | Home Phone | | + + + | Preferred Language | Unknown | + + + | Marital Status | | + + + | Confucianist Affiliation | 1041 | + + + | Race | Unknown | + + + | Ethnic Group | Unknown | + + + Author + + + | Author | [facility] | | | and Min | + + + | Organization | [facility] | | | and K[place]ana | + + + | Address | Unknown | + + + | Phone | Unavailable | + + + Support + + + + + | Name | Relationship | Address | Phone | + + + + + | Brittney Goodrich | ECON | [address] | | | | | [place] | | | | | [address] | | + + + + + Care Team Providers + +------+ + | Care Bulk Mail Technician Name | Role | Phone | [...] | | | | | disease, | INSTRUCTOR PRIVATE [address] | | | | | stage V | [address], | [place], | | | | | ([facility]) | [address] | [place] [address] | | | | | Anemia in | [place], | Phone: | | | | | stage 5 | [place] [address] | [phone] | | | | | chronic | Phone: | Fax: | | | | | kidney | [phone] | [phone] | | | | | disease, not | Fax: | | | | | | on chronic | [phone] | | | | | | dialysis | | | | | | | ([facility]) | | | +--------+ + + + + + Encounter Details +--------+---------+ + + + | Date | Type | Department | Care Team | Description | +--------+---------+ + + + | 11/19/ | Office | [facility] | [place], | Chronic kidney | | 2018 | Visit | SURGERY [address] | [address] | disease (CKD), stage | | | | [place], [place] | [address], [facility] | V ([facility]) (Primary | | | | [address] | [address] [place], [place] | Dx); Anemia in stage | | | | [phone] | [address] | 5 chronic kidney | | | | | | disease, not on | | | | | Quirino Quezada | chronic dialysis | | | | | MD Nando, FACS [address] | ([facility]) | | | | | [facility] | | | | | | [place] [address] | | | | | | [phone] | | | | | | | [...] Same Day Surgery (corner of [address]) at 10:00am. Your surgery is called LEFT [...] successful and comfortable surgery. Sign up for 1d[employer] Pty if you want easy access to your medical information online. You can: Review your medications, immunizations, allergies and medical history. View details of your past and upcoming appointments. Sign up for 1d[employer] Pty if you want easy access to your medical information online. Only you, your doctor and your health care team are permitted to view the information sent through [employer]. Through 1d[employer] Pty you can: ? Review your medications, immunizations, [...] different ways you can sign up for 1d4 Pty: ? The first way is to get online at: [email or web address] and sign up directly throug h the website prior to your appointment with us. You can call [phone] ([phone]) if you have any questions or need assistance. ? The second way is through the 1d[employer] Pty aleida which can be accessed with any smart phone. Ju st go to your aleida store and look up easy2comply ([employer]). ? The third way is to do [...] ? Mars Urrutia DO Who is your Health Professor/Kidney Specialist ? Robb When was the current dialysis access placed? N/A What problems are there with the current dialysis access? N/A Physician notes: Patient arrives today to consult on AV fistula placement. 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 Reports when he was age 7 or 8 he had a kidney infection. States he was taken to [place], [place] where he was put in ice water to try and help fight the infection. He is RIGHT hand dominant, would prefer AV Fistula placed in LEFT arm.He denies pain in LEF T arm or hand, denies arm or hand swelling. He is unsure if he will need a catheter placement. 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 CARDIAC: No [place], chest pain or tightness. No pacemaker. RISK: [...] PATIENT NAME : Don Cabrera . EQUIPMENT: SonMenara Networkste M-Turbo with 10-5 mHertz probe. INDICATIONS: Dialysis [...] 1. Chronic kidney disease (CKD), stage V ([facility]) 2. Anemia in stage 5 chronic kidney [...] | | | | [address] [place] | | | | | | [id number] | | | | | | | [...]
--- OUTSIDE RECORDS SUMMARY | ~2018-01-18 | XMS | Encounter Summary ---
Demographics + + + | Address | [address] | | | [place] [address] | + + + | Home Phone | | + + + | Preferred Language | Unknown | + + + | Marital Status | | + + + | Temple Affiliation | 1041 | + + + | Race | Unknown | + + + | Ethnic Group | Unknown | + + + Author + + + | Author | [facility] | | | and Min | + + + | Organization | [facility] | | | and Koryana | + + + | Address | Unknown | + + + | Phone | Unavailable | + + + Support + + + + + | Name | Relationship | Address | Phone | + + + + + | Brittney Goodrich | ECON | [address] | | | | | [place] | | | | | [address] | | + + + + + Care Team Providers + +------+ + | Care Therapeutic Massage Technician Name | Role | Phone | + +------+ + | Mars Urrutia DO | PCP | | + +------+ + Reason for Visit + + + | Reason | Comments | + + + | Weight Check | | + + + Encounter Details +--------+ + + + + | Date | Type | Department | Care Team | Description | +--------+ + + + + | 11/17/ | Telephone | [facility] [place] | [place], | Weight Check | | 2018 | | NEPHROLOGY [address] | [address] | | | | | [address] | [address], [place] | | | | | [place], [place] | [address] [place], [place] | | | | | [address] | [address] | | | | | [phone] | | | +--------+ + + + [...]
--- OUTSIDE RECORDS SUMMARY | ~2018-01-18 | XMS | Encounter Summary ---
Demographics + + + | Address | [address] | | | [place] [address] | + + + | Home Phone | | + + + | Preferred Language | Unknown | + + + | Marital Status | | + + + | Hindu Affiliation | 1041 | + + + | Race | Unknown | + + + | Ethnic Group | Unknown | + + + Author + + + | Author | [facility] | | | and Min | + + + | Organization | [facility] | | | and Koryana | + + + | Address | Unknown | + + + | Phone | Unavailable | + + + Support + + + + + | Name | Relationship | Address | Phone | + + + + + | Brittney Goodrich | ECON | [address] | | | | | [place] | | | | | [address] | | + + + + + Care Team Providers + +------+ + | Care Deployment Specialist Name | Role | Phone | + +------+ + | Mars Urrutia DO | PCP | | + +------+ + Encounter Details +--------+ + + + + | Date | Type | Department | Care Team | Description | +--------+ + + + + | 11/12/ | Abstract | [facility] | Robb, | | | 2018 | | NEPHROLOGY [address] | [address] | | | | | [address] | [address], [place] | | | | | [place], [place] | [address] [place] | | | | | [address] | [address] | | | | | [phone] | | | +--------+ + + + [...] | | | | | | [address] [facility] | | | | | | [address] [place] | | | | | | [address] | | | | | | | | +--------+---------+ + + + as of this encounter Procedures + +--------+ + + + | Procedure Name | Priori | Date/Time | Associated Diagnosis | Comments | | | ty | | | | + +--------+ + + + | EXTERNAL LAB: RESHMA | Routin | 11/11/2017 | | Results [...] | EXTERNAL LAB: CBC | Routin | 11/11/2017 | | Results [...] + + + in this encounter Results Urinalysis With Microscopic (11/11/2017) + + + [...] + + + + | UA Specific [place], | 1.012 | | | | External | | | | + + + + + | UA Leukocyte | negative | | | | Esterase, External | | | | + + + + + External Lab: CBC (11/11/2017) + + + + + | Component | Value | Ref Range | Performed At | + + + + + | WBC, External | 5.78 | | | + + + + + | HGB, External | 10.39 (A) | 12 - 16 | | + + + + + | HCT, External | 32.8 (A) | 40 - 50 | | + + + + + | PLT, External | 210 | 140 - 440 | | + + + + + | RBC, External | 3.96 (A) | 4 - 6 | | + + + + + | MCV, External | 83 | 81 - 99 | | + + + + + | RDW, External | 17.03 (A) | 10.5 - 15 | | + + + + + External Lab: PTH, Intact (11/11/2017) + + + + + | Component | Value | Ref Range | Performed At | + + + + + | PTH Intact, External | 263.1 (A) | 12 - 88 | | + + + + + External Lab: Protein/Creatinine Ratio (11/11/2017) + + + + + | Component | Value | Ref Range | Performed At | + + + + + | Protein/Creatinine | 3.365 (A) | 0.2 | | | Ratio, External | | | | + + + + + External Lab: Iron Total (11/11/2017) + +-------+ + + | Component | Value | Ref Range | Performed At | + +-------+ + + | Iron, External | 60 | 45 - 190 | | + +-------+ + + External Lab: Iron Saturation (11/11/2017) + +--------+ + + | Component | Value | Ref Range | Performed At | + +--------+ + + | Iron Saturation, | 15 (A) | 20 | | | External | | | | + +--------+ + + External Lab: Iron Binding Capacity (11/11/2017) + +-------+ + + | Component | Value | Ref Range | Performed At | + +-------+ + + | Iron Binding | 410 | 250 - 450 | | | Capacity, External | | | | + +-------+ + + External Lab: Ferritin (11/11/2017) + +-------+ + + | Component | Value | Ref Range | Performed At | + +-------+ + + | Ferritin, External | 113 | 11 - 450 | | + +-------+ + + External Lab: BUN (11/11/2017) + +--------+ + + | Component | Value | Ref Range | Performed At | + +--------+ + + | BUN, External | 95 (A) | 6 - 23 | | + +--------+ + + External Lab: Glucose (11/11/2017) + +---------+ + + | Component | Value | Ref Range | Performed At | + +---------+ + + | Glucose, External | 116 (A) | 70 - 100 | | + +---------+ + + External Lab: Albumin (11/11/2017) + +---------+ + + | Component | Value | Ref Range | Performed At | + +---------+ + + | Albumin, External | 3.1 (A) | 3.6 - 5 | | + +---------+ + + External Lab: Phosphorus (11/11/2017) + +---------+ + + | Component | Value | Ref Range | Performed At | + +---------+ + + | Phosphorus, External | 5.9 (A) | 6 - 8 | | + +---------+ + + External Lab: Calcium (11/11/2017) + +---------+ + + | Component | Value | Ref Range | Performed At | + +---------+ + + | Calcium, External | 8.0 (A) | 8.5 - 10.2 | | + +---------+ + + External Lab: Carbon Dioxide (11/11/2017) + +-------+ + + | Component | Value | Ref Range | Performed At | + +-------+ + + | Carbon Dioxide, | 26 | 23 - 32 | | | External | | | | + +-------+ + + External Lab: Chloride (11/11/2017) + +-------+ + + | Component | Value | Ref Range | Performed At | + +-------+ + + | Chloride, External | 108 | 100 - 110 | | + +-------+ + + External Lab: Potassium (11/11/2017) + +-------+ + + | Component | Value | Ref Range | Performed At | + +-------+ + + | Potassium, External | 5.1 | 3.5 - 5.1 | | + +-------+ + + External Lab: Sodium (11/11/2017) + +-------+ + + | Component | Value | Ref Range | Performed At | + +-------+ + + | Sodium, External | 142 | 135 - 145 | | + +-------+ + + External Lab: eGFR (11/11/2017) + +--------+ + + | Component | Value | Ref Range | Performed At | + +--------+ + + | eGFR, External | 11 (A) | 60 | | + +--------+ + + + + | Specimen | + + | Blood | + + External Lab: Creatinine (11/11/2017) + +---------+ + + | Component | Value | Ref Range | Performed At | + +---------+ + + | Creatinine, External | 5.4 (A) | 0.6 - 1.3 | | + +---------+ + + + + | Specimen | + + | Blood | + + in this encounter Visit Diagnoses Not on filein this encounter"
--- OUTSIDE RECORDS SUMMARY | ~2018-01-18 | XMS | Encounter Summary ---
Demographics + + + | Address | [address] | | | [place] [address] | + + + | Home Phone | | + + + | Preferred Language | Unknown | + + + | Marital Status | | + + + | Yazidi Affiliation | 1041 | + + + | Race | Unknown | + + + | Ethnic Group | Unknown | + + + Author + + + | Author | [facility] | | | and Min | + + + | Organization | [facility] | | | and Koryana | + + + | Address | Unknown | + + + | Phone | Unavailable | + + + Support + + + + + | Name | Relationship | Address | Phone | + + + + + | Brittney Goodrich | ECON | [address] | | | | | [place] | | | | | [address] | | + + + + + Care Team Providers + +------+ + | Care Tar Leveler Name | Role | Phone | + [...] | NEPHROLOGY [address] | Maryse Doyle [address] | | | | | [address] | [address], [place] | | | | | [place], [place] | [address] [place], [place] | | | | | [address] | [address] | | | | | [phone] | | | +--------+ + + + [...] [place] | | | | | | [id number] | | | | | | | | +--------+---------+ + + + as of this encounter Visit Diagnoses Not on filein this encounter"
--- OUTSIDE RECORDS SUMMARY | ~2018-01-18 | XMS | Encounter Summary ---
Demographics + + + | Address | [address] | | | [place] [address] | + + + | Home Phone | | + + + | Preferred Language | Unknown | + + + | Marital Status | | + + + | Druze Affiliation | 1041 | + + + | Race | Unknown | + + + | Ethnic Group | Unknown | + + + Author + + + | Author | [facility] | | | and Min | + + + | Organization | [facility] | | | and Koryana | + + + | Address | Unknown | + + + | Phone | Unavailable | + + + Support + + + + + | Name | Relationship | Address | Phone | + + + + + | Brtitney Goodrich | ECON | [address] | | | | | [place] | | | | | [address] | | + + + + + Care Team Providers + +------+ + | Care Assisted Sales Representative Name | Role | Phone | + [...] | | | | | disease | RETAIL SALES SPECIALIST [address] | [address] | | | | | (CKD), stage | [address], | [address] | | | | | V (HCC) | [address] | [place], [place] | | | | | | [place], | [address] | | | | | | [place] [address] | Phone: | | | | | | Phone: | [phone] | | | | | | [phone] | Fax: | | | | | | Fax: | [phone] | | | | | | [phone] | | + +--------+ + + + [...] | | / Nephrology | kidney | [address] | Chelane R, | | | | | disease, | CONFEDERATED | RETAIL SALES SPECIALIST [address] | | | | | stage [address] | [address] | [address], | | | | | ([facility]) | [place], | [address] | | | | | Procedures | [place] [address] | [place], | | | | | [place] OFFICE | Phone: | [place] [address] | | | | | OUTPATIENT | [phone] | Phone: | | | | | VISIT 25 | Fax: | [phone] | | | | | MINUTES | [phone] | Fax: | | | | | | | [phone] | +--------+--------+ + + + + Encounter [...] | [address] | [address], [place] | V ([facility]) (Primary | | | | [place], [place] | [address] [place], [place] | Dx); Nephrotic | | | | [address] | [address] | syndrome; | | | | [phone] | | Hypertension, renal | | | | | | disease, stage 5 | | | | | | chronic kidney | | | | | | disease or end stage | | | | | | renal disease | | | | | | ([facility]); Type 2 | | | | | | diabetes mellitus | | | | | | with stage 5 chronic | | | | | | kidney disease not | | | | | | on chronic dialysis, | | | | | | without long-term | | | | | | current use of | | | | | | insulin ([facility]); | | | | | | Secondary | | | | | | hyperparathyroidism | | | | | | ([facility]); Anemia in | | | | | | stage 5 chronic | | | | | | kidney disease, not | | | | | | on chronic dialysis | | | | | | ([facility]) | +--------+---------+ + + + Social History [...] within goal. Will start referral process to [facility]. If chest pain, seek emergent care. in [...] in the past few years 2.2-2.5 mg/dl [id number]; 2.8-3.3 in 2016; 3.3-4.1 mg/dl June-July 2017; [...] exer tional chest pain. He decided on [place] [facility], has possible live donor. 11/25/17- AV [...] Type II diabetes mellitus with renal manifestations ([facility]) Outpatient Prescriptions Marked as Taking for the [...] 1. Chronic kidney disease (CKD), stage V ([facility]) N18.5 585.5 -serum creatinine is variable, n [...] chronic kidney disease not on chronic dialysis, [facility] long-term current use of insulin ([facility]) E11.22 250.40 Not well controlled. Continue wor [...] of kidney Z76.82 V49.83 Referral sent to [facility]. I reiterated th e importance of medication [...] | | | | | | [address] [facility] | | | | | | [address] [place] | | | | | | [address] | | | | | | | | +--------+---------+ + + + + +--------+ + + | Name | Priori | Associated Diagnoses | Order Schedule | | | ty | | | + +--------+ + + | AMB REFERRAL TO [facility] | Routin | Chronic kidney | Ordered: 12/15/2017 | | TRANSPLAN | e | disease (CKD), stage | | | | | V ([facility]) | | + +--------+ + + as [...]
--- OUTSIDE RECORDS SUMMARY | ~2018-01-18 | XMS | Encounter Summary ---
Demographics + + + | Address | [address] | | | [place] [address] | + + + | Home Phone | | + + + | Preferred Language | Unknown | + + + | Marital Status | | + + + | Christianity Affiliation | 1041 | + + + | Race | Unknown | + + + | Ethnic Group | Unknown | + + + Author + + + | Author | [facility] | | | and Min | + + + | Organization | [facility] | | | and Koryana | + + + | Address | Unknown | + + + | Phone | Unavailable | + + + Support + + + + + | Name | Relationship | Address | Phone | + + + + + | Brittney Goodrich | ECON | [address] | | | | | [place] | | | | | [address] | | + + + + + Care Team Providers + +------+ + | Care Sfdc Developer Name | Role | Phone | + [...] | | | | | ([facility]) | | | | | | [...] | | | | | ([facility]) | | | +--------+--------+ + + + + Encounter Details +--------+ + + + + | Date | Type | Department | Care Team | Description | +--------+ + + + + | 11/19/ | Hospital | [facility] | [place], | Anemia in stage 5 | | 2018 | Encounter | MED CTR OP [facility]ION | [address] | chronic kidney | | | | [address] | [address] [place] | disease, not on | | | | [place], [place] | [address] | chronic dialysis | | | | [address] | [address] | ([facility]); Chronic | | | | [phone] | | kidney disease | | | [...] | | | | | [facility] | | | | | | [address] [place] | | | | | | [address] | | | | | | | [...]
--- OUTSIDE RECORDS SUMMARY | ~2018-01-18 | XMS | Encounter Summary ---
Demographics + + + | Address | [address] | | | [place] [address] | + + + | Home Phone | | + + + | Preferred Language | Unknown | + + + | Marital Status | | + + + | Jewish Affiliation | 1041 | + + + | Race | Unknown | + + + | Ethnic Group | Unknown | + + + Author + + + | Author | [facility] | | | and Min | + + + | Organization | [facility] | | | and Koryana | + + + | Address | Unknown | + + + | Phone | Unavailable | + + + Support + + + + + | Name | Relationship | Address | Phone | + + + + + | Brittney Goodrich | ECON | [address] | | | | | [place] | | | | | [address] | | + + + + + Care Team Providers + +------+ + | Care Home Agent Name | Role | Phone | + +------+ + | Mars Urrutia DO | PCP | | + +------+ + Encounter Details +--------+ + + + + | Date | Type | Department | Care Team | Description | +--------+ + + + + | 12/25/ | Orders Only | [facility] [place] | [place], | Chronic kidney | | 2018 | | NEPHROLOGY [address] | [address] | disease (CKD), stage | | | | [address] | [address] [place] | V ([facility]) (Primary | | | | [place], [place] | [address] [place], [place] | Dx); Anemia in stage | | | | [address] | [address] | 5 chronic kidney | | | | [phone] | | disease, not on | | | | | | chronic dialysis | | | | | | ([facility]) | +--------+ + + + [...] + as of this encounter Progress Notes Katelyn Spencer RN - 12/25/2017 1646 [employer] for nephrology appt on 01/29/18 sent to Sada Aranda in this encounter Plan of Treatment +--------+---------+ + + + | Date | Type | Specialty | Care Team | Description | +--------+---------+ + + + | 01/29/ | Office | Nephrology | Robb, | | | 2017 | Visit | | [address] | | | | | | [facility] | | | | | | [address] [place] | | | | | | [address] | | | | | | | | +--------+---------+ + + + + +--------+ + + | Name | Priori | Associated Diagnoses | Order Schedule | | | ty | | | + +--------+ + + | CBC with Differential | Routin | Chronic kidney | 1 Occurrences | | | e | disease (CKD), stage | starting 12/25/2017 | | | | V (HCC) Anemia in | until 12/26/2018 | | | | stage 5 chronic | | | | | kidney disease, not | | | | | on chronic dialysis | | | | | (HCC) | | + +--------+ + + | Parathyroid Hormone, Intact | Routin | Chronic kidney | 1 Occurrences | | | e | disease (CKD), stage | starting 12/25/2017 | | | | V (HCC) Anemia in | until 12/26/2018 | | | | stage 5 chronic | | | | | kidney disease, not | | | | | on chronic dialysis | | | | | (HCC) | | + +--------+ + + | Renal Function Panel | Routin | Chronic kidney | 1 Occurrences | | | e | disease (CKD), stage | starting 12/25/2017 | | | | V (HCC) Anemia in | until 12/26/2018 | | | | stage 5 chronic | | | | | kidney disease, not | | | | | on chronic dialysis | | | | | (HCC) | | + +--------+ + + | Vitamin D, Deficiency Screen | Routin | Chronic kidney | 1 Occurrences | | (25-Hydroxy) | e | disease (CKD), stage | starting 12/25/2017 | | | | V (HCC) Anemia in | until 12/26/2018 | | | | stage 5 chronic | | | | | kidney disease, not | | | | | on chronic dialysis | | | | | (HCC) | | + +--------+ + + | Iron and Transferrin | Routin | Chronic kidney | 1 Occurrences | | | e | disease (CKD), stage | starting 12/25/2017 | | | | V (HCC) Anemia in | until 12/26/2018 | | | | stage 5 chronic | | | | | kidney disease, not | | | | | on chronic dialysis | | | | | (HCC) | | + +--------+ + + as of this encounter Visit Diagnoses + + | Diagnosis | + + | Chronic kidney disease (CKD), stage V (HCC) - Primary | + + | Chronic kidney disease, Stage V | + + | 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
--- OUTSIDE RECORDS SUMMARY | ~2018-01-18 | XMS | Encounter Summary ---
Demographics + + + | Address | [address] | | | [place] [address] | + + + | Home Phone [...] Author | [facility] | | | and Min | + + + | Organization | [facility] | | | and Koryana | + + + | Address | Unknown | + + + | Phone | Unavailable | + + + Support + + + + + | Name | Relationship | Address | Phone | + + + + + | Brittney Goodrcih | ECON | [address] | | | | | [place] | | | | | [address] | | + + + + + Care Team Providers + +------+ + | Care Smt Machine Operator Name | Role | Phone [...] | | | | [address] [place] | | | | | | [id number] | | | | | | [phone] | | | +--------+ + + + [...] [place] | | | | | | [id number] | | | | | | | | +--------+---------+ + + + as of this encounter Visit Diagnoses Not on filein this encounter"
--- OUTSIDE RECORDS SUMMARY | ~2018-01-18 | XMS | Encounter Summary ---
Demographics + + + | Address | [address] | | | [place] [address] | + + + | Home Phone | | + + + | Preferred Language | Unknown | + + + | Marital Status | | + + + | Pentecostal Affiliation | 1041 | + + + | Race | Unknown | + + + | Ethnic Group | Unknown | + + + Author + + + | Author | [facility] | | | and Min | + + + | Organization | [facility] | | | and [place] | + + + | Address | Unknown | + + + | Phone | Unavailable | + + + Support + + + + + | Name | Relationship | Address | Phone | + + + + + | Brittney Goodrich | ECON | [address] | | | | | [place] | | | | | [address] | | + + + + + Care Team Providers + +------+ + | Care Mine Surveyor Name | Role | Phone | + [...] | | | | | | | ([facility]) | | | | | | [...] | | | | | | | ([facility]) | | | +--------+--------+ + + + + Encounter Details +--------+ + + + + | Date | Type | Department | Care Team | Description | +--------+ + + + + | 11/27/ | Hospital | [facility] | [place], | Anemia in stage 5 | | 2018 | Encounter | MED CTR OP INFUSION | [address] | chronic kidney | | | | [address] | [address] [place] | disease, not on | | | | [place], [place] | [address] | chronic dialysis | | | | [address] | [address] | ([facility]); Chronic | | | | [phone] | | kidney disease | | | [...] | 01/29/ | Office | Nephrology | [facility], | | | 2017 | Visit | | [address] | | | | | | [address], [facility] | | | | | | [address] [...] | | | | | | | [facility] 11/27/17 at 1015, For 1 dose, | | | | | | | Venofer IV 200 mg weekly x 2, | | | | | | | then 300 mg weekly x 2. | | | | | | + +---------+ +--------+-------+------+ +---+---+ | | | +---+---+ in this encounter"
--- OUTSIDE RECORDS SUMMARY | ~2018-01-18 | XMS | Encounter Summary ---
Demographics + + + | Address | [address] | | | [place] [address] | + + + | Home Phone | | + + + | Preferred Language | Unknown | + + + | Marital Status | | + + + | Gnosticism Affiliation | 1041 | + + + | Race | Unknown | + + + | Ethnic Group | Unknown | + + + Author + + + | Author | [facility] | | | and Min | + + + | Organization | [facility] | | | and [place] | + + + | Address | Unknown | + + + | Phone | Unavailable | + + + Support + + + + + | Name | Relationship | Address | Phone | + + + + + | Brittney Goodrich | ECON | [address] | | | | | [place] | | | | | [address] | | + + + + + Care Team Providers + +------+ + | Care Furnace Charging Machine Operator Name | Role | Phone [...] | [address] | [address] [place] | | | | | [place], [place] | [address] | | | | | [address] | [address] | | | | | [phone] | | | +--------+ + + + [...] | | | | | [address] [facility] | | | | | | [address] | | | | | | [address] | | | | | | | [...]
--- OUTSIDE RECORDS SUMMARY | ~2018-01-18 | XMS | Encounter Summary ---
Demographics + + + | Address | [address] | | | [place] [address] | + + + | Home Phone | | + + + | Preferred Language | Unknown | + + + | Marital Status | | + + + | Mandaeism Affiliation | 1041 | + + + | Race | Unknown | + + + | Ethnic Group | Unknown | + + + Author + + + | Author | [facility] | | | and Min | + + + | Organization | [facility] | | | and [place] | + + + | Address | Unknown | + + + | Phone | Unavailable | + + + Support + + + + + | Name | Relationship | Address | Phone | + + + + + | Brittney Goodrich | ECON | [address] | | | | | [place] | | | | | [address] | | + + + + + Care Team Providers + +------+ + | Care Monorail Car Operator Name | Role | Phone [...] | [address] | [address] [place] | | | | | [place], [place] | [address] | | | | | [address] | [address] | | | | | [phone] | | | +--------+ + + + [...] | | | | | | [address] [facility] | | | | | | [address] [place] | | | | | | [address] | | | | | | | [...] + + + + | [facility] Specific [place], | 1.012 | | | | External [...]
--- OUTSIDE RECORDS SUMMARY | ~2018-01-18 | XMS | Encounter Summary ---
Demographics + + + | Address | [address] | | | [place] [address] | + + + | Home Phone | | + + + | Preferred Language | Unknown | + + + | Marital Status | | + + + | Mu-Ism Affiliation | 1041 | + + + | Race | Unknown | + + + | Ethnic Group | Unknown | + + + Author + + + | Author | [facility] | | | and Min | + + + | Organization | [facility] | | | and [place] | + + + | Address | Unknown | + + + | Phone | Unavailable | + + + Support + + + + + | Name | Relationship | Address | Phone | + + + + + | Brittney Goodrich | ECON | [address] | | | | | [place] | | | | | [address] | | + + + + + Care Team Providers + +------+ + | Care Project Finance Analyst Name | Role | Phone | + +------+ + | Mars Urrutia DO | PCP | | + +------+ + Reason for Visit + + + | Reason | Comments | + + + | Hospital Follow-up | | + + + Encounter Details +--------+ + + + + | Date | Type | Department | Care Team | Description | +--------+ + + + + | 11/07/ | Telephone | [facility] | Rafael Grady, | Hospital Follow-up | | 2018 | | MED CTR PHARMACY | [facility] [address] | | | | | [address] | [address] [place], [place] | | | | | [place] [address] | [address] | | | | | [phone] | | | +--------+ + + + [...] [place] | | | | | | [address] | | | | | | | | +--------+---------+ + + + as of this encounter Visit Diagnoses Not on filein this encounter"
--- OUTSIDE RECORDS SUMMARY | ~2018-01-18 | XMS | Encounter Summary ---
Demographics + + + | Address | [address] | | | [place] [address] | + + + | Home Phone | | + + + | Preferred Language | Unknown | + + + | Marital Status | | + + + | Sabianist Affiliation | 1041 | + + + | Race | Unknown | + + + | Ethnic Group | Unknown | + + + Author + + + | Author | [facility] | | | and Min | + + + | Organization | [facility] | | | and [place] | + + + | Address | Unknown | + + + | Phone | Unavailable | + + + Support + + + + + | Name | Relationship | Address | Phone | + + + + + | Brittney Goodrich | ECON | [address] | | | | | [place] | | | | | [address] | | + + + + + Care Team Providers + +------+ + | Care Applied Computer Science Professor Name | Role | Phone | + [...] + + | 11/14/ | Telephone | [facility] [place] | [place], | Weight Check | | 2018 | | NEPHROLOGY [address] | [address] | | | | | [address] | [address] [place] | | | | | [place], [place] | [address] [place], [place] | | | | | [address] | [address] | | | | | [phone] | | | +--------+ + + + [...]
--- OUTSIDE RECORDS SUMMARY | ~2018-01-18 | XMS | Encounter Summary ---
Demographics + + + | Address | [address] | | | [place] [address] | + + + | Home Phone | | + + + | Preferred Language | Unknown | + + + | Marital Status | | + + + | Scientology Affiliation | 1041 | + + + | Race | Unknown | + + + | Ethnic Group | Unknown | + + + Author + + + | Author | [facility] | | | and Min | + + + | Organization | [facility] | | | and [place] | + + + | Address | Unknown | + + + | Phone | Unavailable | + + + Support + + + + + | Name | Relationship | Address | Phone | + + + + + | Brittney Goodrich | ECON | [address] | | | | | [place] | | | | | [address] | | + + + + + Care Team Providers + +------+ + | Care Ink Printer Name | Role | Phone | + [...] | [address] | [address] [place] | | | | | [place], [place] | [address] [place], [place] | | | | | [address] | [address] | | | | | [phone] | | | +--------+ + + + [...]
--- OUTSIDE RECORDS SUMMARY | ~2018-01-18 | XMS | Encounter Summary ---
Demographics + + + | Address | [address] | | | [place] [address] | + + + | Home Phone | | + + + | Preferred Language | Unknown | + + + | Marital Status | | + + + | Samaritan Affiliation | 1041 | + + + | Race | Unknown | + + + | Ethnic Group | Unknown | + + + Author + + + | Author | [facility] | | | and Min | + + + | Organization | [facility] | | | and [place] | + + + | Address | Unknown | + + + | Phone | Unavailable | + + + Support + + + + + | Name | Relationship | Address | Phone | + + + + + | Brittney Goodrich | ECON | [address] | | | | | [place] | | | | | [address] | | + + + + + Care Team Providers + +------+ + | Care Computer Science Instructor Name | Role | Phone | + [...] Closed | | Nurse | Diagnoses | Quaempen[place], | | | | | Practitioner | Chronic | Mars M, DO | [place], | | | | / Nephrology | kidney | [address] | Chelane R, | | | | | disease, | CONFEDERATED | NURSING SURGICAL SERVICES DIRECTOR [address] | | | | [address] | [address] | [address], | | | | | (severe) | [place], | [place] [address] | | | | | (HCC) | [place] [address] | [place], | | | | | Procedures | Phone: | [place] [address] | | | | | [place] OFFICE | [phone] | Phone: | | | | | OUTPATIENT | Fax: | [phone] | | | | | VISIT 25 | [phone] | Fax: | | | | | MINUTES | | [phone] | +--------+--------+ + + + + Encounter Details +--------+---------+ + + + | Date | Type | Department | Care Team | Description | +--------+---------+ + + + | 11/13/ | Office | [facility] [place] | [place], | Chronic kidney | | 2018 | Visit | NEPHROLOGY [address] | [address] | disease (CKD), stage | | | | [address] | [address] [place] | V ([facility]) (Primary | | | | [place], [place] | [address] [place], [place] | Dx); Secondary | | | | [address] | [address] | hyperparathyroidism | | | | [phone] | | ([facility]); Type 2 | | | | | | diabetes mellitus | | | | | | with stage 5 chronic | | | | | | kidney disease not | | | | | | on chronic dialysis, | | | | | | without long-term | | | | | | current use of | | | | | | insulin ([facility]); | | | | | | Nephrotic syndrome; | | | | | | Anemia in stage 5 | | | | | | chronic kidney | | | | | | disease, not on | | | | | | chronic dialysis | | | | | | ([facility]); Hypertension, | | | | | | renal disease, | | | | | | stage 5 chronic | | | | | | kidney disease or | | | | | | end stage renal | | | | | | disease (HCC) | +--------+---------+ + + + Social History [...] + + + | Blood Pressure | 158/72 | 11/13/20171301 PDT | + + + + | Pulse | 76 | 11/13/20171301 PDT | + + + + | Temperature | - | - | + + + + | Respiratory Rate | - | - | + + + + | Oxygen Saturation | 100% | 11/13/20171301 PDT | + + + + | Inhaled Oxygen | - | - | | Concentration | | | + + + + | Weight | 110.7 kg (244 lb 0.8 | 11/13/20171301 PDT | | | oz) | | + + + + | Height | - | - | + + + + | Body Mass Index | 36.04 | 11/13/20171301 PDT | + + + + in [...] Patient Instructions - Maryse Zamudio ARNP - 11/13/2017 1300 PDTCall us with your choice of transplant team. We will set up iron infusions. We will set up vein mapping and appointment with DR. Quezada to discuss fistula placement. Increase renvela to two with each meal. If weight and leg swelling is increasing, notify office so that furosemide can be increased . If you are losing appetite or not feeling well, notify office. Labs in one week. in this encounter Progress Notes Maryse Zamudio ARNP - 11/13/2017 1300 PDTFormatting of this note may be different from the original. Nephrology Follow-up Visit Visit date: 11/13/2017 Primary care provider: Mars Urrutia DO Follow-up type: Post hospital follow up HPI: Don Cabrera . is a 47 y.o. male with CKD likely due to diabetic nephropathy, with c ongenital solitary right kidney. -type 2 diabetes mellitus historically not controlled, with retinopathy -hypertension -congenital solitary right kidney -baseline serum creatinine was 1.7-2.0 mg/dl; increased to 2.2-2.5 mg/dl [id number]; now 3.3- 4.1 mg/dl since June 2017; while inpatient October 2017 serum creatinine steadily increased 3.7-4.7 mg/dl; 11/11/17 5.4 mg/dl -nephrotic range proteinuria on ARB therapy Don was inpatient last week with acute respiratory failure due to pneumonia and fluid ov erload. Furosemide was increased to 80 mg BID and he was on levofloxacin for few days after discharge. He denies cough, shortness of breath or fever, reports sinus congestion only. He asks again if he is on the transplant list. At the last visit he asked the same thing. T here was a long discussion explaining the process, starting with him choosing a transplant t allison. He has not yet chosen a transplant team. He does not remember that conversation, but th en admits that he tries not to think about it because it stresses him out too much. He has f amily that are interested in donating a kidney. He talked with Dr. Garay about dialysis when inpatient. He still does not want to decide on modality but admits that he is not interested in doing home dialysis so incenter hemodia lysis would be a better option for him. He thinks that his weight was 230 lbs yesterday but they are not sure if their scale is acc urate. He did not weight at home today. 11/03/17-11/06/17- Hospitalized due to Acute hypoxic respiratory failure, JOSSE. ROS: Appetite is on and off; chronic fatigue, reports staying up late at night; reports LE edema improved. Denies chest pain, dyspnea, orthopnea, nausea, vomiting, dysuria, hematuria , urinary frequency. PMH: Patient Active Problem List Diagnosis Date Noted Anemia in CKD (chronic kidney disease) 07/30/2016 Chronic kidney disease, stage IV (severe) (HCC) 07/30/2016 Note Last Updated: 07/30/2016 Likely [...] II diabetes mellitus with renal manifestations (HCC) Outpatient Prescriptions Marked as Taking for the 11/13/17 encounter (Office Visit) with ARIANA Hadley Medication Sig Dispense Refill amLODIPine (NORVASC) 10 MG tablet Take 1 [...] 3 furosemide (LASIX) 80 mg tablet Take 1 tablet by mouth 2 times daily. 60 tablet 0 glipiZIDE (GLIPIZIDE XL) 10 MG 24 hr tablet Take 10 mg by mouth daily (with breakfast). losartan (COZAAR) 50 mg tablet Take 1 tablet by mouth Daily. 30 tablet 5 patiromer (VELTASSA) 16.8 g packet Take 1 diluted packet by mouth Daily. 30 packet 2 pioglitazone (ACTOS) 45 mg tablet Take 45 mg by mouth Daily. rosuvastatin (CRESTOR) 20 mg tablet Take 1 tablet by mouth nightly. 30 tablet 3 sevelamer carbonate (RENVELA) 800 mg tablet Take 1 tablet by mouth 3 times daily (with meals). 90 tablet 5 sitagliptin (JANUVIA) 50 MG tablet Take 50 mg by mouth Daily. sodium bicarbonate 650 mg tablet Take 1 tablet by mouth 2 times daily. 60 tablet 5 Allergies Allergen Reactions Doxazosin Shortness Of Breath Amoxicillin GI upset Physical Exam: BP 158/72 | Pulse 76 | Wt 110.7 kg (244 lb 0.8 oz) | SpO2 100% | BMI 36.04 kg/m Constitutional: Appears well-developed and well-nourished. No distress. ENT: Oropharynx is clear and oral mucosa is moist. Cardiovascular: Normal rate, regular rhythm and normal heart sounds. Exam reveals no loza p and no friction rub. No murmur heard. No JVD. 1+ edema below knees. Lungs: Respiratory effort normal and breath sounds normal. No crackles or wheezes. Abdominal: Soft. Bowel sounds are present. No distension or tenderness. Musculoskeletal: No joint swelling. No muscle tenderness. Skin: Skin is warm. No rash over extremities. Neurological: Alert. Memory intact. Reviewed labs with patient. Office Visit on 11/13/2017 Component Date Value Ref Range Status Color, UA, POC 11/13/2017 Light Yellow Yellow, Light Yellow Final Clarity, UA, POC 11/13/2017 Clear Final Glucose, UA, POC 11/13/2017 250 mg/dL* Negative Final Bilirubin, UA, POC 11/13/2017 Negative Negative Final Ketones, UA, [facility] 11/13/2017 Negative Negative, 100 mg/dL Final Specific [place], UA, [facility] 11/13/2017 1.015 1.001 - 1.030 Final Blood, UA, [facility] 11/13/2017 Trace Intact* Negative Final pH, UA, [facility] 11/13/2017 5.0 5.0, 6.0, 7.0, 8.0, 5.5, 6.5, 7.5 Final Protein, UA, [facility] 11/13/2017 >=300 mg/dL* Negative Final Urobilinogen, UA, [facility] 11/13/2017 0.2 0.2, Negative, Normal, < 0.2 mg/dL, 1 mg/dL, < 0. 2 E.U./dl, 1.0 E.U./dL, 0.2 mg/dL Final Nitrite, UA, [facility] 11/13/2017 Negative Negative Final Leukocyte Esterase, UA, [facility] 11/13/2017 Negative Negative Final Abstract on 11/12/2017 Component Date Value Ref Range Status Creatinine, External 11/11/2017 5.4* 0.6 - 1.3 Final eGFR, External 11/11/2017 11* 60 Final Sodium, External 11/11/2017 142 135 - 145 Final Potassium, External 11/11/2017 5.1 3.5 - 5.1 Final Chloride, External 11/11/2017 108 100 - 110 Final Carbon Dioxide, External 11/11/2017 26 23 - 32 Final Calcium, External 11/11/2017 8.0* 8.5 - 10.2 Final Phosphorus, External 11/11/2017 5.9* 6 - 8 Final Albumin, External 11/11/2017 3.1* 3.6 - 5 Final Glucose, External 11/11/2017 116* 70 - 100 Final BUN, External 11/11/2017 95* 6 - 23 Final Ferritin, External 11/11/2017 113 11 - 450 Final Iron Binding Capacity, External 11/11/2017 410 250 - 450 Final Iron Saturation, External 11/11/2017 15* 20 Final Iron, External 11/11/2017 60 45 - 190 Final Protein/Creatinine Ratio, External 11/11/2017 3.365* 0.2 Final PTH Intact, External 11/11/2017 263.1* 12 - 88 Final WBC, External 11/11/2017 5.78 Final HGB, External 11/11/2017 10.39* 12 - 16 Final HCT, External 11/11/2017 32.8* 40 - 50 Final PLT, External 11/11/2017 210 140 - 440 Final RBC, External 11/11/2017 3.96* 4 - 6 Final MCV, External 11/11/2017 83 81 - 99 Final RDW, External 11/11/2017 17.03* 10.5 - 15 Final UA Blood, External 11/11/2017 negative Final UA Glucose, External 11/11/2017 negative Final UA Ketones, External 11/11/2017 negative Final UA Ph, External 11/11/2017 5.0 Final UA Proteins, External 11/11/2017 500 Final UA RBC, External 11/11/2017 1 Final UA Specific [place], External 11/11/2017 1.012 Final UA Leukocyte Esterase, External 11/11/2017 negative Final WBC UA 11/11/2017 0 /HPF Final COLOR 11/11/2017 Yellow Light Yellow, Yellow Final CLARITY 11/11/2017 Clear Final BACTERIA UA 11/11/2017 Negative Negative /HPF Final SQUAMOUS EPITHELIAL UA 11/11/2017 1 /HPF Final NITRITE UA 11/11/2017 Negative Negative Final ASSESSMENT AND PLAN: ICD-10-CM ICD-9-CM 1. Chronic kidney disease (CKD), stage V ([facility]) N18.5 585.5 Kidney disease is progressing, p atient will likely need hemodialysis within the next 2-3 months. Nephrotic range proteinuria on ARB therapy. -hemodialysis is the best option given his challenges with medication compliance, and he ad mits to not being comfortable doing home peritoneal dialysis; educated about fistula and ozzie neled dialysis catheter -schedule vein mapping and consult with Dr. Quezada to plan fistula placement; labs prior to surgery to decide if he needs a tunneled dialysis catheter placed at the same time -long discussion again about transplant; pt still is not willing to choose a transplant tea m; he will let our office know once he decides -continue loop diuretic and veltassa to control hyperkalemia -bicarb is within goal on sodium bicarb -notify office if uremic symptoms -next labs in one week 2. Secondary hyperparathyroidism (HCC) N25.81 588.81 PTH is high, phosphorus is high, serum calcium is fine. -increase renvela to 1600 mg with each meal -will need to start calcitriol with hemodialysis -will work on dietary education 3. Type 2 diabetes mellitus with stage 5 chronic kidney disease not on chronic dialysis[facility] ([facility]) E11.22 250.40 Not well controlled, with retinop athy and nephropathy. Continue follow up with primary care for management. N18.5 585.5 4. Nephrotic syndrome N04.9 581.9 Due to diabetic nephropathy. -on furosemide for control of edema -on statin -serum albumin is mildly low but stable 5. Anemia in stage 5 chronic kidney disease, not on chronic dialysis ([facility]) N18.5 285.21 TSA T is low, not responding to oral supplement. Hb 9-10 recently. -venofer infusion 200 mg x 2, 300 mg x 2 D63.1 585.5 6. Hypertension, renal disease, stage 5 chronic kidney disease or end stage renal disease ( [facility]) I12.0 403.91 Blood pressure is above goal today. May need a higher dose of furosemide i f weights are increasing, or carvedilol can be increased. It is difficult to manage BP becau se patient does not check at home. Asked that he weigh himself when he gets home and notify office. Return in about 1 month (around 12/13/2017). Labs in one week; renal panel Labs prior to fistula surgery; renal panel Labs prior to next visit; renal panel, CBC, iron panel Patient verbalized agreement and understanding of above plan. 45 minutes spent face to face with patient [...] | | | | | [address] [facility] | | | | | | [address] [place] | | | | | | [address] | | | | | | | [...] the | | | | | V ([facility]) | results section. | + +--------+ + [...] + + + in this encounter Results POCT Urinalysis Dipstick Automated (11/13/2017 1255) + + + + + | Component [...] + + + + + | Specific [place], | 1.015 | 1.001 - 1.030 | [...] + + | Urine | + + LABS - EXTERNAL SCAN (11/11/2017) + + + | Narrative | Performed At | + + + | Ordered by an | | | unspecified provider. | | + + + LABS - EXTERNAL SCAN (11/06/2017) + + + | Narrative | Performed At | + + + | Ordered by an | | | unspecified provider. | | + + + in this encounter Visit Diagnoses + + | Diagnosis | + + | Chronic kidney disease (CKD), stage V (HCC) - Primary | + + | Chronic kidney disease, Stage V | + + | Secondary hyperparathyroidism (HCC) | + + | Secondary hyperparathyroidism (of renal origin) | + + | Type 2 diabetes mellitus with stage 5 chronic kidney disease not on chronic dialysis, | | without long-term current use of insulin (HCC) | + + | Nephrotic syndrome | + + | Nephrotic syndrome with unspecified pathological lesion in kidney | + + | Anemia in stage 5 chronic kidney disease, not on chronic dialysis (HCC) | + + | Hypertension, renal disease, stage 5 chronic kidney disease or end stage renal disease | | (HCC) | + +"
--- OUTSIDE RECORDS SUMMARY | ~2018-01-18 | XMS | Encounter Summary ---
Demographics + + + | Address | [address] | | | [place] [address] | + + + | Home Phone [...] Author | [facility] | | | and Min | + + + | Organization | [facility] | | | and [place] | + + + | Address | Unknown | + + + | Phone | Unavailable | + + + Support + + + + + | Name | Relationship | Address | Phone | + + + + + | Brittney Goodrich | ECON | [address] | | | | | [place] | | | | | [address] | | + + + + + Care Team Providers + +------+ + | Care Pipelines Superintendent Name | Role | Phone | + [...] | | | | | kidney | [id number] | [address] | | | | | disease, | [address] | [address] | | | | | stage [address] | [address] | [place], | | | | | ([facility]) | [place], | [place] [address] | | | | | Procedures | [place] [address] | Phone: | | | | | [place] OFFICE | Phone: | [phone] | | | | | OUTPATIENT | [phone] | Fax: | | | | | NEW 45 | Fax: | [phone] | | | | | MINUTES | [phone] | | +--------+--------+ + + + + Encounter Details +--------+---------+ + + + | Date | Type | Department | Care Team | Description | +--------+---------+ + + + | 12/01/ | Office | [facility] | [place], | Chronic kidney | | 2018 | Visit | SURGERY [address] | [address] | disease (CKD), stage | | | | [place], [place] | [address], [place] | V (HCC) (Primary | | | | [address] | [address] [place], [place] | Dx); Post-operative | | | | [phone] | [address] | state | | | | | | | | | | | Quirino Quezada | | | | | | MD Nando, FACS [address] | | | | | | [address] [facility] | | | | | | [place] [address] | | | | | | [phone] | | | | | | | [...] he has an upcoming appointment with his cash poster. He does not some numbness t o his LEFT medial forearm, 8 x 20 cm elipse. He has also some LEFT hand swelling. Patient does alf work and wonders when he can return. [...] Surge on: Quirino Quezada MD, FACS; Location: [facility] MAIN OR KIDNEY SURGERY Right Child [...] mg I ntravenous Once Chelane R Robb [employer] WORKER Stopped at 11/27/17 1132 iron sucrose (VENOFER) 300 mg in sodium chloride 0.9% 250 mL IVPB 300 mg Intravenous W eekly Chelane R Fack[place]all, [employer] WORKER Stopped at 12/01/17 1255 Family History Problem [...] | 01/29/ | Office | Nephrology | [facility], | | | 2017 | Visit | | [address] | | | | | | [facility] | | | | | | [address] [place] | | | | | | [address] | | | | | | | [...]
--- OUTSIDE RECORDS SUMMARY | ~2018-01-18 | XMS | Encounter Summary ---
Demographics + + + | Address | [address] | | | [place] [address] | + + + | Home Phone | | + + + | Preferred Language | Unknown | + + + | Marital Status | | + + + | Taoism Affiliation | 1041 | + + + | Race | Unknown | + + + | Ethnic Group | Unknown | + + + Author + + + | Author | [facility] | | | and Min | + + + | Organization | [facility] | | | and Koryana | + + + | Address | Unknown | + + + | Phone | Unavailable | + + + Support + + + + + | Name | Relationship | Address | Phone | + + + + + | Brittney Goodrich | ECON | [address] | | | | | [place] | | | | | [address] | | + + + + + Care Team Providers + +------+ + | Care Repair Weaver Name | Role | Phone | + [...] + + | 11/03/ | Hospital | [facility] | Estuardo Fajardo, | Pneumonia due to | | 2018 - | Encounter | [facility] | MD Roel FISHER | infectious organism, | | | | [address] [place] | [place] | unspecified | | 11/06/ | | [place] [address] | [address] | laterality, | | 2017 | | [phone] | | unspecified part of | | | | | Nolan Everett, | lung (Primary Dx); | | | | | MD Roel MOON | Anemia in stage 4 | | | | | [place] | chronic kidney | | | | | [address] | disease (HCC); | | | | | [phone] | Dyspnea on exertion; | | | [...] note may be different from the original. [place] HOSPITALIST DISCHARGE SUMMARY Pt. Name/Age/: Tyrese [...] 1 week. Specialty: Family Medicine Contact information: [address] [address] [place] In 1 week. Specialty: Nurse Practitioner Why: Appt Contact information: [address], [address] [place] [address] Please follow up. Why: Appt made for 11/10/17 8:30am Condition: Patient being discharged with condition improved Diet: Renal Less than 30 minutes were spent on discharge and coordination of post-hospital care. Electronically signed by: Lb Prather MD, 11/06/2017 10:05 [facility] Portions of this chart may have been created with [employer] voice recognition software. Occasi onal wrong-word or [...] note may be different from the original. [place] HOSPITALIST PROGRESS NOTE Patient: Tyrese Baez Deborah Stock : 1970: Age: 47 y.o. MedRec: [id number] Admission date: 11/03/2017 Hospital day # : [...] 12.5 mg 12.5 mg Oral BID Lb Prather MD 12.5 mg at 0844 cholecalciferol (VITAMIN [...] Value Units Date/Time Respiratory Virus Panel, NAAT [[id number]] Collected: 11/04/17 1229 Order Status: Completed Lab [...] pneumoniae DNA Not Detected Narrative: Performed at: [facility] [id number] Parker: Bishop Sanderson MD, Phone: [phone] Influenza A and B RNA, NAAT [[id number]] (Normal) Collected: 11/04/17 1229 Order Status: Completed Lab Status: Final result Updated: 11/04/17 1337 Specimen: Tissue from Nasopharynx Influenza A PCR Negative Influenza B PCR Negative Culture, Blood [[id number]] (Normal) Collected: 11/03/17 1949 Order Status: Completed Lab Status: Preliminary result Updated: 11/04/17 0801 Specimen: Blood Culture No growth: Monitored continually by instrument for 5 days Culture, Blood [[id number]] (Normal) Collected: 11/03/17 1914 Order Status: Completed [...] mg Oral BID Lb Prather 11/06/2017 9:34 [facility] Jelena Garay, DO - 11/05/2017 1342 PDTFormatting of this note may be different from the original. [facility] [address] [place] [address] PROGRESS NOTE Pt. Name/Age/: Tyrese Cabrera Jr. 47 y.o. 1970 Med. Record Number: [id number] Date of admission: 11/03/2017 NEPHROLOGY HPI - [...] his GFR is clearly < 15 ml/min. [facility] Lb Prather MD - 11/05/2017 0759 PDTFormatting of this note may be different from the original. [facility] [place] HOSPITALIST PROGRESS NOTE Patient: Tyrese Cabrera . : 1970: Age: 47 y.o. MedRec: [id number] Admission date: 11/03/2017 Hospital day # : [...] Value Units Date/Time Respiratory Virus Panel, NAAT [[id number]] Collected: 11/04/17 1229 Order Status: Sent Lab Status: In process Updated: 11/04/17 1239 Specimen: Tissue from Nasopharynx Influenza A and B RNA, NAAT [[id number]] (Normal) Collected: 11/04/17 1229 Order Status: Completed Lab Status: Final result Updated: 11/04/17 1337 Specimen: Tissue from Nasopharynx Influenza A PCR Negative Influenza B PCR Negative Culture, Blood [[id number]] (Normal) Collected: 11/03/17 194 Order Status: Completed Lab Status: Preliminary result Updated: 11/04/17 0801 Specimen: Blood Culture No growth: Monitored continually by instrument for 5 days Culture, Blood [[id number]] (Normal) Collected: 11/03/17 191 Order Status: Completed [...] tiny clusters in R middle lobe. 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 [...] mg Oral BID Lb Prather 11/05/2017 7:59 [facility] Carols Blake, PharmD - 11/04/2017 5091 PDTFormatting of this note may be different [...] directions x Pharmacy list names: [facility] [place] RUBY ENGINEER (Prescription Monitoring Program) X [employer] insurance reported [...] Substances , Tobacco & Alcohol Best possible CULINARY ASSISTANT medication list after pharmacy review: PT REPORTED TAKING NOT TAKING Medication Sig Last Dose Dispense Doc. Provider albuterol 90 mcg/puff inhaler Inhale 2 puffs into the lungs 4 times daily as needed for Wh eezing. Taking Historical ProviderMD amLODIPine (NORVASC) 10 MG tablet Take 1 tablet by mouth Daily. Taking 30 tablet Chelane R Fackenthall, ANALYSIS TESTER Ascorbic Acid 500 MG CAPS Take 500 mg by mouth Every other day. Taking 15 each Chelane R F ackenthall, ANALYSIS TESTER b complex-vitamin c-folic acid (NEPHRO-SAMANTHA) tablet Take 1 tablet by mouth Daily. Taking 3 0 tablet Chelane R Fackenthall, ANALYSIS TESTER carvedilol (COREG) 6.25 mg tablet Take 1 tablet by mouth 2 times daily. Taking 60 tablet C helane R Fackenthall, ANALYSIS TESTER Cholecalciferol (VITAMIN D-3) 5000 units CAPS Take 1 capsule by mouth Daily. Taking 30 cap madison Chelane R Fackenthall, ANALYSIS TESTER ferrous sulfate 325 mg tablet Take 1 tablet by mouth Every other day. Taking 15 tablet Heena lucina R Fackenthall, ANALYSIS TESTER furosemide (LASIX) 80 mg tablet Take 80 mg by mouth in the morning, 40 mg in the afternoon . Taking 45 tablet Chelane R Fackenthall, ANALYSIS TESTER glipiZIDE (GLIPIZIDE XL) 10 MG 24 hr tablet Take 10 mg by mouth daily (with breakfast). Miguel A padilla Historical Provider, losartan (COZAAR) 50 mg tablet Take 1 tablet by mouth Daily. Taking 30 tablet Chelane R Fa ckenthall, ANALYSIS TESTER patiromer (VELTASSA) 16.8 g packet Take 1 diluted packet by mouth Daily. Taking 30 packet Chelane R Fackenthall, ANALYSIS TESTER pioglitazone (ACTOS) 45 mg tablet Take 45 mg by mouth Daily. Taking Historical ProviderMD rosuvastatin (CRESTOR) 20 mg tablet Take 1 tablet by mouth nightly. Taking 30 tablet Lara ne R Fackenthall, ANALYSIS TESTER sevelamer carbonate (RENVELA) 800 mg tablet Take 1 tablet by mouth 3 times daily (with [facility] ls). Taking 90 tablet Chelane R Fackenthall, ANALYSIS TESTER sitagliptin (JANUVIA) 50 MG tablet Take 50 mg by mouth Daily. Taking Historical ProviderMD sodium bicarbonate 650 mg tablet Take 1 tablet by mouth 2 times daily. Taking 60 tablet Ch elane R Fackenthall, ANALYSIS TESTER Medication review performed and electronically signed by Marium Gonsalez, Integration Lead 018 16:23 Carlos Blake PharmD 11/04/2017 16:32 Denis Vasquez, EXTENSION EDGER - 11/04/2017 1551 PDTFormatting of this note [...] note may be different from the original. [place] HOSPITALIST PROGRESS NOTE Patient: Tyrese Cabrera Jr. : 1970: Age: 47 y.o. MedRec: [id number] Admission date: 11/03/2017 Hospital day # : [...] ECGs available Confirmed by REGINALD CARBAJAL, SERENE ([id number]) on 11/04/2017 6:30:21 AM CBC with Differential [...] Procedure Component Value Units Date/Time Culture, Blood [[id number]] (Normal) Collected: 11/03/17 194 Order Status: Completed Lab Status: Preliminary result Updated: 11/04/17 0801 Specimen: Blood Culture No growth: Monitored continually by instrument for 5 days Culture, Blood [[id number]] (Normal) Collected: 11/03/17 191 Order Status: Completed [...] mg Oral BID Lb Prather 11/04/2017 8:36 [facility] in this encounter Plan of Treatment +--------+---------+ + + + | Date | Type | Specialty | Care Team | Description | +--------+---------+ + + + | 01/29/ | Office | Nephrology | Robb, | | | 2017 | Visit | | [address] | | | | | | [facility] | | | | | | [address] [place] | | | | | | [address] | | | | | | | [...] [facility] | | | | | [facility] | | | | | CENTER - | | | | | LABORATORY | + +---------+ + + + + | Specimen | + + | Blood | + + + + + + + | Performing | Address | City/State/Zipcode | Phone Number | | Organization | | | | + + + + + | [facility] | [address] | [place] | [phone] | | [facility] | | [address] | | | - LABORATORY | | | | + + + + + | [facility] | [address] | [place] | | | [facility] | | [address] | | | - LABORATORY | | | | + + + + + Phosphorus (11/06/2017 0438) + +---------+ + + | Component | Value | Ref Range | Performed At | + +---------+ + + | PHOSPHORUS | 6.6 (H) | 2.5 - 4.6 mg/dL | [facility] | | | | | [facility] | | | | | CENTER - | | | | | LABORATORY | + +---------+ + + + + | Specimen | + + | Blood | + + + + + + + | Performing | Address | City/State/Zipcode | Phone Number | | Organization | | | | + + + + + | [facility] | [address] | [place], [place] | [phone] | | [facility] | | [address] | | | - LABORATORY | | | | + + + + + | [facility] | [address] | [place], [place] | | | [facility] | | [address] | | | - LABORATORY | | | | + + + + + Magnesium (11/06/2017 0438) + +-------+ + + | Component | Value | Ref Range | Performed At | + +-------+ + + | MG | 2.3 | 1.8 - 2.5 mg/dL | [facility] | | | | | [facility] | | | | | CENTER [...] [address] | [place] | [phone] | | [facility] | | [address] | | | - LABORATORY | | | | + + + + + | [facility] | [address] | [place] | | | [facility] | | [address] | | | - LABORATORY | | | | + + + + + CBC with Differential (11/06/2017 0438) + + + + + | Component | Value | Ref Range | Performed At | + + + + + | WBC | 7.0 | 4.0 - 11.0 K/uL | [facility] | | | | | [facility] | | | | | CENTER - | | | | | LABORATORY | + + + + + | RBC | 3.87 (L) | 4.30 - 5.70 M/uL | [facility] | | | | | [facility] | | | | | CENTER [...] 0.10 | 0.00 - 0.10 K/uL | [facility] | | | | | [facility] | | | | | CENTER [...] + | [facility] | [address] | [place] | [phone] | | [facility] | | [address] | | | - LABORATORY | | | | + + + + + | [facility] | [address] | [place] | | | [facility] | | [address] | | | - LABORATORY | | | | + + + + + Basic Metabolic Panel (11/06/20178) + + + + + | Component | Value | Ref Range | Performed At | + + + + + | NA | 138 | 136 - 149 mmol/L | [facility] | | | | | [facility] | | | | | CENTER - | | | | | LABORATORY | + + + + + | K | 4.8 | 3.5 - 5.1 mmol/L | [facility] | | | | | [facility] | | | | | CENTER [...] (H) | 7 - 18 mg/dL | [facility] | | | | | [facility] | | | | | CENTER - | | | | | LABORATORY | + + + + + | Creatinine, | 4.94 (H) | 0.60 - 1.30 mg/dL | [facility]. | | Serum/Plasma | | | [facility] | | | | | CENTER - | | | | | LABORATORY | + + + + + | eGFR if not | 13 (L)Comment: | >=60 mL/min/1.73m2 | [facility]. | | [place] | GLOMERULAR FILTRATION | | [facility] | | | RATE,ESTIMATED mL/min | | CENTER - | | | /1.23e8Ubbi than 60 | | LABORATORY | | [...] + | [facility] | [address] | [place], [place] | [phone] | | [facility] | | [address] | | | - LABORATORY | | | | + + + + + | [facility] | [address] | [place] | | | [facility] | | [address] | | | - LABORATORY | | | | + + + + + POC Glucose (11/05/20172010) + +---------+ + + | Component | Value | Ref Range | Performed At | + +---------+ + + | Glucose, POC | 231 (H) | 70 - 109 mg/dL | [facility]. | | | | | [facility] | | | | | CENTER - | | | | | LABORATORY | + +---------+ + + + + | Specimen | + + | Blood | + + + + + + + | Performing | Address | City/[facility] | Phone Number | | Organization | | | | + + + + + | [facility] | [address] | [place], [place] | [phone] | | [facility] | | [address] | | | - LABORATORY | | | | + + + + + | [facility] | [address] | [place], [place] | | | [facility] | | [address] | | | - LABORATORY | | [...] + | [facility] | [address] | [place] | [phone] | | [facility] | | [address] | | | - LABORATORY | | | | + + + + + | [facility] | [address] | [place] | | | [facility] | | [address] | | | - LABORATORY | | | | + + + + + POC Glucose (11/05/20176) + +---------+ + + | Component | Value | Ref Range | Performed At | + +---------+ + + | Glucose, POC | 253 (H) | 70 - 109 mg/dL | [facility] | | | | | [facility] | | | | | CENTER - | | | | | LABORATORY | + +---------+ + + + + | Specimen | + + | Blood | + + + + + + + | Performing | Address | City/State/Zipcode | Phone Number | | Organization | | | | + + + + + | [facility] | [address] | [place] | [phone] | | [facility] | | [address] | | | - LABORATORY | | | | + + + + + | [facility] | [address] | [place] | | | [facility] | | [address] | | | - LABORATORY | | [...] + | [facility] | [address] | [place] | [phone] | | [facility] | | [address] | | | - LABORATORY | | | | + + + + + | [facility] | [address] | [place] | | | [facility] | | [address] | | | - LABORATORY | | | | + + + + + Magnesium (11/05/2017 0426) + +-------+ + + | Component | Value | Ref Range | Performed At | + +-------+ + + | MG | 2.0 | 1.8 - 2.5 mg/dL | [facility] | | | | | [facility] | | | | | CENTER - | | | | | LABORATORY | + +-------+ + + + + | Specimen | + + | Blood | + + + + + + + | Performing | Address | City/State/Zipcode | Phone Number | | Organization | | | | + + + + + | [facility] | [address] | [place] | [phone] | | [facility] | | [address] | | | - LABORATORY | | | | + + + + + | [facility] | [address] | [place], [place] | | | [facility] | | [address] | | | - LABORATORY | | [...] + | [facility] | [address] | [place] | [phone] | | [facility] | | [address] | | | - LABORATORY | | | | + + + + + | [facility] | [address] | [place] | | | [facility] | | [address] | | | - LABORATORY | | [...] ST. | | Serum/Plasma | | | [facility] | | | | | CENTER - | | | | | LABORATORY | + + + + + | eGFR if not | 16 (L)Comment: | >=60 mL/min/1.73m2 | [facility] | | [place] | GLOMERULAR FILTRATION | | [facility] | | | RATE,ESTIMATED mL/min | | CENTER - | | | /1.84b7Npfl than 60 | | LABORATORY | | [...] [facility] | | | | | [facility] | | | | | CENTER - | | | | | LABORATORY | + + + + + | [facility]A | 15.7 | | [facility] | | | | | [facility] | | | | | CENTER [...] [address] | [place] | [phone] | | [facility] | | [address] | | | - LABORATORY | | | | + + + + + | [facility] | [address] | [place], [place] | | | [facility] | | [address] | | | - LABORATORY | | | | + + + + + Phosphorus (11/05/2017 0426) + +---------+ + + | Component | Value | Ref Range | Performed At | + +---------+ + + | PHOSPHORUS | 4.8 (H) | 2.5 - 4.6 mg/dL | [facility] | | | | | [facility] | | | | | CENTER - | | | | | LABORATORY | + +---------+ + + + + | Specimen | + + | Blood | + + + + + + + | Performing | Address | City/State/Zipcode | Phone Number | | Organization | | | | + + + + + | [facility] | [address] | [place] | [phone] | | [facility] | | [address] | | | - LABORATORY | | | | + + + + + | [facility] | [address] | [place] | | | [facility] | | [address] | | | - LABORATORY | | | | + + + + + POC Glucose (11/04/20172113) + +---------+ + + | Component | Value | Ref Range | Performed At | + +---------+ + + | Glucose, POC | 188 (H) | 70 - 109 mg/dL | [facility] | | | | | [facility] | | | | | CENTER - | | | | | LABORATORY | + +---------+ + + + + | Specimen | + + | Blood | + + + + + + + | Performing | Address | City/State/Zipcode | Phone Number | | Organization | | | | + + + + + | [facility] | [address] | [place] | [phone] | | [facility] | | [address] | | | - LABORATORY | | | | + + + + + | [facility] | [address] | [place], [place] | | | [facility] | | [address] | | | - LABORATORY | | | | + + + + + Protein/Creatinine Ratio, Urine (11/04/2017 1635) + + + + + | Component | Value | Ref Range | Performed At | + + + + + | PROTEIN,RANDOM URINE | 185 (H) | <6 mg/dL | [facility] | | | | | [facility] | | | | | CENTER - | | | | | LABORATORY | + + + + + | Creatinine, Urine, | 23 | mg/dL | [facility] | | Random | | | [facility] | | | | | CENTER - | | | | | LABORATORY | + + + + + | PRO/CREA RATIO,URINE | 8.04 (H) | <0.20 mg/mg | [facility] | | | | | [facility] | | | | | CENTER [...] + | [facility] | [address] | [place] | [phone] | | [facility] | | [address] | | | - LABORATORY | | | | + + + + + | [facility] | [address] | [place] | | | [facility] | | [address] | | | - LABORATORY | | | | + + + + + POC Glucose (11/04/2017 1634) + +---------+ + + | Component | Value | Ref Range | Performed At | + +---------+ + + | Glucose, POC | 161 (H) | 70 - 109 mg/dL | [facility] | | | | | [facility] | | | | | CENTER - | | | | | LABORATORY | + +---------+ + + + + | Specimen | + + | Blood | + + + + + + + | Performing | Address | City/State/Zipcode | Phone Number | | Organization | | | | + + + + + | [facility] | [address] | [place] | [phone] | | [facility] | | [address] | | | - LABORATORY | | | | + + + + + | [facility] | [address] | [place] | | | [facility] | | [address] | | | - LABORATORY | | [...] | 18 (L)Comment: | >=60 mL/min/1.73m2 | [facility] | | [place] | GLOMERULAR FILTRATION | | [facility] | | | RATE,ESTIMATED mL/min | | CENTER - | | | /1.51c9Wfcu than 60 | | LABORATORY | | [...] 8.3 | 8.3 - 10.5 mg/dL | [facility] | | | | | [facility] | | | | | CENTER - | | | | | LABORATORY | + + + + + | BUN/CREA | 17.3 | | [facility] | | | | | [facility] | | | | | CENTER [...] + | [facility] | [address] | [place], [place] | [phone] | | [facility] | | [address] | | | - LABORATORY | | | | + + + + + | [facility] | [address] | [place] | | | [facility] | | [address] | | | - LABORATORY | | [...] ST. | | | | | [facility] | | | | | CENTER [...] + | [facility] | [address] | [place], [place] | [phone] | | [facility] | | [address] | | | - LABORATORY | | | | + + + + + | [facility] | [address] | [place], [place] | | | [facility] | | [address] | | | - LABORATORY | | [...] + | Performed at: 01 - [facility] [place] [address], | REFERENCE LAB | | [place], [place] [id number] Parker: Bishop Sanderson MD, | [facility] | | Phone: [phone] | | + + + + + + + + | Performing | Address | City/State/Zipcode | Phone Number | | Organization | | | | + + + + + | REFERENCE LAB | [address] | [place] [address] | [phone] | | [facility] | [address] | | | + + + + + POC Glucose (11/04/2017 1222) + +---------+ + + | Component | Value | Ref Range | Performed At | + +---------+ + + | Glucose, POC | 202 (H) | 70 - 109 mg/dL | [facility] | | | | | [facility] | | | | | CENTER - | | | | | LABORATORY | + +---------+ + + + + | Specimen | + + | Blood | + + + + + + + | Performing | Address | City/State/Zipcode | Phone Number | | Organization | | | | + + + + + | [facility] | [address] | [place], [place] | [phone] | | [facility] | | [address] | | | - LABORATORY | | | | + + + + + | [facility] | [address] | [place], [place] | | | [facility] | | [address] | | | - LABORATORY | | [...] | 432 JR. 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 | [address] | [place], [place] | [phone] | | [facility] | | [address] | | | - LABORATORY | | | | + + + + + | [facility] | [address] | [place], [place] | | | [facility] | | [address] | | | - LABORATORY | | | | + + + + + Magnesium (11/04/2017501) + +-------+ + + | Component | Value | Ref Range | Performed At | + +-------+ + + | MG | 2.1 | 1.8 - 2.5 mg/dL | [facility] | | | | | [facility] | | | | | CENTER [...] [address] | [place] | [phone] | | [facility] | | [address] | | | - LABORATORY | | | | + + + + + | [facility] | [address] | [place] | | | [facility] | | [address] | | | - LABORATORY | | | | + + + + + CBC no Differential (11/04/2017 0502) + + + + + | Component | Value | Ref Range | Performed At | + + + + + | WBC | 7.0 | 4.0 - 11.0 K/uL | [facility] | | | | | [facility] | | | | | CENTER - | | | | | LABORATORY | + + + + + | RBC | 3.63 (L) | 4.30 - 5.70 M/uL | [facility] | | | | | [facility] | | | | | CENTER [...] + | [facility] | [address] | [place] | [phone] | | [facility] | | [address] | | | - LABORATORY | | | | + + + + + | [facility] | [address] | [place], [place] | | | [facility] | | [address] | | | - LABORATORY | | [...] (H) | 0.60 - 1.30 mg/dL | [facility]. | | Serum/Plasma | | | [facility] | | | | | CENTER - | | | | | LABORATORY | + + + + + | eGFR if not | 18 (L)Comment: | >=60 mL/min/1.73m2 | [facility] | | [place] | GLOMERULAR FILTRATION | | [facility] | | | RATE,ESTIMATED mL/min | | CENTER - | | | /1.70u6Xjxw than 60 | | LABORATORY | | [...] (L) | 8.3 - 10.5 mg/dL | [facility]. | | | | | [facility] | | | | | CENTER - | | | | | LABORATORY | + + + + + | BUN[facility]CREA | 17.9 | | [facility] | | | | | [facility] | | | | | CENTER [...] + | [facility] | [address] | [place] | [phone] | | [facility] | | [address] | | | - LABORATORY | | | | + + + + + | [facility] | [address] | [place] | | | [facility] | | [address] | | | - LABORATORY | | | | + + + + + Hemoglobin A1C (11/04/2017 0502) + +---------+ + + | Component | Value | Ref Range | Performed At | + +---------+ + + | Hemoglobin A1c | 8.4 (H) | 4.3 - 6.0 % | [facility]. | | | | | [facility] | | | | | CENTER - | | | | | LABORATORY | + +---------+ + + | Estimated Average | 194 | mg/dL | [facility]. | | Glucose | | | [facility] | | | | | CENTER - | | | | | LABORATORY | + +---------+ + + + + | Specimen | + + | Blood | + + + + + + + | Performing | Address | City/State/Zipcode | Phone Number | | Organization | | | | + + + + + | [facility] | [address] | [place] | [phone] | | [facility] | | [address] | | | - LABORATORY | | | | + + + + + | [facility] | [address] | [place] | | | [facility] | | [address] | | | - LABORATORY | | | | + + + + + Procalcitonin (11/04/2017 050) + + + + + | Component | Value | Ref Range | Performed At | + + + + + | Procalcitonin | <0.05 | <=0.50 ng/mL | [facility] | | | | | [facility] | | | | | CENTER [...] + | [facility] | [address] | [place] | [phone] | | [facility] | | [address] | | | - LABORATORY | | | | + + + + + | [facility] | [address] | [place] | | | [facility] | | [address] | | | - LABORATORY | | | | + + + + + POC Glucose (11/03/20172116) + +---------+ + + | Component | Value | Ref Range | Performed At | + +---------+ + + | Glucose, POC | 257 (H) | 70 - 109 mg/dL | [facility] | | | | | [facility] | | | | | CENTER - | | | | | LABORATORY | + +---------+ + + + + | Specimen | + + | Blood | + + + + + + + | Performing | Address | City/State/Zipcode | Phone Number | | Organization | | | | + + + + + | [facility] | [address] | [place] | [phone] | | [facility] | | [address] | | | - LABORATORY | | | | + + + + + | [facility] | [address] | [place] | | | [facility] | | [address] | | | - LABORATORY | | | | + + + + + B Type Natriuretic Peptide (11/03/20171948) + +---------+ + + | Component | Value | Ref Range | Performed At | + +---------+ + + | BNP | 257 (H) | <100 pg/mL | [facility] | | | | | [facility] | | | | | CENTER - | | | | | LABORATORY | + +---------+ + + + + | Specimen | + + | Blood | + + + + + + + | Performing | Address | City/State/Zipcode | Phone Number | | Organization | | | | + + + + + | [facility] | [address] | [place] | [phone] | | [facility] | | [address] | | | - LABORATORY | | | | + + + + + | [facility] | [address] | [place] | | | [facility] | | [address] | | | - LABORATORY | | | | + + + + + Culture, Blood (11/03/20171948) + + + + + | Component | Value | Ref Range | Performed At | + + + + + | Culture | No growth after 5 days | | [facility] | | | incubation. | | [facility] | | | | | CENTER [...] + | [facility] | [address] | [place] | [phone] | | [facility] | | [address] | | | - LABORATORY | | | | + + + + + | [facility] | [address] | [place], [place] | | | [facility] | | [address] | | | - LABORATORY | | | | + + + + + Culture, Blood (11/03/20171913) + + + + + | Component | Value | Ref Range | Performed At | + + + + + | Culture | No growth after 5 days | | [facility] | | | incubation. | | [facility] | | | | | CENTER [...] [address] | [place] | [phone] | | [facility] | | [address] | | | - LABORATORY | | | | + + + + + | [facility] | [address] | [place] | | | [facility] | | [address] | | | - LABORATORY | | [...] | | [address] | | | [facility] | | | - LABORATORY | + + + + + + + + | Performing | Address | City/State/Zipcode | Phone Number | | Organization | | | | + + + + + | [facility] | [address] | [place] | [phone] | | [facility] | | [address] | | | - LABORATORY | | | | + + + + + | [facility] | [address] | [place] | | | [facility] | | [address] | | | - LABORATORY | | | | + + + + + Troponin I (11/03/2017 1609) + + + + + | Component | Value | Ref Range | Performed At | + + + + + | Troponin I | 0.03Comment: Reference | <0.06 ng/mL | [facility] | | | Ranges:0.00-0.06 = | | [facility] | | | NORMAL>0.06 = | | [...] infarction. | | | | | [employer] | | | | | [...] + + | Performing | Address | City/State/[facility] | Phone Number | | Organization | | | | + + + + + | [facility] | [address] | [place] | [phone] | | [facility] | | [address] | | | - LABORATORY | | | | + + + + + | [facility] | [address] | [place] | | | [facility] | | [address] | | | - LABORATORY | | [...] | 17 (L)Comment: | >=60 mL/min/1.73m2 | [facility] | | [place] | GLOMERULAR FILTRATION | | [facility] | | | RATE,ESTIMATED mL/min | | CENTER - | | | /1.15n1Fzia than 60 | | LABORATORY | | [...] 8.7 | 8.3 - 10.5 mg/dL | [facility] | | | | | [facility] | | | | | CENTER - | | | | | LABORATORY | + + + + + | [facility] | 18.2 | | [facility] | | | | | [facility] | | | | | CENTER [...] + | [facility] | [address] | [place], [place] | [phone] | | [facility] | | [address] | | | - LABORATORY | | | | + + + + + | [facility] | [address] | [place], [place] | | | [facility] | | [address] | | | - LABORATORY | | [...] + | [facility] | [address] | [place] | [phone] | | [facility] | | [address] | | | - LABORATORY | | | | + + + + + | [facility] | [address] | [place] | | | [facility] | | [address] | | | - LABORATORY | | [...] | | | | SERENE MONTELONGO MD ([id number]) | | | | | on 11/04/2017 [...] | | | | | NPO, Daytime 4267-6481 Use NIGHT | | | | | | | DOSE for doses scheduled: | | | | | | | HS, 3AM, Nighttime 8827-6203 | | | | | | + [...]
--- OUTSIDE RECORDS SUMMARY | ~2018-01-18 | XMS | Encounter Summary ---
Demographics + + + | Address | [address] | | | [place] [address] | + + + | Home Phone | | + + + | Preferred Language | Unknown | + + + | Marital Status | | + + + | Gnosticist Affiliation | 1041 | + + + | Race | Unknown | + + + | Ethnic Group | Unknown | + + + Author + + + | Author | [facility] | | | and Min | + + + | Organization | [facility] | | | and [place] | + + + | Address | Unknown | + + + | Phone | Unavailable | + + + Support + + + + + | Name | Relationship | Address | Phone | + + + + + | Brittney Goodrich | ECON | [address] | | | | | [place] | | | | | [address] | | + + + + + Care Team Providers + +------+ + | [facility] Nurse Name | Role | Phone | + [...] | | | | | | | [place] AV | | | | | | | ANAST,UP ARM | | | | | | | BASILIC | | | | | | | VEIN | | | | | | | TRANSPOSIT | | | | | | | [place] | | | | | | | [...] + + + + | 11/25/ | Anesthesia | [facility] | Konrad Jeffery, | | | 2018 | Event | MED CTR OR INTRA OP | MD [address] | | | | | [address] | [place], [place] | | | | | [place], [place] | [address] | | | | | [address] | | | | | | [phone] | | | +--------+ + + + + Anesthesia Record + + + + + | Procedure Name | Responsible | Anesthesia Start | Anesthesia Stop Time | | | Anesthesiologist | Time | | + + + + + | LEFT proximal radial | Robert Reddy MD | 11/25/17 1136 | 11/25/17 1500 | | artery to | | | | | 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 | | /2 | 1 | | | | 6/ | 3 | | | | 20 | 4 | | | | 18 | | | | +----+---+ + + | | 1 | Pre-Procedu | | | | 1 | ral Timeout | | | | 3 | Completed | | | | 4 | | | +----+---+ + + | | 1 | An Start | | | | 1 | Data | | | | 3 | | | | | 4 | | | +----+---+ + + | | 1 | Block Start | | | | 1 | | | | | 3 | | | | | 4 | | | +----+---+ + + | | 1 | AN Block | | | | 1 | End | | | | 3 | | | | | 6 | | | +----+---+ + + | | 1 | an stop | | | | 1 | data | | | | 3 | | | | | 6 | | | +----+---+ + + | | 1 | An Start | Reassessment prior to anesthesia induction/procedure. | | | 1 | | | | | 3 | | | | | 6 | | | +----+---+ + + | | 1 | Antibiotic | | | | 1 | Given | | | | 3 | | | | | 9 | | | +----+---+ + + | | 1 | Preoxygenat | | | | 1 | ed | | | | 4 | | | | | 1 | | | +----+---+ + + | | 1 | An | | | | 1 | Induction | | | | 4 | | | | | 2 | | | +----+---+ + + | | 1 | An | | | | 1 | Intubation | | | | 4 | | | | | 3 | | | +----+---+ + + | | 1 | AN Bite | | | | 1 | Block | | | | 4 | | | | | 4 | | | +----+---+ + + | | 1 | [place] | | | | 2 | 43-degrees | | | | 0 | | | | | 5 | | | +----+---+ + + | | 1 | First | | | | 2 | Inc/Proc St | | | | 0 | | | | | 9 | | | +----+---+ + + | | 1 | [place] off | | | | 4 | | | | | 5 | | | | | 2 | | | +----+---+ + + | | 1 | Extubated | | | | 4 | Awake | | | | 5 | | | | | 3 | | | +----+---+ + + | | 1 | Extubated | | | | 4 | Deep | | | | 5 | | | | | 3 | | | +----+---+ + + | | 1 | an stop | | | | 4 | data | | | | 5 | | | | | 4 | | | +----+---+ + + | | 1 | An Stop | Patient handed off to recovery nurse. | | | 0 | | | | | 0 | | | +----+---+ + + +------+ | Meds | +------+ + + + | Name | Total | + + + | midazolam | 2 mg | + + + | fentaNYL | 100 mcg | + + + | lidocaine 2% (PF) | 250 mg | + + + | propofol | 100 mg | + + + | dexamethasone | 10 mg | + + + | ropivacaine 0.5% | 7.5 mL | + + + | ceFAZolin (ANCEF, KEFZOL) 100 | 2 g | | mg/mL IV syringe 2 g | | + + + | heparin | 5,000 Units | + + + | sodium chloride 0.9% (NS) | 1,000 mL | | infusion | | + + + + + | Name | + + | N2O Flow Rate (L/Min) | + + | O2 Flow Rate (L/Min) | + + | Insp O2 | + + | Exp SEV | + + | Air Flow Rate (L/Min) | + + + + | No blood administrations on file. | + + +--------+ + + + | Type | Details | Placement | Removal | +--------+ + + + | Incisi | 11/25/17; 1211; Left; arm | 11/25/17 1211 by | | | on | | Nazia Chavarria RN | | +--------+ + + + | Drain/ | 11/25/17; 1429; #1; Left; | 11/25/17 1429 by | | | Device | anterior; arm; collapsible closed | Nazia Chavarria RN | | | Site | device | | | +--------+ + + + | Airway | Placement Date: 11/25/17; | 11/25/17 1143 by | 11/25/17 1453 by | | | Placement Time: 1143 (created via | Konrad Jeffery MD | Robert Reddy MD | | | procedure documentation); Mask | | | | | Ventilation: N/A (went straight | | | | | to LMA placement); Attempts: 1; | | | | | Airway Type: laryngeal mask; | | | | | Size: 4; Trauma: none; Placement | | | | | Check: exhaled CO2 detection | | | | | device; Removal Date: 11/25/17; | | | | | Removal Time: 1453 | | | +--------+ + + + in this encounter Social History + +-------+ +--------+ + | [...] | | | | | [address] [facility] | | | | | | [address] [place] | | | | | | [address] | | | | | | | | +--------+---------+ + + + as of this encounter Results Anesthesia Perineural Note (11/25/2017 1212) + + + | [...] for | | all medication documentation.Performing provider: KORNAD JEFFERY TElectronically Signed | | by: Konrad Jeffery MD ESi date/time: 11/25/2017 12:12 | |Attempts: 1 | [...] | | | |Performing provider: KONRAD JEFFERY T | | | | | | | [...] Signed by: Konrad Jeffery, | | | MD Pringle | | | date/time: 11/25/2017 12:12 | [...] dioxide detection | |Performing provider: KONRAD JEFFERY T | | | | | |Electronically Signed by: MD Pino Carrion date/time: 12:12 | | | + + in this encounter Visit Diagnoses Not on filein this encounter Administered Medications + +--------+ +------+------+------+ | Medication Order | MAR | Action | Dose | Rate | Site | | | Action | Date | | | | + +--------+ +------+------+------+ | ceFAZolin (ANCEF, KEFZOL) 100 | Given | | 2 g | | | | mg/mL IV syringe 2 g 2 g, | | 8 11:42 | | | | | Intravenous, Administer over 30 | | PDT | | | | | Minutes, Prior to Incision, | | | | | | | Starting 11/25/17 at 0106, For | | | | | | | 1 dose, administer within 1 hour | | | | | | | of incision | | | | | | + +--------+ +------+------+------+ +---+---+ | | | +---+---+ + +-------+ +-------+---+---+ | dexamethasone (PF) 10 mg/mL | Given | | 10 mg | | | | injection Intravenous, PRN, | | 8 11:56 | | | | | Starting e 11/25/17 at 1156, | | PDT | | | | | Anesthesia Intra-op | | | | | | + +-------+ +-------+---+---+ +---+---+ | | | +---+---+ + +-------+ +--------+---+---+ | fentaNYL (PF) injection | Given | | 50 mcg | | | | Intravenous, PRN, Pain, Starting | | 8 11:34 | | | | | 11/25/17 at 1134, Anesthesia | | PDT | | | | | Intra-op | | | | | | + +-------+ +--------+---+---+ +-------+ +--------+---+---+ | Given | | 25 mcg | | | | | 8 13:50 | | | | | | PDT | | | | +-------+ +--------+---+---+ | Given | | 25 mcg | | | | | 8 14:30 | | | | | | PDT | | | | +-------+ +--------+---+---+ +---+---+ | | | +---+---+ + +-------+ +--------+---+---+ | heparin 1,000 units/mL | Given | | 5,000 | | | | injection Intravenous, PRN, | | 8 13:39 | Units | | | | Starting 11/25/17 at 1339, | | PDT | | | | | Anesthesia Intra-op | | | | | | + +-------+ +--------+---+---+ +---+---+ | | | +---+---+ + +-------+ +--------+---+---+ | lidocaine (PF) 2% injection | Given | | 150 mg | | | | PRN, Starting Fri11/25/17 at | | 8 11:36 | | | | | 1142, Anesthesia Intra-op | | PDT | | | | + +-------+ +--------+---+---+ +-------+ +--------+---+---+ | Given | | 100 mg | | | | | 8 11:42 | | | | | | PDT | | | | +-------+ +--------+---+---+ +---+---+ | | | +---+---+ + +-------+ +------+---+---+ | midazolam (VERSED) 1 mg/mL | Given | | 2 mg | | | | injection Intravenous, PRN, | | 8 11:34 | | | | | Anxiety, Starting e 11/25/17 at | | PDT | | | | | 1134, Anesthesia Intra-op | | | | | | + +-------+ +------+---+---+ +---+---+ | | | +---+---+ + +-------+ +--------+---+---+ | propofol (DIPRIVAN) injection | Given | | 100 mg | | | | Intravenous, PRN, Starting Tue | | 8 11:42 | | | | | 11/25/17 at 1142, Anesthesia | | PDT | | | | | Intra-op | | | | | | + +-------+ +--------+---+---+ +---+---+ | | | +---+---+ + +-------+ +---------+---+---+ | ropivacaine (NAROPIN) 5 mg/mL | Given | | 7.5 mLs | | | | (0.5%) injection PERINEURAL, | | 8 11:36 | | | | | PRN, Starting 11/25/17 at | | PDT | | | | | 1136, Anesthesia Intra-op | | | | | | + +-------+ +---------+---+---+ +---+---+ | | | +---+---+ + +---------+ +---+ +---+ | sodium chloride [...]
--- OUTSIDE RECORDS SUMMARY | ~2018-01-18 | XMS | Encounter Summary ---
Demographics + + + | Address | [address] | | | [place] [address] | + + + | Home Phone [...] | Author | [facility] | | | and Min | + + + | Organization | [facility] | | | and [place] | + + + | Address | Unknown | + + + | Phone | Unavailable | + + + Support + + + + + | Name | Relationship | Address | Phone | + + + + + | Brittney Goodrich | ECON | [address] | | | | | [place] | | | | | [address] | | + + + + + Care Team Providers + +------+ + | Care Clothing Designer Name | Role | Phone | + [...] | [address] | [address] [place] | (severe) (HCC) | | | | [place], [place] | [address] [place], [place] | (Primary Dx); Anemia | | | | [phone] | [address] | in stage 4 chronic | | | | [phone] | | kidney disease | | | [...] | | | | | [facility] | | | | | | [address] [place] | | | | | | [address] | | | | | | | [...]
--- OUTSIDE RECORDS SUMMARY | ~2018-01-18 | XMS | Encounter Summary ---
Demographics + + + | Address | [address] | | | [place] [address] | + + + | Home Phone | | + + + | Preferred Language | Unknown | + + + | Marital Status | | + + + | Scientologist Affiliation | 1041 | + + + | Race | Unknown | + + + | Ethnic Group | Unknown | + + + Author + + + | Author | [facility] | | | and Min | + + + | Organization | [facility] | | | and [place] | + + + | Address | Unknown | + + + | Phone | Unavailable | + + + Support + + + + + | Name | Relationship | Address | Phone | + + + + + | Brittney Goodrich | ECON | [address] | | | | | [place] | | | | | [address] | | + + + + + Care Team Providers + +------+ + | Care Rubber Mixer Name | Role | Phone | + [...] | | | | | | | [place] AV | | | | | | | ANAST,UP ARM | | | | | | | BASILIC | | | | | | | VEIN | | | | | | | TRANSPOSIT | | | | | | | [place] | | | | | | | [...] + + | 11/25/ | Hospital | [facility] | Quirino Quezada | | | 2018 | Encounter | MED CTR OR INTRA OP | MD Nando, FACS [address] | | | | | [address] | [address] [place] | | | | | [place], [place] | [place] [address] | | | | | [address] | [phone] | | | | | [phone] | | | +--------+ + + + [...] Instructions Quirino Quezada MD, FACS - 11/25/2017[facility] POST-OP INSTRUCTIONS: Arterio-Venous Fistula 1. Keep the [...] [place] | | | | | | [address] | | | | | | | [...] | | | | | | V ([facility]) (N18.5) | | + +--------+ + + [...] [facility] | | | | | [facility] | | | | | CENTER [...] [address] | [place] | [phone] | | [facility] | | [address] | | | - LABORATORY | | | | + + + + + | [facility] | [address] | [place] | | | [facility] | | [address] | | | - LABORATORY | | | | + + + + + POC Glucose (11/25/2017 1332) + +-------+ + + | Component | Value | Ref Range | Performed At | + +-------+ + + | Glucose, POC | 89 | 70 - 109 mg/dL | [facility] | | | | | [facility] | | | | | CENTER - | | | | | LABORATORY | + +-------+ + + + + | Specimen | + + | Blood | + + + + + + + | Performing | Address | City/State/Zipcode | Phone Number | | Organization | | | | + + + + + | [facility] | [address] | [place], [place] | [phone] | | [facility] | | [address] | | | - LABORATORY | | | | + + + + + | [facility] | [address] | [place], [place] | | | [facility] | | [address] | | | - LABORATORY | | | | + + + + + POC Glucose (11/25/20171223) + +-------+ + + | Component | Value | Ref Range | Performed At | + +-------+ + + | Glucose, POC | 86 | 70 - 109 mg/dL | [facility] | | | | | [facility] | | | | [...] + | [facility] | [address] | [place] | [phone] | | [facility] | | [address] | | | - LABORATORY | | | | + + + + + | [facility] | [address] | [place] | | | [facility] | | [address] | | | - LABORATORY | | | | + + + + + POC Blood Gases (11/25/20171111) + + + + + | Component | Value | Ref Range | Performed At | + + + + + | Specimen Source | Vein | | [facility] | | | | | [facility] | | | | | CENTER - | | | | | LABORATORY | + + + + + | Chloride, POC | 112 (H) | 98 - 109 mEq/L | [facility] | | | | | [facility] | | | | | CENTER [...] + | [facility] | [address] | [place], [place] | [phone] | | [facility] | | [address] | | | - LABORATORY | | | | + + + + + | [facility] | [address] | [place], [place] | | | [facility] | | [address] | | | - LABORATORY | | [...] + | [facility] | [address] | [place] | [phone] | | [facility] | | [address] | | | - LABORATORY | | | | + + + + + | [facility] | [address] | [place] | | | [facility] | | [address] | | | - LABORATORY | | [...] [facility] | | | | | [facility] | | | | | CENTER [...] >=60 mL/min/1.73m2 | [facility] | | [place] | GLOMERULAR FILTRATION | | [facility] | | | RATE,ESTIMATED mL/min | | CENTER - | | | /1.68f0Nflu than 60 | | LABORATORY | | [...] (L) | 8.3 - 10.5 mg/dL | [facility] | | | | | [facility] | | | | | CENTER - | | | | | LABORATORY | + + + + + | [facility] | 17.1 | | [facility] | | | | | [facility] | | | | | CENTER [...] + | [facility] | [address] | [place], [place] | [phone] | | [facility] | | [address] | | | - LABORATORY | | | | + + + + + | [facility] | [address] | [place] | | | [facility] | | [address] | | | - LABORATORY | | [...] + | [facility] | [address] | [place] | [phone] | | [facility] | | [address] | | | - LABORATORY | | | | + + + + + | [facility] | [address] | [place] | | | [facility] | | [id number] | | | - LABORATORY | | | | + + + + + Protime INR (11/25/2017 1043) + + + + + | Component | Value | Ref Range | Performed At | + + + + + | Protime | 13.4 | 11.3 - 13.9 seconds | [facility] | | | | | [facility] | | | | | CENTER [...] [address] | [place] | [phone] | | [facility] | | [address] | | | - LABORATORY | | | | + + + + + | [facility] | [address] | [place], [place] | | | [facility] | | [address] | | | - LABORATORY | | [...]
--- OUTSIDE RECORDS SUMMARY | ~2018-01-18 | XMS | Encounter Summary ---
Demographics + + + | Address | [address] | | | [place] [address] | + + + | Home Phone | | + + + | Preferred Language | Unknown | + + + | Marital Status | | + + + | Lutheran Affiliation | 1041 | + + + | Race | Unknown | + + + | Ethnic Group | Unknown | + + + Author + + + | Author | [facility] | | | and Min | + + + | Organization | [facility] | | | and [place] | + + + | Address | Unknown | + + + | Phone | Unavailable | + + + Support + + + + + | Name | Relationship | Address | Phone | + + + + + | Brittney Goodrich | ECON | [address] | | | | | [place] | | | | | [address] | | + + + + + Care Team Providers + +------+ + | Care Ladies Underwear Operator Name | Role | Phone | + +------+ + | Mars Urrutia DO | PCP | | + +------+ + Encounter Details +--------+ + + + + | Date | Type | Department | Care Team | Description | +--------+ + + + + | 11/10/ | Abstract | [facility] | [place], | Chronic kidney | | 2018 | | NEPHROLOGY [address] | [address] | disease, stage IV | | | | [address] | [address], [place] | (severe) (HCC) | | | | [place], [place] | [address] [place], [place] | (Primary Dx); Anemia | | | | [address] | [address] | in stage 4 chronic | | | | [phone] | | kidney disease (HCC) | +--------+ [...] | 01/29/ | Office | Nephrology | [place], | | | 2017 | Visit | | [address] | | | | | | [facility] | | | | | | [address] [place] | | | | | | [id number] | | | | | | | | +--------+---------+ + + + as of this encounter Procedures + +--------+ + + + | Procedure Name | Priori | Date/Time | Associated Diagnosis | Comments | | | ty | | | | + +--------+ + + + | EXTERNAL LAB: RESHMA | Routin | 11/06/2017 | | Results [...] + in this encounter Results External Lab: BUN (11/06/2017) + +-------+ + + | Component | Value | Ref Range | Performed At | + +-------+ + + | BUN, External | 69 | | EXTERNAL LAB | + +-------+ + + + + | Resulting Agency Comment | + + | [facility] | + + + +---------+ + + | Performing | Address | City/State/Zipcode | Phone Number | | Organization | | | | + +---------+ + + | EXTERNAL LAB | | | | + +---------+ + + External Lab: Glucose (11/06/2017) + +-------+ + + | Component | Value | Ref Range | Performed At | + +-------+ + + | Glucose, External | 183 | | EXTERNAL LAB | + +-------+ + + + + | Resulting Agency Comment | + + | [facility] | + + + +---------+ + + | Performing | Address | City/State/Zipcode | Phone Number | | Organization | | | | + +---------+ + + | EXTERNAL LAB | | | | + +---------+ + + External Lab: Calcium (11/06/2017) + +-------+ + + | Component | Value | Ref Range | Performed At | + +-------+ + + | Calcium, External | 8.1 | | EXTERNAL LAB | + +-------+ + + + + | Resulting Agency Comment | + + | [facility] | + + + +---------+ + + | Performing | Address | City/State/Zipcode | Phone Number | | Organization | | | | + +---------+ + + | EXTERNAL LAB | | | | + +---------+ + + External Lab: Carbon Dioxide (11/06/2017) + +-------+ + + | Component | Value | Ref Range | Performed At | + +-------+ + + | Carbon Dioxide, | 27 | | EXTERNAL LAB | | External | | | | + +-------+ + + + + | Resulting Agency Comment | + + | [facility] | + + + +---------+ + + | Performing | Address | City/State/Zipcode | Phone Number | | Organization | | | | + +---------+ + + | EXTERNAL LAB | | | | + +---------+ + + External Lab: Chloride (11/06/2017) + +-------+ + + | Component | Value | Ref Range | Performed At | + +-------+ + + | Chloride, External | 101 | | EXTERNAL LAB | + +-------+ + + + + | Resulting Agency Comment | + + | [facility] | + + + +---------+ + + | Performing | Address | City/State/Zipcode | Phone Number | | Organization | | | | + +---------+ + + | EXTERNAL LAB | | | | + +---------+ + + External Lab: Potassium (11/06/2017) + +-------+ + + | Component | Value | Ref Range | Performed At | + +-------+ + + | Potassium, External | 4.8 | | EXTERNAL LAB | + +-------+ + + + + | Resulting Agency Comment | + + | [facility] | + + + +---------+ + + | Performing | Address | City/State/Zipcode | Phone Number | | Organization | | | | + +---------+ + + | EXTERNAL LAB | | | | + +---------+ + + External Lab: Sodium (11/06/2017) + +-------+ + + | Component | Value | Ref Range | Performed At | + +-------+ + + | Sodium, External | 139 | | EXTERNAL LAB | + +-------+ + + + + | Resulting Agency Comment | + + | [facility] | + + + +---------+ + + | Performing | Address | City/State/Zipcode | Phone Number | | Organization | | | | + +---------+ + + | EXTERNAL LAB | | | | + +---------+ + + External Lab: eGFR (11/06/2017) + +-------+ + + | Component | Value | Ref Range | Performed At | + +-------+ + + | eGFR, External | 14 | | EXTERNAL LAB | + +-------+ + + + + | Specimen | + + | Blood | + + + + | Resulting Agency Comment | + + | [facility] | + + + +---------+ + + | Performing | Address | City/State/Zipcode | Phone Number | | Organization | | | | + +---------+ + + | EXTERNAL LAB | | | | + +---------+ + + External Lab: Creatinine (11/06/2017) + +-------+ + + | Component | Value | Ref Range | Performed At | + +-------+ + + | Creatinine, External | 4.7 | | EXTERNAL LAB | + +-------+ + + + + | Specimen | + + | Blood | + + + + | Resulting Agency Comment | + + | [facility] | + + + +---------+ + + | Performing | Address | City/State/Zipcode | Phone Number | | Organization | | | | + +---------+ + + | EXTERNAL LAB | | | | + +---------+ + + in this encounter Visit Diagnoses + + | Diagnosis | + + | Chronic kidney disease, stage IV (severe) (HCC) - Primary | + + | Chronic kidney disease, Stage IV (severe) | + + | 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
--- OUTSIDE RECORDS SUMMARY | ~2018-01-18 | XMS | Encounter Summary ---
Demographics + + + | Address | [address] | | | [place] [address] | + + + | Home Phone | | + + + | Preferred Language | Unknown | + + + | Marital Status | | + + + | Gnosticism Affiliation | 1041 | + + + | Race | Unknown | + + + | Ethnic Group | Unknown | + + + Author + + + | Author | [facility] | | | and Min | + + + | Organization | [facility] | | | and [place] | + + + | Address | Unknown | + + + | Phone | Unavailable | + + + Support + + + + + | Name | Relationship | Address | Phone | + + + + + | Brittney Goodrich | ECON | [address] | | | | | [place] | | | | | [address] | | + + + + + Care Team Providers + +------+ + | Care Industrial Sociologist Name | Role | Phone | + +------+ + | Mars Urrutia DO | PCP | | + +------+ + Reason for Referral Service/Procedure (Routine) +--------+--------+ + + + + | Status | Reason | Specialty | Diagnoses / | Referred By | Referred To | | | | | Procedures | Contact | Contact | +--------+--------+ + + + + | Closed | | Infusion | Diagnoses | | [facility] | | | | Therapy | Chronic | [place], | Infusion [address] | | | | | kidney | [address] [address], | [address] | | | | | disease, | 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[place], | | | | | stage V | [address], | [place] [address] | | | | | (HCC) | [place] [address] | Phone: | | | | | Anemia in | [place], | [phone] | | | | | stage 5 | [place] [address] | Fax: | | | | | chronic | Phone: | [phone] | | | | | kidney | [phone] | | | | | | disease, not | Fax: | | | | | | on chronic | [phone] | | | | | | dialysis | | | | | | | (HCC) | | | | | | | Procedures | | | | | | | AL IRON | | | | | | | SUCROSE | | | | | | | INJECTION, 1 | | | | | | | MG AL | | | | | | | INJECTION,TH | | | | | | | ERAP/PROPH/D | | | | | | | IAGNOST, IM | | | | | | | OR SUBCUT | | | +--------+--------+ + + + + Evaluate & Treat (Urgent) [...] | Services | General | Chronic | Factryethalmanas, | Quirino Collier, | | | Required | Surgery | kidney | Maryse Doyle, | , FACS [address] | | | | | disease, | 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 | | | | | stage V | [address], | [place], | | | | | (HCC) | [address] | [place] [address] | | | | | Anemia in | [place], | Phone: | | | | | stage 5 | [place] [address] | [phone] | | | | | chronic | Phone: | Fax: | | | | | kidney | [phone] | [phone] | | | | | disease, not | Fax: | | | | | | on chronic | [phone] | | | | | | dialysis | | | | | | | (HCC) | | | +--------+ + + + + + Encounter Details +--------+ + + + + | Date | Type | Department | Care Team | Description | +--------+ + + + + | 11/14/ | Orders Only | [facility] | [place], | Chronic kidney | | 2018 | | NEPHROLOGY [address] | [address] | disease, stage V | | | | [address] | [address], [place] | ([facility]) (Primary Dx); | | | | [place], [place] | [address] [place], [place] | Anemia in stage 5 | | | | [address] | [address] | chronic kidney | | | | [phone] | | disease, not on | | [...] | | | | [address] [facility] | | | | | | [address] [place] | | | | | | [address] | | | | | | | | +--------+---------+ + + + + +--------+ + + | Name | Priori | Associated Diagnoses | Order Schedule | | | ty | | | + +--------+ + + | VAS Upper Extremity Vein Mapping | Routin | Chronic kidney | Expected: | | Bilat | e | disease, stage V | 11/14/2017, Expires: | | | | (HCC) Anemia in | 11/14/2018 | | | | stage 5 chronic | | | | | kidney disease, not | | | | | on chronic dialysis | | | | | (HCC) | | + +--------+ + + | Renal Function Panel | Routin | Chronic kidney | Expected: 11/21/2017 | | | e | disease, stage V | (Approximate), | | | | (HCC) Anemia in | Expires: 11/15/2018 | | | | stage 5 chronic | | | | | kidney disease, not | | | | | on chronic dialysis | | | | | (HCC) | | + +--------+ + + + +--------+ + + | Name | Priori | Associated Diagnoses | Order Schedule | | | ty | | | + +--------+ + + | * [facility] General Surgery - AMB | Routin | Chronic kidney | Ordered: 11/14/2017 | | Referral | e | disease, stage V | | | | | (HCC) Anemia in | | | | | stage 5 chronic | | | | | kidney disease, not | | | | | on chronic dialysis | | | | | (HCC) | | + +--------+ + + | * [facility]fusion - AMB Referral | Routin | Chronic kidney | Ordered: 11/14/2017 | | | e | disease, stage V | | | | | (HCC) Anemia in | | | | | stage 5 chronic | | | | | kidney disease, not | | | | | on chronic dialysis | | | | | (HCC) | | + +--------+ + + as of this encounter Visit Diagnoses + + | Diagnosis | + + | Chronic kidney disease, stage V (HCC) - Primary | + + | Chronic kidney disease, Stage V | + + | 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
--- OUTSIDE RECORDS SUMMARY | ~2018-01-18 | XMS | Encounter Summary ---
Demographics + + + | Address | [address] | | | [place] [address] | + + + | Home Phone | | + + + | Preferred Language | Unknown | + + + | Marital Status | | + + + | Buddhism Affiliation | 1041 | + + + | Race | Unknown | + + + | Ethnic Group | Unknown | + + + Author + + + | Author | [facility] | | | and Min | + + + | Organization | [facility] | | | and [place] | + + + | Address | Unknown | + + + | Phone | Unavailable | + + + Support + + + + + | Name | Relationship | Address | Phone | + + + + + | Brittney Goodrich | ECON | [address] | | | | | [place] | | | | | [address] | | + + + + + Care Team Providers + +------+ + | Care Fig Bar Machine Operator Name | Role | Phone [...] | [address] | [address], [place] | | | | | [place], [place] | [address] [place], [place] | | | | | [address] | [address] | | | | | [phone] | | | +--------+ + + + [...] [place] | | | | | | [address] | | | | | | | | +--------+---------+ + + + as of this encounter Visit Diagnoses Not on filein this encounter"
--- OUTSIDE RECORDS SUMMARY | ~2018-01-18 | XMS | Encounter Summary ---
Demographics + + + | Address | [address] | | | [place] [address] | + + + | Home Phone [...] | Author | [facility] | | | and Min | + + + | Organization | [facility] | | | and [place] | + + + | Address | Unknown | + + + | Phone | Unavailable | + + + Support + + + + + | Name | Relationship | Address | Phone | + + + + + | Brittney Goodrich | ECON | [address] | | | | | [place] | | | | | [address] | | + + + + + Care Team Providers + +------+ + | Care Senior It Recruiter Name | Role | Phone | + [...] 12/17/ | Telephone | [facility] | Tim Gracia | Kidney Transplant | | 2018 | | [facility] | MD [place] [address] | Evaluation | | | | KIDNEY TRANSPLANT | [address] [place], | | | | | [address] [place] | [place] [address] | | | | | [address] [place], [place] | [phone] | | | | | [address] | | | | | | [phone] | | | +--------+ + + + [...]
--- OUTSIDE RECORDS SUMMARY | ~2018-01-18 | XMS | Clinical Summary ---
Demographics + + + | Address | [address] | | | [place] [address] | + + + | Home Phone | | + + + | Preferred Language | Unknown | + + + | Marital Status | | + + + | Taoism Affiliation | 1041 | + + + | Race | Unknown | + + + | Ethnic Group | Unknown | + + + Author + + + | Author | [facility] | | | and Min | + + + | Organization | [facility] | | | and [place] | + + + | Address | Unknown | + + + | Phone | Unavailable | + + + Support + + + + + | Name | Relationship | Address | Phone | + + + + + | Brittney Goodrich | ECON | [address] | | | | | [place] | | | | | [address] | | + + + + + Care Team Providers + +------+ + | Care Drop Wire Builder Name | Role | Phone | + [...] | | | | V ([facility]) | | | | | | | + + + +---------+------+------+-------+ Active Problems + + + | Problem | Noted Date | + + + | Awaiting transplantation of kidney | 12/15/2017 | + + + + + | Overview: 12/16/17-Referred to [facility] kidney transplant. | + + + [...] | | Quirino Quezada I, | Tony ([facility]) (Primary | | | | | MD, FACS | Dx); Post-operative | | | | | | state | +--------+ + + + + | 12/25/ | Orders Only | | Robb, | Chronic kidney | | 2017 | | | ARIANA Damon | disease (CKD), stage | | | | | | V ([facility]) (Primary | | | | | | Dx); Anemia in stage | | | | | | 5 chronic kidney | | | | | | disease, not on | | | | | | chronic dialysis | | | | | | ([facility]) | +--------+ + + + + | [...] | | | | V ([facility]) (Primary | | | | | | [...] disease | | | | | | ([facility]); Type 2 | | | | | | diabetes mellitus | | | | | | with stage 5 chronic | | | | | | kidney disease not | | | | | | on chronic dialysis, | | | | | | without long-term | | | | | | current use of | | | | | | insulin ([facility]); | | | | | | Secondary | | | | | | hyperparathyroidism | | | | | | ([facility]); Anemia in | | | | | | stage 5 chronic | | | | | | kidney disease, not | | | | | | on chronic dialysis | | | | | | ([facility]) | +--------+ + + + + | [...] dialysis | | | | | | ([facility]); Chronic | | | | | | kidney disease | | | | | | (CKD), stage V ([facility]) | +--------+ + + + + | 12/01/ | Office | | Factreythall, | Chronic kidney | | 2018 | Visit | | ARIANA Damon | disease (CKD), stage | | | | | Quirino Quezada I, | V ([facility]) (Primary | | | | | MD, [...] dialysis | | | | | | ([facility]); Chronic | | | | | | kidney disease | | | | | | (CKD), stage V ([facility]) | +--------+ + + + + | [...] | | | | (CKD), stage V ([facility]) | +--------+ + + + + | [...] dialysis | | | | | | ([facility]); Chronic | | | | | | kidney disease | | | | | | (CKD), stage V ([facility]) | +--------+ + + + | 11/19/ | Office | | Robb, | Chronic kidney | | 2018 | Visit | | ARIANA Damon | disease (CKD), stage | | | | | Quirino Quezada I, | V ([facility]) (Primary | | | | | , FACS | Dx); Anemia in stage | | | | | | 5 chronic kidney | | | | | | disease, not on | | | | | | chronic dialysis | | | | | | ([facility]) | +--------+ + + + + | 11/18/ | Abstract | | Provider, | | | 2018 | | | MD Pavan | | +--------+ + + + + | 11/17/ | Orders Only | | Robb, | Chronic kidney | | 2017 | | | ARIANA Damon | disease (CKD), stage | | | | | | V ([facility]) (Primary | | | | | | Dx); Anemia in stage | | | | | | 5 chronic kidney | | | | | | disease, not on | | | | | | chronic dialysis | | | | | | ([facility]) | +--------+ + + + + | [...] V | | | | | | ([facility]) (Primary Dx); | | | | | [...] | | | | V ([facility]) (Primary | | | | | | Dx); Secondary | | | | | | hyperparathyroidism | | | | | | ([facility]); Type 2 | | | | | | diabetes mellitus | | | | | | with stage 5 chronic | | | | | | kidney disease not | | | | | | on chronic dialysis, | | | | | | without long-term | | | | | | current use of | | | | | | insulin ([facility]); | | | | | | [...] | | from the | | | original.SC | | | [facility] [facility] | | [...] Number: | | | | | | [id number] | | | Date of | | [...] | | | information | | | :[address] | | | [place] | | | D | | | [place] | | | n [place] | | | [phone] | | | [phone] | | | Chelane R. | | | [place] | | | , STRUCTURAL STEEL EQUIPMENT ERECTOR In 1 | | | week. | | | Specialty: | | | Nurse | | | Practitione | | | rWhy: Appt | | | Contact | | | information | | | :[address], | | | [place] | | | [address] | | | [place] | | | [phone] | | | [phone] | | | [...] | | | 10:05 | | | [place] | | | [facility] | | | [facility] | | | [...] | | | | | | [address] [facility] | | | | | | [address] [place] | | | | | | [id number] | | | | | | | [...] | | | | V ([facility]) (N18.5) | | + +--------+ + [...] [facility] | | | | | [facility] | | | | | [facility]ON[facility] - | | | | | LABORATORY | + +-------+ + + + + | Specimen | + + | Blood | + + + + + + + | Performing | Address | City/State/Zipcode | Phone Number | | Organization | | | | + + + + + | [facility] | [address] | [place], [place] | [phone] | | [facility] | | [address] | | | - LABORATORY | | | | + + + + + | [facility] | [address] | [place], [place] | | | [facility] | | [address] | | | - LABORATORY | | [...] | KONRAD TElectronically Signed by: MD Stewart Crariong | | date/time: 11/25/2017 12:12 | |Size: [...] [facility] | | | | | [facility] | | | | | [...] + | [facility] | [address] | [place] | [phone] | | [facility] | | [address] | | | - LABORATORY | | | | + + + + + | [facility] | [address] | [place] | | | [facility] | | [address] | | | - LABORATORY | | | | + + + + + PTT (11/25/20171042) + +-------+ + + | Component | Value | Ref Range | Performed At | + +-------+ + + | PTT | 30 | 22 - 36 seconds | [facility] | | | | | [facility] | | | | | [...] + | [facility] | [address] | [place] | [phone] | | [facility] | | [address] | | | - LABORATORY | | | | + + + + + | [facility] | [address] | [place] | | | [facility] | | [address] | | | - LABORATORY | | [...] + | [facility] | [address] | [place] | [phone] | | [facility] | | [address] | | | - LABORATORY | | | | + + + + + | [facility] | [address] | [place] | | | [facility] | | [address] | | | - LABORATORY | | [...] [facility] | | | | | [facility] | | | | | [...] + | [facility] | [address] | [place] | [phone] | | [facility] | | [address] | | | - LABORATORY | | | | + + + + + | [facility] | [address] | [place] | | | [facility] | | [address] | | | - LABORATORY | | [...] 136 - 149 mmol/L | [facility] | | | | | [facility] | | | | | CENTER - | | | | | LABORATORY | + + + + + | K | 4.3 | 3.5 - 5.1 mmol/L | [facility] | | | | | [facility] | | | | | CENTER [...] [facility] | | | | | [facility] | | | | | CENTER - | | | | | LABORATORY | + + + + + | BUN | 83 (H) | 7 - 18 mg/dL | [facility] | | | | | [facility] | | | | | CENTER [...] SRI LANKAN | GLOMERULAR FILTRATION | | [facility] | | | RATE,ESTIMATED mL/min | | CENTER - | | | /1.41q8Crcn than 60 | | LABORATORY | | [...] FISHER. | | | | | [facility] | | | | | CENTER [...] + | [facility] | [address] | [place], [place] | [phone] | | [facility] | | [address] | | | - LABORATORY | | | | + + + + + | [facility] | [address] | [place], [place] | | | [facility] | | [address] | | | - LABORATORY | | | | + + + + + POCT Urinalysis Dipstick Automated (11/13/2017 2216) + + + + + | Component [...] + + + + + | Specific [place], | 1.015 | 1.001 - 1.030 | [...] + + + + | UA Specific [place], | 1.012 | | | | External [...] [facility] | | | | | [facility] | | | | | [...] + | [facility] | [address] | [place] | [phone] | | [facility] | | [address] | | | - LABORATORY | | | | + + + + + | [facility] | [address] | [place] | | | [facility] | | [address] | | | - LABORATORY | | | | + + + + + Magnesium (11/06/2017 5808)Only the most recent of 3 results within the time period is incl uded. + +-------+ + + | Component | Value | Ref Range | Performed At | + +-------+ + + | MG | 2.3 | 1.8 - 2.5 mg/dL | [facility] | | | | | [facility] | | | | | [...] + | [facility] | [address] | [place] | [phone] | | [facility] | | [address] | | | - LABORATORY | | | | + + + + + | [facility] | [address] | [place], [place] | | | [facility] | | [address] | | | - LABORATORY | | [...] + | [facility] | [address] | [place], [place] | [phone] | | [facility] | | [address] | | | - LABORATORY | | | | + + + + + | [facility] | [address] | [place], [place] | | | [facility] | | [address] | | | - LABORATORY | | [...] + | Performed at: 01 - [facility] [place] [address], | REFERENCE LAB | | [place], [place] [id number] Manager Air: Bishop Sanderson MD, | [facility] | | Phone: [phone] | | + + + + + + + + | Performing | Address | City/State/Zipcode | Phone Number | | Organization | | | | + + + + + | REFERENCE [facility] | [address] | [place] [address] | [phone] | | [facility] | [address] | | | + + + + + Influenza A and B RNA, NAAT (11/04/2017 1229) + + + + + | Component | Value | Ref Range | Performed At | + + + + + | Influenza A PCR | Negative | Negative | [facility] | | | | | [facility] | | | | | CENTER - | | | | | LABORATORY | + + + + + | Influenza B PCR | Negative | Negative | [facility] | | | | | [facility] | | | | | [...] + | [facility] | [address] | [place] | [phone] | | [facility] | | [address] | | | - LABORATORY | | | | + + + + + | [facility] | [address] | [place] | | | [facility] | | [address] | | | - LABORATORY | | [...] | 432 JR. Patient | | | [id number] Date of Study 11/04/2017 | | | Number Visit Number [id number] Accession | | | [id number] Referring Physician KARLOS Leos | | | Number Date of 1970 | | | Enrollment Manager DESMOND | | | ERNESTO, | | | RDCS | | | Age 47 year(s) | | | Interpreting VESTA | | | JYOTI, | | | Cane Stripper | | | Gender Male Nurse | | | St | | | ress Statistical Clerk Advertising Procedure Type of Study TTE procedure: ECHO [...] | cm PW Diastolic: 1.36 cm EF Yivkdhuhp02% EF Calculated: 68% | | | Miscellaneous [...] Diastolic: 1.36 cm | | | EF Fquxeuwki99% | | | EF Calculated: 68% | [...] | JR. | | | | Patient [id number] Date of Study 11/04/2017 | | Number | | | | Visit Number [id number] | | | | Referring Physician KARLOS Leos | | Number | | | | Date of 1970 Enrollment Manager DESMOND OROZCO, | | RDCS | | | | Age 47 year(s) Interpreting VESTA MONTES, | | Cane Stripper | | | | Gender Male Nurse | | | | Stress Statistical Clerk Advertising | | | | Procedure | | [...] PW Diastolic: 1.36 cm | | EF Ehfyarfwv83% | | EF Calculated: 68% | | [...] + | [facility] | [address] | [place], [place] | [phone] | | [facility] | | [address] | | | - LABORATORY | | | | + + + + + | [facility] | [address] | [place], [place] | | | [facility] | | [address] | | | - LABORATORY | | [...] + | [facility] | [address] | [place] | [phone] | | [facility] | | [address] | | | - LABORATORY | | | | + + + + + | [facility] | [address] | [place] | | | [facility] | | [address] | | | - LABORATORY | | | | + + + + + Hemoglobin A1C (11/04/2017501) + +---------+ + + | Component | Value | Ref Range | Performed At | + +---------+ + + | Hemoglobin A1c | 8.4 (H) | 4.3 - 6.0 % | [facility] | | | | | [facility] | | | | | CENTER - | | | | | LABORATORY | + +---------+ + + | Estimated Average | 194 | mg/dL | [facility] | | Glucose | | | [facility] | | | | | [...] + | [facility] | [address] | [place] | [phone] | | [facility] | | [address] | | | - LABORATORY | | | | + + + + + | [facility] | [address] | [place], [place] | | | [facility] | | [address] | | | - LABORATORY | | | | + + + + + Culture, Blood (11/03/20171948)Only the most recent of 2 results within the time period is included. + + + + + | Component | Value | Ref Range | Performed At | + + + + + | Culture | No growth after 5 days | | [facility] | | | incubation. | | [facility] | | | | | [...] + | [facility] | [address] | [place] | [phone] | | [facility] | | [address] | | | - LABORATORY | | | | + + + + + | [facility] | [address] | [place] | | | [facility] | | [address] | | | - LABORATORY | | | | + + + + + B Type Natriuretic Peptide (11/03/20171948) + +---------+ + + | Component | Value | Ref Range | Performed At | + +---------+ + + | BNP | 257 (H) | <100 pg/mL | [facility] | | | | | [facility] | | | | | [...] + | [facility] | [address] | [place] | [phone] | | [facility] | | [address] | | | - LABORATORY | | | | + + + + + | [facility] | [address] | [place] | | | [facility] | | [address] | | | - LABORATORY | | [...] | | [facility] | | | [facility] | | | - LABORATORY | + + + + + + + + | Performing | Address | City/State/Zipcode | Phone Number | | Organization | | | | + + + + + | [facility] | [address] | [place] | [phone] | | [facility] | | [address] | | | - LABORATORY | | | | + + + + + | [facility] | [address] | [place] | | | [facility] | | [address] | | | - LABORATORY | | | | + + + + + Troponin I (11/03/2017 1609) + + + + + | Component | Value | Ref Range | Performed At | + + + + + | Troponin I | 0.03Comment: Reference | <0.06 ng/mL | [facility]. | | | Ranges:0.00-0.06 = | | [facility] | | | NORMAL>0.06 = | [...] infarction. | | | | | [employer] | | | | | [...] [address] | [place] | [phone] | | [facility] | | [address] | | | - LABORATORY | | | | + + + + + | [facility] | [address] | [place], [place] | | | [facility] | | [address] | | | - LABORATORY | | [...] | | | | SERENE MONTELONGO MD ([id number]) | | | | | on 11/04/2017 [...] +--------+ +--------+-------+---------+ | BCBS | BCBS | [id number] | PPO | | | | | [employer]ER[employer] | | | | | | | L FEP | | | | | + +--------+ +--------+-------+---------+ | CITIZEN [employer] [facility] | IHS | [id number] | Indemn | | | | SERVICE [...] | Self | [birth year] | Home: | [address] [place] [address] LN | | JR. | al/Michael | | 1971 | [phone] [place] [address] | | | luann | | | [address]99 | | + +--------+ +--------+ + +
--- OUTSIDE RECORDS SUMMARY | ~2018-01-18 | XMS | Encounter Summary ---
Demographics + + + | Address | [address] | | | [place] [address] | + + + | Home Phone [...] + | Author | [facility] | | | and Min | + + + | Organization | [facility] | | | and [place] | + + + | Address | Unknown | + + + | Phone | Unavailable | + + + Support + + + + + | Name | Relationship | Address | Phone | + + + + + | Brittney Goodrich | ECON | [address] | | | | | [place] | | | | | [address] | | + + + + + Care Team Providers + +------+ + | Care Occupational Health Specialist Name | Role | Phone | [...] | [address] | [address] [place] | (severe) (HCC) | | | | [place], [place] | [address] [place] | (Primary Dx); Anemia | | | | [address] | [address] | in stage 4 chronic | | | | [phone] | | kidney disease (HCC) | +--------+ [...] | | | | | [address] [facility] | | | | | | [address] [place] | | | | | | [address] | | | | | | | [...]
--- OUTSIDE RECORDS SUMMARY | ~2018-01-18 | XMS | Encounter Summary ---
Demographics + + + | Address | [address] | | | [place] [address] | + + + | Home Phone | | + + + | Preferred Language | Unknown | + + + | Marital Status | | + + + | Orthodox Affiliation | 1041 | + + + | Race | Unknown | + + + | Ethnic Group | Unknown | + + + Author + + + | Author | [facility] | | | and Min | + + + | Organization | [facility] | | | and [place] | + + + | Address | Unknown | + + + | Phone | Unavailable | + + + Support + + + + + | Name | Relationship | Address | Phone | + + + + + | Brittney Goodrich | ECON | [address] | | | | | [place] | | | | | [address] | | + + + + + Care Team Providers + +------+ + | Care Student Development Specialist Name | Role | Phone | [...] | | | | | | | [place] AV | | | | | | | ANAST,UP ARM | | | | | | | BASILIC | | | | | | | VEIN | | | | | | | TRANSPOSIT | | | | | | | [place] | | | | | | | [...] | | | | | [address] | [place], [place] | | | | | [place], [place] | [address] | | | | | [address] | | | | | | [phone] | | | +--------+ + + + [...] +----+---+ + + | | 1 | [place] | | | | 2 | 43-degrees | | | | 0 | | | | | 5 | | | +----+---+ + + | | 1 | First | | | | 2 | [address] | | | | 0 | | | | | 9 | | | +----+---+ + + | | 1 | [place] [address] | | | | 4 | [...] | | | | | [address] [facility] | | | | | | [address] [place] | | | | | | [address] | | | | | | | [...]
--- OUTSIDE RECORDS SUMMARY | ~2018-01-18 | XMS | Encounter Summary ---
Demographics + + + | Address | [address] | | | [place] [address] | + + + | Home Phone | | + + + | Preferred Language | Unknown | + + + | Marital Status | | + + + | Holiness Affiliation | 1041 | + + + | Race | Unknown | + + + | Ethnic Group | Unknown | + + + Author + + + | Author | [facility] | | | and Min | + + + | Organization | [facility] | | | and [place] | + + + | Address | Unknown | + + + | Phone | Unavailable | + + + Support + + + + + | Name | Relationship | Address | Phone | + + + + + | Brittney Goodrich | ECON | [address] | | | | | [place] | | | | | [address] | | + + + + + Care Team Providers + +------+ + | Care Farm Management Teacher Name | Role | Phone | + [...] | | / Nephrology | kidney | [address] | Chelane R, | | | | | disease, | CONFEDERATED | PRODUCT SAFETY MANAGER [address] | | | | stage [address] | [address] | [address], | | | | | (severe) | [place], | [place] | | | | | (HCC) | [place] [address] | [place], | | | | | Procedures | Phone: | [place] [address] | | | | | [place] OFFICE | [phone] | Phone: | | | | | OUTPATIENT | Fax: | [phone] | | | | | VISIT 25 | [phone] | Fax: | | | | | MINUTES | | [phone] | +--------+--------+ + + + + Encounter [...] | [address] | [address], [place] | V ([facility]) (Primary | | | | [place], [place] | [address] [place] | Dx); Secondary | | | | [address] | [address] | hyperparathyroidism | | | | [phone] | | ([facility]); Type 2 | | | | | | diabetes mellitus | | | | | | with stage 5 chronic | | | | | | kidney disease not | | | | | | on chronic dialysis, | | | | | | without long-term | | | | | | current use of | | | | | | insulin ([facility]); | | | | | | Nephrotic syndrome; | | | | | | Anemia in stage 5 | | | | | | chronic kidney | | | | | | disease, not on | | | | | | chronic dialysis | | | | | | ([facility]); Hypertension, | | | | | | [...] was 1.7-2.0 mg/dl; increased to 2.2-2.5 mg/dl [id number]; now 3.3- 4.1 mg/dl since June 2017; [...] POC 11/13/2017 Negative Negative Final Ketones, [facility]A, [facility] 11/13/2017 Negative Negative, 100 mg/dL Final Specific [place], [facility], [facility] 11/13/2017 1.015 1.001 - 1.030 Final Blood, UA, [facility] 11/13/2017 Trace Intact* Negative Final pH, UA, [facility] 11/13/2017 5.0 5.0, 6.0, 7.0, 8.0, 5.5, 6.5, 7.5 Final Protein, UA, [facility] 11/13/2017 >=300 mg/dL* Negative Final Urobilinogen, UA, [facility] 11/13/2017 0.2 0.2, Negative, Normal, < 0.2 mg/dL, 1 mg/dL, < 0. 2 E.U./dl, 1.0 E.U./dL, 0.2 mg/dL Final Nitrite, UA, [facility] 11/13/2017 Negative Negative Final Leukocyte Esterase, UA, [facility] 11/13/2017 Negative Negative Final Abstract on 11/12/2017 [...] RBC, External 11/11/2017 1 Final UA Specific [place], External 11/11/2017 1.012 Final UA Leukocyte Esterase, External 11/11/2017 negative Final WBC UA 11/11/2017 0 /HPF Final COLOR 11/11/2017 Yellow Light Yellow, Yellow Final CLARITY 11/11/2017 Clear Final BACTERIA UA 11/11/2017 Negative Negative /HPF Final SQUAMOUS EPITHELIAL UA 11/11/2017 1 /HPF Final NITRITE UA 11/11/2017 Negative Negative Final ASSESSMENT AND PLAN: ICD-10-CM ICD-9-CM 1. 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 Continue follow up with primary care for management. N18.5 585.5 4. Nephrotic syndrome N04.9 581.9 Due to diabetic nephropathy. -on furosemide for control of edema -on statin -serum albumin is mildly low but stable 5. Anemia in stage 5 chronic kidney disease, not on chronic dialysis ([facility]) N18.5 285.21 TSA T is low, not responding to oral supplement. Hb 9-10 recently. -venofer infusion 200 mg x 2, 300 mg x 2 D63.1 585.5 6. Hypertension, renal disease, stage 5 chronic kidney disease or end stage renal disease ( [facility]) I12.0 403.91 Blood pressure is above goal [...] | | | | | [address] [facility] | | | | | | [address] [place] | | | | | | [id number] | | | | | | | [...] the | | | | | V ([facility]) | results section. | + +--------+ + [...] + + + + + | Specific [place], | 1.015 | 1.001 - 1.030 | [...]
--- OUTSIDE RECORDS SUMMARY | ~2018-01-18 | XMS | Encounter Summary ---
Demographics + + + | Address | [address] | | | [place] [address] | + + + | Home Phone | | + + + | Preferred Language | Unknown | + + + | Marital Status | | + + + | Faith Affiliation | 1041 | + + + | Race | Unknown | + + + | Ethnic Group | Unknown | + + + Author + + + | Author | [facility] | | | and Min | + + + | Organization | [facility] | | | and Koryana | + + + | Address | Unknown | + + + | Phone | Unavailable | + + + Support + + + + + | Name | Relationship | Address | Phone | + + + + + | Brittney Goodrich | ECON | [address] | | | | | [place] | | | | | [address] | | + + + + + Care Team Providers + +------+ + | Care Tare Weigher Name | Role | Phone | + [...] + + | 11/07/ | Telephone | [facility] | Rafael Grady, | Hospital Follow-up | | 2018 | | MED CTR PH[facility]Y | [facility] [address] | | | | | [address] | [place], [place] | | | | | [place] [address] | [address] | | | | | [phone] | | | +--------+ + + + [...] [place] | | | | | | [address] | | | | | | | | +--------+---------+ + + + as of this encounter Visit Diagnoses Not on filein this encounter"
--- OUTSIDE RECORDS SUMMARY | ~2018-01-18 | XMS | Encounter Summary ---
Demographics + + + | Address | [address] | | | [place] [address] | + + + | Home Phone | | + + + | Preferred Language | Unknown | + + + | Marital Status | | + + + | Hindu Affiliation | 1041 | + + + | Race | Unknown | + + + | Ethnic Group | Unknown | + + + Author + + + | Author | [facility] | | | and Min | + + + | Organization | [facility] | | | and [place]ana | + + + | Address | Unknown | + + + | Phone | Unavailable | + + + Support + + + + + | Name | Relationship | Address | Phone | + + + + + | Brittney Goodrich | ECON | [address] | | | | | [place] | | | | | [address] | | + + + + + Care Team Providers + +------+ + | Care Optical Engineering Manager Name | Role | Phone | [...] | [address] | [address], [place] | V (HCC) (Primary | | | | [place], [place] | [address] [place], [place] | Dx); Anemia in stage | | | | [address] | [address] | 5 chronic kidney | | | | [phone] | | disease, not on | | | | | | chronic dialysis | | | | | | ([facility]) | +--------+ + + + + Social [...] | | | | | [address] [facility] | | | | | | [address] [place] | | | | | | [address] | | | | | | | [...]
--- OUTSIDE RECORDS SUMMARY | ~2018-01-18 | XMS | Encounter Summary ---
Demographics + + + | Address | [address] | | | [place] [address] | + + + | Home Phone | | + + + | Preferred Language | Unknown | + + + | Marital Status | | + + + | Yarsani Affiliation | 1041 | + + + | Race | Unknown | + + + | Ethnic Group | Unknown | + + + Author + + + | Author | [facility] | | | and Min | + + + | Organization | [facility] | | | and Koryana | + + + | Address | Unknown | + + + | Phone | Unavailable | + + + Support + + + + + | Name | Relationship | Address | Phone | + + + + + | Brittney Goodrich | ECON | [address] | | | | | [place] | | | | | [address] | | + + + + + Care Team Providers + +------+ + | Care Rolled Ham Lacer Name | Role | Phone | + [...] + + | 11/25/ | Surgery | [facility] | Quirino Quezada | LEFT proximal radial | | 2018 | | MED CTR OR INTRA OP | MD Nando, FACS 380 | artery to | | | | [address] | [address] [place] | transposed basilic | | | | [place], [place] | [place] [address] | vein fistula | | | | [address] | [phone] | creation | | | | [phone] | | | +--------+---------+ + + + [...] Discharge Instructions Quirino Quezada MD, FACS - [facility]: Arterio-Venous Fistula 1. Keep the [...] | | | | | | | ([facility]) | | | | | [...] | | | | [address], [facility] | | | | | | [address] [place] | | | | | | [address] | | | | | | | [...] 97 | 70 - 109 mg/dL | [facility] | | | | | [facility] | | | | | [place] - | | | | | LABORATORY | + +-------+ + + + + | Specimen | + + | Blood | + + + + + + + | Performing | Address | City/State/Zipcode | Phone Number | | Organization | | | | + + + + + | [facility] | [address] | [place] | [phone] | | [facility] | | [address] | | | - LABORATORY | | | | + + + + + | [facility] | [address] | [place] | | | [facility] | | [address] | | | - LABORATORY | | | | + + + + + POC Glucose (11/25/2017 1332) + +-------+ + + | Component | Value | Ref Range | Performed At | + +-------+ + + | Glucose, POC | 89 | 70 - 109 mg/dL | [facility] | | | | | [facility] | | | | | [...] + | [facility] | [address] | [place] | [phone] | | [facility] | | [address] | | | - LABORATORY | | | | + + + + + | [facility] | [address] | [place] | | | [facility] | | [address] | | | - LABORATORY | | | | + + + + + POC Glucose (11/25/2017 1224) + +-------+ + + | Component | Value | Ref Range | Performed At | + +-------+ + + | Glucose, POC | 86 | 70 - 109 mg/dL | [facility] | | | | | [facility] | | | | | [...] [address] | [place] | [phone] | | [facility] | | [address] | | | - LABORATORY | | | | + + + + + | [facility] | [address] | [place] | | | [facility] | | [address] | | | - LABORATORY | | | | + + + + + POC Blood Gases (11/25/20171111) + + + + + | Component | Value | Ref Range | Performed At | + + + + + | Specimen Source | Vein | | [facility] | | | | | [facility] | | | | | CENTER - | | | | | LABORATORY | + + + + + | Chloride, POC | 112 (H) | 98 - 109 mEq/L | [facility] | | | | | [facility] | | | | | [...] + | [facility] | [address] | [place] | [phone] | | [facility] | | [address] | | | - LABORATORY | | | | + + + + + | [facility] | [address] | [place] | | | [facility] | | [address] | | | - LABORATORY | | [...] + | [facility] | [address] | [place], [place] | [phone] | | [facility] | | [address] | | | - LABORATORY | | | | + + + + + | [facility] | [address] | [place], [place] | | | [facility] | | [address] | | | - LABORATORY | | [...] [facility] | | | | | [facility] | | | | | CENTER [...] (H) | 0.60 - 1.30 mg/dL | [facility]. | | Serum/Plasma | | | [facility] | | | | | CENTER - | | | | | LABORATORY | + + + + + | eGFR if not | 13 (L)Comment: | >=60 mL/min/1.73m2 | [facility] | | FILIPINO | GLOMERULAR FILTRATION | | [facility] | | | RATE,ESTIMATED mL/min | | CENTER - | | | /1.92l4Aams than 60 | | LABORATORY | | [...] (L) | 8.3 - 10.5 mg/dL | [facility] | | | | | [facility] | | | | | CENTER - | | | | | LABORATORY | + + + + + | [facility] | 17.1 | | [facility] | | | | | [facility] | | | | | CENTER - | | | | | LABORATORY | + + + + + + + | Specimen | + + | Blood | + + + + + + + | Performing | Address | City/[facility] | Phone Number | | Organization | | | | + + + + + | [facility] | [address] | [place] | [phone] | | [facility] | | [address] | | | - LABORATORY | | | | + + + + + | [facility] | [address] | [place] | | | [facility] | | [address] | | | - LABORATORY | | | | + + + + + PTT (11/25/20171042) + +-------+ + + | Component | Value | Ref Range | Performed At | + +-------+ + + | PTT | 30 | 22 - 36 seconds | [facility] | | | | | [facility] | | | | | [...] + | [facility] | [address] | [place] | [phone] | | [facility] | | [address] | | | - LABORATORY | | | | + + + + + | [facility] | [address] | [place], [place] | | | [facility] | | [address] | | | - LABORATORY | | [...] | + + + + + | [facility] | [address] | [place], [place] | [phone] | | [facility] | | [address] | | | - LABORATORY | | | | + + + + + | [facility] | [address] | [place], [place] | | | [facility] | | [address] | | | - LABORATORY | | [...]
--- OUTSIDE RECORDS SUMMARY | ~2018-01-18 | XMS | Encounter Summary ---
Demographics + + + | Address | [address] | | | [place] [address] | + + + | Home Phone | | + + + | Preferred Language | Unknown | + + + | Marital Status | | + + + | Judaism Affiliation | 1041 | + + + | Race | Unknown | + + + | Ethnic Group | Unknown | + + + Author + + + | Author | [facility] | | | and Min | + + + | Organization | [facility] | | | and Koryana | + + + | Address | Unknown | + + + | Phone | Unavailable | + + + Support + + + + + | Name | Relationship | Address | Phone | + + + + + | Brittney Goodrich | ECON | [address] | | | | | [place] | | | | | [address] | | + + + + + Care Team Providers + +------+ + | Care Experimental Mechanic Electrical Name | Role | Phone | + [...] | kidney | Chelane R, | [address] | | | | | disease, | ACCESS CONSULTANT [address] | [place], | | | | | stage V | [address], | [place] [address] | | | | | (HCC) | [address] | Phone: | | | | | Anemia in | [place], | [phone] | | | | | stage 5 | [place] [address] | Fax: | | | | | chronic | Phone: | [phone] | | | | | kidney | [phone] | | | | | | disease, not | Fax: | | | | | | on chronic | [phone] | | | | | | dialysis | | | | | | | (HCC) | | | | | | | Procedures | | | | | | | MI IRON | | | | | | | SUCROSE | | | | | | | INJECTION, 1 | | | | | | | MG MI | | | | | | | [...] | Services | General | Chronic | Factreythalmanas, | Quirino Collier, | | | Required | Surgery | kidney | Maryse Doyle, | , FACS [address] | | | | | disease, | ACCESS CONSULTANT [address] | [address] | | | | | stage V | [address], | [place], | | | | | (HCC) | [address] | [place] [address] | | | | | Anemia in | [place], | Phone: | | | | | stage 5 | [place] [address] | [phone] | | | | | chronic | Phone: | Fax: | | | | | kidney | [phone] | [phone] | | | | | disease, not | Fax: | | | | | | on chronic | [phone] | | | | | | dialysis [...] | [address] | [address], [place] | ([facility]) (Primary Dx); | | | | [place], [place] | [address] [place], [place] | Anemia in stage 5 | | | | [address] | [address] | chronic kidney | | | | [phone] | | disease, not on | | [...] | | | | [address] [facility] | | | | | | [address] [place] | | | | | | [address] | | | | | | | [...] +--------+ + + | * [facility] [place] General Surgery - AMB | Routin | [...]
--- OUTSIDE RECORDS SUMMARY | ~2018-01-18 | XMS | Encounter Summary ---
Demographics + + + | Address | [address] | | | [place] [address] | + + + | Home Phone | | + + + | Preferred Language | Unknown | + + + | Marital Status | | + + + | Confucianist Affiliation | 1041 | + + + | Race | Unknown | + + + | Ethnic Group | Unknown | + + + Author + + + | Author | [facility] | | | and Min | + + + | Organization | [facility] | | | and [place]oryana | + + + | Address | Unknown | + + + | Phone | Unavailable | + + + Support + + + + + | Name | Relationship | Address | Phone | + + + + + | Brittney Goodrich | ECON | [address] | | | | | [place] | | | | | [address] | | + + + + + Care Team Providers + +------+ + | Care Die Cast Operator Name | Role | Phone | [...] | [address] | [address], [place] | V ([facility]) (Primary | | | | [place], [place] | [address] [place], [place] | Dx); Anemia in stage | | | | [address] | [address] | 5 chronic kidney | | | | [phone] | | disease, not on | | | | | | chronic dialysis | | | | | | ([facility]) | +--------+ + + + + [...] | | | | | [facility] | | | | | | [address] [place] | | | | | | [address] | | | | | | | [...]
--- OUTSIDE RECORDS SUMMARY | ~2018-01-18 | XMS | Encounter Summary ---
Demographics + + + | Address | [address] | | | [place] [address] | + + + | Home Phone | | + + + | Preferred Language | Unknown | + + + | Marital Status | | + + + | Orthodoxy Affiliation | 1041 | + + + | Race | Unknown | + + + | Ethnic Group | Unknown | + + + Author + + + | Author | [facility] | | | and Min | + + + | Organization | [facility] | | | and [place]ana | + + + | Address | Unknown | + + + | Phone | Unavailable | + + + Support + + + + + | Name | Relationship | Address | Phone | + + + + + | Brittney Goordich | ECON | [address] | | | | | [place] | | | | | [address] | | + + + + + Care Team Providers + +------+ + | Care Distribution Agent Name | Role | Phone | [...] | [address] | [address], [place] | | | | | [place], [place] | [address] [place], [place] | | | | | [address] | [address] | | | | | [phone] | | | +--------+ + + + [...]
--- OUTSIDE RECORDS SUMMARY | ~2018-01-18 | XMS | Encounter Summary ---
Demographics + + + | Address | [address] | | | [place] [address] | + + + | Home Phone | | + + + | Preferred Language | Unknown | + + + | Marital Status | | + + + | Episcopalian Affiliation | 1041 | + + + | Race | Unknown | + + + | Ethnic Group | Unknown | + + + Author + + + | Author | [facility] | | | and Min | + + + | Organization | [facility] | | | and Koryana | + + + | Address | Unknown | + + + | Phone | Unavailable | + + + Support + + + + + | Name | Relationship | Address | Phone | + + + + + | Brittney Goodrich | ECON | [address] | | | | | [place] | | | | | [address] | | + + + + + Care Team Providers + +------+ + | Care Occupational Health Physiotherapist Name | Role | Phone | + [...] NEPHROLOGY [address] | MD [address] | | | | | [address] | [address] [place] | | | | | [place], [place] | [place] [address] | | | | | [address] | [phone] | | | | | [phone] | | | +--------+ + + + [...]
--- OUTSIDE RECORDS SUMMARY | ~2018-01-18 | XMS | Encounter Summary ---
Demographics + + + | Address | [address] | | | [place] [address] | + + + | Home Phone | | + + + | Preferred Language | Unknown | + + + | Marital Status | | + + + | Baptist Affiliation | 1041 | + + + | Race | Unknown | + + + | Ethnic Group | Unknown | + + + Author + + + | Author | [facility] | | | and Min | + + + | Organization | [facility] | | | and Koryana | + + + | Address | Unknown | + + + | Phone | Unavailable | + + + Support + + + + + | Name | Relationship | Address | Phone | + + + + + | Brittney Goodrich | ECON | [address] | | | | | [place] | | | | | [address] | | + + + + + Care Team Providers + +------+ + | Care Slip Tender Name | Role | Phone | + [...] | | | | | [address] | | | | | | [place] | | | | | | [address] | | | | | | [phone] | | | +--------+ + + + [...] | | | | | [address], [place] | | | | | | [address] [place] | | | | | | [address] | | | | | | | | +--------+---------+ + + + as of this encounter Visit Diagnoses Not on filein this encounter"
--- OUTSIDE RECORDS SUMMARY | ~2018-01-18 | XMS | Encounter Summary ---
Demographics + + + | Address | [address] | | | [place] [address] | + + + | Home Phone [...] + | Author | [facility] | | | and Min | + + + | Organization | [facility] | | | and [place] | + + + | Address | Unknown | + + + | Phone | Unavailable | + + + Support + + + + + | Name | Relationship | Address | Phone | + + + + + | Brittney Goodrich | ECON | [address] | | | | | [place] | | | | | [address] | | + + + + + Care Team Providers + +------+ + | Care Merchandise Execution Leader Name | Role | Phone | + [...] | | | | | | | ([facility]) | | | | | [...] | | | | | | | ([facility]) | | | +--------+--------+ + + + + Encounter Details +--------+ + + + + | Date | Type | Department | Care Team | Description | +--------+ + + + + | 12/01/ | Hospital | [facility] | [place], | Anemia in stage 5 | | 2018 | Encounter | MED CTR OP INFUSION | [address] | chronic kidney | | | | [address] | [address] [place] | disease, not on | | | | [place], [place] | [address] [place] [place] | chronic dialysis | | | | [address] | [address] | ([facility]); Chronic | | | | [phone] | | kidney disease | | | [...] [place] | | | | | | [id number] | | | | | | | [...]
--- OUTSIDE RECORDS SUMMARY | ~2018-01-18 | XMS | Encounter Summary ---
Demographics + + + | Address | [address] | | | [place] [address] | + + + | Home Phone | | + + + | Preferred Language | Unknown | + + + | Marital Status | | + + + | Cheondoism Affiliation | 1041 | + + + | Race | Unknown | + + + | Ethnic Group | Unknown | + + + Author + + + | Author | [facility] | | | and Min | + + + | Organization | [facility] | | | and [place] | + + + | Address | Unknown | + + + | Phone | Unavailable | + + + Support + + + + + | Name | Relationship | Address | Phone | + + + + + | Brittney Goodrich | ECON | [address] | | | | | [place] | | | | | [address] | | + + + + + Care Team Providers + +------+ + | Care Rn Bariatric Name | Role | Phone | + [...] | [address] [place] | [place] [address] | | | | | [address] [place] | [phone] | | | | | [address] | | | | | | [phone] | | | +--------+ + + + [...] [place] | | | | | | [id number] | | | | | | | | +--------+---------+ + + + as of this encounter Visit Diagnoses Not on filein this encounter"
[~2018-01-18 12:53] MED LIST: AMOXICILLIN875 MG PO; ASCORBIC ACID500 M1 PO; CARVEDILOL12.5 MG PO; COL-RITE100 MG PO; CRESTOR10 MG PO; FEOSOL325 MG PO; FUROSEMIDE40 MG PO; GLIPIZIDE XL10 MG PO; IPRAT-ALBUT 0.5-3 ML INH; JANUVIA50 MG PO; LOSARTAN POTAS100 MG PO; NEPHRO-VITE RX1 EACH PO; NORVASC10 MG PO; PIOGLITAZONE HC45 MG PO; RENVELA800 MG PO; SODIUM BICARBO650 MG PO; VELTASSA16.8 GM PO; VITAMIN D35000 UNI1 PO
--- NOTE | 2018-01-18 16:53 | EKG ---
[facility] [address] [place], [place] [address] Signed Normal sinus rhythm Minimal voltage criteria for LVH, may be normal variant Borderline ECG No previous ECGs available Confirmed by EPI JOHNSON DO ([id number]) on 01/18/2018 4:52:43 PM Electronically Signed By: EPI JOHNSON DO 01/18/18 1653 PATIENT NAME: TYRESE AMIN JR Electrocardiogram DATE OF : 68 PHYSICIAN: EPI JOHNSON DO REPORT #: [id number] REPORT IS CONFIDENTIAL AND NOT TO BE RELEASED WITHOUT AUTHORIZATION
== END 2018-01-18 18:17 | disposition short-term general hospital (02) ==
LOC: ED 12:53
DX: J18.9 Pneumonia, unspecified organism (principal); N18.9 Chronic kidney disease, unspecified; I10 Essential (primary) hypertension; R79.89 Other specified abnormal findings of blood chemistry; E11.9 Type 2 diabetes mellitus without complications; Z88.0 Allergy status to penicillin; Z88.8 Allergy status to other drugs, medicaments and biological substances; Z79.899 Other long term (current) drug therapy; Z79.84 Long term (current) use of oral hypoglycemic drugs
CPT/HCPCS: 36415; 71046; 80053; 81001; 83605; 83880; 84484; 85025; 93005; 93010; 96374; 96375; 99285; J0696; J2405

== ENCOUNTER 2023-01-14 23:42 | Emergency (ER) | payer MEDICARE, BC, OTHER ==
[~2023-01-14] VITALS: Ht 175.3 cm; Wt 86.2 kg
[~2023-01-14 23:42] MED LIST changes: +CALCIUM500 MG PO; +TRULICITY0.75 MG/0.
[2023-01-15] MEDS ORDERED: NIFEDIPINE ER60 M1 PO (00:05)
[2023-01-15 04:50] VITALS: BP 161/87
== END 2023-01-15 01:05 | disposition home or self-care (01) ==
LOC: ED 23:42
DX: H11.33 Conjunctival hemorrhage, bilateral (principal); E11.9 Type 2 diabetes mellitus without complications; I10 Essential (primary) hypertension; Z88.0 Allergy status to penicillin; Z88.8 Allergy status to other drugs, medicaments and biological substances; Z79.899 Other long term (current) drug therapy
CPT/HCPCS: 99283

== ENCOUNTER 2024-04-22 06:55 | Day surgery (SDC) | payer MEDICARE, BC, OTHER ==
[2024-04-15 16:13] VITALS: BP 136/77
[~2024-04-22] VITALS: Ht 175.3 cm; Wt 86.4 kg
[~2024-04-22 06:55] MED LIST changes: +BAYER CHEWABLE81 MG PO; +BUDESONIDE-FO10.2 G1; +CLARITIN10 M2 PO; -CRESTOR10 MG PO; +FLUTICASONE-SA1 EAC3 INH; +INSULIN LI100 UNIT/4 SUB-Q; +MIDAZOLAM HCL 5 MG/5 ML VIAL IV PRN; +NIFEDIPINE ER60 M1 PO; +OZEMPIC2 MG/0.75 SUB-Q; +PREDNISONE5 MG PO; +ROCALTROL0.25 MCG PO; +ROSUVASTATIN CA20 MG PO; +TRESIBA100 UNIT/1 SUB-Q; +VENTOLIN HFA18 GM INH; +VITAMIN D325 MCG PO; -VITAMIN D35000 UNI1 PO; +fentaNYL citrate 100 MCG/2 ML VIAL IV PRN
[2024-04-22] MEDS ORDERED: IBLOOD GLUCOSE TEST STRIP 1 EA TEST VI PRN (07:00)
[2024-04-22] MEDS ORDERED: LIDOCAINE HCL 1% 5 ML SDV INJ ONE (07:00)
[2024-04-22] MEDS ORDERED: LACTATED RINGER'S 1,000 ML IV SCH (07:00)
[2024-04-22] MEDS ORDERED: WIXELA 100-501 EACH INH (07:08)
[2024-04-22 07:12] VITALS: BP 153/77
[2024-04-22] MEDS ORDERED: LIDOCAINE HCL 2% 5 ML SDV ONE (07:31)
[2024-04-22] MEDS ORDERED: propofoL 200 MG/20 ML VIAL ONE (07:31)
[2024-04-22] MEDS ORDERED: CELLCEPT500 MG PO (07:37)
[2024-04-22] MEDS ORDERED: NULOJIX250 MG IV (07:59)
--- NOTE | 2024-04-22 09:00 | NUR ---
04/22/24 0900 Ce Thompson 0840-PT ARRIVES TO PACU RESTING ON LT SIDE, PT RESPONSIVE TO TACTILE STIMULI. VSS ON 6L VIA MASK, REU. 0850-PT AWAKENS ON OWN, TITRATED TO RA, VSS, REU. PT DENIES PAIN OR NAUSEA. PT ENCOURAGED TO PASS GAS. CBG AT BEDSIDE 79.
[2024-04-22 09:03] VITALS: BP 139/72
--- NOTE | 2024-04-22 10:46 | OR ---
[facility] [address] [place], [place] [address] Signed DATE OF OPERATION: 04/22/2024 SURGEON: Albert Lynch MD PREOPERATIVE DIAGNOSES: 1. Personal history of colonic polyps in 2015 at age 44. 2. Moderate internal hemorrhoids. 3. Mother with colon cancer in her 70s. POSTOPERATIVE DIAGNOSES: 1. 4 mm polyp at cecum/base of ileocecal valve (clip). 2. Moderate internal hemorrhoids. PROCEDURE: Colonoscopy with hot biopsy and application of clip. ESTIMATED BLOOD LOSS: None. INDICATIONS: Tyrese is a 53-year-old gentleman, who is diabetic and status post renal transplant. He has been asked to see me for a followup colonoscopy. I helped him in 2014 at the age of 44 and once again in 2019 at the age of 48 just before his renal transplant. He has a personal history of tubular adenomatous polyps along with hyperplastic polyps. He is known to have internal hemorrhoids. His mother had colon cancer in her 70s. He currently has no lower GI complaints. He said he is doing well after his renal transplant in 2021 in [place], [place]. In the office, I gave him a pamphlet on colonoscopy. We had reviewed the nature of the test. There is risk including, but not limited to gas bloating, crampy abdominal pain, bleeding, perforation requiring surgery, and missed diagnosis. We also reviewed the written instructions for the bowel prep line by line. He went to his pharmacy and received the entire gallon of polyethylene glycol and followed the directions on the jug. He also understands because of his complex history that he is in need of monitored anesthesia care. He also has a very full round face and of course his history of renal transplant. He had expressed understanding and wished to proceed. He understands an adult person has to take him home afterwards. He had expressed understanding and wished to proceed. PROCEDURE IN DETAIL: Tyrese was taken into our endoscopy suite and placed in the left lateral decubitus position. 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 A digital rectal exam was performed and he has good sphincter tone. There were no external hemorrhoids. There were no masses. His prostate is still fairly small and he has a little bit a nodule on the left side. After this, the adult colonoscope was introduced and advanced all around into the cecum under direct visualization of the camera. He had a good prep. We could easily see the appendiceal orifice and the ileocecal valve. At the base of the ileocecal valve, where it joins the cecum there was a small 4 maybe 5 mm polyp. It was completely biopsied and destroyed with the hot biopsy forceps. When we went to place our clip, the 1st clip was lost and so the 2nd clip was placed with good application and good hemostasis. The scope was then slowly withdrawn. He had no other pathology in the colon. The rectum was unremarkable. Upon retroflexion of the scope, he does have moderate internal hemorrhoid columns. After this, the gas was suctioned out and the colonoscope removed. Tyrese tolerated the procedure quite well. RECOMMENDATIONS: I will see Tyrese back in my office in 7 to 14 days to review his results. It looks like he will be on the five year plan: Albert Lynch MD ALB/MODL /[id number] cc: Albert Lynch MD [facility] Copies: ALBERT LYNCH MD ~ Electronically Signed By: ALBERT LYNCH MD 04/22/24 1046 PATIENT NAME: TYRESE AMIN OPERATIVE REPORT DATE OF : 68 REPORT #: [id number] PHYSICIAN: ALBERT LYNCH MD PCP: KYLEIGH CEJA PAC REPORT IS CONFIDENTIAL AND NOT TO BE RELEASED WITHOUT AUTHORIZATION
== END 2024-04-22 09:11 | disposition home or self-care (01) ==
LOC: DS 06:55
PROVIDERS: ATTEND Colon & Rectal Surgery
PROC: 0DBH8ZZ Excision of Cecum, Via Natural or Artificial Opening Endoscopic (ICD-10-PCS; principal; 2024-04-22 08:15)
DX: D12.0 Benign neoplasm of cecum (principal); K63.5 Polyp of colon; K64.8 Other hemorrhoids; E11.22 Type 2 diabetes mellitus with diabetic chronic kidney disease; I12.0 Hypertensive chronic kidney disease with stage 5 chronic kidney disease or end stage renal disease; N18.6 End stage renal disease; G51.0 Bell's palsy; E78.5 Hyperlipidemia, unspecified; E11.40 Type 2 diabetes mellitus with diabetic neuropathy, unspecified; K21.9 Gastro-esophageal reflux disease without esophagitis; Z79.899 Other long term (current) drug therapy; Z79.4 Long term (current) use of insulin; Z80.0 Family history of malignant neoplasm of digestive organs; Z86.0101 Personal history of adenomatous and serrated colon polyps; Z88.8 Allergy status to other drugs, medicaments and biological substances; Z94.0 Kidney transplant status
CPT/HCPCS: 00811; 88305; J2003; J2704; J7121